=== PATIENT | female | born 1945 | race Caucasian/White ===

== ENCOUNTER → 2016-04-14 | Outpatient (CLI) | payer OTHER ==
[~2016-04-14] MED LIST: ASPCH81X PO; COEN1CAP17 PO; FURO20TA PO; GLUC10007 PO; LACTCAP3 PO; MAGNTAB4 PO; NYST100098 TOP; PHEN1LIQ PO; PRLSR20 PO; SIMV10TA2 PO; SOTA80TA PO
[2016-04-14 15:07] LABS: URINE APPEARANCE CLEAR (CLEAR); URINE BILIRUBIN NEG (NEG); URINE COLOR YELLOW; URINE NITRITE NEG (NEG); URINE SPECIFIC GRAVITY 1.026 (1.000-1.030); UROBILINOGEN NEG (NEG); ZZUR CULT IF INDIC CLEAN CATCH NO
[2016-04-14 15:12] LABS: MANUAL MICROSCOPIC REQUIRED? NO; REVIEW REQ? NO
[2016-04-14 15:15] LABS: BLOOD UREA NITROGEN 21 mg/dl (7-18); BUN/CREATININE RATIO 23.3 (10-20); CALCIUM 8.7 mg/dl (8.5-10.1); CARBON DIOXIDE 24 mmol/L (21-32); CHLORIDE 110 mmol/L (98-107); CREATININE 0.91 mg/dl (0.60-1.20); ESTIMATED AVERAGE GLUCOSE 117 mg/dl; GLUCOSE 82 mg/dl (70-99); HA1C FLAG Normal (Normal); POTASSIUM 4.7 mmol/L (3.5-5.1); SODIUM 143 mmol/L (136-145)
== END | disposition home or self-care (01) ==
LOC: C.LAB1850 13:32
PROVIDERS: ATTEND Nurse Practitioner Family
DX: E11.9 Type 2 diabetes mellitus without complications (principal); R35.0 Frequency of micturition

== ENCOUNTER → 2016-08-15 | Outpatient (CLI) | payer OTHER ==
[~2016-08-15] MED LIST changes: +ASPI-461 PO; +NYST1POW7 TOP; +SLWMEC PO
[2016-08-15 12:26] LABS: BASO % 0.5 %; BASO ABS # 0.03 K/uL (0-0.2); COMPLETE YES; EOS % 4.3 %; HEMATOCRIT 42.8 % (37-47); IG% 0.2 %; LYMPH % 25.2 %; LYMPH ABS # 1.46 K/uL (1.2-3.4); MEAN CELL VOLUME 91.1 fL (80-100); MEAN CORPUSCULAR HEMOGLOBIN 29.8 pg (25-34); MEAN CORPUSCULAR HGB CONC 32.7 g/dl (32-36); MEAN PLATELET VOLUME 8.8 fL (7.4-10.4); MONO % 7.2 %; NEUT % 62.6 %; PLATELET COUNT 268 K/uL (130-400)
[2016-08-15 13:33] LABS: ESTIMATED AVERAGE GLUCOSE 126 mg/dl; HA1C FLAG Normal (Normal)
[2016-08-15 14:04] LABS: RATIO 3.5 mcg/mg (0-30.0)
[2016-08-15 14:09] LABS: ALT/SGPT 15 U/L (12-78); AST/SGOT 12 U/L (15-37); BLOOD UREA NITROGEN 20 mg/dl (7-18); BUN/CREATININE RATIO 20.4 (10-20); CALCIUM 8.9 mg/dl (8.5-10.1); CARBON DIOXIDE 26 mmol/L (21-32); CHLORIDE 110 mmol/L (98-107); CREATININE 0.96 mg/dl (0.60-1.20); GLUCOSE 88 mg/dl (70-99); MAGNESIUM 2.3 mg/dl (1.8-2.4); POTASSIUM 4.5 mmol/L (3.5-5.1); SODIUM 144 mmol/L (136-145)
[2016-08-15 14:14] LABS: ALB/GLOB RATIO 0.9 (0.9-2); ALKALINE PHOSPHATASE 56 U/L (45-117); CHOLESTEROL 152 mg/dl (0-200); CHOLESTEROL/HDL RATIO 2.4; HDL CHOLESTEROL 64 mg/dl; LDL CHOLESTEROL CALCULATED 64 mg/dl; TRIGLYCERIDES 118 mg/dl (0-150); VERY LOW DENSITY LIPOPROT CALC 24 mg/dl
== END | disposition home or self-care (01) ==
LOC: C.LAB1850 11:23
PROVIDERS: ATTEND Nurse Practitioner Family
DX: E11.9 Type 2 diabetes mellitus without complications (principal); I48.91 Unspecified atrial fibrillation; E78.5 Hyperlipidemia, unspecified; K21.9 Gastro-esophageal reflux disease without esophagitis; I89.0 Lymphedema, not elsewhere classified

== ENCOUNTER → 2016-11-28 | Outpatient (CLI) | payer OTHER ==
[~2016-11-28] MED LIST changes: -ASPI-461 PO; -NYST1POW7 TOP; -SLWMEC PO
--- NOTE | 2016-11-29 08:11 | MAMMOGRAPHY REPORT ---
BILATERAL DIGITAL SCREENING MAMMOGRAM WITH CAD: 11/28/2016 CLINICAL HISTORY: Routine screening. Patient has no complaints. TECHNIQUE: Bilateral CC and MLO views were obtained. Current study was also evaluated with a Comput er Aided Detection (CAD) system. COMPARISON: Comparison is made to exams dated: 02/05/2015 mammogram, 12/17/2013 mammogram - [facility], 11/28/2012 mammogram, 03/08/2012 mammogram, 12/01/2011 mammogram, and 10/26/2010 ma mmogram. BREAST COMPOSITION: The tissue of both breasts is almost entirely fatty. FINDINGS: There are stable postsurgical changes in the right breast. A benign oil cyst is seen in t he upper outer quadrant. There are stable punctate calcifications in the far posterior right breast on the MLO view. A stable electronic loop recorder is seen projecting over the medial left breast. N o suspicious mass, architectural distortion or cluster of microcalcifications is identified. IMPRESSION: ACR BI-RADS CATEGORY 2: BENIGN There is no mammographic evidence of malignancy. A 1 year screening mammogram is recommended. The pa tient will receive written notification of the results. Approximately 10% of breast cancers are not detected with mammography. A negative mammographic report should not delay biopsy if a clinically suggestive mass is present. Albertina Wright M.D. ay/:11/28/2016 15:07:41 Striper Spray Gun: Benita RUELASR, M, [facility] letter sent: Normal 1/2 BI-RADS Code: ACR BI-RADS Category 2: Benign
== END | disposition home or self-care (01) ==
LOC: C.MAMM 13:22
PROVIDERS: ATTEND Nurse Practitioner Family
DX: Z12.31 Encounter for screening mammogram for malignant neoplasm of breast (principal)

== ENCOUNTER → 2016-12-26 | Outpatient (CLI) | payer OTHER ==
[~2016-12-26] MED LIST changes: +ASPI-461 PO; +NYST1POW7 TOP; +SLWMEC PO
[2016-12-26 12:52] LABS: ESTIMATED AVERAGE GLUCOSE 117 mg/dl; HA1C FLAG Normal (Normal)
[2016-12-26 12:58] LABS: BLOOD UREA NITROGEN 22 mg/dl (7-18); BUN/CREATININE RATIO 22.3 (10-20); CARBON DIOXIDE 27 mmol/L (21-32); CHLORIDE 108 mmol/L (98-107); CREATININE 0.98 mg/dl (0.60-1.20); GLUCOSE 94 mg/dl (70-99); MAGNESIUM 2.1 mg/dl (1.8-2.4); POTASSIUM 4.2 mmol/L (3.5-5.1); SODIUM 141 mmol/L (136-145)
== END | disposition home or self-care (01) ==
LOC: C.LAB1850 11:30
PROVIDERS: ATTEND Nurse Practitioner Family
DX: E11.9 Type 2 diabetes mellitus without complications (principal); I48.91 Unspecified atrial fibrillation; E78.5 Hyperlipidemia, unspecified; K21.9 Gastro-esophageal reflux disease without esophagitis; I89.0 Lymphedema, not elsewhere classified

== ENCOUNTER → 2017-01-18 | Day surgery (SDC) | payer OTHER ==
[2016-12-26 15:03] VITALS: Ht 152.4 cm; Wt 111.8 kg
[~2017-01-18] VITALS: Ht 152.4 cm; Wt 111.8 kg
[~2017-01-18] MED LIST changes: +500ML BSS 0.3ML EPI 1:1000PF IRRIG ONE; +ACETAMINOPHEN 325 MG TAB PO PRN; +AMVISC PLUS 0.8ML SYRINGE INT OCU ONE; -ASPCH81X PO; +ATROPINE SULFATE 0.1 MG/ML 5ML SYR IV PRN; +BSS FLUSH ONE; +EpHEDrine SULFATE INJ 50 MG/ML AMP IV PRN; +EpINEphrine INJ 1MG/ML AMP 1 MG/ML AMP ONE; +LACTATED RINGER'S 1000ML 500 ML IV SCH; +LIDOCAINE 3.5% OPH GEL PER APPLICATION CHARGE ONE; +LIDOCAINE HCL 1% MPF 2 ML VIAL ONE; -MAGNTAB4 PO; +MIDAZOLAM HCL 1 MG/ML 2ML VIAL ONE; -NYST100098 TOP; +OCUCOAT 1 ML SOLN IO ONE; +POVIDONE-IODINE OP SOLN 30 ML BTL ONE; +PROPARACAINE 0.5% OP SOLN PER DROP CHARGE OPL SCH; +TOBRAMYCIN/DEXAMETHASONE OPH OINT PER APPLN CHARGE ONE
[2017-01-18] MEDS: PHENYLEPHRINE HCL 2.5% OP SOLN PER DROP CHARGE OPL SCH ×2 (08:27→08:32)
[2017-01-18] MEDS: TROPICAMIDE 1% OP SOLN PER DROP CHARGE OPL SCH ×2 (08:28→08:32)
[2017-01-18] MEDS: CYCLOPENTOLATE HCL 1% OP SOLN PER DROP CHARGE OPL SCH ×2 (08:29→08:34)
[2017-01-18] MEDS: KETOROLAC 0.5% OP SOLN PER DROP CHARGE OPL SCH ×2 (08:30→08:35)
[2017-01-18] MEDS: GATIFLOXACIN OP SOLN PER DROP CHARGE OPL SCH ×2 (08:31→08:36)
--- NOTE | 2017-01-18 08:55 | History & Physical Bridge - SC ---
H&P Re-Evaluation Bridge Note: I have examined the patient, reviewed the History & Physical and in the interval since the performance of the History & Physical I have noted the following changes of clinical significance Diagnosis: Left Cataract Procedure: Left Cataract Removal with Lens Implant : No changes noted
--- NOTE | 2017-01-18 09:30 | Discharge Instructions-SurgCtr ---
Discharge Instructions Date of Service Jan 18, 2017. Visit Reason for Visit: Left Cataract Discharge Discharge Diagnosis / Problem: cataract Discharge Goals Goal(s): Improve function Activity Recommendations Activity Limitations: per Instructions/Follow-up section Anesthesia . Post Anesthesia Instructions: If you have had General Anesthesia or IV Sedation: * Do not drive today. * Resume driving when surgeon permits. * Do not make important decisions or sign legal documents today. * Call surgeon for: 1. Temperature elevations greater than 101 degrees F. 2. Uncontrollable pain. 3. Excessive bleeding. 4. Persistent nausea and vomiting. 5. Medication intolerance (nausea, vomiting or rash). * For nausea and vomiting use only clear liquids such as: tea, soda, bouillon until nausea subsides, then gradually increase diet as tolerated. * If you have any concerns or questions, call your surgeon's office. If physician is unavailable and it is an emergency, call 911 or go to the nearest emergency room. . Diet Recommendations Home Diet: resume previous diet Procedures Procedures Performed: Left Cataract Phacoemulsification With Intraocular Lens Implant Pending Studies Studies pending at discharge: no Medical Emergencies . Who to Call and When: Medical Emergencies: If at any time you feel your situation is an emergency, please call 911 immediately. . Non-Emergent Contact Non-Emergency issues call your: Creative Services Designer . . "Provider Documentation" section prepared by Lokesh Ritchie. .
--- NOTE | 2017-01-18 09:31 | [facility] Operative Report ---
Operative Report Date of Service Jan 18, 2017. Operative Report 1. PREOPERATIVE DIAGNOSIS: Cataract of the left eye. 2. POSTOPERATIVE DIAGNOSIS: Same. 3. PROCEDURE: Phacoemulsification with intraocular lens implantation of the left eye. SURGEON: Dr. Lokesh Ritchie. ANESTHESIA: Topical Lidocaine gel, 1% Non- Preserved intracameral Lidocaine, and monitored intravenous sedation. INDICATIONS FOR THE PROCEDURE: The patient is a 71 - year-old female with a history of cataract of the left eye causing significant visual impairment. The details of the proposed procedure were explained to the patient who asked appropriate questions and following discussion of all risks, benefits and alternatives agreed to have the procedure done. 4. OPERATION AND FINDINGS: DESCRIPTION OF PROCEDURE: After informed consent was obtained, the patient was brought to the Operating Room at the [facility]. The patient was placed in a supine position and then the left eye was prepped and draped in the usual sterile fashion for intraocular surgery. A drop of topical Lidocaine gel was placed in the operative eye. A wire lid speculum was then placed in the fornices. A corneal paracentesis was then created temporally. The Non-Preserved Lidocaine was then instilled into the anterior chamber. The anterior chamber was then pressurized with viscoelastic. A 2.0 mm clear corneal incision was then created temporally. A cystotome was inserted into the anterior chamber and used to create a tear in the anterior lens capsule. This capsular tear was then used to create a small flap and the flap was dragged in a counterclockwise direction in order to create a continuous curvilinear capsulorrhexis. Hydrodissection was accomplished with balanced salt solution. Phacoemulsification of the lens nucleus was then performed in a standard [id number]-yibcpxp technique. The phaco time was 39 seconds with an average power of 19 %. The remaining cortical material was removed using irrigation aspiration. The capsular bag was then filled with viscoelastic. A [employer]ch [employer] Lomb MX60 +08.0 diopters lens was then loaded into the injector and injected into the capsular bag. The remaining viscoelastic was removed with the irrigation aspiration handpiece. The wound was hydrated and then checked and found to be watertight. The intraocular pressure was checked and found to be adequate. The wire lid speculum was removed and the patient's face was cleaned and dried. TobraDex ointment was placed in the inferior fornix. The patient was discharged to the Recovery Room having tolerated the procedure well. There were no complications. The patient will be seen tomorrow in the office for follow-up. I attest to the content of the Intraoperative Record and any orders documented therein. Any exceptions are noted below.
--- NOTE | 2017-01-18 09:58 | Anesthesia Progress Nt - [facility] ---
Anesthesia Post Op Note Date & Time Jan 18, 2017 at 09:58 Vital Signs Pain Intensity: 0 Vital Signs Past 12 Hours Date Time Temp Pulse Resp B/P (MAP) Pulse Ox O2 Delivery O2 Flow Rate FiO2 01/18/17 09:35 36.5 56 16 142/73 (96) 99 01/18/17 08:13 36.5 55 18 145/90 (108) 100 Room Air Notes Mental Status: alert / awake / arousable, participated in evaluation Pt Amnestic to Procedure: Yes Nausea / Vomiting: adequately controlled Pain: adequately controlled Airway Patency, RR, SpO2: stable & adequate BP & HR: stable & adequate Hydration State: stable & adequate Anesthetic Complications: no major complications apparent
[2017-01-18 10:01] VITALS: BP 127/55; PULSE 56; TEMP 36.5; O2SAT 100
== END | disposition home or self-care (01) ==
LOC: X.SURG 07:45
PROVIDERS: ATTEND Ophthalmology
DX: E11.36 Type 2 diabetes mellitus with diabetic cataract (principal); I48.91 Unspecified atrial fibrillation; I49.5 Sick sinus syndrome; I47.1 Supraventricular tachycardia; I08.0 Rheumatic disorders of both mitral and aortic valves; E78.5 Hyperlipidemia, unspecified; K21.9 Gastro-esophageal reflux disease without esophagitis; I89.0 Lymphedema, not elsewhere classified; E66.9 Obesity, unspecified; M85.80 Other specified disorders of bone density and structure, unspecified site; Z95.818 Presence of other cardiac implants and grafts; Z79.82 Long term (current) use of aspirin; Z79.899 Other long term (current) drug therapy

== ENCOUNTER → 2017-02-20 | Day surgery (SDC) | payer OTHER ==
[2017-01-31 10:32] VITALS: Ht 152.4 cm; Wt 111.8 kg
[~2017-02-20] VITALS: Ht 152.4 cm; Wt 111.8 kg
[~2017-02-20] MED LIST changes: -PROPARACAINE 0.5% OP SOLN PER DROP CHARGE OPL SCH; +PROPARACAINE 0.5% OP SOLN PER DROP CHARGE OPR SCH
[2017-02-20] MEDS: PHENYLEPHRINE HCL 2.5% OP SOLN PER DROP CHARGE OPR SCH ×2 (07:35→07:40)
[2017-02-20] MEDS: TROPICAMIDE 1% OP SOLN PER DROP CHARGE OPR SCH ×2 (07:36→07:41)
[2017-02-20] MEDS: CYCLOPENTOLATE HCL 1% OP SOLN PER DROP CHARGE OPR SCH ×2 (07:37→07:42)
[2017-02-20] MEDS: KETOROLAC 0.5% OP SOLN PER DROP CHARGE OPR SCH ×2 (07:38→07:43)
[2017-02-20] MEDS: GATIFLOXACIN OP SOLN PER DROP CHARGE OPR SCH ×2 (07:39→07:48)
--- NOTE | 2017-02-20 08:07 | History & Physical Bridge - SC ---
H&P Re-Evaluation Bridge Note: I have examined the patient, reviewed the History & Physical and in the interval since the performance of the History & Physical I have noted the following changes of clinical significance: No changes noted
--- NOTE | 2017-02-20 08:40 | Discharge Instructions-SurgCtr ---
Discharge Instructions Date of Service Feb 20, 2017. Visit Reason for Visit: Cataract Right Eye Discharge Discharge Diagnosis / Problem: cataract Discharge Goals Goal(s): Improve function Activity Recommendations Activity Limitations: per Instructions/Follow-up section Anesthesia . Post Anesthesia Instructions: If you have had General Anesthesia or IV Sedation: * Do not drive today. * Resume driving when surgeon permits. * Do not make important decisions or sign legal documents today. * Call surgeon for: 1. Temperature elevations greater than 101 degrees F. 2. Uncontrollable pain. 3. Excessive bleeding. 4. Persistent nausea and vomiting. 5. Medication intolerance (nausea, vomiting or rash). * For nausea and vomiting use only clear liquids such as: tea, soda, bouillon until nausea subsides, then gradually increase diet as tolerated. * If you have any concerns or questions, call your surgeon's office. If physician is unavailable and it is an emergency, call 911 or go to the nearest emergency room. . Diet Recommendations Home Diet: resume previous diet Procedures Procedures Performed: Right Cataract Phacoemulsification With Intraocular Cain Implant Pending Studies Studies pending at discharge: no Medical Emergencies . Who to Call and When: Medical Emergencies: If at any time you feel your situation is an emergency, please call 911 immediately. . Non-Emergent Contact Non-Emergency issues call your: Building Maintenance Technician . . "Provider Documentation" section prepared by Lokesh Ritchie. .
--- NOTE | 2017-02-20 08:41 | [facility] Operative Report ---
Operative Report Date of Service Feb 20, 2017. Operative Report 1. PREOPERATIVE DIAGNOSIS: Cataract of the right eye. 2. POSTOPERATIVE DIAGNOSIS: Same. 3. PROCEDURE: Phacoemulsification with intraocular lens implantation of the right eye. SURGEON: Dr. Lokesh Ritchie. ANESTHESIA: Topical Lidocaine gel, 1% Non- Preserved intracameral Lidocaine, and monitored intravenous sedation. INDICATIONS FOR THE PROCEDURE: The patient is a 71 - year-old female with a history of cataract of the right eye causing significant visual impairment. The details of the proposed procedure were explained to the patient who asked appropriate questions and following discussion of all risks, benefits and alternatives agreed to have the procedure done. 4. OPERATION AND FINDINGS: DESCRIPTION OF PROCEDURE: After informed consent was obtained, the patient was brought to the Operating Room at the [facility]. The patient was placed in a supine position and then the right eye was prepped and draped in the usual sterile fashion for intraocular surgery. A drop of topical Lidocaine gel was placed in the operative eye. A wire lid speculum was then placed in the fornices. A corneal paracentesis was then created temporally. The Non-Preserved Lidocaine was then instilled into the anterior chamber. The anterior chamber was then pressurized with viscoelastic. A 2.0 mm clear corneal incision was then created temporally. A cystotome was inserted into the anterior chamber and used to create a tear in the anterior lens capsule. This capsular tear was then used to create a small flap and the flap was dragged in a counterclockwise direction in order to create a continuous curvilinear capsulorrhexis. Hydrodissection was accomplished with balanced salt solution. Phacoemulsification of the lens nucleus was then performed in a standard oghpxs-bzw-dioxvxq technique. The phaco time was 34 seconds with an average power of 17 %. The remaining cortical material was removed using irrigation aspiration. The capsular bag was then filled with viscoelastic. A Bausch & Lomb MX60 +10.0 diopters lens was then loaded into the injector and injected into the capsular bag. The remaining viscoelastic was removed with the irrigation aspiration handpiece. The wound was hydrated and then checked and found to be watertight. The intraocular pressure was checked and found to be adequate. The wire lid speculum was removed and the patient's face was cleaned and dried. TobraDex ointment was placed in the inferior fornix. The patient was discharged to the Recovery Room having tolerated the procedure well. There were no complications. The patient will be seen tomorrow in the office for follow-up. I attest to the content of the Intraoperative Record and any orders documented therein. Any exceptions are noted below.
[2017-02-20 08:45] VITALS: TEMP 36.2
--- NOTE | 2017-02-20 08:48 | Anesthesia Progress Nt - [facility] ---
Anesthesia Post Op Note Date & Time Feb 20, 2017 at 08:48 Vital Signs Pain Intensity: 0 Vital Signs Past 12 Hours Date Time Temp Pulse Resp B/P (MAP) Pulse Ox O2 Delivery O2 Flow Rate FiO2 02/20/17 07:24 37.0 62 16 137/71 (93) 97 Room Air Notes Mental Status: alert / awake / arousable, participated in evaluation Pt Amnestic to Procedure: Yes Nausea / Vomiting: adequately controlled Pain: adequately controlled Airway Patency, RR, SpO2: stable & adequate BP & HR: stable & adequate Hydration State: stable & adequate Anesthetic Complications: no major complications apparent
[2017-02-20 09:14] VITALS: BP 143/69; PULSE 55; O2SAT 98
== END | disposition home or self-care (01) ==
LOC: X.SURG 06:56
PROVIDERS: ATTEND Ophthalmology
DX: E11.36 Type 2 diabetes mellitus with diabetic cataract (principal); I48.91 Unspecified atrial fibrillation; E78.5 Hyperlipidemia, unspecified; K21.9 Gastro-esophageal reflux disease without esophagitis; Z79.899 Other long term (current) drug therapy

== ENCOUNTER → 2017-06-28 | Outpatient (CLI) | payer OTHER ==
[~2017-06-28] MED LIST changes: -500ML BSS 0.3ML EPI 1:1000PF IRRIG ONE; -ACETAMINOPHEN 325 MG TAB PO PRN; -AMVISC PLUS 0.8ML SYRINGE INT OCU ONE; -ATROPINE SULFATE 0.1 MG/ML 5ML SYR IV PRN; -BSS FLUSH ONE; -EpHEDrine SULFATE INJ 50 MG/ML AMP IV PRN; -EpINEphrine INJ 1MG/ML AMP 1 MG/ML AMP ONE; -LACTATED RINGER'S 1000ML 500 ML IV SCH; -LIDOCAINE 3.5% OPH GEL PER APPLICATION CHARGE ONE; -LIDOCAINE HCL 1% MPF 2 ML VIAL ONE; -MIDAZOLAM HCL 1 MG/ML 2ML VIAL ONE; -OCUCOAT 1 ML SOLN IO ONE; -POVIDONE-IODINE OP SOLN 30 ML BTL ONE; -PROPARACAINE 0.5% OP SOLN PER DROP CHARGE OPR SCH; -TOBRAMYCIN/DEXAMETHASONE OPH OINT PER APPLN CHARGE ONE
[2017-06-28 13:17] LABS: BASO % 0.6 %; BASO ABS # 0.03 K/uL (0-0.2); EOS % 2.4 %; EOS ABS # 0.13 K/uL (0-0.5); HEMATOCRIT 43.7 % (37-47); HEMOGLOBIN 14.5 g/dL (12.0-16.0); IG# 0.01 K/uL (0.00-0.02); MEAN CELL VOLUME 90.7 fL (80-100); MEAN CORPUSCULAR HEMOGLOBIN 30.1 pg (25-34); MEAN CORPUSCULAR HGB CONC 33.2 g/dl (32-36); MEAN PLATELET VOLUME 8.9 fL (7.4-10.4); MONO % 7.5 %; NEUT % 59.3 %; NEUT ABS # 3.16 K/uL (1.4-6.5); PLATELET COUNT 282 K/uL (130-400); RED CELL DISTRIBUTION WIDTH CV 13.4 % (11.5-14.5); RED CELL DISTRIBUTION WIDTH SD 44.7 fL (36.4-46.3); WHITE BLOOD COUNT 5.33 K/uL (4.8-10.8)
[2017-06-28 13:21] LABS: HEMOGLOBIN A1C 5.8 % (4.5-5.6)
[2017-06-28 13:32] LABS: ALBUMIN 3.1 gm/dl (3.4-5.0); ALT/SGPT 14 U/L (12-78); AST/SGOT 9 U/L (15-37); BLOOD UREA NITROGEN 19 mg/dl (7-18); CALCIUM 8.9 mg/dl (8.5-10.1); CARBON DIOXIDE 25 mmol/L (21-32); CREATININE 1.01 mg/dl (0.60-1.20); GLUCOSE 89 mg/dl (70-99); POTASSIUM 4.2 mmol/L (3.5-5.1); SODIUM 141 mmol/L (136-145)
[2017-06-28 13:36] LABS: ALKALINE PHOSPHATASE 52 U/L (45-117); CHOLESTEROL 142 mg/dl (0-200); LDL CHOLESTEROL CALCULATED 47 mg/dl; TOTAL PROTEIN 6.6 gm/dl (6.4-8.2)
== END | disposition home or self-care (01) ==
LOC: C.LAB1850 11:31
PROVIDERS: ATTEND Neuromusculoskeletal Medicine & OMM
DX: Z00.00 Encounter for general adult medical examination without abnormal findings (principal); E11.9 Type 2 diabetes mellitus without complications; I48.91 Unspecified atrial fibrillation

== ENCOUNTER → 2017-07-30 | Outpatient (CLI) | payer OTHER | END | disposition home or self-care (01) | LOC: C.LABSPEC 12:26 | PROVIDERS: ATTEND Physician Assistant | DX: K62.5 Hemorrhage of anus and rectum (principal) ==

== ENCOUNTER 2023-10-08 20:23 | Inpatient (IN) ==
[2023-10-08 21:36] LABS: Alanine Aminotransferase 6 U/L (7-52); Albumin Globulin Ratio 1.1 (0.9-2); Albumin Level 3.1 gm/dl (3.4-5.0); Alkaline Phosphatase 43 U/L (34-104); Anion Gap 5 (3-11); Aspartate Aminotransferase 12 U/L (13-39); BUN Creatinine Ratio 17.4 (10-20); Bilirubin,Total 0.4 mg/dl (0.2-1.0); Blood Urea Nitrogen 23 mg/dl (6-23); Calcium 9.1 mg/dl (8.6-10.3); Carbon Dioxide 25 mmol/L (21-32); Chloride 107 mmol/L (98-107); Est GFR (African American) 44.7 ml/min; Est GFR (Non-African American) 38.5 ml/min; Globulin 2.9 gm/dl (2.5-4.0); Glucose 120 mg/dl (70-99(Fasting)); Potassium 4.5 mmol/L (3.5-5.1); Sodium 137 mmol/L (136-145)
[2023-10-08 21:50] LABS: Basophils # (auto) 0.03 K/uL (0.00-0.20); Basophils % (auto) 0.6 %; Eosinophils # (auto) 0.17 K/uL (0.00-0.50); Eosinophils % (auto) 3.1 %; Hematocrit (blood only) 40.5 % (37.0-47.0); Hemoglobin 13.2 g/dl (12.0-16.0); Immature Granulocytes # (auto) 0.03 K/uL (0.01-0.20); Immature Granulocytes % (auto) 0.6 %; Lymphocytes # (auto) 1.39 K/uL (1.20-3.40); Lymphocytes % (auto) 25.6 %; Mean Corpuscular Hemoglobin 29.9 pg (25.0-34.0); Mean Corpuscular Hgb Conc 32.6 g/dL (32.0-36.0); Mean Corpuscular Volume 91.6 fL (80.0-100.0); Mean Platelet Volume 8.7 fL (9.4-12.4); Monocytes # (auto) 0.46 K/uL (0.11-0.59); Monocytes % (auto) 8.5 %; Neutrophils # (auto) 3.34 K/uL (1.40-6.50); Neutrophils % (auto) 61.6 %; Platelet Count 269 K/uL (130-400); RDW Coefficient of Variation 15.3 % (11.5-14.5); RDW Standard Deviation 51.6 fL (36.4-46.3); Red Blood Count 4.42 M/uL (4.20-5.40); White Blood Count 5.42 K/ul (4.8-10.8)
[2023-10-08 22:34] LABS: Adenovirus PCR Not Detected (NotDetected); Bordetella parapertussis PCR Not Detected (NotDetected); Bordetella pertussis PCR Not Detected (NotDetected); Chlamydia pneumoniae PCR Not Detected (NotDetected); Coronavirus 229E PCR Not Detected (NotDetected); Coronavirus CoV-2 (COVID19)PCR DETECTED (NotDetected); Coronavirus HKU1 PCR Not Detected (NotDetected); Coronavirus NL63 PCR Not Detected (NotDetected); Coronavirus OC43PCR Not Detected (NotDetected); Human Metapneumovirus PCR Not Detected (NotDetected); Influenza A PCR Not Detected (NotDetected); Influenza B PCR Not Detected (NotDetected); Mycoplasma pneumoniae PCR Not Detected (NotDetected); Parainfluenza Virus 1 PCR Not Detected (NotDetected); Parainfluenza Virus 2 PCR Not Detected (NotDetected); Parainfluenza Virus 3 PCR Not Detected (NotDetected); Parainfluenza Virus 4 PCR Not Detected (NotDetected); Respiratory Syncytial VirusPCR Not Detected (NotDetected); Rhinovirus/Enterovirus PCR Not Detected (NotDetected)
--- NOTE | 2023-10-08 22:55 | Emergency Department Note ---
Impression & Plan COVID-19, Urinary tract infection, Generalized weakness ED Provider Note NAME: EUFEMIA JONES AGE: 77 SEX: F : 1945 ARRIVES VIA: Walk-In INFORMANT: Patient ED PROVIDER(S): Severino Celaya MD CHIEF COMPLAINT: Cough congestion, body aches, generalized weakness PLAN: Disposition: Admit MEDICAL DECISION MAKING: The patient is a pleasant 77-year-old woman with a past medical history of cardiomyopathy, paroxysmal atrial tachycardia, type 2 diabetes, chronic lymphedema, hypertension, hyperlipidemia, gait instability who presents to the emergency department via walk-in accompanied by her son for evaluation of shortness of breath, cough, congestion, generalized weakness and bodyaches over the past week where she was seen by her PCP 5 days ago and started on doxycycline for bronchitis. However she reports no significant improvement this time has become weaker increasingly weak where she feels she is unable to ambulate at home where she lives by herself. She denies any chest pain. She denies nausea, vomiting or diarrhea. The patient describes a prolonged course of respiratory illnesses dating back to April. She describes that she had a negative home COVID-19 test at that time but understands that her doctor suspected she may have had a false negative and suspected this was COVID at that time. She then reports a couple of months later developing cough and congestion and was diagnosed with pneumonia and treated with antibiotics and then had improvement. The patient further adds that she feels her congestion has never completely gone away nor has her fatigue/malaise and this is why she understands that it was suspected that she may have long COVID related to her illness in April. However she acknowledges that she never had a positive COVID-19 test at that time or subsequently. Of note, the patient did arrive to emergency department during time of high volume, acuity and prolonged emergency department waiting times. Critical pathways initiated from triage. On evaluation, patient is fatigued appearing but no distress, afebrile with blood pressure 140s-160s/90s/100s and vital signs otherwise stable. She exhibits chronic lymphedema but has dry mucous membranes. She exhibits generalized weakness without focal deficits. EKG without overt acute ischemia. CXR negative for acute cardiopulmonary process per my personal preliminary review/interpretation. WBC, H/H and platelets within normal limits. Chemistry without metabolic acidosis. Creatinine 1.3 similar to recent values since June of this year. LFTs are unremarkable. Procalcitonin is not elevated. UA suspicious for infection with positive nitrites, leuk esterase and 1+ bacteria. Treatment for UTI was initiated with IV ceftriaxone. Respiratory BioFire did result positive for COVID-19. Given the patient's new respiratory symptoms that started a week ago in the setting of increased weakness from her recent chronic weakness suspect acute COVID-19 infection is likely a component to her presentation today as is her UTI. Given patient reports inability to walk due to her weakness she does agree with plan for admission for further management. Dr. Meza, [facility], to evaluate the patient for admission. Further management per admitting team. Triage Nursing notes reviewed and agree them. Prior/external medical records reviewed Vital Signs: reviewed Differential diagnosis: Reactive airway disease, pneumonia, pneumothorax, COPD, CHF, infections, cardiac ischemia, pulmonary embolism, musculoskeletal, gastrointestinal, as well as other pathologies. ER treatment provided: See below. Diagnostics interpreted by me: ECG: Normal sinus rhythm, 64 bpm, no ectopy, no overt ST elevation or depression, QTc 443, cures 84. Cardiac Monitoring: An order for continuous cardiac monitoring was placed and demonstrated Normal sinus rhythm, 64 bpm, no ectopy. Laboratory studies: See below Imaging studies: CXR negative for acute cardiopulmonary process per my personal preliminary review/interpretation. Consultation(s): Dr. Meza, [facility] [place] hospitalist, to evaluate the patient for admission. HPI: The patient is a pleasant 77-year-old woman with a past medical history of cardiomyopathy, paroxysmal atrial tachycardia, type 2 diabetes, chronic lymphedema, hypertension, hyperlipidemia, gait instability who presents to the emergency department via walk-in accompanied by her son for evaluation of shortness of breath, cough, congestion, generalized weakness and bodyaches over the past week where she was seen by her PCP 5 days ago and started on doxycycline for bronchitis. However she reports no significant improvement this time has become weaker increasingly weak where she feels she is unable to ambulate at home where she lives by herself. She denies any chest pain. She denies nausea, vomiting or diarrhea. The patient describes a prolonged course of respiratory illnesses dating back to April. She describes that she had a negative home COVID-19 test at that time but understands that her doctor suspected she may have had a false negative and suspected this was COVID at that time. She then reports a couple of months later developing cough and congestion and was diagnosed with pneumonia and treated with antibiotics and then had improvement. The patient further adds that she feels her congestion has never completely gone away nor has her fatigue/malaise and this is why she understands that it was suspected that she may have long COVID related to her illness in April. However she acknowledges that she never had a positive COVID-19 test at that time or subsequently. ROS: See above HPI for pertinent positives & negatives. A total of 10 systems reviewed and were otherwise negative. VITALS:See Below PHYSICAL EXAMINATION: GENERAL: Awake, alert, fatigued-appearing, in no distress, BMI 41.6 HENT: Normocephalic, atraumatic. Oropharynx unremarkable. EYES: Normal conjunctiva. Sclera non-icteric. NECK: Supple. No nuchal rigidity. FROM. No JVD. RESPIRATORY: Clear to auscultation. CARDIAC: Regular rate, normal rhythm. Extremities warm and well perfused. Pulses equal. ABDOMEN: Soft, non-distended. No tenderness to palpation. Chronic abdominal wall hernias, soft and nontender. MUSCULOSKELETAL: Chest examination reveals no tenderness. The back is symmetrical on inspection without obvious abnormality. There is no CVA tenderness to palpation. No joint edema. LOWER EXTREMITIES: Calves are equal size bilaterally and non-tender. Chronic bilateral lower extremity lymphedema. No discoloration. NEURO: No focal sensory or motor deficits noted. Generalized weakness. SKIN: No rash or jaundice noted. Severino Celaya MD Past Med/Surg History Problem List (Updated 10/09/23 @ 06:13 by Severino Celaya MD) Generalized weakness (Acute) Urinary tract infection (Acute) COVID-19 (Acute) UTI (urinary tract infection) COVID-19 Dysuria Cardiomyopathy Paroxysmal atrial tachycardia Intermittent palpitations Right knee DJD Urinary incontinence Knee instability Recurrent UTI Urinary tract infection symptoms Vulvar mass Scoliosis of thoracolumbar region due to degenerative disease of spine in adult Hypoalbuminemia Vitamin B12 deficiency Muscle weakness Nondisplaced fracture of fifth right metatarsal bone Right foot pain Urinary frequency Gait instability Dyspnea on exertion Atrial fibrillation (Chronic) Chronic gastroesophageal reflux disease (Chronic) Hyperlipidemia (Chronic) Mitral and aortic valve disease (Chronic) Morbid obesity (Chronic) Osteopenia (Chronic) Status post placement of implantable loop recorder (Chronic) Type 2 diabetes mellitus (Chronic) Lymphedema, not elsewhere classified (Chronic) Medical History Cervical cancer Non-sustained ventricular tachycardia PSVT (paroxysmal supraventricular tachycardia) Sick sinus syndrome History of cervical cancer Diverticulosis Diverticulitis Surgical History History of intestinal surgery H/O bilateral breast reduction surgery History of tonsillectomy and adenoidectomy H/O hemicolectomy Family History Mother Obesity Hypertension Diabetes Goiter Deep vein thrombosis Stroke Diverticulitis Myocardial infarction Sister Diabetes Lung cancer Father Alzheimer disease Diverticulitis Diabetes Parkinson disease Brother Atrial fibrillation Deep vein thrombosis Family/Other Diverticulitis Grandfather (Maternal) Colorectal cancer Grandfather (Paternal) Colorectal cancer Denies family history of Ovarian cancer Prostate cancer Breast cancer Social History Smoking Status: Never smoker Second Hand Exposure: No; Do You Dip or Chew Tobacco: No; Hx Alcohol Use: Yes Alcohol type: wine Alcohol Intake Frequency: 2-4 x/Month Hx Substance Use: No Preferred Language: Barbadian Communication Ability: Effective Visual Impairment: No Limitations Hearing Ability: Use of Hearing Aid Regulatory Affairs Director Required: No Beliefs That Will Affect Care: None marital status: / Current Living Situation: Alone 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 How many Children do You have: 1 Feels Safe at Home: Yes Safety Concerns: Feels Safe At This Time Childhood Exposure to Second-Hand Smoke: Yes Diet: regular caffeine: No during the past year weight has: remained stable Dental Care, Regularly: No Physical Activity Frequency: 3-4 Times per Week Seatbelt Use: always Sunscreen Use: Yes Assistive Devices: Raised Toilet Seat, Scooter/Electric Scooter and Walker Allergies Allergies Allergy/AdvReac Type Severity Reaction Status Date / Time No Known Allergies Allergy Verified 10/08/23 22:37 Home Meds Home Medications Medication Instructions Recorded Confirmed mecobalamin (vitamin B12) 1,000 1,000 mcg PO .[id number] 10/02/23 10/08/23 mcg chewable tablet Previous Rx's Medication Instructions Recorded compr.stocking,knee,long,large #6 ea 11/12/18 safety needles 25 gauge x 1 1/2" #4 ea 02/26/20 (BD Eclipse Luer-Luz) aspirin 81 mg tablet,delayed 81 mg PO DAILY #90 tabs 12/07/21 release coenzyme Q10 100 mg capsule 100 mg PO DAILY #90 caps 12/07/21 magnesium chloride 64 mg 128 mg (2 x 64 mg) PO DAILY #180 12/07/21 (magnesium chloride) tabs tablet,delayed release (Mag 64) psyllium seed (sugar) oral powder 1 tbsp PO DAILY #1,254 grams 12/07/21 (Metamucil (sugar) oral powder) omeprazole 20 mg capsule,delayed 20 mg PO DAILY GERD #90 caps 06/14/23 release simvastatin 10 mg tablet 10 mg PO QPM Hyperlipidemia #90 06/14/23 tabs sotalol 80 mg tablet 40 mg (1/2 x 80 mg) PO BID Atrial 06/14/23 Fibrillation #90 tabs dicyclomine 10 mg capsule 10 mg PO TID PRN abdominal 09/17/23 cramping #90 caps naproxen 500 mg tablet 500 mg PO BID PRN pain #180 tabs 09/17/23 nystatin 100,000 unit/gram topical 1 applic topical TID PRN AFFECTED 09/17/23 powder SKIN #60 grams doxycycline hyclate 100 mg capsule 100 mg PO Q12H #20 caps 10/04/23 Results & Data (ED) Vital Signs Vital Signs - 24 hr 10/08/23 20:27 10/08/23 22:25 10/09/23 00:00 Temperature 36.8 C Temperature Source Oral Pulse Rate 64 Pulse Rate [Finger] 63 71 Respiratory Rate 18 21 21 Respiratory Effort / Characteristics Non-Labored Respiratory Depth Normal Respiratory Pattern Regular Blood Pressure 144/98 H Blood Pressure [Right Arm] 159/99 H 161/111 H Blood Pressure Mean 113 Blood Pressure Mean [Right Arm] 119 127 Pulse Oximetry 92 98 97 Oxygen Delivery Method Room Air Room Air Room Air Sepsis Recent Fever Within 48 Hours No Sepsis New/Unexplained Change in Mental Status N/A Sepsis Action Taken by Nursing No Action Required Laboratory Data Attestation: I reviewed the patient's lab results. 10/08/23 20:40 10/08/23 20:40 Lab Results 10/08/23 10/08/23 10/08/23 Range/Units 20:30 20:40 22:36 WBC 5.42 (4.8-10.8) K/ul RBC 4.42 (4.20-5.40) M/uL Hgb 13.2 (12.0-16.0) g/dl Hct 40.5 (37.0-47.0) % MCV 91.6 (80.0-100.0) fL MCH 29.9 (25.0-34.0) pg MCHC 32.6 (32.0-36.0) g/dL RDW Std Deviation 51.6 H (36.4-46.3) fL RDW Coeff of Gayathri 15.3 H (11.5-14.5) % Plt Count 269 (130-400) K/uL MPV 8.7 L (9.4-12.4) fL Immature Gran % (Auto) 0.6 % Neut % (Auto) 61.6 % Lymph % (Auto) 25.6 % [place] % (Auto) 8.5 % Eos % (Auto) 3.1 % Baso % (Auto) 0.6 % Neut # (Auto) 3.34 (1.40-6.50) K/uL Lymph # (Auto) 1.39 (1.20-3.40) K/uL [place] # (Auto) 0.46 (0.11-0.59) K/uL Eos # (Auto) 0.17 (0.00-0.50) K/uL Baso # (Auto) 0.03 (0.00-0.20) K/uL Immature Gran # (Auto) 0.03 (0.01-0.20) K/uL Sodium 137 (136-145) mmol/L Potassium 4.5 (3.5-5.1) mmol/L Chloride 107 (98-107) mmol/L Carbon Dioxide 25 (21-32) mmol/L Anion Gap 5 (3-11) BUN 23 (6-23) mg/dl Creatinine 1.32 H (0.6-1.2) mg/dl Est Cr Clr Drug Dosing Not Reportable Est GFR ( Amer) 44.7 ml/min Est GFR (Non-Af Amer) 38.5 ml/min BUN/Creatinine Ratio 17.4 (10-20) Glucose 120 H (70-99(Fasting)) mg/dl Calcium 9.1 (8.6-10.3) mg/dl Magnesium 1.8 (1.7-2.4) mg/dl Total Bilirubin 0.4 (0.2-1.0) mg/dl AST 12 L (13-39) U/L ALT 6 L (7-52) U/L Alkaline Phosphatase 43 (34-104) U/L Total Protein 6.0 (6.0-8.3) gm/dl Albumin 3.1 L (3.4-5.0) gm/dl Globulin 2.9 (2.5-4.0) gm/dl Albumin/Globulin Ratio 1.1 (0.9-2) Procalcitonin 0.02 (0-0.5) ng/ml Urine Color Yellow Urine Appearance Cloudy A (Clear) Urine pH 5.5 (4.5-7.5) Ur Specific [place] 1.014 (1.000-1.030) Urine Protein 1+ H (Negative) Urine Glucose (UA) Negative (Negative) Urine Ketones Negative (Negative) Urine Blood 2+ H (Negative) Urine Nitrite Positive A (Negative) Urine Bilirubin Negative (Negative) Urine Urobilinogen Negative (Negative) Ur Leukocyte Esterase 3+ H (Negative) Urine WBC (Auto) >50 H (0-5) /hpf Urine RBC (Auto) >20 H (0-2) /hpf U Hyaline Cast (Auto) 0-2 (0-2) /lpf U Epithel Cells (Auto) 0-2 (0-2) /hpf Urine Bacteria (Auto) 1+ H (None Seen) Adenovirus (PCR) Not Detected (NotDetected) B. pertussis DNA (PCR) Not Detected (NotDetected) B.parapertussis DNA PCR Not Detected (NotDetected) C. pneumoniae DNA (PCR) Not Detected (NotDetected) Coronavirus OC43 (PCR) Not Detected (NotDetected) Coronavirus HKU1 (PCR) Not Detected (NotDetected) Coronavirus 229E (PCR) Not Detected (NotDetected) SARS-CoV-2 (PCR) DETECTED A (NotDetected) Coronavirus NL63 (PCR) Not Detected (NotDetected) Human Metapneumovir PCR Not Detected (NotDetected) Influenza Type A (PCR) Not Detected (NotDetected) Influenza Type B (PCR) Not Detected (NotDetected) M. pneumoniae (PCR) Not Detected (NotDetected) Parainfluenza 1 (PCR) Not Detected (NotDetected) Parainfluenza 2 (PCR) Not Detected (NotDetected) Parainfluenza 3 (PCR) Not Detected (NotDetected) Parainfluenza 4 (PCR) Not Detected (NotDetected) RSV (PCR) Not Detected (NotDetected) Entero/Rhino (PCR) Not Detected (NotDetected) Administered Medications Lactated Ringer's (Lr) 1,000 mls @ 80 mls/hr IV .[id number] DONAVAN Stop: 10/09/23 16:14 Last Admin: 10/09/23 04:25 Dose: 80 mls/hr Documented By: BRIANA Discontinued Medications Ceftriaxone Sodium (Rocephin) 2,000 mg in 50 mls @ 100 mls/hr IV NOW STA Stop: 10/09/23 00:47 Last Infusion: 10/09/23 02:24 Dose: Infused Documented By: Admin: 10/09/23 01:10 Dose: 100 mls/hr Documented By: BRIANA Acetaminophen (Ofirmev) 1,000 mg in 100 mls @ 400 mls/hr IV NOW STA Stop: 10/09/23 00:32 Last Infusion: 10/09/23 01:09 Dose: Infused Documented By: Admin: 10/09/23 00:31 Dose: 400 mls/hr Documented By: BRIANA Sodium Chloride (Nss) 500 mls @ 999 mls/hr IV .Q31M ONE Stop: 10/09/23 00:48 Last Infusion: 10/09/23 01:32 Dose: Infused Documented By: Admin: 10/09/23 00:31 Dose: 999 mls/hr Documented By: BRIANA Ceftriaxone Sodium (Rocephin) 2,000 mg in 50 mls @ 100 mls/hr IV Q24H DONAVAN Stop: 10/14/23 03:44 Last Admin: 10/09/23 04:17 Dose: Not Given Documented By: BRIANA Sotalol HCl (Sotalol Hcl 80 Mg Tab) 40 mg PO NOW ONE Stop: 10/09/23 02:26 Last Admin: 10/09/23 02:59 Dose: 40 mg Documented By: KML Discharge Plan Visit Data Chief Complaint: Flu Like Symptoms Stated Complaint: WEAKNESS, SOB, COUGH, CONGESTION ED Provider: Severino Celaya Discharge Problem: COVID-19, Urinary tract infection, Generalized weakness Discharge Instructions Interventions: ED Discharge Assessment Last Done: 10/09/23 03:46 Discharge Problem: Urinary tract infection Qualifiers: Urinary tract infection type: acute cystitis Hematuria presence: with hematuria Qualified Code(s): N30.01 - Acute cystitis with hematuria
[2023-10-08 23:09] LABS: Appearance Urine Cloudy (Clear); Bacteria Urine Automated 1+ (None Seen); Bilirubin Urine Negative (Negative); Blood Urine 2+ (Negative); Cast Urine Automated 0-2 /lpf (0-2); Color Urine Yellow; Epithelial Cell Urine Auto 0-2 /hpf (0-2); Glucose Urine UA Negative (Negative); Ketones Urine Negative (Negative); Leukocyte Esterase Urine 3+ (Negative); Nitrite Urine Positive (Negative); Protein Urine 1+ (Negative); RBC Urine Automated >20 /hpf (0-2); Specific Gravity Urine 1.014 (1.000-1.030); Urobilinogen Urine Negative (Negative); WBC Urine Automated >50 /hpf (0-5); pH Urine 5.5 (4.5-7.5)
[2023-10-09] MEDS: ACETAMINOPHEN 1,000 MG/100 ML VIAL IV STA (00:31)
[2023-10-09] MEDS: SODIUM CHLORIDE 0.9% 500 ML IV ONE (00:31)
[2023-10-09] MEDS: cefTRIAXone SODIUM 2,000 MG/50 ML BAG IV STA (01:10)
[2023-10-09] MEDS: SOTALOL HCL 80 MG TAB PO ONE (02:59)
[2023-10-09 03:19] LABS: Magnesium 1.8 mg/dl (1.7-2.4)
[2023-10-09] MEDS ORDERED: guaiFENesin/DEXTROM SYRUP 200MG/20MG 10ML UDC PO PRN (03:45)
[2023-10-09] MEDS ORDERED: NYSTATIN POWDER 15GM BTL EXT PRN (03:45)
[2023-10-09] MEDS ORDERED: IPRATROPIUM BROMIDE HFA INHALER INH PRN (03:55)
[2023-10-09] MEDS: cefTRIAXone SODIUM 2,000 MG/50 ML BAG IV SCH ×2 (04:17→20:04)
[2023-10-09] MEDS: LACTATED RINGER'S 1,000 ML IV SCH (04:25)
--- NOTE | 2023-10-09 04:28 | History & Physical Report ---
Date of Service October 09, 2023 Assessment & Plan (1) Dysuria: Plan: 77 F with PMH of valvular cardiomyopathy, atrial fibrillation, HLD, B12 deficiency, GERD, who presented to the ER with generalized weakness + cough + dysuria admitted for management of UTI, COVID-19 URI. Urinary Tract Infection/Dysuria -Afebrile, hemodynamically stable. No signs of sepsis. -1+ proteinuria, 2+ hematuria, 3+ leukocyte esterase, 1+ bacteria, nitrate + on urinalysis. Afebrile, and without leukocytosis. -Likely prerenal 2/2 dehydration, diminished oral intake. No flank, CVA tenderness on exam. Managing as uncomplicated UTI. -S/p IV ceftriaxone 2 g in the ED * Admit to [facility] telemetry * Gentle IVF hydration: LR@80 mL/h x 1 bag * IV ceftriaxone 2 g daily x 5-7 days * Urine culture, sensitivities pending COVID-19 URI -Afebrile. No leukocytosis. -Patient's cough, shortness of breath, generalized myalgia, certainly consistent with URI. However, suspect cough was postviral, as opposed to acute infection. Unclear if this URI is truly COVID-19, or other viral agent, as patient has a previous diagnosis of long COVID-19 since April (dysgeusia, generalized fatigue). Moreover, patient had been clinically improving in the weeks and months leading up to this recent URI episode. -That said, respiratory biofire positive for COVID-19 and otherwise negative. -Will manage as [id number] COVID-19 infection with postviral cough (vs aspiration pneumonitis) * Supportive management: Mucinex DM every 6 hours, ipratropium inhaler as needed for wheeze, SOB * Consider testing for pertussis if cough fails to improve * Soft bite sized diet Valvular Cardiomyopathy/Hyperlipidemia -Chronic history of mitral and aortic valve disease. Managed by [facility] [place] (Kiko Coffey). * Continue home Zocor 10 mg qPM * Continue home aspirin 81 mg daily Atrial fibrillation -Chronic. Also managed by [facility] [place]. * Continue home antiarrhythmic: Sotalol p.o. 40 mg twice daily GERD -Chronic. Managed at home on omeprazole 20 mg daily. * IV pantoprazole 40 mg push daily Vitamin B12 Deficiency * Continue home cyanocobalamin 1000 mcg 3x/week (M/W/F) Prediabetes (?)/Elevated Blood Glucose -Most recent HgbA1c 6.2%. This is also patient's highest ever HgbA1c. Unclear why PCP diagnosed patient with DM2. Per patient, fasting delete blood sugars tend to run in the 90s to 100s. * Pending HgbA1c ordered at admission Code: DNR/DNI Dispo: Med-Surg telemetry FEN/GI: LR @maintenance rate. Heart healthy DVT Prophylaxis: Lovenox 40 mg q24h PT/OT: Yes Consults: Case Management: Yes (2) UTI (urinary tract infection): (3) COVID-19: (4) Atrial fibrillation: (5) Hyperlipidemia: (6) Mitral and aortic valve disease: (7) Lymphedema, not elsewhere classified: (8) Gait instability: (9) Vitamin B12 deficiency: Admission and Anticipated Discharge Date Admission Date: October 09, 2023 History of Present Illness Primary Care Provider: Yong Henriquez III, JIM Tatiana is a 77-year-old woman with a past medical history of paroxysmal atrial fibrillation (rhythm controlled on sotalol), hyperlipidemia, hypertension, GERD, valvular disease, and chronic lymphedema, who presented to the ER for evaluation of shortness of breath, coughing spells, chest congestion, and generalized weakness x 5 days. She presented to her PCP, who started her on doxycycline for bronchitis. However, though she experienced some clinical improvement, she continued to get weaker until she could no longer comfortably ambulate around her home patient lives alone. ROS + increased urinary frequency x 3 days, wheezing. She denies fever, chills, chest pain, nausea, or abdominal pain. In the ED, patient was afebrile, saturating well on room air. Labs were notable for creatinine of 1.32 (around her baseline this year previous baseline 0.8- 1.1), respiratory BioFire that returned positive for COVID-19, and a UA positive for proteinemia (1+), hematuria (2+), bacteriuria (1+), leuk esterase (3+), and nitrates. CXR showed some right-sided lower lobe consolidation (unchanged from last CXR on 10/02/2023), that appears suspicious for aspiration pneumonitis/pneumonia (vs lymphadenopathy) per my read. WBC, procalcitonin are both negative. She received a dose of IV ceftriaxone 2 g, and 1/2 L bolus of NS hospitalist service was then consulted for admission. On admission, she corroborates most of HPI. She adds that she has been slowly recovering from a bout of COVID-19 in April with improvement in exertional fatigue, and slowly regaining the ability to taste foods until she became ill this past week. Otherwise, she has no complaints. Allergies Allergy/AdvReac Type Severity Reaction Status Date / Time No Known Allergies Allergy Verified 10/08/23 22:37 Home Medications Medication Instructions Recorded Confirmed Type compr.stocking,knee,long,large #6 ea 11/12/18 10/09/23 Rx safety needles 25 gauge x 1 1/2" #4 ea 02/26/20 10/09/23 Rx (BD Eclipse Luer-Luz) aspirin 81 mg tablet,delayed 81 mg PO DAILY #90 tabs 12/07/21 10/08/23 Rx release coenzyme Q10 100 mg capsule 100 mg PO DAILY #90 caps 12/07/21 10/08/23 Rx magnesium chloride 64 mg 128 mg (2 x 64 mg) PO DAILY #180 12/07/21 10/08/23 Rx (magnesium chloride) tabs tablet,delayed release (Mag 64) psyllium seed (sugar) oral powder 1 tbsp PO DAILY #1,254 grams 12/07/21 10/08/23 Rx (Metamucil (sugar) oral powder) omeprazole 20 mg capsule,delayed 20 mg PO DAILY GERD #90 caps 06/14/23 10/08/23 Rx release simvastatin 10 mg tablet 10 mg PO QPM Hyperlipidemia #90 06/14/23 10/08/23 Rx tabs sotalol 80 mg tablet 40 mg (1/2 x 80 mg) PO BID Atrial 06/14/23 10/08/23 Rx Fibrillation #90 tabs dicyclomine 10 mg capsule 10 mg PO TID PRN abdominal 09/17/23 10/08/23 Rx cramping #90 caps naproxen 500 mg tablet 500 mg PO BID PRN pain #180 tabs 09/17/23 10/08/23 Rx nystatin 100,000 unit/gram topical 1 applic topical TID PRN AFFECTED 09/17/23 10/08/23 Rx powder SKIN #60 grams mecobalamin (vitamin B12) 1,000 1,000 mcg PO .[id number] 10/02/23 10/08/23 History mcg chewable tablet doxycycline hyclate 100 mg capsule 100 mg PO Q12H #20 caps 10/04/23 10/08/23 Rx Past Med/Surg History Problem List (Updated 10/09/23 @ 18:50 by Maria Song PA-C) Elevated blood sugar level Generalized weakness (Acute) Urinary tract infection (Acute) COVID-19 (Acute) UTI (urinary tract infection) COVID-19 Dysuria Cardiomyopathy Paroxysmal atrial tachycardia Intermittent palpitations Right knee DJD Urinary incontinence Knee instability Recurrent UTI Urinary tract infection symptoms Vulvar mass Scoliosis of thoracolumbar region due to degenerative disease of spine in adult Hypoalbuminemia Vitamin B12 deficiency Muscle weakness Nondisplaced fracture of fifth right metatarsal bone Right foot pain Urinary frequency Gait instability Dyspnea on exertion Atrial fibrillation (Chronic) Chronic gastroesophageal reflux disease (Chronic) Hyperlipidemia (Chronic) Mitral and aortic valve disease (Chronic) Morbid obesity (Chronic) Osteopenia (Chronic) Status post placement of implantable loop recorder (Chronic) Type 2 diabetes mellitus (Chronic) Lymphedema, not elsewhere classified (Chronic) Medical History Cervical cancer Non-sustained ventricular tachycardia PSVT (paroxysmal supraventricular tachycardia) Sick sinus syndrome History of cervical cancer Diverticulosis Diverticulitis Surgical History History of intestinal surgery H/O bilateral breast reduction surgery History of tonsillectomy and adenoidectomy H/O hemicolectomy Family History Mother Obesity Hypertension Diabetes Goiter Deep vein thrombosis Stroke Diverticulitis Myocardial infarction Sister Diabetes Lung cancer Father Alzheimer disease Diverticulitis Diabetes Parkinson disease Brother Atrial fibrillation Deep vein thrombosis Family/Other Diverticulitis Grandfather (Maternal) Colorectal cancer Grandfather (Paternal) Colorectal cancer Denies family history of Ovarian cancer Prostate cancer Breast cancer Social History Smoking Status: Never smoker Second Hand Exposure: No; Do You Dip or Chew Tobacco: No; Hx Alcohol Use: Yes Alcohol type: wine Alcohol Intake Frequency: 2-4 x/Month Hx Substance Use: No Preferred Language: Citizen Of [place] Communication Ability: Effective Visual Impairment: No Limitations Hearing Ability: Use of Hearing Aid Department Mgr Required: No Beliefs That Will Affect Care: None marital status: / Current Living Situation: Alone 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 Normal conjunctiva, anicteric sclera. Oropharynx normal. Respiratory: Normal respiratory effort. Left-sided basilar crackles on inhalation. Diminished breath sounds bibasilarly. Rest of lungs CTA bilaterally. Cardiovascular: RRR without murmurs, gallops, or rubs. Bilateral UE lymphedema. GI: Soft abdomen with normal bowel sounds heard on auscultation. Nontender x4 quadrants. No flank tenderness bilaterally. Neuro: Alert and oriented x3. Results & Data Results & Data Vital Signs (Past 12 Hours) Vital Signs Temp Pulse Pulse Resp BP BP Pulse Ox 10/09/23 03:02 64 10/09/23 03:00 63 20 129/96 98 10/09/23 00:00 71 21 161/111 H 97 10/08/23 22:25 63 21 159/99 H 98 10/08/23 20:27 36.8 C 64 18 144/98 H 92 O2 Del Method 10/09/23 03:02 10/09/23 03:00 Room Air 10/09/23 00:00 Room Air 10/08/23 22:25 Room Air 10/08/23 20:27 Room Air Supervising Physician Co-Signing Physician Notes Attending addendum: I have physically seen this patient, have supervised the medical residents activities, and agree with the H&P unless as otherwise noted. Assessment and Plan: Urinary tract infection- Follow urine culture sensitivity Continue empiric ceftriaxone 2 g IV daily begun in the ED Status post 500 cc normal saline and Tylenol 1 g IV from the ED LR at 80 mL/h x 1 additional liter Acute kidney injury/superimposed on CKD Creatinine 1.32. With base range 1.32-1.54 from 06/13-09/14/2023. Base on 01/11/23 was 1.06 Repeat laboratories after hydration overnight COVID-19 infection- Previously had a cough, with no current symptoms Guaifenesin extended release, milligrams p.o. every 12 hours COVID-19 precautions No other active treatment Atrial fibrillation/cardiomyopathy- Continue sotalol, aspirin Remaining orders and notations as noted Resident Activity Tracking Resident Involvement: Resident Care Provided Care Provided: Adult Hospital Medicine (4) Atrial fibrillation Atrial fibrillation type: paroxysmal Qualified Code(s): I48.0 - Paroxysmal atrial fibrillation (5) Hyperlipidemia Hyperlipidemia type: mixed hyperlipidemia Qualified Code(s): E78.2 - Mixed hyperlipidemia
[2023-10-09] MEDS: guaiFENesin/DEXTROM SYRUP 200MG/20MG 10ML UDC PO SCH (06:26)
--- NOTE | 2023-10-09 06:44 | Electrocardiogram Report ---
Test Reason : Blood Pressure : / mmHG Vent. Rate : 064 BPM Atrial Rate : 064 BPM P-R Int : 170 ms QRS Dur : 084 ms QT Int : 430 ms P-R-T Axes : 076 159 078 degrees QTc Int : 443 ms Normal sinus rhythm Right axis deviation Anterior infarct (cited on or before 30-JUL-2023) Incomplete right bundle branch block Nonspecific T wave abnormality Abnormal ECG When compared with ECG of 30-JUL-2023 12:55, Nonspecific T wave abnormality, improved in Lateral leads QT has shortened Confirmed by Rubin Canchola ([id number]) on 10/09/2023 6:44:24 AM Referred By: REFERRED SELF Confirmed By:Rubin Canchola
[2023-10-09 07:15] LABS: BUN Creatinine Ratio 18.5 (10-20); Calcium 8.2 mg/dl (8.6-10.3); Creatinine Clr Calc Pharmacy 34.2 ml/min; Est GFR (African American) 45.5 ml/min; Est GFR (Non-African American) 39.3 ml/min; Potassium 4.3 mmol/L (3.5-5.1)
--- NOTE | 2023-10-09 07:16 | XRay Report ---
XR chest 1V portable HISTORY: 77 years-old Female covid, cough acute cough COMPARISON: 10/02/2023 TECHNIQUE: AP view of the chest FINDINGS: Cardiac silhouette is enlarged. Pulmonary vascular congestion. Probable trace pleural effusions. Mild left basilar densities. Hiatal hernia. Electronic device projects over the left heart border. Degene rative changes of the shoulders and spine with loose bodies within the right axillary recess. IMPRESSION: 1. Cardiomegaly with pulmonary vascular congestion. 2. Probable trace pleural effusions. 3. Left basilar opacities suggest atelectasis. Pneumonia could appear similarly. 4. Hiatal hernia. ACT 112: Negative or not required by law. The above report was generated using voice recognition software. It may contain grammatical, syntax o r spelling errors. Electronically signed by: Pedro Hayes M.D. 10/09/2023 7:15 AM
[2023-10-09 07:20] LABS: Estimated Average Glucose 120 mg/dl; Hemoglobin A1C 5.8 % (4.5-5.6)
[2023-10-09] MEDS ORDERED: NON-FORMULARY MEDICATION (Coenzyme Q10 100 mg capsule) PO SCH (09:00)
[2023-10-09] MEDS: NAPROXEN 250 MG TAB PO PRN (09:26)
[2023-10-09] MEDS: ASPIRIN 81 MG ECTAB PO SCH (09:26)
[2023-10-09] MEDS: SOTALOL HCL 80 MG TAB PO SCH (09:26)
[2023-10-09] MEDS: MAGNESIUM CHLORIDE W/CALCIUM 64MG DELAYED REL TAB PO SCH (09:26)
[2023-10-09] MEDS: PSYLLIUM or GUAR GUM FIBER 4GM PACKET PO SCH (09:26)
[2023-10-09] MEDS: ENOXAPARIN INJ 40 MG/0.4 ML SYR SQ SCH (09:26)
[2023-10-09] MEDS: PANTOprazole 40 MG in SYRINGE 0 ML IV SCH (14:01)
[2023-10-09 18:47] LABS: Adenovirus F 40/41 PCR Not Detected (NotDetected); Astrovirus PCR Not Detected (NotDetected); Campylobacter PCR Not Detected (NotDetected); Cryptosporidium PCR Not Detected (NotDetected); Cyclospora cayetanensis PCR Not Detected (NotDetected); Entamoeba histolytica PCR Not Detected (NotDetected); Enteroaggregative E.coli(EAEC) Not Detected (NotDetected); Enteropathogenic E.coli (EPEC) Not Detected (NotDetected); Enterotoxigenic E.coli (ETEC) Not Detected (NotDetected); Giardia lamblia PCR Not Detected (NotDetected); Norovirus GI/GII PCR Not Detected (NotDetected); Plesiomonas shigelloides PCR Not Detected (NotDetected); Rotavirus A PCR Not Detected (NotDetected); Salmonella PCR Not Detected (NotDetected); Sapovirus PCR Not Detected (NotDetected); Shiga-like Toxin E.coli (STEC) Not Detected (NotDetected); Shigella/Enteroinvasive E.coli Not Detected (NotDetected); Vibrio cholerae PCR Not Detected (NotDetected); Vibrio species PCR Not Detected (NotDetected); Yersinia enterocolitica PCR Not Detected (NotDetected)
[2023-10-09] MEDS ORDERED: LOPERAMIDE HCL 2 MG CAP PO PRN (19:01)
--- NOTE | 2023-10-09 19:04 | Hospitalist Progress Note ---
Date of Service October 09, 2023 Assessment & Plan (1) Urinary tract infection: Plan: Presented to ER for evaluation of shortness of breath, coughing spells, chest congestion, and generalized weakness x 5 days. - Afebrile, no leukocytosis, hemodynamically stable, no signs of sepsis on admission. - UA appeared infected. Urine culture - pending. - Likely prerenal secondary to dehydration, diminished oral intake. No flank, CVA tenderness on exam. Managing as uncomplicated UTI. - Continue ceftriaxone IV 2 g daily. Patient reported multiple episodes of diarrhea 10/08. - Stool PCR and C. diff negative. - Suspect this is due to antibiotic-associated diarrhea. - Imodium 2 mg PO Q6H PRN for diarrhea. (2) COVID-19: Plan: Patient's cough, shortness of breath, generalized myalgia, certainly consistent with URI. However, suspect cough was postviral, as opposed to acute infection. Unclear if this URI is truly COVID-19, or other viral agent, as patient has a previous diagnosis of long COVID-19 since April (dysgeusia, generalized fatigue). Moreover, patient had been clinically improving in the weeks and months leading up to this recent URI episode. - That said, respiratory biofire positive for COVID-19 and otherwise negative. - Will manage as [id number] COVID-19 infection with postviral cough (vs aspiration pneumonitis) > Continue supportive management: Mucinex DM every 6 hours, ipratropium inhaler as needed for wheeze, SOB - Consider testing for pertussis if cough fails to improve (3) Elevated blood sugar level: Plan: - Most recent HgbA1c prior to admission was 6.2% in June 2023. This is also patient's highest ever HgbA1c. - Unclear why PCP diagnosed patient with DMT2. Per patient, fasting blood sugars tend to run in the 90s to 100s. - HgbA1c 5.8% on 10/09/23. Plan Ordered stool studies Ordered Imodium Chronic stable conditions: Valvular cardiomyopathy: Continue Zocor 10 mg qPM. Continue aspirin 81 mg daily. Atrial fibrillation: Continue Sotalol p.o. 40 mg twice daily. GERD: Continue pantoprazole 40 mg daily. Vitamin B12 deficiency: Continue cyanocobalamin 1000 mcg 3x/week (//). VTE PPx: Lovenox 40 mg every 24 hours CODE STATUS: DNR/DNI Admission and Anticipated Discharge Date Admission Date: October 09, 2023 Subjective Patient seen and evaluated at bedside in the ED. Patient reports that her respiratory symptoms and weakness feel about the same as yesterday, though she notes that her cough is nonproductive. She describes her sputum is clear/yellow. She reports multiple episodes of diarrhea today. Will check stool studies. No additional complaints or concerns at this time. Physical Exam Physical Exam: General: No acute distress, nondiaphoretic, well-developed, well-nourished. Morbid obesity with BMI 41.6. Skin: The skin was without rashes, erythema, or bruising. Severe lymphedema in lower extremities bilaterally. Cardiac: Regular rate and rhythm without murmurs gallops or rubs. Pulm: Diminished breath sounds at bases bilaterally, but otherwise clear to auscultation. No respiratory distress. 93% on room air. Abdominal: Soft, nondistended, nontender. Bowel sounds present. Neuro: A&O x3. No focal neurological deficits. Results & Data Results & Data Vital Signs (Past 12 Hours) Vital Signs Pulse Pulse Resp BP BP Pulse Ox O2 Del Method 10/09/23 17:29 62 18 157/90 H 93 Room Air 10/09/23 13:42 57 L 20 10/09/23 12:31 164/105 H 10/09/23 12:27 95 10/09/23 12:15 98 10/09/23 12:06 96 10/09/23 12:01 172/111 H 10/09/23 12:01 172/111 H 10/09/23 12:01 172/111 H 10/09/23 11:45 96 10/09/23 11:42 97 10/09/23 11:39 97 10/09/23 11:31 140/68 10/09/23 11:31 140/68 10/09/23 11:27 99 10/09/23 11:24 98 10/09/23 11:12 98 10/09/23 11:06 93 10/09/23 10:30 67 22 10/09/23 10:06 58 L 23 10/09/23 10:01 146/112 H 10/09/23 09:54 60 21 10/09/23 09:33 60 22 10/09/23 09:31 135/105 H 10/09/23 09:31 135/105 H 10/09/23 09:31 135/105 H 10/09/23 09:01 155/98 H 10/09/23 09:01 155/98 H 10/09/23 08:31 146/88 H 10/09/23 08:31 146/88 H 10/09/23 08:30 61 15 99 10/09/23 08:21 57 L 16 100 10/09/23 08:12 60 19 10/09/23 08:00 63 15 10/09/23 07:54 63 14 10/09/23 07:45 64 18 10/09/23 07:33 50 L 15 97 10/09/23 07:31 152/90 H 10/09/23 07:31 152/90 H 10/09/23 07:12 60 23 10/09/23 07:11 57 L 10/09/23 07:06 57 L 15 10/09/23 06:54 55 L 17 95 Laboratory Results Reviewed CBC Reviewed CMP Reviewed UA Reviewed urine culture Reviewed respiratory bio fire Reviewed stool studies PG Care Time/CCT Total # of Minutes Spent Total Time Spent with Patient: Total time spent is greater than 50% in coordination of care (as documented) at patient's floor/unit and/or counseling patient: Coding Level of Care Code 69932 SUB INP/OBS CARE 3/50MIN Diagnoses Urinary tract infection N30.01 Hematuria presence: with hematuria Urinary tract infection type: acute cystitis COVID-19 U07.1 Elevated blood sugar level R73.9 (1) Urinary tract infection Hematuria presence: with hematuria Urinary tract infection type: acute cystitis Qualified Code(s): N30.01 - Acute cystitis with hematuria
[2023-10-09] MEDS: SIMVASTATIN 10 MG TAB PO SCH (20:05)
[2023-10-09] MEDS: DICYCLOMINE HCL 10 MG CAP PO PRN (20:49)
--- NOTE | 2023-10-09 23:08 | Billing Data ---
Date of Service October 09, 2023 Coding Level of Care Code 62115 INT INP/OBS CARE
[2023-10-10 07:10] LABS: Hematocrit (blood only) 42.3 % (37.0-47.0); Hemoglobin 13.5 g/dl (12.0-16.0); Mean Corpuscular Hemoglobin 29.9 pg (25.0-34.0); Mean Corpuscular Hgb Conc 31.9 g/dL (32.0-36.0); Mean Corpuscular Volume 93.6 fL (80.0-100.0); Mean Platelet Volume 8.6 fL (9.4-12.4); Platelet Count 220 K/uL (130-400); RDW Coefficient of Variation 15.4 % (11.5-14.5); RDW Standard Deviation 52.6 fL (36.4-46.3); Red Blood Count 4.52 M/uL (4.20-5.40); White Blood Count 5.04 K/ul (4.8-10.8)
--- NOTE | 2023-10-10 08:07 | Hospitalist Progress Note ---
Date of Service October 10, 2023 Assessment & Plan (1) Urinary tract infection: Plan: Presented to ER for evaluation of shortness of breath, coughing spells, chest congestion, and generalized weakness x 5 days. - Afebrile, no leukocytosis, hemodynamically stable, no signs of sepsis on admission. - UA appeared infected. Urine culture - gram negative bacilli. Continue to monitor. - Likely prerenal secondary to dehydration, diminished oral intake. No flank, CVA tenderness on exam. Managing as uncomplicated UTI. - Continue ceftriaxone IV 2 g daily. Patient reported multiple episodes of diarrhea 10/08. 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 - Stool PCR and C. diff negative. - Suspect this is due to antibiotic-associated diarrhea. - Imodium 2 mg PO Q6H PRN for diarrhea. PT/OT evals pending - Patient reports she feels weaker than her baseline. - She does live alone at home. (2) COVID-19: Plan: Patient's cough, shortness of breath, generalized myalgia, certainly consistent with URI. However, suspect cough was postviral, as opposed to acute infection. Unclear if this URI is truly COVID-19, or other viral agent, as patient has a previous diagnosis of long COVID-19 since April (dysgeusia, generalized fatigue). Moreover, patient had been clinically improving in the weeks and months leading up to this recent URI episode. - That said, respiratory biofire positive for COVID-19 and otherwise negative. - Will manage as [id number] COVID-19 infection with postviral cough (vs aspiration pneumonitis) > Continue supportive management: Mucinex DM every 6 hours, ipratropium inhaler as needed for wheeze, SOB > COVID-19 precautions - Consider testing for pertussis if cough fails to improve (3) Elevated blood sugar level: Plan: - Most recent HgbA1c prior to admission was 6.2% in June 2023. This is also patient's highest ever HgbA1c. - Unclear why PCP diagnosed patient with DMT2. Per patient, fasting blood sugars tend to run in the 90s to 100s. - HgbA1c 5.8% on 10/09/23. Plan Chronic stable conditions: Valvular cardiomyopathy: Continue Zocor 10 mg qPM. Continue aspirin 81 mg daily. Atrial fibrillation: Continue Sotalol p.o. 40 mg twice daily. GERD: Continue pantoprazole 40 mg daily. Vitamin B12 deficiency: Continue cyanocobalamin 1000 mcg 3x/week (M/W/). VTE PPx: Lovenox 40 mg every 24 hours CODE STATUS: DNR/DNI Admission and Anticipated Discharge Date Admission Date: October 09, 2023 Subjective Patient seen and evaluated at bedside. She reports that she is feeling better today. She is still having spells of productive cough expelling sputum, but notes this has decreased in frequency. She reports that her bowel movements have slowed down. She notes that she feels weaker than her baseline, and is completely reliant on her rolling walker to ambulate which is different than her normal. She denies any urinary symptoms including dysuria, frequency, urgency. She denies any abdominal pain, shortness of breath, difficulty breathing, or chest pain. No additional complaints or concerns at this time. Physical Exam Physical Exam: General: No acute distress, nondiaphoretic, well-developed, well-nourished. Morbid obesity with BMI 41.6. Skin: The skin was without rashes, erythema, or bruising. Severe lymphedema in upper and lower extremities bilaterally. Cardiac: Regular rate and rhythm without murmurs gallops or rubs. Pulm: Diminished breath sounds at bases bilaterally, but otherwise clear to auscultation. No respiratory distress. 98% on room air. Abdominal: Soft, nondistended, nontender. Bowel sounds present. Neuro: A&O x3. No focal neurological deficits. Results & Data Results & Data Vital Signs (Past 12 Hours) Vital Signs Temp Pulse Pulse Resp BP Pulse Ox O2 Del Method 10/10/23 07:16 63 10/10/23 02:40 36.6 C 73 16 151/72 H 95 Room Air 10/09/23 23:44 61 10/09/23 23:37 36.7 C 76 18 154/81 H 95 Room Air Laboratory Results Reviewed CBC Reviewed BMP Reviewed urine culture PG Care Time/CCT Total # of Minutes Spent Total Time Spent with Patient: Total time spent is greater than 50% in coordination of care (as documented) at patient's floor/unit and/or counseling patient: Coding Level of Care Code 59503 SUB INP/OBS CARE 2/35MIN Diagnoses Urinary tract infection N30.01 Hematuria presence: with hematuria Urinary tract infection type: acute cystitis COVID-19 U07.1 Elevated blood sugar level R73.9 (1) Urinary tract infection Hematuria presence: with hematuria Urinary tract infection type: acute cystitis Qualified Code(s): N30.01 - Acute cystitis with hematuria
[2023-10-10 08:08] LABS: BUN Creatinine Ratio 17.5 (10-20); Calcium 8.3 mg/dl (8.6-10.3); Creatinine Clr Calc Pharmacy 35.2 ml/min; Est GFR (African American) 47.3 ml/min; Est GFR (Non-African American) 40.8 ml/min; Magnesium 1.7 mg/dl (1.7-2.4); Potassium 4.6 mmol/L (3.5-5.1)
[2023-10-10] MEDS: CYANOCOBALAMIN (B-12) 500 MCG TABLET PO SCH (09:41)
[2023-10-10] MEDS ORDERED: Nursing to Pharmacy Communication SCH (10:45)
[2023-10-10] MEDS: PSYLLIUM or GUAR GUM FIBER 4GM PACKET PO SCH (21:06)
[2023-10-10] MEDS: ASPIRIN 81 MG ECTAB PO SCH (21:07)
[2023-10-11 08:35] LABS: Hemoglobin 13.7 g/dl (12.0-16.0); Mean Corpuscular Hemoglobin 30.2 pg (25.0-34.0); Mean Corpuscular Hgb Conc 31.9 g/dL (32.0-36.0); Mean Corpuscular Volume 94.7 fL (80.0-100.0); Mean Platelet Volume 8.6 fL (9.4-12.4); Platelet Count 232 K/uL (130-400); RDW Coefficient of Variation 15.5 % (11.5-14.5); RDW Standard Deviation 53.8 fL (36.4-46.3); Red Blood Count 4.54 M/uL (4.20-5.40); White Blood Count 5.32 K/ul (4.8-10.8)
[2023-10-11 08:45] LABS: BUN Creatinine Ratio 16.7 (10-20); Calcium 8.5 mg/dl (8.6-10.3); Creatinine Clr Calc Pharmacy 35.2 ml/min; Est GFR (African American) 47.3 ml/min; Est GFR (Non-African American) 40.8 ml/min; Potassium 4.1 mmol/L (3.5-5.1)
--- NOTE | 2023-10-11 09:15 | Hospitalist Progress Note ---
Date of Service October 11, 2023 Assessment & Plan (1) Urinary tract infection: Plan: Presented to ER for evaluation of shortness of breath, coughing spells, chest congestion, and generalized weakness x 5 days. - Afebrile, no leukocytosis, hemodynamically stable, no signs of sepsis on admission. - Likely prerenal secondary to dehydration, diminished oral intake. No flank, CVA tenderness on exam. Managing as uncomplicated UTI. - UA appeared infected. Urine culture --> Klebsiella pneumoniae, sensitive to some oral antibiotics. - Switched to Augmentin 500 mg BID, last dose 10/16/23. Patient reported multiple episodes of diarrhea 10/08. 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 - Stool PCR and C. diff negative. - Suspect this is due to antibiotic-associated diarrhea. - Imodium 2 mg PO Q6H PRN for diarrhea. PT/OT evals --> recommend short term rehab. Referrals have been sent via case management. - Patient reports she feels weaker than her baseline. - She does live alone at home. (2) COVID-19: Plan: Patient's cough, shortness of breath, generalized myalgia, certainly consistent with URI. However, suspect cough was postviral, as opposed to acute infection. Unclear if this URI is truly COVID-19, or other viral agent, as patient has a previous diagnosis of long COVID-19 since April (dysgeusia, generalized fatigue). Moreover, patient had been clinically improving in the weeks and months leading up to this recent URI episode. - That said, respiratory biofire positive for COVID-19 and otherwise negative. - Will manage as [id number] COVID-19 infection with postviral cough (vs aspiration pneumonitis) > Continue supportive management: Mucinex DM every 6 hours, ipratropium inhaler as needed for wheeze, SOB > COVID-19 precautions - Consider testing for pertussis if cough fails to improve (3) Elevated blood sugar level: Plan: - Most recent HgbA1c prior to admission was 6.2% in June 2023. This is also patient's highest ever HgbA1c. - Unclear why PCP diagnosed patient with DMT2. Per patient, fasting blood sugars tend to run in the 90s to 100s. - HgbA1c 5.8% on 10/09/23. Plan Discontinued ceftriaxone and started Augmentin Chronic stable conditions: Valvular cardiomyopathy: Continue Zocor 10 mg qPM. Continue aspirin 81 mg daily. Atrial fibrillation: Continue Sotalol p.o. 40 mg twice daily. GERD: Continue pantoprazole 40 mg daily. Vitamin B12 deficiency: Continue cyanocobalamin 1000 mcg 3x/week (/W/). VTE PPx: Lovenox 40 mg every 24 hours CODE STATUS: DNR/DNI Admission and Anticipated Discharge Date Admission Date: October 09, 2023 Subjective Patient seen and evaluated at bedside. She reports that she continues to have productive cough, though this is improving. She still notes generalized weakness. We discussed the results of her urine culture and that she has been switched to an oral antibiotic. We also discussed her going to rehab after this hospitalization; she is agreeable. Referrals have been sent out via case management. Patient denies any shortness of breath, difficulty breathing, chest pain, abdominal pain, nausea, vomiting, diarrhea, or urinary symptoms. No addit ional complaints or concerns at this time. Physical Exam Physical Exam: General: No acute distress, nondiaphoretic, well-developed, well-nourished. Morbid obesity with BMI 41.6. Skin: The skin was without rashes, erythema, or bruising. Severe lymphedema in upper and lower extremities bilaterally. Cardiac: Regular rhythm, bradycardic in the 50s. Without murmurs gallops or rubs. Pulm: Diminished breath sounds at bases bilaterally, but otherwise clear to auscultation. No respiratory distress. 99% on room air. Abdominal: Soft, nondistended, nontender. Bowel sounds present. Neuro: A&O x3. No focal neurological deficits. Results & Data Results & Data Vital Signs (Past 12 Hours) Vital Signs Temp Pulse Pulse Resp BP Pulse Ox O2 Del Method 10/11/23 07:57 36.5 C 56 L 14 132/74 99 Room Air 10/11/23 07:18 58 L 10/11/23 03:05 36.9 C 59 L 16 138/72 97 Room Air 10/11/23 00:15 54 L 10/10/23 23:05 36.5 C 61 18 137/93 97 Room Air Laboratory Results Reviewed CBC Reviewed BMP Reviewed urine culture PG Care Time/CCT Total # of Minutes Spent Total Time Spent with Patient: Total time spent is greater than 50% in coordination of care (as documented) at patient's floor/unit and/or counseling patient: Coding Level of Care Code 69083 SUB INP/OBS CARE MIN Diagnoses Urinary tract infection N30.01 Hematuria presence: with hematuria Urinary tract infection type: acute cystitis COVID-19 U07.1 Elevated blood sugar level R73.9 (1) Urinary tract infection Hematuria presence: with hematuria Urinary tract infection type: acute cystitis Qualified Code(s): N30.01 - Acute cystitis with hematuria
[2023-10-11] MEDS: AMOXICILLIN/CLAVULANATE 500 MG TAB PO SCH (17:19)
[2023-10-12 07:44] LABS: Hematocrit (blood only) 37.9 % (37.0-47.0); Hemoglobin 12.4 g/dl (12.0-16.0); Mean Corpuscular Hemoglobin 30.2 pg (25.0-34.0); Mean Corpuscular Hgb Conc 32.7 g/dL (32.0-36.0); Mean Corpuscular Volume 92.2 fL (80.0-100.0); Mean Platelet Volume 9.1 fL (9.4-12.4); Platelet Count 202 K/uL (130-400); RDW Coefficient of Variation 15.3 % (11.5-14.5); Red Blood Count 4.11 M/uL (4.20-5.40); White Blood Count 3.47 K/ul (4.8-10.8)
[2023-10-12 07:55] LABS: Calcium 8.4 mg/dl (8.6-10.3); Creatinine Clr Calc Pharmacy 30.8 ml/min; Est GFR (African American) 40.2 ml/min; Est GFR (Non-African American) 34.7 ml/min
--- NOTE | 2023-10-12 14:08 | Hospitalist Progress Note ---
Date of Service October 12, 2023 Assessment & Plan (1) Urinary tract infection: Plan: Presented to ER for evaluation of shortness of breath, coughing spells, chest congestion, and generalized weakness x 5 days. - Afebrile, no leukocytosis, hemodynamically stable, no signs of sepsis on admission. - Likely prerenal secondary to dehydration, diminished oral intake. No flank, CVA tenderness on exam. Managing as uncomplicated UTI. - UA appeared infected. Urine culture --> Klebsiella pneumoniae, sensitive to some oral antibiotics. - Switched to Augmentin 500 mg BID, last dose 10/16/23. Patient reported multiple episodes of diarrhea 10/08. 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 - Stool PCR and C. diff negative. - Suspect this is due to antibiotic-associated diarrhea. - Imodium 2 mg PO Q6H PRN for diarrhea. PT/OT evals --> recommend short term rehab. Referrals have been sent via case management. - Patient reports she feels weaker than her baseline. - She does live alone at home. (2) COVID-19: Plan: Patient's cough, shortness of breath, generalized myalgia, certainly consistent with URI. However, suspect cough was postviral, as opposed to acute infection. Unclear if this URI is truly COVID-19, or other viral agent, as patient has a previous diagnosis of long COVID-19 since April (dysgeusia, generalized fatigue). Moreover, patient had been clinically improving in the weeks and months leading up to this recent URI episode. - That said, respiratory biofire positive for COVID-19 and otherwise negative. - Will manage as [id number] COVID-19 infection with postviral cough (vs aspiration pneumonitis) > Continue supportive management: Mucinex DM every 6 hours, ipratropium inhaler as needed for wheeze, SOB > COVID-19 precautions - Consider testing for pertussis if cough fails to improve (3) Elevated blood sugar level: Plan: - Most recent HgbA1c prior to admission was 6.2% in June 2023. This is also patient's highest ever HgbA1c. - Unclear why PCP diagnosed patient with DMT2. Per patient, fasting blood sugars tend to run in the 90s to 100s. - HgbA1c 5.8% on 10/09/23. Plan Continue inpatient hospitalization while rehab referrals are pending. Chronic stable conditions: Valvular cardiomyopathy: Continue Zocor 10 mg qPM. Continue aspirin 81 mg daily. Atrial fibrillation: Continue Sotalol p.o. 40 mg twice daily. GERD: Continue pantoprazole 40 mg daily. Vitamin B12 deficiency: Continue cyanocobalamin 1000 mcg 3x/week (M/W/). VTE PPx: Lovenox 40 mg every 24 hours CODE STATUS: DNR/DNI Admission and Anticipated Discharge Date Admission Date: October 09, 2023 Subjective Patient seen and evaluated at bedside. She reports that she feels slightly better in all aspects. She is still having a productive cough, though this has decreased in frequency and she notes that her expelled sputum is not as thick. She also feels that her generalized weakness is slightly improved. She reports that she has hemorrhoids which intermittently flareup, and she noticed a small amount of bright red blood when going to the bathroom earlier from her hemorrhoid. She attributes this bleeding to being on Lovenox while hospitalized. We are waiting on placement at rehab facility. Patient denies any shortness of breath, difficulty breathing, chest pain, abdominal pain, nausea, vomiting, diarrhea, or urinary symptoms. No additional complaints or concerns at this time. Physical Exam Physical Exam: General: No acute distress, nondiaphoretic, well-developed, well-nourished. Morbid obesity with BMI 41.6. Skin: The skin was without rashes, erythema, or bruising. Severe lymphedema in upper and lower extremities bilaterally. Cardiac: Regular rhythm, bradycardic in the 50s. Without murmurs gallops or rubs. Pulm: Diminished breath sounds at bases bilaterally, but otherwise clear to auscultation. No respiratory distress. 95% on room air. Abdominal: Soft, nondistended, nontender. Bowel sounds present. Neuro: A&O x3. No focal neurological deficits. Results & Data Results & Data Vital Signs (Past 12 Hours) Vital Signs Temp Pulse Pulse Resp BP Pulse Ox O2 Del Method 10/12/23 11:55 36.4 C L 60 16 139/83 95 Room Air 10/12/23 08:00 Room Air 10/12/23 07:00 36.5 C 58 L 16 139/80 97 Room Air 10/12/23 07:00 62 10/12/23 02:32 36.4 C L 54 L 18 136/73 95 Room Air Laboratory Results Reviewed CBC Reviewed BMP PG Care Time/CCT Total # of Minutes Spent Total Time Spent with Patient: Total time spent is greater than 50% in coordination of care (as documented) at patient's floor/unit and/or counseling patient: Coding Level of Care Code 54635 SUB INP/OBS CARE 2/35MIN Diagnoses Urinary tract infection N30.01 Hematuria presence: with hematuria Urinary tract infection type: acute cystitis COVID-19 U07.1 Elevated blood sugar level R73.9 (1) Urinary tract infection Hematuria presence: with hematuria Urinary tract infection type: acute cystitis Qualified Code(s): N30.01 - Acute cystitis with hematuria
[2023-10-13 06:26] LABS: Hematocrit (blood only) 40.2 % (37.0-47.0); Hemoglobin 13.1 g/dl (12.0-16.0); Mean Corpuscular Hemoglobin 30.3 pg (25.0-34.0); Mean Corpuscular Hgb Conc 32.6 g/dL (32.0-36.0); Mean Corpuscular Volume 93.1 fL (80.0-100.0); Mean Platelet Volume 9.1 fL (9.4-12.4); Platelet Count 181 K/uL (130-400); RDW Coefficient of Variation 15.3 % (11.5-14.5); RDW Standard Deviation 52.3 fL (36.4-46.3); Red Blood Count 4.32 M/uL (4.20-5.40); White Blood Count 3.63 K/ul (4.8-10.8)
[2023-10-13 06:48] LABS: BUN Creatinine Ratio 16.3 (10-20); Calcium 8.4 mg/dl (8.6-10.3); Creatinine Clr Calc Pharmacy 31.5 ml/min; Est GFR (African American) 41.3 ml/min; Est GFR (Non-African American) 35.6 ml/min; Potassium 4.2 mmol/L (3.5-5.1)
--- NOTE | 2023-10-13 09:03 | Hospitalist Progress Note ---
Date of Service October 13, 2023 Assessment & Plan (1) Urinary tract infection: Plan: Presented to ER for evaluation of shortness of breath, coughing spells, chest congestion, and generalized weakness x 5 days. - Afebrile, no leukocytosis, hemodynamically stable, no signs of sepsis on admission. - Likely prerenal secondary to dehydration, diminished oral intake. No flank, CVA tenderness on exam. Managing as uncomplicated UTI. - UA appeared infected. Urine culture --> Klebsiella pneumoniae, sensitive to some oral antibiotics. - Switched to Augmentin 500 mg BID, last dose 10/16/23. Patient reported multiple episodes of diarrhea 10/08. 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 - Stool PCR and C. diff negative. - Suspect this is due to antibiotic-associated diarrhea. - Imodium 2 mg PO Q6H PRN for diarrhea. PT/OT evals --> recommend short term rehab. Referrals have been sent via case management. - Patient reports she feels weaker than her baseline. - She does live alone at home. (2) COVID-19: Plan: Patient's cough, shortness of breath, generalized myalgia, certainly consistent with URI. However, suspect cough was postviral, as opposed to acute infection. Unclear if this URI is truly COVID-19, or other viral agent, as patient has a previous diagnosis of long COVID-19 since April (dysgeusia, generalized fatigue). Moreover, patient had been clinically improving in the weeks and months leading up to this recent URI episode. - That said, respiratory biofire positive for COVID-19 and otherwise negative. - Will manage as [id number] COVID-19 infection with postviral cough (vs aspiration pneumonitis) > Continue supportive management: Mucinex DM every 6 hours, ipratropium inhaler as needed for wheeze, SOB > COVID-19 precautions - Consider testing for pertussis if cough fails to improve (3) Elevated blood sugar level: Plan: - Most recent HgbA1c prior to admission was 6.2% in June 2023. This is also patient's highest ever HgbA1c. - Unclear why PCP diagnosed patient with DMT2. Per patient, fasting blood sugars tend to run in the 90s to 100s. - HgbA1c 5.8% on 10/09/23. Plan Continue inpatient hospitalization while rehab referrals are pending. Chronic stable conditions: Valvular cardiomyopathy: Continue Zocor 10 mg qPM. Continue aspirin 81 mg daily. Atrial fibrillation: Continue Sotalol p.o. 40 mg twice daily. GERD: Continue pantoprazole 40 mg daily. Vitamin B12 deficiency: Continue cyanocobalamin 1000 mcg 3x/week (M/W/). VTE PPx: Lovenox 40 mg every 24 hours CODE STATUS: DNR/DNI Admission and Anticipated Discharge Date Admission Date: October 09, 2023 Supervising Physician Co-Signing Physician Notes Attending Attestation - Chart reviewed, care plan d/w PA Maria Song. I agree w/ the king components of her documentation. Patrice Damon MD Subjective Patient seen and evaluated at bedside. She reports that she feels more energetic today, though she notes she is still weaker than her baseline physically. She does note that she is not coughing up as much sputum, and it is more clear than yellow at this time. She denies any shortness of breath, difficulty breathing, chest pain, abdominal pain, nausea, vomiting, diarrhea, urinary symptoms. No additional complaints or concerns at this time. We are w aiting on placement at rehab facility. Physical Exam Physical Exam: General: No acute distress, nondiaphoretic, well-developed, well-nourished. Morbid obesity with BMI 41.6. Skin: The skin was without rashes, erythema, or bruising. Severe lymphedema in upper and lower extremities bilaterally. Cardiac: Regular rhythm, bradycardic in the 50s. Without murmurs gallops or rubs. Pulm: Slightly diminished breath sounds at bases bilaterally, but otherwise clear to auscultation. No respiratory distress. 96% on room air. Abdominal: Soft, nondistended, nontender. Bowel sounds present. Neuro: A&O x3. No focal neurological deficits. Results & Data Results & Data Vital Signs (Past 12 Hours) Vital Signs Temp Pulse Pulse Resp BP Pulse Ox O2 Del Method 10/13/23 08:00 Room Air 10/13/23 07:52 35.9 C L 56 L 18 142/70 H Room Air 10/13/23 06:54 50 L 10/13/23 02:45 36.4 C L 55 L 18 115/77 94 Room Air 10/12/23 22:26 36.5 C 60 18 135/86 95 Room Air 10/12/23 21:56 56 L Laboratory Results Reviewed CBC Reviewed BMP PG Care Time/CCT Total # of Minutes Spent Total Time Spent with Patient: Total time spent is greater than 50% in coordination of care (as documented) at patient's floor/unit and/or counseling patient: Coding Level of Care Code 34467 SUB INP/OBS CARE 2/35MIN Diagnoses Urinary tract infection N30.01 Hematuria presence: with hematuria Urinary tract infection type: acute cystitis COVID-19 U07.1 Elevated blood sugar level R73.9 (1) Urinary tract infection Hematuria presence: with hematuria Urinary tract infection type: acute cystitis Qualified Code(s): N30.01 - Acute cystitis with hematuria
[2023-10-13] MEDS: PANTOprazole 40 MG TAB PO SCH (11:32)
[2023-10-14 07:14] LABS: Hematocrit (blood only) 36.2 % (37.0-47.0); Hemoglobin 11.6 g/dl (12.0-16.0); Mean Corpuscular Hemoglobin 30.1 pg (25.0-34.0); Mean Platelet Volume 9.1 fL (9.4-12.4); Platelet Count 192 K/uL (130-400); RDW Coefficient of Variation 15.3 % (11.5-14.5); RDW Standard Deviation 52.6 fL (36.4-46.3); Red Blood Count 3.85 M/uL (4.20-5.40); White Blood Count 3.61 K/ul (4.8-10.8)
[2023-10-14 07:18] LABS: BUN Creatinine Ratio 18.9 (10-20); Calcium 8.3 mg/dl (8.6-10.3); Creatinine Clr Calc Pharmacy 33.1 ml/min; Est GFR (African American) 44.7 ml/min; Est GFR (Non-African American) 38.5 ml/min; Potassium 4.2 mmol/L (3.5-5.1)
--- NOTE | 2023-10-14 17:06 | Hospitalist Progress Note ---
Date of Service October 14, 2023 Assessment & Plan (1) Urinary tract infection: Plan: Presented to ER for evaluation of shortness of breath, coughing spells, chest congestion, and generalized weakness x 5 days. - Afebrile, no leukocytosis, hemodynamically stable, no signs of sepsis on admission. - Likely prerenal secondary to dehydration, diminished oral intake. No flank, CVA tenderness on exam. Managing as uncomplicated UTI. - UA appeared infected. Urine culture --> Klebsiella pneumoniae, sensitive to some oral antibiotics. - Switched to Augmentin 500 mg BID, last dose 10/16/23. Patient reported multiple episodes of diarrhea 10/08. 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 - Stool PCR and C. diff negative. - Suspect this is due to antibiotic-associated diarrhea. - Imodium 2 mg PO Q6H PRN for diarrhea. PT/OT evals --> recommend short term rehab. Referrals have been sent via case management. - Patient reports she feels weaker than her baseline. - She does live alone at home. (2) COVID-19: Plan: Patient's cough, shortness of breath, generalized myalgia, certainly consistent with URI. However, suspect cough was postviral, as opposed to acute infection. Unclear if this URI is truly COVID-19, or other viral agent, as patient has a previous diagnosis of long COVID-19 since April (dysgeusia, generalized fatigue). Moreover, patient had been clinically improving in the weeks and months leading up to this recent URI episode. - That said, respiratory biofire positive for COVID-19 and otherwise negative. - Will manage as [id number] COVID-19 infection with postviral cough (vs aspiration pneumonitis) > Continue supportive management: Mucinex DM every 6 hours, ipratropium inhaler as needed for wheeze, SOB > COVID-19 precautions - Consider testing for pertussis if cough fails to improve (3) Elevated blood sugar level: Plan: - Most recent HgbA1c prior to admission was 6.2% in June 2023. This is also patient's highest ever HgbA1c. - Unclear why PCP diagnosed patient with DMT2. Per patient, fasting blood sugars tend to run in the 90s to 100s. - HgbA1c 5.8% on 10/09/23. Plan Continue inpatient hospitalization while rehab referrals are pending. Chronic stable conditions: Valvular cardiomyopathy: Continue Zocor 10 mg qPM. Continue aspirin 81 mg daily. Atrial fibrillation: Continue Sotalol p.o. 40 mg twice daily. GERD: Continue pantoprazole 40 mg daily. Vitamin B12 deficiency: Continue cyanocobalamin 1000 mcg 3x/week (M/W/). VTE PPx: Lovenox 40 mg every 24 hours CODE STATUS: DNR/DNI Admission and Anticipated Discharge Date Admission Date: October 09, 2023 Subjective Seen at the bedside. No acute distress. Feels well. Has chronic lymphedema and uses SCDs at home, would like to try SCDs either thigh or leg to see if this would help in addition to her compression stockings. Otherwise feels well with no acute concerns. Is aware rehab is pending. No fever/chills overnight Physical Exam Physical Exam: Lungs clear to auscultation bilaterally, no rales Heart rate bradycardic, regular Bilateral lymphedema. No overlying erythema/warmth/tenderness Results & Data Results & Data Vital Signs (Past 12 Hours) Vital Signs Temp Pulse Pulse Resp BP Pulse Ox O2 Del Method 10/14/23 14:26 53 L 10/14/23 12:22 36.4 C L 56 L 20 121/71 99 Room Air 10/14/23 08:00 Room Air 10/14/23 07:49 64 10/14/23 07:00 36.3 C L 50 L 16 111/67 94 Room Air 10/14/23 07:00 54 L PG Care Time/CCT Total # of Minutes Spent Total Time Spent with Patient: Total time spent is greater than 50% in coordination of care (as documented) at patient's floor/unit and/or counseling patient: Coding Level of Care Code 22100 SUB INP/OBS CARE 2/35MIN Diagnoses Urinary tract infection N30.01 Hematuria presence: with hematuria Urinary tract infection type: acute cystitis COVID-19 U07.1 Elevated blood sugar level R73.9 (1) Urinary tract infection Hematuria presence: with hematuria Urinary tract infection type: acute cystitis Qualified Code(s): N30.01 - Acute cystitis with hematuria
--- NOTE | 2023-10-15 12:38 | Hospitalist Progress Note ---
Date of Service October 15, 2023 Assessment & Plan (1) Urinary tract infection: Plan: Presented to ER for evaluation of shortness of breath, coughing spells, chest congestion, and generalized weakness x 5 days. - Afebrile, no leukocytosis, hemodynamically stable, no signs of sepsis on admission. - Likely prerenal secondary to dehydration, diminished oral intake. No flank, CVA tenderness on exam. Managing as uncomplicated UTI. - UA appeared infected. Urine culture --> Klebsiella pneumoniae, sensitive to some oral antibiotics. - Switched to Augmentin 500 mg BID, last dose 10/16/23. (2) Diarrhea: Plan: None resolved, was probably due to antibiotics C. difficile was negative. (3) COVID-19: Plan: Bio fire was positive for COVID However patient has been saturating well on room air although expresses some generalized weakness. States she has had the symptoms since the last time she had COVID last year. (4) Elevated blood sugar level: Plan: - Most recent HgbA1c prior to admission was 6.2% in June 2023. This is also patient's highest ever HgbA1c. - Unclear why PCP diagnosed patient with DMT2. Per patient, fasting blood sugars tend to run in the 90s to 100s. - HgbA1c 5.8% on 10/09/23. Plan Continue inpatient hospitalization while rehab referrals are pending. Chronic stable conditions: Valvular cardiomyopathy: Continue Zocor 10 mg qPM. Continue aspirin 81 mg daily. Atrial fibrillation: Continue Sotalol p.o. 40 mg twice daily. GERD: Continue pantoprazole 40 mg daily. Vitamin B12 deficiency: Continue cyanocobalamin 1000 mcg 3x/week (//). VTE PPx: Lovenox 40 mg every 24 hours CODE STATUS: DNR/DNI Admission and Anticipated Discharge Date Admission Date: October 09, 2023 Subjective Patient seen and examined, awaiting placement Review of Systems Review of Systems: All systems reviewed are negative, apart from the ones contained in the history. Physical Exam Physical Exam: The patient is awake, alert and oriented 3, well developed and well nourished, normocephalic and atraumatic, lying in bed and in no acute distress. HEENT--PERRL, EOMI, mucous membranes and oropharynx mildly dry Neck--supple. No JVD. No bruits. Thyroid normal, trachea midline, no adenopathy. Heart--normal S1 and S2. No murmurs, rubs or gallops. Lungs--clear bilaterally, no respiratory distress, no accessory muscle use. Abdomen--normal bowel sounds and soft. Extremities--no cyanosis or clubbing. Bilateral lower extremity lymphedema Dermatologic--normal skin turgor, normal color, no abnormal lymph nodes, no rash. Neurologic--cranial nerves II through XII grossly intact. Rheumatologic--normal range of motion. Psychiatric--normal affect. Results & Data Results & Data Vital Signs (Past 12 Hours) Vital Signs Temp Pulse Resp BP BP Pulse Ox O2 Del Method 10/15/23 11:20 97.2 F L 53 L 18 131/77 95 Room Air 10/15/23 09:18 52 L 10/15/23 07:13 97.5 F L 53 L 18 124/67 95 Room Air 10/15/23 04:26 97.3 F L 54 L 20 134/73 92 Room Air PG Care Time/CCT Total # of Minutes Spent Total Time Spent with Patient: Total time spent is greater than 50% in coordination of care (as documented) at patient's floor/unit and/or counseling patient: Coding Level of Care Code 18078 SUB INP/OBS CARE 2/35MIN Diagnoses Urinary tract infection N30.01 Hematuria presence: with hematuria Urinary tract infection type: acute cystitis Diarrhea R19.7 COVID-19 U07.1 Elevated blood sugar level R73.9 Time Spent (min) 35 (1) Urinary tract infection Hematuria presence: with hematuria Urinary tract infection type: acute cystitis Qualified Code(s): N30.01 - Acute cystitis with hematuria
--- NOTE | 2023-10-16 14:55 | Hospitalist Progress Note ---
Date of Service October 16, 2023 Assessment & Plan (1) Urinary tract infection: Plan: Klebsiella isolated. Intermediate resistance to Augmentin. This has been switched to oral Cipro therapy. Stable overall. - Afebrile, no leukocytosis, hemodynamically stable, no signs of sepsis on admission. (2) COVID-19: Plan: Positive by nasal swab. She has upper respiratory symptoms of no clinical consequence. No aggressive treatment indicated at this time. (3) Elevated blood sugar level: Plan: Present on admission. Hemoglobin A1c is acceptable however. No previous diagnosis of type 2 diabetes. (4) Paroxysmal atrial tachycardia: Plan: Currently in normal sinus rhythm. Stable. She is not on systemic anticoagulation. Continue current medical management (5) Hyperlipidemia: Plan: Stable. Continue current medical management Plan Hopeful discharge to [facility] tomorrOctober 16 Admission and Anticipated Discharge Date Admission Date: October 09, 2023 Subjective Alert and oriented. No distress. She has asked that her dietary restrictions be discontinued when she has been done. Klebsiella isolated in the urine is intermediate resistance to Augmentin. She has been switched to oral Cipro therapy. Hopefully she will go to [facility] tomorrOctober 16 Review of Systems 2 Review of Systems: Constitutional-no fever or chills ENT-no blurred vision, no double vision, no epistaxis, no sore throat Respiratory-no cough, no wheezing, no shortness of breath Cardiac-no palpitations, no chest pain, no syncope GI-no nausea, vomiting, diarrhea, melena, hematochezia -no urinary retention, no urinary incontinence, no dysuria, no hematuria Musculoskeletal-no joint pain, no muscle tenderness Skin-no bruising, no rashes, no pruritus Neuro-no isolated weakness, no paresthesia, no weakness Psych-no depression, no anxiety Physical Exam 2 Physical Exam: General-alert and oriented x3, no fever, no chills HEENT-head atraumatic and normocephalic, pupils equal and reactive to light, extraocular muscles intact Neck-no lymphadenopathy or thyromegaly, trachea midline Chest-clear to auscultation. No rales, wheezing or rhonchi Cardiac-regular rate and rhythm, normal S1 and S2 Abdomen-normal bowel sounds, no hepatosplenomegaly Extremities-no cyanosis, clubbing, or edema Neuro-cranial nerves II through XII intact, motor and sensory function within normal limits, strength symmetrical, no focal deficits Psych-normal affect, normal mood Results & Data Results & Data Vital Signs (Past 12 Hours) Vital Signs Temp Pulse Pulse Resp BP Pulse Ox O2 Del Method 10/16/23 11:34 36.6 C 70 18 124/63 95 Room Air 10/16/23 10:33 97 10/16/23 09:00 51 L 10/16/23 08:49 36.6 C 54 L 18 133/85 96 Room Air 10/16/23 02:54 36.7 C 56 L 16 124/75 93 Room Air Laboratory Results 10/14/23 05:44 10/14/23 05:44 PG Care Time/CCT Total # of Minutes Spent Total Time Spent with Patient: Total time spent is greater than 50% in coordination of care (as documented) at patient's floor/unit and/or counseling patient: Coding Level of Care Code 29267 SUB INP/OBS CARE 3/50MIN Diagnoses Urinary tract infection N30.01 Hematuria presence: with hematuria Urinary tract infection type: acute cystitis COVID-19 U07.1 Elevated blood sugar level R73.9 Paroxysmal atrial tachycardia I47.19 Mixed hyperlipidemia E78.2 Hyperlipidemia type: mixed hyperlipidemia (1) Urinary tract infection Hematuria presence: with hematuria Urinary tract infection type: acute cystitis Qualified Code(s): N30.01 - Acute cystitis with hematuria (5) Hyperlipidemia Hyperlipidemia type: mixed hyperlipidemia Qualified Code(s): E78.2 - Mixed hyperlipidemia
[2023-10-16] MEDS: CIPROFLOXACIN 250 MG TAB PO SCH (22:31)
--- NOTE | 2023-10-17 15:57 | Hospitalist Progress Note ---
Date of Service October 17, 2023 Assessment & Plan (1) Urinary tract infection: Plan: Klebsiella isolated. Intermediate resistance to Augmentin. She has been switched to oral Cipro therapy. Stable overall. (2) COVID-19: Plan: Positive by nasal swab. She has upper respiratory symptoms of no clinical consequence. No aggressive treatment indicated at this time. (3) Elevated blood sugar level: Plan: Present on admission. Hemoglobin A1c is acceptable however. No previous diagnosis of type 2 diabetes. (4) Paroxysmal atrial tachycardia: Plan: Currently in normal sinus rhythm. Stable. She is not on systemic anticoagulation. Continue current medical management (5) Hyperlipidemia: Plan: Stable. Continue current medical management Plan Awaiting insurance approval to go to [facility]. Admission and Anticipated Discharge Date Admission Date: October 09, 2023 Subjective Alert and oriented. No new problems. No waiting for insurance authorization for discharge to [facility]. Stable overall. Review of Systems 2 Review of Systems: Constitutional-no fever or chills ENT-no blurred vision, no double vision, no epistaxis, no sore throat Respiratory-no cough, no wheezing, no shortness of breath Cardiac-no palpitations, no chest pain, no syncope GI-no nausea, vomiting, diarrhea, melena, hematochezia -no urinary retention, no urinary incontinence, no dysuria, no hematuria Musculoskeletal-no joint pain, no muscle tenderness Skin-no bruising, no rashes, no pruritus Neuro-no isolated weakness, no paresthesia, no weakness Psych-no depression, no anxiety Physical Exam 2 Physical Exam: General-alert and oriented x3, no fever, no chills HEENT-head atraumatic and normocephalic, pupils equal and reactive to light, extraocular muscles intact Neck-no lymphadenopathy or thyromegaly, trachea midline Chest-clear to auscultation. No rales, wheezing or rhonchi Cardiac-regular rate and rhythm, normal S1 and S2 Abdomen-normal bowel sounds, no hepatosplenomegaly Extremities-no cyanosis, clubbing, or edema Neuro-cranial nerves II through XII intact, motor and sensory function within normal limits, strength symmetrical, no focal deficits Psych-normal affect, normal mood Results & Data Results & Data Vital Signs (Past 12 Hours) Vital Signs Temp Pulse Pulse Resp BP BP Pulse Ox 10/17/23 15:00 56 L 10/17/23 11:17 36.3 C L 50 L 18 135/82 93 10/17/23 07:25 10/17/23 07:19 36.4 C L 56 L 18 125/66 97 10/17/23 07:04 52 L O2 Del Method 10/17/23 15:00 10/17/23 11:17 Room Air 10/17/23 07:25 Room Air 10/17/23 07:19 Room Air 10/17/23 07:04 Laboratory Results 10/14/23 05:44 10/14/23 05:44 PG Care Time/CCT Total # of Minutes Spent Total Time Spent with Patient: Total time spent is greater than 50% in coordination of care (as documented) at patient's floor/unit and/or counseling patient: Coding Level of Care Code 97309 SUB INP/OBS CARE 2/35MIN Diagnoses Urinary tract infection N30.01 Hematuria presence: with hematuria Urinary tract infection type: acute cystitis COVID-19 U07.1 Elevated blood sugar level R73.9 Paroxysmal atrial tachycardia I47.19 Mixed hyperlipidemia E78.2 Hyperlipidemia type: mixed hyperlipidemia (1) Urinary tract infection Hematuria presence: with hematuria Urinary tract infection type: acute cystitis Qualified Code(s): N30.01 - Acute cystitis with hematuria (5) Hyperlipidemia Hyperlipidemia type: mixed hyperlipidemia Qualified Code(s): E78.2 - Mixed hyperlipidemia
[2023-10-17 19:20] VITALS: TEMP 97.5
[2023-10-18] MEDS: guaiFENesin/DEXTROM SYRUP 200MG/20MG 10ML UDC PO PRN (01:13)
[2023-10-18 07:25] VITALS: BP 137/85; PULSE 66; RESP 18; O2SAT 98
--- NOTE | 2023-10-18 10:41 | Discharge Summary ---
Discharge Summary Date of Service October 18, 2023 Principal Dx & Hospital Course #1 = Principal Diagnosis (1) Urinary tract infection: Klebsiella isolated. Intermediate resistance to Augmentin. She has been switched to oral Cipro therapy. She will not need to continue any antibiotic therapy postdischarge. (2) COVID-19: Positive by nasal swab. She has upper respiratory symptoms of no clinical consequence which will eventually resolve. No aggressive treatment indicated at this time. (3) Elevated blood sugar level: Present on admission. Hemoglobin A1c is acceptable however. No previous diagno sis of type 2 diabetes. (4) Paroxysmal atrial tachycardia: Currently in normal sinus rhythm. Stable. She is not on systemic anticoagulation. Continue current medical management (5) Hyperlipidemia: Stable. Continue current medical management Plan Discharge to [facility] today, October 17 Admission HPI Per Admitting Provider Tatiana is a 77-year-old woman with a past medical history of paroxysmal atrial fibrillation (rhythm controlled on sotalol), hyperlipidemia, hypertension, GERD, valvular disease, and chronic lymphedema, who presented to the ER for evaluation of shortness of breath, coughing spells, chest congestion, and generalized weakness x 5 days. She presented to her PCP, who started her on doxycycline for bronchitis. However, though she experienced some clinical improvement, she continued to get weaker until she could no longer comfortably ambulate around her home patient lives alone. ROS + increased urinary frequency x 3 days, wheezing. She denies fever, chills, chest pain, nausea, or abdominal pain. In the ED, patient was afebrile, saturating well on room air. Labs were notable for creatinine of 1.32 (around her baseline this year previous baseline 0.8- 1.1), respiratory BioFire that returned positive for COVID-19, and a UA positive for proteinemia (1+), hematuria (2+), bacteriuria (1+), leuk esterase (3+), and nitrates. CXR showed some right-sided lower lobe consolidation (unchanged from last CXR on 10/02/2023), that appears suspicious for aspiration pneumonitis/pneumonia (vs lymphadenopathy) per my read. WBC, procalcitonin are both negative. She received a dose of IV ceftriaxone 2 g, and 1/2 L bolus of NS hospitalist service was then consulted for admission. On admission, she corroborates most of HPI. She adds that she has been slowly recovering from a bout of COVID-19 in April with improvement in exertional fatigue, and slowly regaining the ability to taste foods until she became ill this past week. Otherwise, she has no complaints. Discharge Exam General-alert and oriented x3, no fever, no chills HEENT-head atraumatic and normocephalic, pupils equal and reactive to light, extraocular muscles intact Neck-no lymphadenopathy or thyromegaly, trachea midline Chest-clear to auscultation. No rales, wheezing or rhonchi Cardiac-regular rate and rhythm, normal S1 and S2 Abdomen-normal bowel sounds, no hepatosplenomegaly Extremities-no cyanosis, clubbing, or edema Neuro-cranial nerves II through XII intact, motor and sensory function within normal limits, strength symmetrical, no focal deficits Psych-normal affect, normal mood Updated Medication List Medication Instructions Recorded Confirmed Type compr.stocking,knee,long,large #6 ea 11/12/18 10/09/23 Rx safety needles 25 gauge x 1 1/2" #4 ea 02/26/20 10/09/23 Rx (BD Eclipse Luer-Luz) aspirin 81 mg tablet,delayed 81 mg PO DAILY #90 tabs 12/07/21 10/08/23 Rx release coenzyme Q10 100 mg capsule 100 mg PO DAILY #90 caps 12/07/21 10/08/23 Rx magnesium chloride 64 mg 128 mg (2 x 64 mg) PO DAILY #180 12/07/21 10/08/23 Rx (magnesium chloride) tabs tablet,delayed release (Mag 64) psyllium seed (sugar) oral powder 1 tbsp PO DAILY #1,254 grams 12/07/21 10/08/23 Rx (Metamucil (sugar) oral powder) omeprazole 20 mg capsule,delayed 20 mg PO DAILY GERD #90 caps 06/14/23 10/08/23 Rx release simvastatin 10 mg tablet 10 mg PO QPM Hyperlipidemia #90 06/14/23 10/08/23 Rx tabs sotalol 80 mg tablet 40 mg (1/2 x 80 mg) PO BID Atrial 06/14/23 10/08/23 Rx Fibrillation #90 tabs dicyclomine 10 mg capsule 10 mg PO TID PRN abdominal 09/17/23 10/08/23 Rx cramping #90 caps naproxen 500 mg tablet 500 mg PO BID PRN pain #180 tabs 09/17/23 10/08/23 Rx nystatin 100,000 unit/gram topical 1 applic topical TID PRN AFFECTED 09/17/23 10/08/23 Rx powder SKIN #60 grams mecobalamin (vitamin B12) 1,000 1,000 mcg PO .[id number] 10/02/23 10/08/23 History mcg chewable tablet doxycycline hyclate 100 mg capsule 100 mg PO Q12H #20 caps 10/04/23 10/08/23 Rx Hospital Stay Data Consultations 10/09/23 01:38 ED Decision to Admit Stat Pending Results Patient Have Any Pending Studies at Discharge: No Discharge Instructions Given to Patient (Per Discharging Provider) No more antibiotic therapy needed for the urinary tract infection. Total Time Total Time Spent Total Time Spent (In Minutes): 45 minutes Coding Level of Care Code 07968 INP/OBS DISCH >30 MIN Diagnoses Urinary tract infection N30.01 Hematuria presence: with hematuria Urinary tract infection type: acute cystitis COVID-19 U07.1 Elevated blood sugar level R73.9 Paroxysmal atrial tachycardia I47.19 Mixed hyperlipidemia E78.2 Hyperlipidemia type: mixed hyperlipidemia
== END 2023-10-18 13:59 | DRG 689 ==
LOC: ED 20:23 → SUATTDRO 10-09 02:50 → EDINP 10-09 02:50 → 2W 10-09 03:46

== ENCOUNTER 2024-02-08 17:26 | Inpatient (IN) ==
[2024-02-08 18:08] LABS: Basophils # (auto) 0.03 K/uL (0.00-0.20); Basophils % (auto) 0.4 %; Eosinophils % (auto) 1.2 %; Hematocrit (blood only) 46.5 % (37.0-47.0); Immature Granulocytes # (auto) 0.02 K/uL (0.01-0.20); Immature Granulocytes % (auto) 0.2 %; Lymphocytes # (auto) 0.66 K/uL (1.20-3.40); Lymphocytes % (auto) 7.8 %; Mean Corpuscular Hemoglobin 30.7 pg (25.0-34.0); Mean Corpuscular Hgb Conc 32.3 g/dL (32.0-36.0); Mean Corpuscular Volume 95.3 fL (80.0-100.0); Mean Platelet Volume 9.4 fL (9.4-12.4); Monocytes # (auto) 0.75 K/uL (0.11-0.59); Monocytes % (auto) 8.9 %; Neutrophils # (auto) 6.89 K/uL (1.40-6.50); Neutrophils % (auto) 81.5 %; Platelet Count 189 K/uL (130-400); RDW Coefficient of Variation 15.8 % (11.5-14.5); RDW Standard Deviation 55.3 fL (36.4-46.3); Red Blood Count 4.88 M/uL (4.20-5.40); White Blood Count 8.45 K/ul (4.8-10.8)
--- NOTE | 2024-02-08 18:18 | CT Scan Report ---
EXAM: CT Abdomen and Pelvis Without Intravenous Contrast INDICATION: Right flank pain. Hematuria. TECHNIQUE: Axial computed tomography images of the abdomen and pelvis without intravenous contrast. Sagittal and coronal reformatted images were created and reviewed. This CT exam was performed using one or more of the following dose reduction techniques: automated exposure control, adjustment of the mA and/or kV according to patient size, and/or use of iterative reconstruction technique. COMPARISON: No relevant prior studies available. FINDINGS: Limitations: None. Lung bases: No abnormality noted. Pleural space: Small layering bilateral pleural effusions present. Heart: Marked cardiomegaly and small pericardial effusion noted. Mediastinum: No abnormality noted. ABDOMEN: Liver: Low attenuation foci in the liver consistent with hepatic cysts. No follow-up is necessary. Gallbladder and bile ducts: No calcified stones or surrounding fluid. Pancreas: No pancreatic mass, calcification, inflammation or ductal dilation noted. Spleen: No significant abnormality noted. Adrenals: No significant abnormality noted. Kidneys and ureters: There is a punctate stone in each kidney. No obstructing stones. There is mild right hydronephrosis and dilatation of the extrarenal pelvis. Ureters are not dilated. No ureteral stones. No urinary gas. Stomach and bowel: There are multiple bowel containing abdominal wall hernia defects. Rectal staple line noted with adjacent clips. Extensive colonic diverticulosis noted. No focal thickening. No obstruction. PELVIS: Appendix: Well seen and appears normal. Bladder: Urinary bladder is collapsed. Inflammation not excluded. Reproductive: Hysterectomy. ABDOMEN and PELVIS: Intraperitoneal space: No free air. No significant fluid collection. Bones/joints: Degenerative changes noted in the scoliotic spine. No acute osseous abnormality noted. Soft tissues: Severe body wall edema noted. There is mild generalized mesenteric edema. Vasculature: Atherosclerotic calcification of the aorta and branches. No aneurysm. Lymph nodes: No pathologically enlarged lymph nodes. IMPRESSION: 1. Mild inflammation of the right renal pelvis which is mildly dilated and there is mild right hydronephrosis. Consider chronic UPJ obstruction. 2. Collapsed urinary bladder likely inflamed. Correlate with urinalysis. 3. Punctate nonobstructing stone in each kidney. 4. Anasarca. ACT 112: Negative or not required by law. Electronically signed by Karoline Thompson 02-08-2024 6:18 PM
--- NOTE | 2024-02-08 18:25 | Emergency Department Note ---
Impression & Plan Acute pyelonephritis, Hematuria, Acute right flank pain, Acute UTI (urinary tract infection) ED Provider Note NAME: EUFEMIA RADFORD AGE: 78 SEX: Female INFORMANT: Patient ED PROVIDER(S): Jorden Rodriguez MD CHIEF COMPLAINT: Flank pain and hematuria PLAN: Disposition: Admitted Outpatient prescription management: none Referral: None MEDICAL DECISION MAKING: Patient presented because of flank pain and hematuria. Workup was initiated. Urinalysis was concerning for infection. Patient had unremarkable CBC and chemistry panel. CT imaging was performed and did show inflammatory change in the urinary tract. Given the flank pain and findings on urinalysis this is concerning for developing pyelonephritis. Patient was given IV Rocephin and Pyridium. Discussed treatment options. Patient does not feel comfortable going home given the fact that she lives alone and her current illness. Patient requesting admission. Consultation was made with Dr. Marilee Sin of the [facility] service. Patient was evaluated in the ER for further management. Care/management discussed with: building and construction manager Level of care consideration(s): After review of the information above and other included data, I feel the patient requires escalation of care to admission Triage Nursing notes: reviewed and agree them. Vital Signs: reviewed and remarkable for hypertension Additional History obtained from: none Chronic Medical/Social Conditions affecting care: Lives alone, frequent UTI, diabetes Prior/ Outside/ External records reviewed: none Differential Diagnosis: Renal colic, UTI, appendicitis, diverticulitis, mesenteric ischemia, aortic pathology, infections, inflammatory bowel disease, PUD, biliary pathology, as well as other pathologies. Diagnostics, independently interpreted by me: ECG: none Cardiac Monitoring: Cardiac monitoring ordered by me: The patient was placed on continuous cardiac monitoring and observed. It revealed a normal sinus rhythm at 63 beats per minute without ectopy or evidence of dysrhythmia. Medical decision rules: none Imaging studies: CT scan of the abdomen pelvis as above. Nephrolithiasis but no ureterolithiasis. Inflammatory change concerning for UTI. I refer you to the EMR for further details. HPI: 78 year old Female arrives for evaluation of right flank pain. This started today and is rated as sharp. The patient also notes the following associated symptoms, dysuria and urinary frequency over the last few days. Patient also notes he is passing blood clots today. Patient went urgent care and was referred to the ER. The patient has found no relieving factors. Current pain is rated as 8/10. Patient does have a history of kidney stone but it is been about 50 years ago. Pt denies LOC, headache, fevers, chills, diaphoresis, visual changes, neck pain, chest pain, breathing difficulties, nausea, vomiting, melena, hematochezia, numbness, weakness, rash, or other complaints.. PAST MEDICAL HISTORY: See Below, kidney stone, cardiomyopathy, pneumonia, lymphedema PAST SURGICAL HISTORY: See Below, SOCIAL HISTORY: See Below, retired HOME MEDICATIONS: See Below ALLERGIES: See Below VITALS: See Below PHYSICAL EXAMINATION: GENERAL: Awake, alert, mildly uncomfortable-appearing, in no distress HENT: Normocephalic, atraumatic. Oropharynx unremarkable. EYES: Normal conjunctiva. Sclera non-icteric. NECK: Inspection normal. Non-tender. Supple. No nuchal rigidity. FROM. No masses. RESPIRATORY: Clear to auscultation. No wheezes. No rales. Normal respiratory effort. CARDIAC: Normal rate. Normal rhythm. No murmurs. No rubs. Extremities warm and well perfused. Pulses equal. No JVD. GI: Soft, non-distended. Right flank tenderness to palpation. No rebound or guarding. No masses. RECTAL: Deferred. MUSCULOSKELETAL: Atraumatic. Chest examination reveals no tenderness. The back is symmetrical on inspection without obvious abnormality. There is right CVA tenderness to palpation. No joint edema. LOWER EXTREMITIES: Calves are equal size bilaterally and non-tender. 3+ edema which the patient states is chronic. No discoloration. NEURO: Normal sensorium. No sensory or motor deficits noted. SKIN: No rash or jaundice noted. PROCEDURES: none CRITICAL CARE: none OBSERVATION NOTE: none Past Med/Surg History Problem List (Updated 02/08/24 @ 20:25 by Jorden Rodriguez MD) Acute pyelonephritis (Acute) Acute UTI (urinary tract infection) (Acute) Acute right flank pain (Acute) Hematuria (Acute) Lymphedema, not elsewhere classified Vitamin B12 deficiency Hyperlipidemia Generalized weakness (Chronic) Urinary tract infection (Acute) Cardiomyopathy Intermittent palpitations Right knee DJD (Chronic) Urinary incontinence Recurrent UTI Vulvar mass Scoliosis of thoracolumbar region due to degenerative disease of spine in adult Hypoalbuminemia Right foot pain Urinary frequency Gait instability (Chronic) Chronic gastroesophageal reflux disease (Chronic) Morbid obesity (Chronic) Osteopenia (Chronic) Type 2 diabetes mellitus (Chronic) Medical History Nondisplaced fracture of fifth right metatarsal bone Status post placement of implantable loop recorder Paroxysmal atrial tachycardia Atrial fibrillation Mitral and aortic valve disease Cervical cancer Non-sustained ventricular tachycardia PSVT (paroxysmal supraventricular tachycardia) Sick sinus syndrome History of cervical cancer Diverticulosis Diverticulitis Surgical History History of intestinal surgery H/O bilateral breast reduction surgery History of tonsillectomy and adenoidectomy H/O hemicolectomy Family History Mother Obesity Hypertension Diabetes Goiter Deep vein thrombosis Stroke Diverticulitis Myocardial infarction Sister Diabetes Lung cancer Father Alzheimer disease Diverticulitis Diabetes Parkinson disease Brother Atrial fibrillation Deep vein thrombosis Family/Other Diverticulitis Grandfather (Maternal) Colorectal cancer Grandfather (Paternal) Colorectal cancer Denies family history of Ovarian cancer Prostate cancer Breast cancer Social History Smoking Status: Never smoker Second Hand Exposure: No; Do You Dip or Chew Tobacco: No; Hx Alcohol Use: Yes Alcohol type: wine Alcohol Intake Frequency: 2-4 x/Month Hx Substance Use: No Preferred Language: Peruvian Communication Ability: Effective Visual Impairment: No Limitations Hearing Ability: Use of Hearing Aid Wire Galvanizer Required: No Beliefs That Will Affect Care: None marital status: / Current Living Situation: Alone current occupational status: retired current occupation: [employer] How many Children do You have: 1 Feels Safe at Home: Yes Childhood Exposure to Second-Hand Smoke: Yes Diet: regular caffeine: No during the past year weight has: remained stable Dental Care, Regularly: No Physical Activity Frequency: 3-4 Times per Week Seatbelt Use: always Sunscreen Use: Yes Assistive Devices: Scooter/Electric Scooter and Walker Allergies Allergies Allergy/AdvReac Type Severity Reaction Status Date / Time No Known Allergies Allergy Verified 02/08/24 16:57 Home Meds Home Medications Medication Instructions Recorded Confirmed mecobalamin (vitamin B12) 1,000 1,000 mcg PO .3XWEEKLY 10/02/23 02/08/24 mcg chewable tablet Previous Rx's Medication Instructions Recorded compr.stocking,knee,long,large #6 ea 11/12/18 safety needles 25 gauge x 1 1/2" #4 ea 02/26/20 (BD Eclipse Luer-Luz) aspirin 81 mg tablet,delayed 81 mg PO DAILY #90 tabs 12/07/21 release coenzyme Q10 100 mg capsule 100 mg PO DAILY #90 caps 12/07/21 magnesium chloride 64 mg 128 mg (2 x 64 mg) PO DAILY #180 12/07/21 (magnesium chloride) tabs tablet,delayed release (Mag 64) psyllium seed (sugar) oral powder 1 tbsp PO DAILY #1,254 grams 12/07/21 (Metamucil (sugar) oral powder) omeprazole 20 mg capsule,delayed 20 mg PO DAILY GERD #90 caps 06/14/23 release simvastatin 10 mg tablet 10 mg PO QPM Hyperlipidemia #90 06/14/23 tabs sotalol 80 mg tablet 40 mg (1/2 x 80 mg) PO BID Atrial 06/14/23 Fibrillation #90 tabs dicyclomine 10 mg capsule 10 mg PO TID PRN abdominal 09/17/23 cramping #90 caps naproxen 500 mg tablet 500 mg PO BID PRN pain #180 tabs 09/17/23 nystatin 100,000 unit/gram topical 1 applic topical TID PRN AFFECTED 09/17/23 powder SKIN #60 grams miscellaneous medical supply 1 ea miscellaneous ONCE PATIENT 01/22/24 NEEDS A HOSPITAL BED THAT LOWERS/RISES #1 ea Results & Data (ED) Vital Signs Vital Signs - 24 hr 02/08/24 17:31 02/08/24 17:44 02/08/24 17:46 Temperature 36.3 C L Temperature Source Temporal Artery Scan Pulse Rate 84 Pulse Rate [Apical] 62 Pulse Rate from SpO2 Sensor Respiratory Rate 19 20 Respiratory Effort / Characteristics Non-Labored Spontaneous Respiratory Depth Normal Respiratory Pattern Regular Blood Pressure 153/81 H 139/97 Blood Pressure [Left Arm] 139/97 Blood Pressure Mean 105 107 Blood Pressure Mean [Left Arm] 111 Pulse Oximetry 97 95 Oxygen Delivery Method Room Air Room Air Sepsis Recent Fever Within 48 Hours No Sepsis New/Unexplained Change in Mental Status N/A Sepsis Action Taken by Nursing No Action Required 02/08/24 17:47 02/08/24 17:48 02/08/24 17:48 Temperature Temperature Source Pulse Rate 62 56 L 62 Pulse Rate [Apical] Pulse Rate from SpO2 Sensor 61 Respiratory Rate 20 21 Respiratory Effort / Characteristics Respiratory Depth Respiratory Pattern Blood Pressure Blood Pressure [Left Arm] Blood Pressure Mean Blood Pressure Mean [Left Arm] Pulse Oximetry 96 98 Oxygen Delivery Method Room Air Sepsis Recent Fever Within 48 Hours Sepsis New/Unexplained Change in Mental Status Sepsis Action Taken by Nursing 02/08/24 17:51 02/08/24 17:54 02/08/24 18:00 Temperature Temperature Source Pulse Rate 58 L 58 L Pulse Rate [Apical] Pulse Rate from SpO2 Sensor 58 L 58 L Respiratory Rate 21 19 Respiratory Effort / Characteristics Respiratory Depth Respiratory Pattern Blood Pressure 159/89 H Blood Pressure [Left Arm] Blood Pressure Mean 112 Blood Pressure Mean [Left Arm] Pulse Oximetry 96 95 Oxygen Delivery Method Sepsis Recent Fever Within 48 Hours Sepsis New/Unexplained Change in Mental Status Sepsis Action Taken by Nursing 02/08/24 18:24 02/08/24 18:48 02/08/24 19:00 Temperature Temperature Source Pulse Rate 61 61 Pulse Rate [Apical] Pulse Rate from SpO2 Sensor 62 61 Respiratory Rate 24 30 H Respiratory Effort / Characteristics Respiratory Depth Respiratory Pattern Blood Pressure 141/109 H Blood Pressure [Left Arm] Blood Pressure Mean 123 Blood Pressure Mean [Left Arm] Pulse Oximetry 95 96 Oxygen Delivery Method Sepsis Recent Fever Within 48 Hours Sepsis New/Unexplained Change in Mental Status Sepsis Action Taken by Nursing 02/08/24 19:00 02/08/24 19:21 02/08/24 19:36 Temperature Temperature Source Pulse Rate 64 64 Pulse Rate [Apical] Pulse Rate from SpO2 Sensor 65 63 Respiratory Rate 19 20 Respiratory Effort / Characteristics Respiratory Depth Respiratory Pattern Blood Pressure 141/109 H Blood Pressure [Left Arm] Blood Pressure Mean 123 Blood Pressure Mean [Left Arm] Pulse Oximetry 98 97 Oxygen Delivery Method Sepsis Recent Fever Within 48 Hours Sepsis New/Unexplained Change in Mental Status Sepsis Action Taken by Nursing 02/08/24 19:57 02/08/24 20:06 Temperature Temperature Source Pulse Rate 69 63 Pulse Rate [Apical] Pulse Rate from SpO2 Sensor 65 63 Respiratory Rate 21 21 Respiratory Effort / Characteristics Respiratory Depth Respiratory Pattern Blood Pressure 157/91 H Blood Pressure [Left Arm] Blood Pressure Mean 113 Blood Pressure Mean [Left Arm] Pulse Oximetry 99 97 Oxygen Delivery Method Sepsis Recent Fever Within 48 Hours Sepsis New/Unexplained Change in Mental Status Sepsis Action Taken by Nursing Laboratory Data 02/08/24 17:50 02/08/24 17:50 Lab Results 02/08/24 02/08/24 Range/Units 16:40 17:50 WBC 8.45 (4.8-10.8) K/ul RBC 4.88 (4.20-5.40) M/uL Hgb 15.0 (12.0-16.0) g/dl Hct 46.5 (37.0-47.0) % MCV 95.3 (80.0-100.0) fL MCH 30.7 (25.0-34.0) pg MCHC 32.3 (32.0-36.0) g/dL RDW Std Deviation 55.3 H (36.4-46.3) fL RDW Coeff of Gayathri 15.8 H (11.5-14.5) % Plt Count 189 (130-400) K/uL MPV 9.4 (9.4-12.4) fL Immature Gran % (Auto) 0.2 % Neut % (Auto) 81.5 % Lymph % (Auto) 7.8 % [place] % (Auto) 8.9 % Eos % (Auto) 1.2 % Baso % (Auto) 0.4 % Neut # (Auto) 6.89 H (1.40-6.50) K/uL Lymph # (Auto) 0.66 L (1.20-3.40) K/uL [place] # (Auto) 0.75 H (0.11-0.59) K/uL Eos # (Auto) 0.10 (0.00-0.50) K/uL Baso # (Auto) 0.03 (0.00-0.20) K/uL Immature Gran # (Auto) 0.02 (0.01-0.20) K/uL Sodium 141 (136-145) mmol/L Potassium 4.6 (3.5-5.1) mmol/L Chloride 109 H (98-107) mmol/L Carbon Dioxide 25 (21-32) mmol/L Anion Gap 7 (3-11) BUN 33 H (6-23) mg/dl Creatinine 1.64 H (0.6-1.2) mg/dl Est Cr Clr Drug Dosing 26.7 ml/min eGFR 31.65 BUN/Creatinine Ratio 20.1 H (10-20) Glucose 126 H (70-99(Fasting)) mg/dl Calcium 9.2 (8.6-10.3) mg/dl Total Bilirubin 0.5 (0.2-1.0) mg/dl AST 13 (13-39) U/L ALT 8 (7-52) U/L Alkaline Phosphatase 60 (34-104) U/L Total Protein 6.6 (6.0-8.3) gm/dl Albumin 3.5 (3.4-5.0) gm/dl Globulin 3.1 (2.5-4.0) gm/dl Albumin/Globulin Ratio 1.1 (0.9-2) Lipase 44 (11-82) U/L Urine Color Red Urine Appearance Cloudy A (Clear) Urine pH 8.5 H (4.5-7.5) Ur Specific [place] 1.020 (1.000-1.030) Urine Protein 3+ H (Negative) Urine Glucose (UA) Negative (Negative) Urine Ketones Negative (Negative) Urine Blood 3+ H (Negative) Urine Nitrite Positive A (Negative) Urine Bilirubin Negative (Negative) Urine Urobilinogen Negative (Negative) Ur Leukocyte Esterase 1+ H (Negative) Urine RBC >20 H (0-2) /hpf Urine WBC 11-20 H (0-5) /hpf Ur Epithelial Cells >20 H (0-2) /hpf Urine Bacteria 2+ H (None Seen) Administered Medications Morphine Sulfate (Morphine Sulfate 2 Mg/Ml Carp) 1 mg IV Q2H PRN PRN Reason: Pain (1,2,3,4,5) & Pre PT Stop: 02/22/24 20:09 Last Admin: 02/08/24 20:15 Dose: 1 mg Documented By: DEANNA Ondansetron HCl (Ondansetron Inj 2 Mg/Ml 2 Ml Vial) 4 mg IV Q6H PRN PRN Reason: Nausea And Vomiting Stop: 03/09/24 20:09 Last Admin: 02/08/24 20:16 Dose: 4 mg Documented By: DEANNA Discontinued Medications Acetaminophen (Acetaminophen 500 Mg Tab) 1,000 mg PO NOW STA Stop: 02/08/24 20:11 Last Admin: 02/08/24 20:15 Dose: 1,000 mg Documented By: DEANNA Ceftriaxone Sodium (Rocephin) 2,000 mg in 50 mls @ 100 mls/hr IV NOW STA Stop: 02/08/24 19:00 Last Infusion: 02/08/24 19:21 Dose: Infused Documented By: Admin: 02/08/24 18:51 Dose: 100 mls/hr Documented By: DEANNA Phenazopyridine HCl (Pyridium 200mg Home Pack) 1 each PO UD ONE Stop: 02/08/24 18:49 Last Admin: 02/08/24 18:53 Dose: 1 each Documented By: DEANNA Phenazopyridine HCl (Phenazopyridine Hcl 200 Mg Tab) 200 mg PO NOW STA Stop: 02/08/24 18:49 Last Admin: 02/08/24 18:53 Dose: 200 mg Documented By: DEANNA Imaging Data Radiologist's Impression: Abdomen/Pelvis CT 02/08/24 17:57 EXAM: CT Abdomen and Pelvis Without Intravenous Contrast INDICATION: Right flank pain. Hematuria. TECHNIQUE: Axial computed tomography images of the abdomen and pelvis without intravenous contrast. Sagittal and coronal reformatted images were created and reviewed. This CT exam was performed using one or more of the following dose reduction techniques: automated exposure control, adjustment of the mA and/or kV according to patient size, and/or use of iterative reconstruction technique. COMPARISON: No relevant prior studies available. FINDINGS: Limitations: None. Lung bases: No abnormality noted. Pleural space: Small layering bilateral pleural effusions present. Heart: Marked cardiomegaly and small pericardial effusion noted. Mediastinum: No abnormality noted. ABDOMEN: Liver: Low attenuation foci in the liver consistent with hepatic cysts. No follow-up is necessary. Gallbladder and bile ducts: No calcified stones or surrounding fluid. Pancreas: No pancreatic mass, calcification, inflammation or ductal dilation noted. Spleen: No significant abnormality noted. Adrenals: No significant abnormality noted. Kidneys and ureters: There is a punctate stone in each kidney. No obstructing stones. There is mild right hydronephrosis and dilatation of the extrarenal pelvis. Ureters are not dilated. No ureteral stones. No urinary gas. Stomach and bowel: There are multiple bowel containing abdominal wall hernia defects. Rectal staple line noted with adjacent clips. Extensive colonic diverticulosis noted. No focal thickening. No obstruction. PELVIS: Appendix: Well seen and appears normal. Bladder: Urinary bladder is collapsed. Inflammation not excluded. Reproductive: Hysterectomy. ABDOMEN and PELVIS: Intraperitoneal space: No free air. No significant fluid collection. Bones/joints: Degenerative changes noted in the scoliotic spine. No acute osseous abnormality noted. Soft tissues: Severe body wall edema noted. There is mild generalized mesenteric edema. Vasculature: Atherosclerotic calcification of the aorta and branches. No aneurysm. Lymph nodes: No pathologically enlarged lymph nodes. IMPRESSION: 1. Mild inflammation of the right renal pelvis which is mildly dilated and there is mild right hydronephrosis. Consider chronic UPJ obstruction. 2. Collapsed urinary bladder likely inflamed. Correlate with urinalysis. 3. Punctate nonobstructing stone in each kidney. 4. Anasarca. ACT 112: Negative or not required by law. Electronically signed by Karoline Thompson 02-08-2024 6:18 PM Discharge Plan Visit Data Chief Complaint: Hematuria Stated Complaint: HEMTURIA ED Provider: Jorden Rodriguez Discharge Problem: Acute pyelonephritis, Hematuria, Acute right flank pain, Acute UTI (urinary tract infection) Forms Stand Alone Forms: [facility] Prescriptions Prescriptions: No Action (DME) compr.stocking,knee,long,large misc See Dose Instructions .ROUTE .MEDSUPPLY Qty: 6 0RF Dose Instruction: As directed Rx Instructions: As directed (DME) BD Eclipse Luer-Luz 25 gauge x 1 1/2" needle See Rx Instructions .ROUTE .MEDSUPPLY Qty: 4 0RF Rx Instructions: As directed dicyclomine 10 mg capsule 10 mg PO TID PRN (Reason: abdominal cramping) Qty: 90 3RF naproxen 500 mg tablet 500 mg PO BID PRN (Reason: pain) Qty: 180 3RF nystatin 100,000 unit/gram powder 1 applic TOP TID PRN (Reason: AFFECTED SKIN) Qty: 60 2RF miscellaneous medical supply Misc 1 ea miscellaneous ONCE MDD P903 Qty: 1 0RF Rx Instructions: Please provide a hospital bed that is capable of rising and lowering for patient coenzyme Q10 100 mg capsule 100 mg PO DAILY Qty: 90 1RF Mag 64 64 mg tablet,delayed release (DR/EC) 128 mg PO DAILY Qty: 180 1RF Metamucil (sugar) Powder 1 tbsp PO DAILY Qty: 1254 1RF aspirin 81 mg tablet,delayed release (DR/EC) 81 mg PO DAILY Qty: 90 1RF mecobalamin (vitamin B12) 1,000 mcg tablet,chewable 1,000 mcg PO .3XWEEKLY Rx Instructions: OTC omeprazole 20 mg capsule,delayed release(DR/EC) 20 mg PO DAILY Qty: 90 3RF simvastatin 10 mg tablet 10 mg PO QPM Qty: 90 3RF sotalol 80 mg tablet 40 mg PO BID Qty: 90 3RF Referrals Referrals: Yong Henriquez III, CRNP [Primary Care Provider] -
[2024-02-08 18:26] LABS: Appearance Urine Cloudy (Clear); Bilirubin Urine Negative (Negative); Blood Urine 3+ (Negative); Color Urine Red; Glucose Urine UA Negative (Negative); Ketones Urine Negative (Negative); Leukocyte Esterase Urine 1+ (Negative); Nitrite Urine Positive (Negative); Protein Urine 3+ (Negative); Urobilinogen Urine Negative (Negative); pH Urine 8.5 (4.5-7.5)
[2024-02-08 18:28] LABS: Epithelial Cell Urine >20 /hpf (0-2); RBC Urine >20 /hpf (0-2)
[2024-02-08 18:29] LABS: Albumin Globulin Ratio 1.1 (0.9-2); Albumin Level 3.5 gm/dl (3.4-5.0); BUN Creatinine Ratio 20.1 (10-20); Bilirubin,Total 0.5 mg/dl (0.2-1.0); Calcium 9.2 mg/dl (8.6-10.3); Creatinine Clr Calc Pharmacy 26.7 ml/min; Globulin 3.1 gm/dl (2.5-4.0); Total Protein 6.6 gm/dl (6.0-8.3)
[2024-02-08 18:29] LABS: Bacteria Urine 2+ (None Seen)
[2024-02-08] MEDS: cefTRIAXone SODIUM 2,000 MG/50 ML BAG IV STA (18:51)
[2024-02-08] MEDS: PHENAZOPYRIDINE HCL 200 MG TAB PO STA (18:53)
[2024-02-08] MEDS: PYRIDIUM 200MG HOME PACK PO ONE (18:53)
--- NOTE | 2024-02-08 19:38 | History & Physical Report ---
Date of Service February 08, 2024 Assessment & Plan (1) Acute pyelonephritis: Plan: Acute pyelonephritis with right sided hydronephrosis and JANETT on CKD. 78yo female presenting with several days of dysuria, suprapubic pain and bladder spasms as well as right flank pain. UA is suggestive of infection. Patient endorses hematuria as well - UA with Blood and RBCs present. CT as above with mild inflammation of the right renal pelvis with mild right hydronephrosis. Possible chronic UPJ obstruction. Punctate stones present - non-obstructive. Patient with frequent UTIs - last cultures with Klebsiella pneumoniae and Citrobacter both sensitive to Ceftriaxone. Patient with worsening renal function - BUN=33 an Cr=1.64, increased from most recent values of 17 and 1.26 on 12/01/23 -Admit to medical -Monitor intake and output -Bladder scan and straight cath as needed -Follow urine cultures sent from ER -Ceftriaxone 2gm IV daily -Pyridium 100mg po TID PRN -Will add Oxybutynin PRN bladder spasms as well -Tylenol as needed -Morphine PRN pain -Zofran PRN nausea -If hematuria persists despite treatment of infection would consider Urology consultation (2) Hematuria: Plan: Likely secondary to infection. Patient is on ASA 81mg po daily but not taking any blood thinners. -Treatment with Ceftriaxone as above -Monitor UOP closely -Consider Urology consultation if hematuria persists or worsens (3) Acute kidney injury superimposed on CKD: Plan: Patient with JANETT on CKD. BUN elevated to 33 and Cr to 1.64 from baseline of appx 1.2. She has had steadily increasing Cr since November. Patient seems to be volume overloaded - CT mentions small layering bilateral pleural effusions as well as small pericardial effusion. Patient endorses worsening of her bilateral LE edema as well, anasarca noted on imaging. -Avoid nephrotoxic agents -Renal dosing where needed (4) Anasarca: Plan: Patient seems to be volume overloaded - CT mentions small layering bilateral pleural effusions as well as small pericardial effusion. Patient endorses worsening of her bilateral LE edema as well, anasarca noted on imaging. - Patient with 3+ Proteinuria in setting of UTI - should be reassessed after treatment of infection with a Protein:Creatinine. Possibly contributing to her anasaraca and should be followed by Nephrology. -Should have repeat UA with quantification of urine protein after treatment of UTI -Likely will need Nephrology followup -Will order 2D echo and TSH for continued workup of anasarca. -Patient has an outpatient echo ordered for 02/20/24 which can be cancelled as we are performing the study inpatient Plan Atrial Fibrillation- rate controlled, not on anticoagulation -Continue Sotalol F/E/N- Saline lock for now, will hold additional IVF. Electrolyte WNL. Carb consistent diet Ppx - SCDs Code - DNR/DNI per discussion with patient Dispo -Admit to medical History of Present Illness Chief Complaint: hematuria Primary Care Provider: Yong Henriquez, III, JIM Tatiana Romero is a 78yo female with history of DM, HTN and AF presenting with several days of dysuria. Patient lives alone. She reports having several days of diarrhea last week which has since resolved. Over the last several days she has been having dysuria as well as suprapubic pain/bladder spasms and some right sided flank pain. She has had several episodes of gross hematuria as well with passage of clots. Endorses nausea and poor appetite. Sh e denies fever, chills, chest pain. Chronic SOB which is being worked up outpatient - scheduled to have an echocardiogram on 02/20/24. In the ER patient is afebrile, HD stable. Complaining of ongoing suprapubic pain ER Course: Ceftriaxone 2gm Phenazopyridine 200mg Morphine 1mg Tylenol 1gm Zofran 4mg IV Allergies Allergy/AdvReac Type Severity Reaction Status Date / Time No Known Allergies Allergy Verified 02/08/24 16:57 Home Medications Medication Instructions Recorded Confirmed Type compr.stocking,knee,long,large #6 ea 11/12/18 11/07/23 Rx safety needles 25 gauge x 1 1/2" #4 ea 02/26/20 11/07/23 Rx (BD Eclipse Luer-Luz) aspirin 81 mg tablet,delayed 81 mg PO DAILY #90 tabs 12/07/21 02/08/24 Rx release coenzyme Q10 100 mg capsule 100 mg PO DAILY #90 caps 12/07/21 02/08/24 Rx magnesium chloride 64 mg 128 mg (2 x 64 mg) PO DAILY #180 12/07/21 02/08/24 Rx (magnesium chloride) tabs tablet,delayed release (Mag 64) psyllium seed (sugar) oral powder 1 tbsp PO DAILY #1,254 grams 12/07/21 02/08/24 Rx (Metamucil (sugar) oral powder) omeprazole 20 mg capsule,delayed 20 mg PO DAILY GERD #90 caps 06/14/23 02/08/24 Rx release simvastatin 10 mg tablet 10 mg PO QPM Hyperlipidemia #90 06/14/23 02/08/24 Rx tabs sotalol 80 mg tablet 40 mg (1/2 x 80 mg) PO BID Atrial 06/14/23 02/08/24 Rx Fibrillation #90 tabs dicyclomine 10 mg capsule 10 mg PO TID PRN abdominal 09/17/23 02/08/24 Rx cramping #90 caps naproxen 500 mg tablet 500 mg PO BID PRN pain #180 tabs 09/17/23 02/08/24 Rx nystatin 100,000 unit/gram topical 1 applic topical TID PRN AFFECTED 09/17/23 02/08/24 Rx powder SKIN #60 grams mecobalamin (vitamin B12) 1,000 1,000 mcg PO .3XWEEKLY 10/02/23 02/08/24 History mcg chewable tablet miscellaneous medical supply 1 ea miscellaneous ONCE PATIENT 01/22/24 Rx NEEDS A HOSPITAL BED THAT LOWERS/RISES #1 ea Past Med/Surg History Problem List (Updated 02/08/24 @ 22:28 by Marilee Sin DO) Anasarca Acute kidney injury superimposed on CKD Acute pyelonephritis (Acute) Acute UTI (urinary tract infection) (Acute) Acute right flank pain (Acute) Hematuria (Acute) Lymphedema, not elsewhere classified Vitamin B12 deficiency Hyperlipidemia Generalized weakness (Chronic) Urinary tract infection (Acute) Cardiomyopathy Intermittent palpitations Right knee DJD (Chronic) Urinary incontinence Recurrent UTI Vulvar mass Scoliosis of thoracolumbar region due to degenerative disease of spine in adult Hypoalbuminemia Right foot pain Urinary frequency Gait instability (Chronic) Chronic gastroesophageal reflux disease (Chronic) Morbid obesity (Chronic) Osteopenia (Chronic) Type 2 diabetes mellitus (Chronic) Medical History Nondisplaced fracture of fifth right metatarsal bone Status post placement of implantable loop recorder Paroxysmal atrial tachycardia Atrial fibrillation Mitral and aortic valve disease Cervical cancer Non-sustained ventricular tachycardia PSVT (paroxysmal supraventricular tachycardia) Sick sinus syndrome History of cervical cancer Diverticulosis Diverticulitis Surgical History History of intestinal surgery H/O bilateral breast reduction surgery History of tonsillectomy and adenoidectomy H/O hemicolectomy Family History Mother Obesity Hypertension Diabetes Goiter Deep vein thrombosis Stroke Diverticulitis Myocardial infarction Sister Diabetes Lung cancer Father Alzheimer disease Diverticulitis Diabetes Parkinson disease Brother Atrial fibrillation Deep vein thrombosis Family/Other Diverticulitis Grandfather (Maternal) Colorectal cancer Grandfather (Paternal) Colorectal cancer Denies family history of Ovarian cancer Prostate cancer Breast cancer Social History Smoking Status: Never smoker Second Hand Exposure: No; Do You Dip or Chew Tobacco: No; Hx Alcohol Use: Yes Alcohol type: wine Alcohol Intake Frequency: 2-4 x/Month Hx Substance Use: No Preferred Language: Welsh Communication Ability: Effective Visual Impairment: No Limitations Hearing Ability: Use of Hearing Aid [place] Floors Installer Required: No Beliefs That Will Affect Care: None marital status: / Current Living Situation: Alone 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 How many Children do You have: 1 Feels Safe at Home: Yes Childhood Exposure to Second-Hand Smoke: Yes Diet: regular caffeine: No during the past year weight has: remained stable Dental Care, Regularly: No Physical Activity Frequency: 3-4 Times per Week Seatbelt Use: always Sunscreen Use: Yes Assistive Devices: Scooter/Electric Scooter and Walker Review of Systems Review of Systems: All systems reviewed & are unremarkable except as noted in HPI & below Physical Exam Physical Exam: General: patient resting comfortably, NAD, non-toxic in appearance, AA&O x 4 Skin: warm, dry, intact, no rashes or lesions HEENT: NC/AT, PERRL, EOMI, anicteric sclera, conjunctiva without injection, external ear normal to inspection and nontender, nares patent, moist mucus membranes, dentition intact, no oropharyngeal lesions, neck supple, trachea midline, no LAD, no thyromegaly, no JVD Heart: +S1/S2, regular, no m/r/g Lungs: equal air entry bilaterally, no rales/rhonchi/wheezes Abd: +BS, soft, NT/ND, no masses/organomegaly/ascites, +Suprapubic tenderness, + Right flank pain Ext: warm, 2+ pulses in UE/LE bilaterally, no clubbing/cyanosis, chronic lymphedema of bilateral LE Neuro: nonfocal, patient AA&O x 4, speech intact, no facial droop, moving all extremities on command with equal strength 5/5 Results & Data Results & Data Vital Signs (Past 12 Hours) Vital Signs Temp Pulse Pulse Resp BP BP Pulse Ox 02/08/24 19:00 141/109 H 02/08/24 19:00 141/109 H 02/08/24 18:48 61 30 H 96 02/08/24 18:24 61 24 95 02/08/24 18:00 159/89 H 02/08/24 17:54 58 L 19 95 02/08/24 17:51 58 L 21 96 02/08/24 17:48 62 21 98 02/08/24 17:48 56 L 20 96 02/08/24 17:47 62 02/08/24 17:46 62 20 139/97 95 02/08/24 17:44 139/97 02/08/24 17:31 36.3 C L 84 19 153/81 H 97 O2 Del Method 02/08/24 19:00 02/08/24 19:00 02/08/24 18:48 02/08/24 18:24 02/08/24 18:00 02/08/24 17:54 02/08/24 17:51 02/08/24 17:48 02/08/24 17:48 Room Air 02/08/24 17:47 02/08/24 17:46 Room Air 02/08/24 17:44 02/08/24 17:31 Room Air Laboratory Results Laboratory Results WBC 8.45 K/ul (4.8-10.8) 02/08/24 17:50 RBC 4.88 M/uL (4.20-5.40) 02/08/24 17:50 Hgb 15.0 g/dl (12.0-16.0) 02/08/24 17:50 Hct 46.5 % (37.0-47.0) 02/08/24 17:50 MCV 95.3 fL (80.0-100.0) 02/08/24 17:50 MCH 30.7 pg (25.0-34.0) 02/08/24 17:50 MCHC 32.3 g/dL (32.0-36.0) 02/08/24 17:50 RDW Std Deviation 55.3 fL (36.4-46.3) H 02/08/24 17:50 RDW Coeff of Gayathri 15.8 % (11.5-14.5) H 02/08/24 17:50 Plt Count 189 K/uL (130-400) 02/08/24 17:50 MPV 9.4 fL (9.4-12.4) 02/08/24 17:50 Immature Gran % (Auto) 0.2 % 02/08/24 17:50 Neut % (Auto) 81.5 % 02/08/24 17:50 Lymph % (Auto) 7.8 % 02/08/24 17:50 Sanders % (Auto) 8.9 % 02/08/24 17:50 Eos % (Auto) 1.2 % 02/08/24 17:50 Baso % (Auto) 0.4 % 02/08/24 17:50 Neut # (Auto) 6.89 K/uL (1.40-6.50) H 02/08/24 17:50 Lymph # (Auto) 0.66 K/uL (1.20-3.40) L 02/08/24 17:50 Sanders # (Auto) 0.75 K/uL (0.11-0.59) H 02/08/24 17:50 Eos # (Auto) 0.10 K/uL (0.00-0.50) 02/08/24 17:50 Baso # (Auto) 0.03 K/uL (0.00-0.20) 02/08/24 17:50 Immature Gran # (Auto) 0.02 K/uL (0.01-0.20) 02/08/24 17:50 Sodium 141 mmol/L (136-145) 02/08/24 17:50 Potassium 4.6 mmol/L (3.5-5.1) 02/08/24 17:50 Chloride 109 mmol/L (98-107) H 02/08/24 17:50 Carbon Dioxide 25 mmol/L (21-32) 02/08/24 17:50 Anion Gap 7 (3-11) 02/08/24 17:50 BUN 33 mg/dl (6-23) H 02/08/24 17:50 Creatinine 1.64 mg/dl (0.6-1.2) H 02/08/24 17:50 Est Cr Clr Drug Dosing 26.7 ml/min 02/08/24 17:50 eGFR 31.65 02/08/24 17:50 BUN/Creatinine Ratio 20.1 (10-20) H 02/08/24 17:50 Glucose 126 mg/dl (70-99(Fasting)) H 02/08/24 17:50 Calcium 9.2 mg/dl (8.6-10.3) 02/08/24 17:50 Total Bilirubin 0.5 mg/dl (0.2-1.0) 02/08/24 17:50 AST 13 U/L (13-39) 02/08/24 17:50 ALT 8 U/L (7-52) 02/08/24 17:50 Alkaline Phosphatase 60 U/L (34-104) 02/08/24 17:50 Total Protein 6.6 gm/dl (6.0-8.3) 02/08/24 17:50 Albumin 3.5 gm/dl (3.4-5.0) 02/08/24 17:50 Globulin 3.1 gm/dl (2.5-4.0) 02/08/24 17:50 Albumin/Globulin Ratio 1.1 (0.9-2) 02/08/24 17:50 Lipase 44 U/L (11-82) 02/08/24 17:50 Urine Color Red 02/08/24 16:40 Urine Appearance Cloudy (Clear) A 02/08/24 16:40 Urine pH 8.5 (4.5-7.5) H 02/08/24 16:40 Ur Specific [place] 1.020 (1.000-1.030) 02/08/24 16:40 Urine Protein 3+ (Negative) H 02/08/24 16:40 Urine Glucose (UA) Negative (Negative) 02/08/24 16:40 Urine Ketones Negative (Negative) 02/08/24 16:40 Urine Blood 3+ (Negative) H 02/08/24 16:40 Urine Nitrite Positive (Negative) A 02/08/24 16:40 Urine Bilirubin Negative (Negative) 02/08/24 16:40 Urine Urobilinogen Negative (Negative) 02/08/24 16:40 Ur Leukocyte Esterase 1+ (Negative) H 02/08/24 16:40 Urine RBC >20 /hpf (0-2) H 02/08/24 16:40 Urine WBC 11-20 /hpf (0-5) H 02/08/24 16:40 Ur Epithelial Cells >20 /hpf (0-2) H 02/08/24 16:40 Urine Bacteria 2+ (None Seen) H 02/08/24 16:40 Impressions Abdomen/Pelvis CT 02/08/24 17:57 EXAM: CT Abdomen and Pelvis Without Intravenous Contrast INDICATION: Right flank pain. Hematuria. TECHNIQUE: Axial computed tomography images of the abdomen and pelvis without intravenous contrast. Sagittal and coronal reformatted images were created and reviewed. This CT exam was performed using one or more of the following dose reduction techniques: automated exposure control, adjustment of the mA and/or kV according to patient size, and/or use of iterative reconstruction technique. COMPARISON: No relevant prior studies available. FINDINGS: Limitations: None. Lung bases: No abnormality noted. Pleural space: Small layering bilateral pleural effusions present. Heart: Marked cardiomegaly and small pericardial effusion noted. Mediastinum: No abnormality noted. ABDOMEN: Liver: Low attenuation foci in the liver consistent with hepatic cysts. No follow-up is necessary. Gallbladder and bile ducts: No calcified stones or surrounding fluid. Pancreas: No pancreatic mass, calcification, inflammation or ductal dilation noted. Spleen: No significant abnormality noted. Adrenals: No significant abnormality noted. Kidneys and ureters: There is a punctate stone in each kidney. No obstructing stones. There is mild right hydronephrosis and dilatation of the extrarenal pelvis. Ureters are not dilated. No ureteral stones. No urinary gas. Stomach and bowel: There are multiple bowel containing abdominal wall hernia defects. Rectal staple line noted with adjacent clips. Extensive colonic diverticulosis noted. No focal thickening. No obstruction. PELVIS: Appendix: Well seen and appears normal. Bladder: Urinary bladder is collapsed. Inflammation not excluded. Reproductive: Hysterectomy. ABDOMEN and PELVIS: Intraperitoneal space: No free air. No significant fluid collection. Bones/joints: Degenerative changes noted in the scoliotic spine. No acute osseous abnormality noted. Soft tissues: Severe body wall edema noted. There is mild generalized mesenteric edema. Vasculature: Atherosclerotic calcification of the aorta and branches. No aneurysm. Lymph nodes: No pathologically enlarged lymph nodes. IMPRESSION: 1. Mild inflammation of the right renal pelvis which is mildly dilated and there is mild right hydronephrosis. Consider chronic UPJ obstruction. 2. Collapsed urinary bladder likely inflamed. Correlate with urinalysis. 3. Punctate nonobstructing stone in each kidney. 4. Anasarca. ACT 112: Negative or not required by law. Electronically signed by Karoline Thompson 02-08-2024 6:18 PM PG Care Time/CCT Total # of Minutes Spent Total Time Spent with Patient: Total time spent is greater than 50% in coordination of care (as documented) at patient's floor/unit and/or counseling patient: Coding Level of Care Code 51260 INT INP/OBS CARE 3/75MIN Diagnoses Acute pyelonephritis N10 Hematuria R31.9 Acute kidney injury superimposed on CKD N17.9; N18.9 Anasarca R60.1
[2024-02-08 19:52] LABS: Potassium 4.6 mmol/L (3.5-5.1)
[2024-02-08] MEDS: MoRPHine SULFATE 2 MG/ML CARP IV PRN (20:15)
[2024-02-08] MEDS: ACETAMINOPHEN 500 MG TAB PO STA (20:15)
[2024-02-08] MEDS: ONDANSETRON INJ 2 MG/ML 2 ML VIAL IV PRN (20:16)
[2024-02-08] MEDS ORDERED: ONDANSETRON INJ 2 MG/ML 2 ML VIAL IV PRN (21:51)
[2024-02-08] MEDS: SOTALOL HCL 80 MG TAB PO SCH (22:20)
[2024-02-08] MEDS: oxyBUTYnin chloride 5 MG TAB PO SCH (22:21)
[2024-02-09 06:30] LABS: BUN Creatinine Ratio 20.6 (10-20); Calcium 8.5 mg/dl (8.6-10.3); Creatinine Clr Calc Pharmacy 26.9 ml/min; Potassium 4.9 mmol/L (3.5-5.1)
[2024-02-09 06:45] LABS: Thyroid Stimulating Hormone 2.191 uIu/ml (0.300-4.500)
[2024-02-09] MEDS: LACTATED RINGER'S 1,000 ML IV SCH (07:02)
[2024-02-09] MEDS: PHENAZOPYRIDINE HCL 100 MG TAB PO PRN (08:25)
[2024-02-09] MEDS: PANTOprazole 40 MG TAB PO SCH (08:26)
--- NOTE | 2024-02-09 12:37 | XCELERA ---
[id number] \\[email or web address]_[email or web address]\[id number]}___[id number]
--- NOTE | 2024-02-09 16:05 | Hospitalist Progress Note ---
Date of Service February 09, 2024 Assessment & Plan (1) Acute pyelonephritis: Plan: Acute pyelonephritis with right sided hydronephrosis and JANETT on CKD3. 78yo female presenting with several days of dysuria, suprapubic pain and bladder spasms as well as right flank pain. UA is suggestive of infection. Patient endorses hematuria as well - UA with Blood and RBCs present. CT as above with mild inflammation of the right renal pelvis with mild right hydronephrosis. Possible chronic UPJ obstruction. Punctate stones present - non-obstructive. Hx frequent UTIs - last cultures with Klebsiella pneumoniae and Citrobacter both sensitive to Ceftriaxone. -Follow urine cultures sent from ER -Ceftriaxone 2gm IV daily - 10 days course ABX for pyelonephritis -Pyridium 100mg po TID PRN -Oxybutynin PRN bladder spasms -Tylenol as needed -Morphine PRN pain -has been mildly hypotensive, reduce sotalol, PRN IVF boluses, avoiding for now since asymptomatic and has total body volume overload with anasarca, pleural effusions (2) Hematuria: Plan: Likely secondary to infection. Patient is on ASA 81mg po daily but not taking any blood thinners. -Treatment with Ceftriaxone as above -Monitor UOP closely, check PVR as needed, CBI if clots obstructing bladder -urology consultation if hematuria persists or worsens (3) Acute kidney injury superimposed on CKD: Plan: Patient with JANETT on CKD stage 3. BUN elevated to 33 and Cr to 1.64 from baseline of appx 1.2. She has had steadily increasing Cr since November. Potassium 4.9 -not obstructed by abdominal CT. Hx nephrolithiasis, bilateral punctate renal stones. Mild R hydro and dilated extrarenal pelvis. no recent abdominal imaging to assess whether acute or chronic -Cr unchanged overnight still 1.65 -Avoid nephrotoxic agents -Renal dosing where needed -nephrology referral appropriate -monitor Cr and K - AM BMP (4) Anasarca: Plan: Patient seems to be volume overloaded - CT mentions small layering bilateral pleural effusions as well as small pericardial effusion. Patient endorses worsening of her bilateral LE edema as well TTE 02/08 reviewednormal LV systolic function EF 55-60% no RWMA's, mild concentric LVH, mild AR, mild MR no change since 08/16 echo. No comment re: diastolic function check BNP Serum albumin 3.5 but has 3+ proteinuria on UA. Check spot protein:Cr once pyelo improved No evidence of cirrhosis based on labs, imaging Plan Atrial Fibrillation- rate controlled, not on anticoagulation Cardiomyopathy Long standing palpitations, persistent CABELLO for months. Seen by Dr. Zhu -Drew summer 2023 with 2 episodes NSVT, atrial tachycardia - brief episodes, no afib -Continue Sotalol but reduce dose 50% to 20 bid with hold parameters because of hypotension -continue aspirin, chronically not on anticoagulation -refused SGLT2 due to potential side effects, not on IVETH/ARB/SNRI or spironolactone because of borderline blood pressure History of DM2, A1c 5.8 this summer, resolved with weight loss Morbid obesity BMI 42.9 B12 deficiency on oral replacement, Hx diverticulitis s/p rectosigmoid resection Ppx - SCDs, SQ heparin once hematuria cleared Code - DNR/DNI per discussion with patient PT and OT, lives alone Admission and Anticipated Discharge Date Admission Date: February 08, 2024 Subjective still with hematuria passing clots R flank pain resolved however and feels better has had increased shortness of breath and edema recently BP low this AM was lightheaded for a short time, resolved Physical Exam 2 Physical Exam: PHYSICAL EXAMINATION Last 24h vital signs reviewed, see documentation in flowsheet General: comfortable appearing, no distress HEENT: Normocephalic, atraumatic, pupils round and equal, sclerae anicteric, no conjunctival injection, moist mucus membranes Lungs: Normal respiratory effort. Clear to auscultation bilaterally. No RRW Heart: Regular rate and rhythm, no murmurs. No JVD Abdomen: Soft, nontender, nondistended. Bowel sounds present. Extremities: Warm, dry, well-perfused. severe bilateral lower extremity lymphedema, nonpitting Neuro: Alert and oriented x 4, face symmetric, moves 4 extremities well Psych: Normal affect and behavior Results & Data Results & Data Vital Signs (Past 12 Hours) Vital Signs Temp Pulse Resp BP BP Pulse Ox O2 Del Method 02/09/24 15:10 98.2 F 54 L 18 97/56 L 91 Room Air 02/09/24 12:18 52 L 17 106/57 L 93 Room Air 02/09/24 11:14 47 L 18 95/61 L 91 Room Air 02/09/24 10:30 49 L 18 96/62 L 94 Room Air 02/09/24 10:23 51 L 91/60 L 93 Room Air 02/09/24 10:20 49 L 17 95/60 L 02/09/24 08:30 Room Air 02/09/24 07:45 98.6 F 54 L 18 96/60 L 92 Room Air Laboratory Results 02/08/24 17:50 02/09/24 05:43 PG Care Time/CCT Total # of Minutes Spent Total Time Spent with Patient: Total time spent is greater than 50% in coordination of care (as documented) at patient's floor/unit and/or counseling patient: Coding Level of Care Code 73254 SUB INP/OBS CARE 3/50MIN Diagnoses Acute pyelonephritis N10 Hematuria R31.9 Acute kidney injury superimposed on CKD N17.9; N18.9 Anasarca R60.1
[2024-02-09] MEDS: cefTRIAXone SODIUM 2,000 MG/50 ML BAG IV SCH (17:27)
[2024-02-09] MEDS: SOTALOL HCL 80 MG TAB PO SCH (21:24)
[2024-02-09] MEDS: SIMVASTATIN 10 MG TAB PO SCH (21:25)
[2024-02-10 06:35] LABS: Anion Gap 4 (3-11); BUN Creatinine Ratio 21.1 (10-20); Blood Urea Nitrogen 40 mg/dl (6-23); Calcium 8.6 mg/dl (8.6-10.3); Carbon Dioxide 25 mmol/L (21-32); Chloride 112 mmol/L (98-107); Creatinine Clr Calc Pharmacy 23.4 ml/min; Glucose 94 mg/dl (70-99(Fasting)); Sodium 141 mmol/L (136-145)
[2024-02-10 08:03] LABS: Hematocrit (blood only) 40.2 % (37.0-47.0); Hemoglobin 12.9 g/dl (12.0-16.0); Mean Corpuscular Hemoglobin 31.2 pg (25.0-34.0); Mean Corpuscular Hgb Conc 32.1 g/dL (32.0-36.0); Mean Corpuscular Volume 97.1 fL (80.0-100.0); Mean Platelet Volume 9.9 fL (9.4-12.4); Platelet Count 162 K/uL (130-400); RDW Coefficient of Variation 15.9 % (11.5-14.5); Red Blood Count 4.14 M/uL (4.20-5.40); White Blood Count 6.05 K/ul (4.8-10.8)
[2024-02-10] MEDS: SODIUM CHLORIDE 0.9% 250 ML IV ONE (10:33)
--- NOTE | 2024-02-10 12:14 | Electrocardiogram Report ---
Test Reason : Blood Pressure : */* mmHG Vent. Rate : 58 BPM Atrial Rate : 58 BPM P-R Int : 198 ms QRS Dur : 88 ms QT Int : 484 ms P-R-T Axes : 55 157 215 degrees QTcB Int : 475 ms Sinus bradycardia with Premature atrial complexes Right axis deviation Nonspecific ST and T wave abnormality Abnormal ECG When compared with ECG of 08-Oct-2023 20:36, Premature atrial complexes are now Present Nonspecific T wave abnormality, worse in Lateral leads Confirmed by Lloyd Ayala ([id number]) on 02/10/2024 12:14:24 PM Referred By: REFERRED SELF Confirmed By: Lloyd Ayala
--- NOTE | 2024-02-10 15:59 | Hospitalist Progress Note ---
Date of Service February 10, 2024 Assessment & Plan (1) Acute pyelonephritis: Plan: Acute pyelonephritis with right sided hydronephrosis and JANETT on CKD3. 78yo female presenting with several days of dysuria, suprapubic pain and bladder spasms as well as right flank pain. UA is suggestive of infection. Patient endorses hematuria as well - UA with Blood and RBCs present. CT as above with mild inflammation of the right renal pelvis with mild right hydronephrosis. Possible chronic UPJ obstruction. Punctate stones present - non-obstructive. Hx frequent UTIs - last cultures with Klebsiella pneumoniae and Citrobacter both sensitive to Ceftriaxone. -Urine culture with proteus mirabilis and klebsiella variicola - both sensitive to cefazolin -change ceftriaxone to cefazolin - 10 days course ABX for pyelonephritis -Pyridium 100mg po TID PRN -Oxybutynin PRN bladder spasms -Tylenol as needed -Morphine PRN pain -was mildly hypotensive 02/08, reduced sotalol. Gave 250 mg NS bolus today for JANETT on CKD 3-4. AM BMP (2) Hematuria: Plan: Likely secondary to infection. Patient is on ASA 81mg po daily but not taking any blood thinners. -Treatment with antibiotics -anticipate will resolve (3) Acute kidney injury superimposed on CKD: Plan: Patient with JANETT on CKD stage 3-4. BUN elevated to 33 and Cr to 1.64 from baseline of appx 1.2. She has had steadily increasing Cr since November. -not obstructed by abdominal CT. Hx nephrolithiasis, bilateral punctate renal stones. Mild R hydro and dilated extrarenal pelvis. no recent abdominal imaging to assess whether acute or chronic -Cr increased from 1.6-->1.9, gave 250 mL NS bolus, potassium 5.1 -Avoid nephrotoxic agents -Renal dosing where needed -nephrology referral appropriate for CKD - discussed with her -AM BMP (4) Anasarca: Plan: Patient seems to be volume overloaded - CT mentions small layering bilateral pleural effusions as well as small pericardial effusion. Patient endorses worsening of her bilateral LE edema as well TTE 02/08 reviewednormal LV systolic function EF 55-60% no RWMA's, mild concentric LVH, mild AR, mild MR no change since 08/16 echo. No comment re: diastolic function check BNP = 931, may have chronic diastolic heart failure and also affected by renal dysfunction Serum albumin 3.5 but has 3+ proteinuria on UA. Check spot protein:Cr once pyelo improved No evidence of cirrhosis based on labs, imaging Plan Atrial Fibrillation- rate controlled Cardiomyopathy Long standing palpitations, persistent CABELLO for months. Seen by Dr. Zhu -Holter summer 2023 with 2 episodes NSVT, atrial tachycardia - brief episodes, no afib -Continue Sotalol but reduce dose 50% to 20 bid with hold parameters because of hypotension -continue aspirin, chronically not on anticoagulation -refused SGLT2 due to potential side effects, not on IVETH/ARB/SNRI or spironolactone because of borderline blood pressure History of DM2, A1c 5.8 this summer, resolved with weight loss Morbid obesity BMI 42.9 B12 deficiency on oral replacement, Hx diverticulitis s/p rectosigmoid resection Ppx - SCDs, SQ heparin once hematuria cleared Code - DNR/DNI per discussion with patient PT and OT, lives alone in accessible apartment with Admission and Anticipated Discharge Date Admission Date: February 08, 2024 Subjective still feeling very weak but no back/flank pain Physical Exam 2 Physical Exam: PHYSICAL EXAMINATION Last 24h vital signs reviewed, see documentation in flowsheet General: comfortable appearing, no distress, lying in bed about to do PT exam unchanged 02/09 HEENT: Normocephalic, atraumatic, pupils round and equal, sclerae anicteric, no conjunctival injection, moist mucus membranes Lungs: Normal respiratory effort. Clear to auscultation bilaterally. No RRW Heart: Regular rate and rhythm, no murmurs. No JVD Abdomen: Soft, nontender, nondistended. Bowel sounds present. Extremities: Warm, dry, well-perfused. severe bilateral lower extremity lymphedema, nonpitting Neuro: Alert and oriented x 4, face symmetric, moves 4 extremities well Psych: Normal affect and behavior Results & Data Results & Data Vital Signs (Past 12 Hours) Vital Signs Temp Pulse Pulse Pulse Resp BP Pulse Ox 02/10/24 13:40 97.9 F 56 L 16 129/81 93 02/10/24 08:20 02/10/24 07:10 97.5 F L 50 L 16 104/71 93 02/10/24 04:42 58 L 95/59 L O2 Del Method 02/10/24 13:40 Room Air 02/10/24 08:20 Room Air 02/10/24 07:10 Room Air 02/10/24 04:42 Laboratory Results 02/10/24 06:06 02/10/24 07:19 Cr 1.6-->1.9 [id number] PG Care Time/CCT Total # of Minutes Spent Total Time Spent with Patient: Total time spent is greater than 50% in coordination of care (as documented) at patient's floor/unit and/or counseling patient: Coding Level of Care Code 15021 SUB INP/OBS CARE 2/35MIN Diagnoses Acute pyelonephritis N10 Hematuria R31.9 Acute kidney injury superimposed on CKD N17.9; N18.9 Anasarca R60.1
[2024-02-10] MEDS ORDERED: ceFAZolin 2000MG 2,000 MG/15 ML SYR IV SCH (16:00)
[2024-02-10] MEDS: ceFAZolin 1000MG 1,000 MG/7.5 ML SYR IV SCH (17:29)
[2024-02-10] MEDS: NYSTATIN SUSP 500,000 U/5 ML UDC PO SCH (20:16)
[2024-02-11 07:48] LABS: BUN Creatinine Ratio 20.1 (10-20); Calcium 8.8 mg/dl (8.6-10.3); Creatinine Clr Calc Pharmacy 22.3 ml/min
[2024-02-11] MEDS ORDERED: ALBUTEROL HFA 8 GM INHALER INH PRN (08:37)
[2024-02-11 08:43] LABS: Appearance Urine Cloudy (Clear); Bacteria Urine Automated None Seen (None Seen); Bilirubin Urine Negative (Negative); Blood Urine 3+ (Negative); Cast Urine Automated 0-2 /lpf (0-2); Color Urine Dark Yellow; Epithelial Cell Urine Auto 0-2 /hpf (0-2); Glucose Urine UA Negative (Negative); Ketones Urine Negative (Negative); Leukocyte Esterase Urine 2+ (Negative); Nitrite Urine Positive (Negative); Protein Urine 1+ (Negative); RBC Urine Automated >20 /hpf (0-2); Specific Gravity Urine 1.014 (1.000-1.030); Urobilinogen Urine Negative (Negative); WBC Urine Automated >50 /hpf (0-5); pH Urine 5.5 (4.5-7.5)
[2024-02-11 08:49] LABS: Creatinine Urine Random 56.6 mg/dl; Protein Creatinine Ratio Urine 0.9 (0-0.2); Total Protein Urine Random 48.4 mg/dl (0-11.9)
--- NOTE | 2024-02-11 08:59 | XRay Report ---
XR chest 1V portable HISTORY: 78 years-old Female cough, fluid overload COMPARISON: 10/09/2023 TECHNIQUE: AP view of the chest FINDINGS: The cardiac silhouette is enlarged. Pulmonary vascular congestion. Probable pulmonary total hypertens ion. Small pleural effusions. Mild left basilar densities. Hiatal hernia. Electronic device projects over the left heart border. Degenerative changes of the shoulders and spine with loose bodies within the right axillary recess. IMPRESSION: 1. Cardiomegaly with pulmonary vascular congestion. 2. Small pleural effusions with mild left basilar opacities, similar to prior favoring atelectasis. ACT 112: Negative or not required by law. The above report was generated using voice recognition software. It may contain grammatical, syntax o r spelling errors. Electronically signed by: Pedro Hayes M.D. 02/11/2024 8:57 AM
[2024-02-11 09:11] LABS: Albumin Level 2.8 gm/dl (3.4-5.0)
[2024-02-11 10:42] LABS: Adenovirus PCR Not Detected (NotDetected); Bordetella parapertussis PCR Not Detected (NotDetected); Bordetella pertussis PCR Not Detected (NotDetected); Chlamydia pneumoniae PCR Not Detected (NotDetected); Coronavirus 229E PCR Not Detected (NotDetected); Coronavirus CoV-2 (COVID19)PCR Not Detected (NotDetected); Coronavirus HKU1 PCR Not Detected (NotDetected); Coronavirus NL63 PCR Not Detected (NotDetected); Coronavirus OC43PCR Not Detected (NotDetected); Human Metapneumovirus PCR Not Detected (NotDetected); Influenza A PCR Not Detected (NotDetected); Influenza B PCR Not Detected (NotDetected); Mycoplasma pneumoniae PCR Not Detected (NotDetected); Parainfluenza Virus 1 PCR Not Detected (NotDetected); Parainfluenza Virus 2 PCR Not Detected (NotDetected); Parainfluenza Virus 3 PCR Not Detected (NotDetected); Parainfluenza Virus 4 PCR Not Detected (NotDetected); Respiratory Syncytial VirusPCR Not Detected (NotDetected); Rhinovirus/Enterovirus PCR Not Detected (NotDetected)
--- NOTE | 2024-02-11 10:54 | Hospitalist Progress Note ---
Date of Service February 11, 2024 Assessment & Plan (1) Acute pyelonephritis: Plan: Acute pyelonephritis with right sided hydronephrosis and JANETT on CKD3. 78yo female presenting with several days of dysuria, suprapubic pain and bladder spasms as well as right flank pain. UA is suggestive of infection. Patient endorses hematuria as well - UA with Blood and RBCs present. CT as above with mild inflammation of the right renal pelvis with mild right hydronephrosis. Possible chronic UPJ obstruction. Punctate stones present - non-obstructive. Hx frequent UTIs -Urine culture with proteus mirabilis and klebsiella variicola - both sensitive to cefazolin -changed ceftriaxone to cefazolin - 10 days course ABX for pyelonephritis -Pyridium 100mg po TID PRN -Oxybutynin PRN bladder spasms -Tylenol as needed -gross hematuria resolved -was mildly hypotensive 02/08, reduced sotalol. Gave 250 mg NS bolus 02/09, however Cr worse and fluid overloaded see below (2) Acute kidney injury superimposed on CKD: Plan: Patient with JANETT on CKD stage 3-4. She has had steadily increasing Cr since November. prior to that her creatinine was around 1.2 she does not follow with a counterintelligence agent -not obstructed by abdominal CT. Hx nephrolithiasis, bilateral punctate renal stones. Mild R hydro and dilated extrarenal pelvis. no recent abdominal imaging to assess whether acute or chronic -Cr increased from 1.6-->2 -may be related to hypotension (which has improved), Cr worsened rather than improved after small IVF challenge 02/09 and became more volume overloaded -proteinuria on admitting UA (though in setting of UTI), hypoalbuminemia, anasarca -check UA, spot urine prot:cr, urine electrolytes for FeNa - unfortunately I think Lasix was given prior to the urine NA being checked which is elevated, spot protein creatinine ratio suggests 0.9 g per 24 hours proteinuria -check PVR for retention, consider [place] -lasix and albumin for acute pulmonary edema today -consult counterintelligence agent - discussed with Dr. Glass he will be able to see late today or tomorrow -AM BMP (3) Anasarca: Plan: Patient seems to be volume overloaded - CT mentions small layering bilateral pleural effusions as well as small pericardial effusion. Patient endorses worsening of her bilateral LE edema as well TTE 02/08 reviewednormal LV systolic function EF 55-60% no RWMA's, mild concentric LVH, mild AR, mild MR no change since 08/16 echo. No comment re: diastolic function check BNP = 931, may have chronic diastolic heart failure and also affected by renal dysfunction Serum albumin now 2.8 had 3+ proteinuria on UA, improved to 1+ on 02/10. No evidence of cirrhosis based on labs, imaging Nutrition consult See above Plan Atrial Fibrillation- rate controlled Cardiomyopathy EF 55 to 60% Long standing palpitations, persistent CABELLO for months. Seen by Dr. Zhu -Holter summer 2023 with 2 episodes NSVT, atrial tachycardia - brief episodes, no afib -Continue Sotalol but reduced dose 50% to 20 bid with hold parameters because of hypotension -continue aspirin, chronically not on anticoagulation -refused SGLT2 due to potential side effects, not on IVETH/ARB/SNRI or spironolactone because of borderline blood pressure History of DM2, A1c 5.8 this summer, resolved with weight loss Morbid obesity BMI 42.9 B12 deficiency on oral replacement, Hx diverticulitis s/p rectosigmoid resection Ppx - SCDs, SQ heparin order Code - DNR/DNI per discussion with patient PT and OT, lives alone in accessible apartment with Admission and Anticipated Discharge Date Admission Date: February 08, 2024 Subjective cough worse and wheezing/ short of breath. bilateral arm edema worsening hematuria has resolved Physical Exam 2 Physical Exam: PHYSICAL EXAMINATION Last 24h vital signs reviewed, see documentation in flowsheet General: sitting up in the chair, I saw her get up with RN and walk to the bathroom with walker HEENT: Normocephalic, atraumatic, pupils round and equal, sclerae anicteric, no conjunctival injection, moist mucus membranes Lungs: Normal respiratory effort. posterior crackles one third of the way up no wheezing currently clear anteriorly Heart: Regular rate and rhythm, no murmurs. Abdomen: Soft, nontender, nondistended. Bowel sounds present. Extremities: Warm, dry, well-perfused. anasarca x 4 extremities, upper extremity edema has definitely increased since admission. Severe bilateral lower extremity lymphedema at baseline Neuro: Alert and oriented x 4, face symmetric, moves 4 extremities well Psych: Normal affect and behavior Results & Data Results & Data Vital Signs (Past 12 Hours) Vital Signs Temp Pulse Resp BP Pulse Ox O2 Del Method 02/11/24 07:45 98.4 F 57 L 16 122/71 92 Room Air 02/11/24 07:30 Room Air Laboratory Results 02/10/24 06:06 02/11/24 07:08 alb 2.8 resp biofire neg CXR - pulmonary vascular congestion bilateral pleural effusions PG Care Time/CCT Total # of Minutes Spent Total Time Spent with Patient: Total time spent is greater than 50% in coordination of care (as documented) at patient's floor/unit and/or counseling patient: Coding Level of Care Code 74689 SUB INP/OBS CARE 3/50MIN Diagnoses Acute pyelonephritis N10 Acute kidney injury superimposed on CKD N17.9; N18.9 Anasarca R60.1
[2024-02-11] MEDS: FUROSEMIDE 40 MG/4 ML VIAL IV ONE (11:08)
[2024-02-11] MEDS: ALBUMIN 25% 25 GM/100 ML VIAL IV SCH (11:16)
[2024-02-11] MEDS ORDERED: LEVALBUTEROL TARTRATE 15 GM HFA.AER.AD INH PRN ×2 (12:43→23:26)
--- NOTE | 2024-02-11 18:58 | Nephrology Consultation ---
Date of Consultation February 11, 2024 Assessment & Plan (1) JANETT (acute kidney injury): Non-oliguric. Electrolytes normal. Volume status acceptable. No emergent indication for SHOWROOM CONSULTANT at this time. JANETT attributed to UTI and hemodynamic changes from intravascular volume depletion/diuretics. Cannot exclude AIN or GN but presentation is atypical. Non glomerular hematuria with gross blood and clots noted on admission in setting of UTI. Suggest follow up renal US for hydronephrosis. Thankfully systemic signs of infection are clearing. Document strict I/Os. Repeat metabolic profile tomorrow AM. (2) CKD (chronic kidney disease): Baseline creatinine ~1.25 mg/dL. CKD attributed to DKD + hypertension. Multiple episodes of UTI. Medications are appropriate for kidney function. Outpatient nephrology follow up will be arranged at discharge. (3) Proteinuria: Not nephrotic. Outpatient follow up encouraged to better assess once UTI has been adequately treated. (4) Hypoalbuminemia: Not nephrotic. (5) Anasarca: Receiving treatment with IV albumin and furosemide. Low sodium diet. Document strict I/O's. Encourage lymphedema treatments and effleurage. (6) Acute pyelonephritis: Culture + klebsiella and proteus. Outpatient urology follow up encouraged regarding gross hematuria and multiple episodes of UTI. History of Present Illness Reason for Consultation: janett on ckd, proteinuria, hypoalbuminemia, vol Requesting Physician: Maria Sapp MD Attending Physician: Maria Sapp MD History of Present Illness Tatiana is a 78 year-old female with DM, HTN, NSVT, atrial tachycardia, history of atrial fibrillation rhythm controlled with sotalol, history of partial colectomy for perforated diverticulum, lymphedema, and recurrent UTI. Tatiana presented to [facility] on February 07 with pyleonephritis. Urine culture growing klebsiella and Proteus. She remains on antibiotic therapy with cefazolin. Symptoms improved. Notable gross hematuria and right flank pain reported on admission. ROS notable for several days of diarrhea prior to admission. Tatiana has struggle with chronic diarrhea since undergoing partial colectomy in the past. She also endorses decreased appetite and progressive weight loss. Symptoms on admission notable for suprapubic pain, bladder spasms, and right sided flank pain. Gross hematuria and passage of clots with 24 hours of admission. Tatiana reported nausea and decreased appetite which has been more chronic. Serum creatinine on presentation was slightly elevated at 1.65 mg/dL. Creatnine has trended upward to 1.99 mg/dL. She remains non-oliguric. Imaging notable for layering BL pleural effusions and anasarca. Fluid retention had notably been present for many months per Tatiana. TTE demonstrated normal LV size and no WMA. LVEF 55-60%. Mild concentric LVH reported. There was no significant valvular heart disease. Urine is dark and cloudy. UA notable for +1 protein, +3 blood, + nitrites. Urine microscopy with >50 WBC and >[address] demonstrating inflammation of the right renal pelvis with mild right hydronephrosis and evidence of chronic UPJ obstruction. Non-obstructive punctate stones appreciated. Tatiana was mildly hypotensive on presentation and persistently bradycardic. Sotalol dose has been reduced. Anasarca has been attributed to hypoalbuminemia, serum albumin 2.8. Blood glucose has been controlled with diet and weight loss. Tatiana no longer requires medications for control. She no longer requires any prescription antihypertensives. Management since admission has included IV albumin and diuretics. I/Os not documented. She describes a history of chronic lymphedema of the upper and lower extremities. She has received lymphedema PT intermittently for several years and is scheduled to resume lymphedema treatments in the near future as an outpatient. Allergies Allergy/AdvReac Type Severity Reaction Status Date / Time No Known Allergies Allergy Verified 02/08/24 16:57 Home Medications Medication Instructions Recorded Confirmed Type compr.stocking,knee,long,large #6 ea 11/12/18 11/07/23 Rx safety needles 25 gauge x 1 1/2" #4 ea 02/26/20 11/07/23 Rx (BD Eclipse Luer-Luz) aspirin 81 mg tablet,delayed 81 mg PO DAILY #90 tabs 12/07/21 02/08/24 Rx release coenzyme Q10 100 mg capsule 100 mg PO DAILY #90 caps 12/07/21 02/08/24 Rx magnesium chloride 64 mg 128 mg (2 x 64 mg) PO DAILY #180 12/07/21 02/08/24 Rx (magnesium chloride) tabs tablet,delayed release (Mag 64) psyllium seed (sugar) oral powder 1 tbsp PO DAILY #1,254 grams 12/07/21 02/08/24 Rx (Metamucil (sugar) oral powder) omeprazole 20 mg capsule,delayed 20 mg PO DAILY GERD #90 caps 06/14/23 02/08/24 Rx release simvastatin 10 mg tablet 10 mg PO QPM Hyperlipidemia #90 06/14/23 02/08/24 Rx tabs sotalol 80 mg tablet 40 mg (1/2 x 80 mg) PO BID Atrial 06/14/23 02/08/24 Rx Fibrillation #90 tabs dicyclomine 10 mg capsule 10 mg PO TID PRN abdominal 09/17/23 02/08/24 Rx cramping #90 caps naproxen 500 mg tablet 500 mg PO BID PRN pain #180 tabs 09/17/23 02/08/24 Rx nystatin 100,000 unit/gram topical 1 applic topical TID PRN AFFECTED 09/17/23 02/08/24 Rx powder SKIN #60 grams mecobalamin (vitamin B12) 1,000 1,000 mcg PO .[id number] 10/02/23 02/08/24 History mcg chewable tablet miscellaneous medical supply 1 ea miscellaneous ONCE PATIENT 01/22/24 Rx NEEDS A HOSPITAL BED THAT LOWERS/RISES #1 ea Patient History Medical History Nondisplaced fracture of fifth right metatarsal bone Status post placement of implantable loop recorder Paroxysmal atrial tachycardia Atrial fibrillation Mitral and aortic valve disease Cervical cancer Non-sustained ventricular tachycardia PSVT (paroxysmal supraventricular tachycardia) Sick sinus syndrome History of cervical cancer Diverticulosis Diverticulitis Surgical History History of intestinal surgery H/O bilateral breast reduction surgery History of tonsillectomy and adenoidectomy H/O hemicolectomy Family History Mother Obesity Hypertension Diabetes Goiter Deep vein thrombosis Stroke Diverticulitis Myocardial infarction Sister Diabetes Lung cancer Father Alzheimer disease Diverticulitis Diabetes Parkinson disease Brother Atrial fibrillation Deep vein thrombosis Family/Other Diverticulitis Grandfather (Maternal) Colorectal cancer Grandfather (Paternal) Colorectal cancer Denies family history of Ovarian cancer Prostate cancer Breast cancer Social History Smoking Status: Never smoker Second Hand Exposure: No; Do You Dip or Chew Tobacco: No; Hx Alcohol Use: No Hx Substance Use: No Preferred Language: Icelandic Communication Ability: Effective Visual Impairment: No Limitations Hearing Ability: Use of Hearing Aid Commercial Real Estate Associate Required: No Beliefs That Will Affect Care: Hoahaoism Hoahaoism Beliefs: Buddhist marital status: / Current Living Situation: Alone current occupational status: 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 How many Children do You have: 1 Other Information That Helps Us Care for You: No Feels Safe at Home: Yes Safety Concerns: Feels Safe At This Time Childhood Exposure to Second-Hand Smoke: Yes Diet: regular caffeine: No during the past year weight has: remained stable Dental Care, Regularly: No Physical Activity Frequency: 3-4 Times per Week Seatbelt Use: always Sunscreen Use: Yes Assistive Devices: Hospital Bed, Scooter/Electric Scooter and Walker Review of Systems Review of Systems: All systems reviewed & are unremarkable except as noted in HPI & below Physical Exam Constitutional: well developed; no acute distress Eyes: no scleral abnormality and no corneal abnormality ENMT: Mouth: no oral mucosal abnormality and oral mucous membranes not dry Neck: normal visual inspection and trachea midline Respiratory: normal respiratory effort Auscultation: lungs clear to auscultation bilaterally, + diminished lung sounds and + rales Cardiovascular: Rate/Rhythm: + bradycardic Heart Sounds: normal S1 and normal S2; no murmur Extremities: + edema Musculoskeletal: Extremities: no cyanosis and no clubbing Skin: normal turgor; no jaundice Neurologic: Motor/Sensory: no tremor and no asterixis Psychiatric: Orientation: alert and oriented x 3 Genitourinary: no CVA tenderness Results & Data Vital Signs (Past 12 Hours) Vital Signs Temp Pulse Pulse Resp BP BP Pulse Ox 02/11/24 14:49 36.5 C 54 L 18 129/71 95 02/11/24 12:02 130/75 02/11/24 07:45 36.9 C 57 L 16 122/71 92 02/11/24 07:30 O2 Del Method 02/11/24 14:49 Room Air 02/11/24 12:02 02/11/24 07:45 Room Air 02/11/24 07:30 Room Air Laboratory Results Laboratory Results - last 24 hr 02/11/24 02/11/24 07:08 Unknown Sodium 141 Potassium 5.0 Chloride 110 H Carbon Dioxide 26 Anion Gap 5 BUN 40 H Creatinine 1.99 H Est Cr Clr Drug Dosing 22.3 eGFR 25.10 BUN/Creatinine Ratio 20.1 H Glucose 90 Calcium 8.8 Albumin 2.8 L Urine Color Dark Yellow Urine Appearance Cloudy A Urine pH 5.5 Ur Specific Brielle 1.014 Urine Protein 1+ H Urine Glucose (UA) Negative Urine Ketones Negative Urine Blood 3+ H Urine Nitrite Positive A Urine Bilirubin Negative Urine Urobilinogen Negative Ur Leukocyte Esterase 2+ H Urine WBC (Auto) >50 H Urine RBC (Auto) >20 H U Hyaline Cast (Auto) 0-2 U Epithel Cells (Auto) 0-2 Urine Bacteria (Auto) None Seen Ur Random Creatinine 56.6 U Random Total Protein 48.4 H Ur Random Sodium 90 Protein/Creatinin Ratio 0.9 H Adenovirus (PCR) Not Detected B. pertussis DNA (PCR) Not Detected B.parapertussis DNA PCR Not Detected C. pneumoniae DNA (PCR) Not Detected Coronavirus OC43 (PCR) Not Detected Coronavirus HKU1 (PCR) Not Detected Coronavirus 229E (PCR) Not Detected SARS-CoV-2 (PCR) Not Detected Coronavirus NL63 (PCR) Not Detected Human Metapneumovir PCR Not Detected Influenza Type A (PCR) Not Detected Influenza Type B (PCR) Not Detected M. pneumoniae (PCR) Not Detected Parainfluenza 1 (PCR) Not Detected Parainfluenza 2 (PCR) Not Detected Parainfluenza 3 (PCR) Not Detected Parainfluenza 4 (PCR) Not Detected RSV (PCR) Not Detected Entero/Rhino (PCR) Not Detected Diagnostic Findings CT Abdomen and Pelvis Without Intravenous Contrast FINDINGS: Lung bases: No abnormality noted. Pleural space: Small layering bilateral pleural effusions present. Heart: Marked cardiomegaly and small pericardial effusion noted. Mediastinum: No abnormality noted. ABDOMEN: Liver: Low attenuation foci in the liver consistent with hepatic cysts. No follow-up is necessary. Gallbladder and bile ducts: No calcified stones or surrounding fluid. Pancreas: No pancreatic mass, calcification, inflammation or ductal dilation noted. Spleen: No significant abnormality noted. Adrenals: No significant abnormality noted. Kidneys and ureters: There is a punctate stone in each kidney. No obstructing stones. There is mild right hydronephrosis and dilatation of the extrarenal pelvis. Ureters are not dilated. No ureteral stones. No urinary gas. Stomach and bowel: There are multiple bowel containing abdominal wall hernia defects. Rectal staple line noted with adjacent clips. Extensive colonic diverticulosis noted. No focal thickening. No obstruction. PELVIS: Appendix: Well seen and appears normal. Bladder: Urinary bladder is collapsed. Inflammation not excluded. Reproductive: Hysterectomy. ABDOMEN and PELVIS: Intraperitoneal space: No free air. No significant fluid collection. Bones/joints: Degenerative changes noted in the scoliotic spine. No acute osseous abnormality noted. Soft tissues: Severe body wall edema noted. There is mild generalized mesenteric edema. Vasculature: Atherosclerotic calcification of the aorta and branches. No aneurysm. Lymph nodes: No pathologically enlarged lymph nodes. IMPRESSION: 1. Mild inflammation of the right renal pelvis which is mildly dilated and there is mild right hydronephrosis. Consider chronic UPJ obstruction. 2. Collapsed urinary bladder likely inflamed. Correlate with urinalysis. 3. Punctate nonobstructing stone in each kidney. 4. Anasarca. XR chest 1V portable COMPARISON: 10/09/2023 TECHNIQUE: AP view of the chest FINDINGS: The cardiac silhouette is enlarged. Pulmonary vascular congestion. Probable pulmonary total hypertension. Small pleural effusions. Mild left basilar densities. Hiatal hernia. Electronic device projects over the left heart border. Degenerative changes of the shoulders and spine with loose bodies within the right axillary recess. IMPRESSION: 1. Cardiomegaly with pulmonary vascular congestion. 2. Small pleural effusions with mild left basilar opacities, similar to prior favoring atelectasis. PG Care Time/CCT Total # of Minutes Spent Total Time Spent with Patient: Total time spent is greater than 50% in coordination of care (as documented) at patient's floor/unit and/or counseling patient: Coding Level of Care Code 98273 IN/OBS CONSULT LVL 4,60M Diagnoses JANETT (acute kidney injury) N17.9 CKD (chronic kidney disease) N18.9 Proteinuria R80.9 Hypoalbuminemia E88.09 Anasarca R60.1 Acute pyelonephritis N10
[2024-02-11] MEDS: HEPARIN SOD 5,000 UNIT/0.5 ML VIAL SQ SCH (21:04)
[2024-02-12 09:40] LABS: BUN Creatinine Ratio 20.9 (10-20); Calcium 9.5 mg/dl (8.6-10.3); Creatinine Clr Calc Pharmacy 23.8 ml/min; Potassium 4.5 mmol/L (3.5-5.1)
--- NOTE | 2024-02-12 11:15 | Hospitalist Progress Note ---
Date of Service February 12, 2024 Assessment & Plan (1) Acute pyelonephritis: (2) Acute kidney injury superimposed on CKD: (3) Lymphedema, not elsewhere classified: (4) Cardiomyopathy: (5) Atrial fibrillation: (6) Morbid obesity: Plan: 78-year-old female with past medical history of CKD stage III, paroxysmal atrial fibrillation not on anticoagulation, cardiomyopathy, morbid obesity, chronic lymphedema who presents to the ED with suprapubic pain, bladder spasms, right- sided flank pain and hematuria with clots and was found to have pyelonephritis #Acute pyelonephritis with right-sided hydronephrosis #JANETT superimposed on CKD stage III #Anasarca with chronic lymphedema CT with mild inflammation of the right renal pelvis with mild right hydronephrosis. Possible chronic UPJ obstruction. Punctate stones present - non-obstructive. Hx frequent UTIs -Urine culture with proteus mirabilis and klebsiella variicola - both sensitive to cefazolin -Patient initially treated with IV ceftriaxone which has been switched to IV cefazolin to finish a 10-day course of antibiotics for pyelonephritis -Pyridium 100mg po TID PRN -Oxybutynin PRN bladder spasms -Tylenol as needed -gross hematuria resolved Nephrology is following the patient No emergent indication for DEPUTY OF COUNTER INTELLIGENCE at this point Nephrology gave her IV Lasix 40 mg with improvement in creatinine Nephrology has recommended nonemergent follow-up renal ultrasound for hydronephrosis I/O monitoring Daily weights Awaiting nephrology follow-up Nephrology has recommended urology follow-up as outpatient for gross hematuria and multiple episodes of UTI #Atrial fibrillation #Cardiomyopathy with EF of 55 to 60%/acute on chronic diastolic CHF with preserved ejection fraction Outpatient fiber optic technician is Kiko Coffey PA-C/Dr. Samy Zhu with [facility] cardiology Echo from 02/09/2024 shows normal LV systolic function, EF of 55 to 60%, mild concentric LVH, mild MR, mild AR, no change since prior echo. Patient's respiratory symptoms have improved with IV Lasix Sotalol dose has been cut to avoid hypotension and for bradycardia Resume aspirin 81 mg p.o. daily per home dose Continue sotalol 20 mg p.o. twice daily: Dose cut down to avoid hypotension and bradycardia I/O monitoring Daily weights #Type 2 diabetes mellitus Check A1c A1c from October 09, 2023 is 5.8 Diet control CODE STATUS: DNR/DNI DVT prophylaxis: Heparin subcutaneous Discharge planning to short-term rehab based on PT recommendations when medically stable Care plan discussed with patient, nursing staff Admission and Anticipated Discharge Date Admission Date: February 08, 2024 Subjective Patient seen and examined Labs reviewed Patient reports feeling much better today She reports improvement in her cough and respiratory symptoms She denies any chest pain or shortness of breath Patient tells me she has chronic lymphedema She denies any nausea, vomiting, diarrhea, abdominal pain Physical Exam Physical Exam: General: No acute distress Psych: Awake and alert HEENT: Anicteric sclera, moist oral mucosa CVS: Regular rate and rhythm Lungs: Bilateral air entry, no wheezing noted Abdomen: Soft, nontender, no rebound, no guarding Ext: No lower extremity edema, no calf tenderness Neuro: No focal motor deficits noted Results & Data Results & Data Vital Signs (Past 12 Hours) Vital Signs Temp Pulse Resp BP Pulse Ox O2 Del Method 02/12/24 08:26 Room Air 02/12/24 07:22 36.6 C 56 L 18 146/73 H 93 Room Air Laboratory Results Laboratory Results - last 24 hr 02/12/24 08:18 Sodium 141 Potassium 4.5 Chloride 107 Carbon Dioxide 29 Anion Gap 5 BUN 39 H Creatinine 1.87 H Est Cr Clr Drug Dosing 23.8 eGFR 27.04 BUN/Creatinine Ratio 20.9 H Glucose 90 Calcium 9.5 PG Care Time/CCT Total # of Minutes Spent Total Time Spent with Patient: Total time spent is greater than 50% in coordination of care (as documented) at patient's floor/unit and/or counseling patient: Coding Level of Care Code 37351 SUB INP/OBS CARE 3/50MIN Diagnoses Acute pyelonephritis N10 Acute kidney injury superimposed on CKD N17.9; N18.9 Lymphedema, not elsewhere classified I89.0 Cardiomyopathy, unspecified type I42.9 Cardiomyopathy type: unspecified Paroxysmal atrial fibrillation I48.0 Atrial fibrillation type: paroxysmal Morbid obesity E66.01 (4) Cardiomyopathy Cardiomyopathy type: unspecified Qualified Code(s): I42.9 - Cardiomyopathy, unspecified (5) Atrial fibrillation Atrial fibrillation type: paroxysmal Qualified Code(s): I48.0 - Paroxysmal atrial fibrillation
[2024-02-12] MEDS: POLYETHYLENE (MIRALAX) 17 GM PACK PO PRN (12:24)
[2024-02-12] MEDS: SENNA 8.6 MG TAB PO STA (12:25)
--- NOTE | 2024-02-12 12:34 | Nephrology Progress Note ---
Date of Service February 12, 2024 Assessment & Plan (1) JANETT (acute kidney injury): Plan: Non-oliguric. Creatinine stable. Electrolytes normal. Volume status reasonable - chronic edema from lymphedema and pleural effusions. No emergent indication for COMPUTER LAB AIDE at this time. Additional 40 mg of furosemide provided today to encourage urine output. JANETT attributed to UTI and hemodynamic changes from intravascular volume depletion/diuretics. Creatinine stable. Cannot exclude AIN or GN but presentation is very atypical. Non glomerular hematuria with gross blood and clots noted on admission in setting of UTI. Suggest non-emergent follow up renal US for hydronephrosis. Thankfully systemic signs of infection are clearing. Document strict I/Os. Repeat metabolic profile tomorrow AM. (2) CKD (chronic kidney disease): Plan: Baseline creatinine ~1.25 mg/dL. CKD attributed to DKD + hypertension. Multiple episodes of JANETT and UTI. Medications are appropriate for kidney function. Outpatient nephrology follow up will be arranged at discharge. (3) Proteinuria: Plan: Not nephrotic. Outpatient follow up encouraged to better assess once UTI has been adequately treated. (4) Hypoalbuminemia: Plan: Not nephrotic. IV replacement provided yesterday. (5) Anasarca: Plan: Will continue diuretics today as tolerated. Low sodium diet. Document strict I/O's. Encourage lymphedema treatments and effleurage. (6) Acute pyelonephritis: Plan: Culture + klebsiella and proteus. Outpatient urology follow up encouraged regarding gross hematuria and multiple episodes of UTI. Admission and Anticipated Discharge Date Admission Date: February 08, 2024 Elaine Simpson was out of bed walking with assistance this AM. She remains dyspneic with exertion. She reports increased cough. She remains orthopneic. Edema stable. She feels that rehab will be required for weakness. She also notes that lymphedema does increase when she doesn't keep up with lymphedema treatments. No fevers or chills. She states that her cough is productive of bright yellow sputum. Review of Systems Review of Systems: All systems reviewed & are unremarkable except as noted in HPI & below Physical Exam Constitutional: well developed; no acute distress Eyes: no scleral abnormality and no corneal abnormality ENMT: Mouth: no oral mucosal abnormality and oral mucous membranes not dry Neck: normal visual inspection and trachea midline Respiratory: normal respiratory effort Auscultation: lungs clear to auscultation bilaterally, + diminished lung sounds and + rales Cardiovascular: Rate/Rhythm: + bradycardic Heart Sounds: normal S1 and normal S2; no murmur Extremities: + edema Musculoskeletal: Extremities: no cyanosis and no clubbing Skin: normal turgor; no jaundice Neurologic: Motor/Sensory: no tremor and no asterixis Psychiatric: Orientation: alert and oriented x 3 Genitourinary: no CVA tenderness Results & Data Vital Signs (Past 12 Hours) Vital Signs Temp Pulse Resp BP Pulse Ox O2 Del Method 02/12/24 08:26 Room Air 02/12/24 07:22 36.6 C 56 L 18 146/73 H 93 Room Air Laboratory Results Laboratory Results - last 24 hr 02/12/24 08:18 Sodium 141 Potassium 4.5 Chloride 107 Carbon Dioxide 29 Anion Gap 5 BUN 39 H Creatinine 1.87 H Est Cr Clr Drug Dosing 23.8 eGFR 27.04 BUN/Creatinine Ratio 20.9 H Glucose 90 Calcium 9.5 PG Care Time/CCT Total # of Minutes Spent Total Time Spent with Patient: Total time spent is greater than 50% in coordination of care (as documented) at patient's floor/unit and/or counseling patient: Coding Level of Care Code 92803 SUB INP/OBS CARE 3/50MIN Diagnoses JANETT (acute kidney injury) N17.9 CKD (chronic kidney disease) N18.9 Proteinuria R80.9 Hypoalbuminemia E88.09 Anasarca R60.1 Acute pyelonephritis N10
[2024-02-12] MEDS: FUROSEMIDE 40 MG/4 ML VIAL IV ONE (13:25)
[2024-02-12] MEDS: SENNA 8.6 MG TAB PO SCH (20:34)
[2024-02-12] MEDS: SOTALOL HCL 80 MG TAB PO SCH (20:34)
[2024-02-12] MEDS ORDERED: SOTALOL HCL 80 MG TAB PO SCH (21:00)
[2024-02-13] MEDS: ASPIRIN 81 MG ECTAB PO SCH (07:30)
[2024-02-13 09:16] LABS: Hematocrit (blood only) 39.4 % (37.0-47.0); Mean Corpuscular Hemoglobin 31.3 pg (25.0-34.0); Mean Corpuscular Volume 94.9 fL (80.0-100.0); Mean Platelet Volume 9.3 fL (9.4-12.4); Platelet Count 190 K/uL (130-400); RDW Coefficient of Variation 15.2 % (11.5-14.5); Red Blood Count 4.15 M/uL (4.20-5.40)
[2024-02-13 09:43] LABS: BUN Creatinine Ratio 23.5 (10-20); Calcium 9.5 mg/dl (8.6-10.3); Creatinine Clr Calc Pharmacy 25.5 ml/min; Magnesium 1.8 mg/dl (1.7-2.4); Potassium 4.3 mmol/L (3.5-5.1)
[2024-02-13 09:50] LABS: Estimated Average Glucose 120 mg/dl; Hemoglobin A1C 5.8 % (4.5-5.6)
--- NOTE | 2024-02-13 10:45 | Nephrology Progress Note ---
Date of Service February 13, 2024 Assessment & Plan (1) JANETT (acute kidney injury): Plan: Non-oliguric. Creatinine slightly improved. Electrolytes normal. Volume status improving. No indication for WEB APPLICATIONS DEVELOPER. Continue diuretic to encourage slightly negative fluid balance. Furosemide 20 mg daily started today. JANETT attributed to UTI and hemodynamic changes from intravascular volume depletion/diuretics. Non glomerular hematuria with gross blood and clots noted on admission in setting of UTI. Suggest non-emergent follow up renal US for hydronephrosis. Thankfully systemic signs of infection are clearing. Document I/Os. (2) CKD (chronic kidney disease): Plan: Baseline creatinine ~1.25 mg/dL. CKD attributed to DKD + hypertension. Multiple episodes of JANETT and UTI. Medications are appropriate for kidney function. Outpatient nephrology follow up will be arranged at discharge. (3) Proteinuria: Plan: Not nephrotic. Outpatient follow up encouraged to better assess once UTI has been adequately treated. (4) Anasarca: Plan: Will continue diuretics today as tolerated. Low sodium diet. Document strict I/O's. Encourage lymphedema treatments and effleurage. (5) Acute pyelonephritis: Plan: Culture + klebsiella and proteus. Outpatient urology follow up encouraged regarding gross hematuria and multiple episodes of UTI. Admission and Anticipated Discharge Date Admission Date: February 08, 2024 Subjective No acute events overnight. Tatiana feels well this AM. She is out of bed. She is breathing comfortably. Some improvement in edema noted. Excellent UOP. Review of Systems Review of Systems: All systems reviewed & are unremarkable except as noted in HPI & below Physical Exam Constitutional: well developed; no acute distress Eyes: no scleral abnormality and no corneal abnormality ENMT: Mouth: oral mucous membranes not dry Respiratory: normal respiratory effort Cardiovascular: Rate/Rhythm: regular rate and regular rhythm Extremities: + edema Musculoskeletal: Extremities: no cyanosis and no clubbing Skin: normal turgor; no jaundice Neurologic: Motor/Sensory: no tremor and no asterixis Psychiatric: Orientation: alert and oriented x 3 Results & Data Vital Signs (Past 12 Hours) Vital Signs Temp Pulse Resp BP Pulse Ox O2 Del Method 02/13/24 07:31 36.4 C L 70 14 130/69 97 Room Air 02/13/24 07:30 Room Air Laboratory Results Laboratory Results - last 24 hr 02/13/24 02/13/24 08:19 08:52 WBC 4.70 L RBC 4.15 L Hgb 13.0 Hct 39.4 MCV 94.9 MCH 31.3 MCHC 33.0 RDW Std Deviation 53.0 H RDW Coeff of Gayathri 15.2 H Plt Count 190 MPV 9.3 L Sodium 143 Potassium 4.3 Chloride 106 Carbon Dioxide 31 Anion Gap 6 BUN 39 H Creatinine 1.66 H Est Cr Clr Drug Dosing 25.5 eGFR 31.19 BUN/Creatinine Ratio 23.5 H Glucose 96 Estimat Average Glucose 120 Hemoglobin A1c 5.8 H Calcium 9.5 Magnesium 1.8 PG Care Time/CCT Total # of Minutes Spent Total Time Spent with Patient: Total time spent is greater than 50% in coordination of care (as documented) at patient's floor/unit and/or counseling patient: Coding Level of Care Code 95124 SUB INP/OBS CARE 3/50MIN Diagnoses JANETT (acute kidney injury) N17.9 CKD (chronic kidney disease) N18.9 Proteinuria R80.9 Anasarca R60.1 Acute pyelonephritis N10
--- NOTE | 2024-02-13 11:37 | Hospitalist Progress Note ---
Date of Service February 13, 2024 Assessment & Plan (1) Acute pyelonephritis: (2) Acute kidney injury superimposed on CKD: (3) Lymphedema, not elsewhere classified: (4) Cardiomyopathy: (5) Atrial fibrillation: (6) Morbid obesity: Plan: 78-year-old female with past medical history of CKD stage III, paroxysmal atrial fibrillation not on anticoagulation, cardiomyopathy, morbid obesity, chronic lymphedema who presents to the ED with suprapubic pain, bladder spasms, right- sided flank pain and hematuria with clots and was found to have pyelonephritis #Acute pyelonephritis with right-sided hydronephrosis #JANETT superimposed on CKD stage III #Anasarca with chronic lymphedema CT with mild inflammation of the right renal pelvis with mild right hydronephrosis. Possible chronic UPJ obstruction. Punctate stones present - non-obstructive. Hx frequent UTIs -Urine culture with proteus mirabilis and klebsiella variicola - both sensitive to cefazolin -Patient initially treated with IV ceftriaxone which has been switched to IV cefazolin to finish a 10-day course of antibiotics for pyelonephritis (day 08/19) -Pyridium 100mg po TID PRN -Oxybutynin PRN bladder spasms -Tylenol as needed -gross hematuria resolved Nephrology is following the patient No emergent indication for EXPANSION JOINT BUILDER at this point Nephrology gave her IV Lasix 40 mg with improvement in creatinine Nephrology switched her to Lasix 20 mg p.o. daily Nephrology has recommended nonemergent follow-up renal ultrasound for hydronephrosis: Ordered I/O monitoring Daily weights Awaiting nephrology follow-up Nephrology has recommended urology follow-up as outpatient for gross hematuria and multiple episodes of UTI #Atrial fibrillation #Cardiomyopathy with EF of 55 to 60%/acute on chronic diastolic CHF with preserved ejection fraction Outpatient policy officer is Kiko Coffey PA-C/Dr. Samy Zhu with [facility] cardiology Echo from 02/09/2024 shows normal LV systolic function, EF of 55 to 60%, mild concentric LVH, mild MR, mild AR, no change since prior echo. Patient's respiratory symptoms have improved with IV Lasix and nephrology associated Lasix 20 mg p.o. daily Sotalol dose has been cut to avoid hypotension and for bradycardia Continue aspirin 81 mg p.o. daily per home dose Continue sotalol 20 mg p.o. twice daily: Dose cut down to avoid hypotension and bradycardia I/O monitoring Daily weights # Prediabetes A1c is 5.8 A1c from October 09, 2023 is 5.8 Diet control CODE STATUS: DNR/DNI DVT prophylaxis: Heparin subcutaneous Discharge planning to short-term rehab based on PT recommendations likely in the next 24 to 48 hours Care plan discussed with patient, nursing staff (7) Prediabetes: Admission and Anticipated Discharge Date Admission Date: February 08, 2024 Subjective Patient seen and examined Labs reviewed Reports improvement in her shortness of breath She had a bowel movement today Requesting Metamucil which she uses daily at home Denies any chest pain or shortness of breath Denies nausea vomiting or abdominal pain Physical Exam Physical Exam: General: No acute distress Psych: Awake and alert HEENT: Anicteric sclera, moist oral mucosa CVS: Regular rate and rhythm Lungs: Bilateral air entry, no wheezing noted Abdomen: Soft, nontender, no rebound, no guarding Ext: No lower extremity edema, no calf tenderness Results & Data Results & Data Vital Signs (Past 12 Hours) Vital Signs Temp Pulse Resp BP Pulse Ox O2 Del Method 02/13/24 07:31 36.4 C L 70 14 130/69 97 Room Air 02/13/24 07:30 Room Air Laboratory Results Laboratory Results - last 24 hr 02/13/24 02/13/24 08:19 08:52 WBC 4.70 L RBC 4.15 L Hgb 13.0 Hct 39.4 MCV 94.9 MCH 31.3 MCHC 33.0 RDW Std Deviation 53.0 H RDW Coeff of Gayathri 15.2 H Plt Count 190 MPV 9.3 L Sodium 143 Potassium 4.3 Chloride 106 Carbon Dioxide 31 Anion Gap 6 BUN 39 H Creatinine 1.66 H Est Cr Clr Drug Dosing 25.5 eGFR 31.19 BUN/Creatinine Ratio 23.5 H Glucose 96 Estimat Average Glucose 120 Hemoglobin A1c 5.8 H Calcium 9.5 Magnesium 1.8 PG Care Time/CCT Total # of Minutes Spent Total Time Spent with Patient: Total time spent is greater than 50% in coordination of care (as documented) at patient's floor/unit and/or counseling patient: Coding Level of Care Code 83918 SUB INP/OBS CARE 2/35MIN Diagnoses Acute pyelonephritis N10 Acute kidney injury superimposed on CKD N17.9; N18.9 Lymphedema, not elsewhere classified I89.0 Cardiomyopathy, unspecified type I42.9 Cardiomyopathy type: unspecified Paroxysmal atrial fibrillation I48.0 Atrial fibrillation type: paroxysmal Morbid obesity E66.01 Prediabetes R73.03 (4) Cardiomyopathy Cardiomyopathy type: unspecified Qualified Code(s): I42.9 - Cardiomyopathy, unspecified (5) Atrial fibrillation Atrial fibrillation type: paroxysmal Qualified Code(s): I48.0 - Paroxysmal atrial fibrillation
[2024-02-13] MEDS: FUROSEMIDE 20 MG TAB PO SCH (13:33)
--- NOTE | 2024-02-13 16:03 | Ultrasound Report ---
RENAL ULTRASOUND CLINICAL HISTORY: Hydronephrosis. COMPARISON STUDY: CT of the abdomen and pelvis February 08, 2024 TECHNIQUE: Sonography of the kidneys and the urinary bladder was performed. FINDINGS: The right kidney measures 9.5 x 2.9 x 3.9 cm and the left kidney measures 10.2 x 4.7 x 4.9 cm. Right hydronephrosis on CT of February 08, 2024 has resolved. There is trace right perinephric fl uid. Both ureteral jets were identified. No renal calculi or masses were identified. IMPRESSION: Unremarkable sonographic appearance of the kidneys. Resolution of right hydronephrosis sh own on CT of February 08, 2024. ACT 112: Negative or not required by law. Electronically signed by: Delmar Conklin M.D. 02/13/2024 4:02 PM
[2024-02-13] MEDS: MAGNESIUM OXIDE 400 MG TAB PO SCH (20:11)
[2024-02-13] MEDS: PSYLLIUM or GUAR GUM FIBER 4GM PACKET PO SCH (20:13)
[2024-02-13] MEDS ORDERED: Nursing to Pharmacy Communication SCH (22:00)
[2024-02-13] MEDS: ACETAMINOPHEN 500 MG TAB PO PRN (22:06)
[2024-02-14 09:35] LABS: BUN Creatinine Ratio 25.3 (10-20); Calcium 9.4 mg/dl (8.6-10.3); Creatinine Clr Calc Pharmacy 29.1 ml/min; Magnesium 1.8 mg/dl (1.7-2.4); Potassium 4.2 mmol/L (3.5-5.1)
--- NOTE | 2024-02-14 10:11 | Hospitalist Progress Note ---
Date of Service February 14, 2024 Assessment & Plan (1) Acute pyelonephritis: (2) Acute kidney injury superimposed on CKD: (3) Lymphedema, not elsewhere classified: (4) Cardiomyopathy: (5) Atrial fibrillation: (6) Morbid obesity: Plan: 78-year-old female with past medical history of CKD stage III, paroxysmal atrial fibrillation not on anticoagulation, cardiomyopathy, morbid obesity, chronic lymphedema who presents to the ED with suprapubic pain, bladder spasms, right- sided flank pain and hematuria with clots and was found to have pyelonephritis #Acute pyelonephritis with right-sided hydronephrosis #JANETT superimposed on CKD stage III #Anasarca with chronic lymphedema CT with mild inflammation of the right renal pelvis with mild right hydronephrosis. Possible chronic UPJ obstruction. Punctate stones present - non-obstructive. Hx frequent UTIs -Urine culture with proteus mirabilis and klebsiella variicola - both sensitive to cefazolin -Patient initially treated with IV ceftriaxone which has been switched to IV cefazolin to finish a 10-day course of antibiotics for pyelonephritis (day 7) -Pyridium 100mg po TID PRN -Oxybutynin PRN bladder spasms -Tylenol as needed -gross hematuria resolved Nephrology is following the patient No emergent indication for LAND DEPARTMENT HEAD at this point Nephrology gave her IV Lasix 40 mg with improvement in creatinine Nephrology switched her to Lasix 20 mg p.o. daily Nephrology has recommended nonemergent follow-up renal ultrasound for hydronephrosis which showed resolution of right-sided hydronephrosis I/O monitoring Daily weights Awaiting nephrology follow-up Nephrology has recommended urology follow-up as outpatient for gross hematuria and multiple episodes of UTI #Atrial fibrillation #Cardiomyopathy with EF of 55 to 60%/acute on chronic diastolic CHF with preserved ejection fraction Outpatient material clerk is Kiko Coffey PA-C/Dr. Samy Zhu with [facility] cardiology Echo from 02/09/2024 shows normal LV systolic function, EF of 55 to 60%, mild concentric LVH, mild MR, mild AR, no change since prior echo. Patient's respiratory symptoms have improved with IV Lasix and nephrology associated Lasix 20 mg p.o. daily Sotalol dose has been cut to avoid hypotension and for bradycardia Continue aspirin 81 mg p.o. daily per home dose Continue sotalol 20 mg p.o. twice daily: Dose cut down to avoid hypotension and bradycardia Continue Lasix 20 mg p.o. daily I/O monitoring Daily weights # Prediabetes A1c is 5.8 A1c from October 09, 2023 is 5.8 Diet control CODE STATUS: DNR/DNI DVT prophylaxis: Heparin subcutaneous Discharge planning to short-term rehab: Patient awaiting insurance authorization Care plan discussed with patient, nursing staff (7) Prediabetes: Admission and Anticipated Discharge Date Admission Date: February 08, 2024 Subjective Patient seen and examined Labs reviewed Radiology reviewed Patient is complaining of the quality of meat in the hospital Otherwise no new complaints Overall feels much better Physical Exam Physical Exam: General: No acute distress Psych: Awake and alert HEENT: Anicteric sclera, moist oral mucosa CVS: Regular rate and rhythm Lungs: Bilateral air entry, no wheezing noted Abdomen: Soft, nontender, no rebound, no guarding Ext: Chronic lymphedema noted Results & Data Results & Data Vital Signs (Past 12 Hours) Vital Signs Temp Pulse Resp BP Pulse Ox O2 Del Method 02/14/24 08:01 36.4 C L 56 L 16 138/84 95 Room Air Laboratory Results Laboratory Results - last 24 hr 02/14/24 08:47 Sodium 142 Potassium 4.2 Chloride 105 Carbon Dioxide 30 Anion Gap 7 BUN 37 H Creatinine 1.46 H Est Cr Clr Drug Dosing 29.1 eGFR 36.39 BUN/Creatinine Ratio 25.3 H Glucose 95 Calcium 9.4 Magnesium 1.8 Diagnostic Findings Renal Ultrasound 02/13/24 11:25 RENAL ULTRASOUND CLINICAL HISTORY: Hydronephrosis. COMPARISON STUDY: CT of the abdomen and pelvis February 08, 2024 TECHNIQUE: Sonography of the kidneys and the urinary bladder was performed. FINDINGS: The right kidney measures 9.5 x 2.9 x 3.9 cm and the left kidney measures 10.2 x 4.7 x 4.9 cm. Right hydronephrosis on CT of February 08, 2024 has resolved. There is trace right perinephric fluid. Both ureteral jets were identified. No renal calculi or masses were identified. IMPRESSION: Unremarkable sonographic appearance of the kidneys. Resolution of right hydronephrosis shown on CT of February 08, 2024. ACT 112: Negative or not required by law. Electronically signed by: Delmar Conklin M.D. 02/13/2024 4:02 PM PG Care Time/CCT Total # of Minutes Spent Total Time Spent with Patient: Total time spent is greater than 50% in coordination of care (as documented) at patient's floor/unit and/or counseling patient: Coding Level of Care Code 03718 SUB INP/OBS CARE 2/35MIN Diagnoses Acute pyelonephritis N10 Acute kidney injury superimposed on CKD N17.9; N18.9 Lymphedema, not elsewhere classified I89.0 Cardiomyopathy, unspecified type I42.9 Cardiomyopathy type: unspecified Paroxysmal atrial fibrillation I48.0 Atrial fibrillation type: paroxysmal Morbid obesity E66.01 Prediabetes R73.03 (4) Cardiomyopathy Cardiomyopathy type: unspecified Qualified Code(s): I42.9 - Cardiomyopathy, unspecified (5) Atrial fibrillation Atrial fibrillation type: paroxysmal Qualified Code(s): I48.0 - Paroxysmal atrial fibrillation
--- NOTE | 2024-02-14 10:36 | Nephrology Progress Note ---
Date of Service February 14, 2024 Assessment & Plan (1) JNAETT (acute kidney injury): Plan: Non-oliguric. Creatinine slightly improved. Electrolytes normal. Volume status improving. Continue diuretic to encourage slightly negative fluid balance. Furosemide 20 mg daily.. Suggest non-emergent follow up renal US for hydronephrosis. Thankfully systemic signs of infection are clearing. (2) CKD (chronic kidney disease): Plan: Baseline creatinine ~1.25 mg/dL. CKD attributed to DKD + hypertension. Multiple episodes of JANETT and UTI. Medications are appropriate for kidney function. Outpatient nephrology follow up will be arranged at discharge. (3) Proteinuria: Plan: Not nephrotic. Outpatient follow up encouraged to better assess once UTI has been adequately treated. (4) Anasarca: Plan: Will continue diuretics today as tolerated. Low sodium diet. Document strict I/O's. Encourage lymphedema treatments and effleurage. (5) Acute pyelonephritis: Plan: Culture + klebsiella and proteus. Outpatient urology follow up encouraged regarding gross hematuria and multiple episodes of UTI. Admission and Anticipated Discharge Date Admission Date: February 08, 2024 Subjective No acute events overnight. No complaints this AM. Edema improving. Review of Systems Review of Systems: All systems reviewed & are unremarkable except as noted in HPI & below Physical Exam Constitutional: well developed; no acute distress Eyes: no scleral abnormality and no corneal abnormality ENMT: Mouth: no oral mucosal abnormality and oral mucous membranes not dry Neck: normal visual inspection and trachea midline Respiratory: normal respiratory effort Auscultation: lungs clear to auscultation bilaterally and + diminished lung sounds Cardiovascular: Rate/Rhythm: regular rhythm and + bradycardic Heart Sounds: normal S1 and normal S2; no murmur Extremities: + edema Musculoskeletal: Extremities: no cyanosis and no clubbing Skin: normal turgor; no jaundice Neurologic: Motor/Sensory: no tremor and no asterixis Psychiatric: Orientation: alert and oriented x 3 Genitourinary: no CVA tenderness Results & Data Vital Signs (Past 12 Hours) Vital Signs Temp Pulse Resp BP Pulse Ox O2 Del Method 02/14/24 08:01 36.4 C L 56 L 16 138/84 95 Room Air 02/14/24 08:00 Room Air Laboratory Results Laboratory Results - last 24 hr 02/14/24 08:47 Sodium 142 Potassium 4.2 Chloride 105 Carbon Dioxide 30 Anion Gap 7 BUN 37 H Creatinine 1.46 H Est Cr Clr Drug Dosing 29.1 eGFR 36.39 BUN/Creatinine Ratio 25.3 H Glucose 95 Calcium 9.4 Magnesium 1.8 PG Care Time/CCT Total # of Minutes Spent Total Time Spent with Patient: Total time spent is greater than 50% in coordination of care (as documented) at patient's floor/unit and/or counseling patient: Coding Level of Care Code 48138 SUB INP/OBS CARE 3/50MIN Diagnoses JANETT (acute kidney injury) N17.9 CKD (chronic kidney disease) N18.9 Proteinuria R80.9 Anasarca R60.1 Acute pyelonephritis N10
[2024-02-15 08:41] LABS: BUN Creatinine Ratio 25.6 (10-20); Calcium 8.9 mg/dl (8.6-10.3); Creatinine Clr Calc Pharmacy 32.5 ml/min; Magnesium 1.8 mg/dl (1.7-2.4)
[2024-02-15 08:59] LABS: Potassium 4.1 mmol/L (3.5-5.1)
--- NOTE | 2024-02-15 09:41 | Hospitalist Progress Note ---
Date of Service February 15, 2024 Assessment & Plan (1) Acute pyelonephritis: (2) Acute kidney injury superimposed on CKD: (3) Lymphedema, not elsewhere classified: (4) Cardiomyopathy: (5) Atrial fibrillation: (6) Morbid obesity: (7) Prediabetes: Plan 78-year-old female with past medical history of CKD stage III, paroxysmal atrial fibrillation not on anticoagulation, cardiomyopathy, morbid obesity, chronic lymphedema who presents to the ED with suprapubic pain, bladder spasms, right- sided flank pain and hematuria with clots and was found to have pyelonephritis #Acute pyelonephritis with right-sided hydronephrosis #JANETT superimposed on CKD stage III #Anasarca with chronic lymphedema CT with mild inflammation of the right renal pelvis with mild right hydronephrosis. Possible chronic UPJ obstruction. Punctate stones present - non-obstructive. 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 Samy Zhu with [facility] cardiology Echo from 02/09/2024 shows normal LV systolic function, EF of 55 to 60%, mild concentric LVH, mild MR, mild AR, no change since prior echo. Patient's respiratory symptoms have improved with IV Lasix and nephrology ass ociated Lasix 20 mg p.o. daily Sotalol dose has been cut to avoid hypotension and for bradycardia Continue aspirin 81 mg p.o. daily per home dose Continue sotalol 20 mg p.o. twice daily: Dose cut down to avoid hypotension and bradycardia Continue Lasix 20 mg p.o. daily I/O monitoring Daily weights # Prediabetes A1c is 5.8 A1c from October 09, 2023 is 5.8 Diet control CODE STATUS: DNR/DNI DVT prophylaxis: Heparin subcutaneous Discharge planning to short-term rehab: Patient awaiting insurance authorization Care plan discussed with patient, nursing staff Admission and Anticipated Discharge Date Admission Date: February 08, 2024 Subjective Patient seen and examined Labs reviewed Sitting comfortably in a chair, ambulated with a walker, denies any chest pain or shortness of breath No new complaints Physical Exam Physical Exam: General: No acute distress Psych: Awake and alert HEENT: Anicteric sclera, moist oral mucosa CVS: Regular rate and rhythm Lungs: Bilateral air entry, no wheezing noted Abdomen: Soft, nontender, no rebound, no guarding Ext: Chronic lymphedema noted Results & Data Results & Data Vital Signs (Past 12 Hours) Vital Signs Temp Pulse Resp BP Pulse Ox O2 Del Method 02/15/24 07:48 36.5 C 52 L 16 135/83 93 Room Air Laboratory Results Laboratory Results - last 24 hr 02/15/24 06:36 Sodium 142 Potassium 4.1 Chloride 106 Carbon Dioxide 30 Anion Gap 6 BUN 33 H Creatinine 1.29 H Est Cr Clr Drug Dosing 32.5 eGFR 42.22 BUN/Creatinine Ratio 25.6 H Glucose 91 Calcium 8.9 Magnesium 1.8 PG Care Time/CCT Total # of Minutes Spent Total Time Spent with Patient: Total time spent is greater than 50% in coordination of care (as documented) at patient's floor/unit and/or counseling patient: Coding Level of Care Code 70300 SUB INP/OBS CARE 2/35MIN Diagnoses Acute pyelonephritis N10 Acute kidney injury superimposed on CKD N17.9; N18.9 Lymphedema, not elsewhere classified I89.0 Cardiomyopathy, unspecified type I42.9 Cardiomyopathy type: unspecified Paroxysmal atrial fibrillation I48.0 Atrial fibrillation type: paroxysmal Morbid obesity E66.01 Prediabetes R73.03 (4) Cardiomyopathy Cardiomyopathy type: unspecified Qualified Code(s): I42.9 - Cardiomyopathy, unspecified (5) Atrial fibrillation Atrial fibrillation type: paroxysmal Qualified Code(s): I48.0 - Paroxysmal atrial fibrillation
--- NOTE | 2024-02-15 10:33 | Nephrology Progress Note ---
Date of Service February 15, 2024 Assessment & Plan (1) JANETT (acute kidney injury): Plan: Creatinine continues to improve. Electrolytes normal. Volume status improving. Continue diuretic to encourage slightly negative fluid balance. Furosemide 20 mg daily.. Follow up US demonstrating resolution of hydro. No additional recommendations a this time. Nephrology will sign-off. Please call with questions or concerns. (2) CKD (chronic kidney disease): Plan: Baseline creatinine ~1.25 mg/dL. CKD attributed to DKD + hypertension. Multiple episodes of JANETT and UTI. Medications are appropriate for kidney function. Please arrange outpatient nephrology follow up at discharge. (3) Proteinuria: Plan: Not nephrotic. Outpatient follow up encouraged to better assess once UTI has been adequately treated. (4) Anasarca: Plan: Will continue diuretics today as tolerated. Low sodium diet. Document strict I/O's. Encourage lymphedema treatments and effleurage. (5) Acute pyelonephritis: Plan: Culture + klebsiella and proteus. Outpatient urology follow up encouraged. Admission and Anticipated Discharge Date Admission Date: February 08, 2024 Subjective No acute events overnight. Tatiana feels well. Edema continues to improve. Expressed some frustration with urinary urgency associated with diuretic. Review of Systems Review of Systems: All systems reviewed & are unremarkable except as noted in HPI & below Physical Exam Constitutional: well developed; no acute distress Eyes: no scleral abnormality and no corneal abnormality ENMT: Mouth: no oral mucosal abnormality and oral mucous membranes not dry Neck: normal visual inspection and trachea midline Respiratory: normal respiratory effort Auscultation: lungs clear to auscultation bilaterally and + diminished lung sounds Cardiovascular: Rate/Rhythm: regular rate, regular rhythm and + bradycardic Heart Sounds: normal S1 and normal S2; no murmur Extremities: + edema Musculoskeletal: Extremities: no cyanosis and no clubbing Skin: no jaundice Neurologic: Motor/Sensory: no tremor and no asterixis Psychiatric: Orientation: alert and oriented x 3 Genitourinary: no CVA tenderness Results & Data Vital Signs (Past 12 Hours) Vital Signs Temp Pulse Resp BP Pulse Ox O2 Del Method 02/15/24 07:48 36.5 C 52 L 16 135/83 93 Room Air Laboratory Results Laboratory Results - last 24 hr 02/15/24 06:36 Sodium 142 Potassium 4.1 Chloride 106 Carbon Dioxide 30 Anion Gap 6 BUN 33 H Creatinine 1.29 H Est Cr Clr Drug Dosing 32.5 eGFR 42.22 BUN/Creatinine Ratio 25.6 H Glucose 91 Calcium 8.9 Magnesium 1.8 PG Care Time/CCT Total # of Minutes Spent Total Time Spent with Patient: Total time spent is greater than 50% in coordination of care (as documented) at patient's floor/unit and/or counseling patient: Coding Level of Care Code 49045 SUB INP/OBS CARE 3/50MIN Diagnoses JANETT (acute kidney injury) N17.9 CKD (chronic kidney disease) N18.9 Proteinuria R80.9 Anasarca R60.1 Acute pyelonephritis N10
[2024-02-15] MEDS: ceFAZolin 2000MG 2,000 MG/15 ML SYR IV SCH (17:36)
[2024-02-16] MEDS: DICYCLOMINE HCL 10 MG CAP PO PRN (08:09)
--- NOTE | 2024-02-16 10:39 | Hospitalist Progress Note ---
Date of Service February 16, 2024 Assessment & Plan (1) Acute pyelonephritis: (2) Acute kidney injury superimposed on CKD: (3) Lymphedema, not elsewhere classified: (4) Cardiomyopathy: (5) Atrial fibrillation: (6) Morbid obesity: (7) Prediabetes: Plan 78-year-old female with past medical history of CKD stage III, paroxysmal atrial fibrillation not on anticoagulation, cardiomyopathy, morbid obesity, chronic lymphedema who presents to the ED with suprapubic pain, bladder spasms, right- sided flank pain and hematuria with clots and was found to have pyelonephritis #Acute pyelonephritis with right-sided hydronephrosis #JANETT superimposed on CKD stage III #Anasarca with chronic lymphedema CT with mild inflammation of the right renal pelvis with mild right hydronephrosis. Possible chronic UPJ obstruction. Punctate stones present - non-obstructive. 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 daily Nephrology has recommended nonemergent follow-up renal ultrasound for hydronephrosis which showed resolution of right-sided hydronephrosis I/O monitoring Daily weights Patient will need outpatient follow-up with nephrology on discharge Nephrology has recommended urology follow-up as outpatient for gross hematuria and multiple episodes of UTI #Atrial fibrillation #Cardiomyopathy with EF of 55 to 60%/acute on chronic diastolic CHF with preserved ejection fraction Outpatient tare weigher is Kiko Coffey PA-C/Dr. Samy Zhu with [facility] cardiology Echo from 02/09/2024 shows normal LV systolic function, EF of 55 to 60%, mild concentric LVH, mild MR, mild AR, no change since prior echo. Patient's respiratory symptoms have improved with IV Lasix and nephrology ass ociated Lasix 20 mg p.o. daily Sotalol dose has been cut to avoid hypotension and for bradycardia Continue aspirin 81 mg p.o. daily per home dose Continue sotalol 20 mg p.o. twice daily: Dose cut down to avoid hypotension and bradycardia Continue Lasix 20 mg p.o. daily I/O monitoring Daily weights # Prediabetes A1c is 5.8 A1c from October 09, 2023 is 5.8 Diet control CODE STATUS: DNR/DNI DVT prophylaxis: Heparin subcutaneous Discharge planning Home with home health tomorrow after finishing 10 days of IV antibiotics Care plan discussed with patient, nursing staff Admission and Anticipated Discharge Date Admission Date: February 08, 2024 Subjective Patient seen and examined Sitting comfortably in chair She is reluctant to go home today as she is concerned about her sister being able to pick her up and having access to her home. She is going to coordinate with her sister to go home tomorrow and she also wishes to finish her last day of antibiotic therapy intravenously here in the hospital does not wish to be switched to oral antibiotics She is agreeable to going home tomorrow she can coordinate with her sister about going home She denies any new complaints Physical Exam Physical Exam: General: No acute distress Psych: Awake and alert HEENT: Anicteric sclera, moist oral mucosa CVS: Regular rate and rhythm Lungs: Bilateral air entry, no wheezing noted Abdomen: Soft, nontender, no rebound, no guarding Ext: Chronic lymphedema noted Results & Data Results & Data Vital Signs (Past 12 Hours) Vital Signs Temp Pulse Resp BP Pulse Ox O2 Del Method 02/16/24 07:51 36.3 C L 51 L 18 127/81 97 Room Air PG Care Time/CCT Total # of Minutes Spent Total Time Spent with Patient: Total time spent is greater than 50% in coordination of care (as documented) at patient's floor/unit and/or counseling patient: Coding Level of Care Code 63744 SUB INP/OBS CARE 04/05MIN Diagnoses Acute pyelonephritis N10 Acute kidney injury superimposed on CKD N17.9; N18.9 Lymphedema, not elsewhere classified I89.0 Cardiomyopathy, unspecified type I42.9 Cardiomyopathy type: unspecified Paroxysmal atrial fibrillation I48.0 Atrial fibrillation type: paroxysmal Morbid obesity E66.01 Prediabetes R73.03 (4) Cardiomyopathy Cardiomyopathy type: unspecified Qualified Code(s): I42.9 - Cardiomyopathy, unspecified (5) Atrial fibrillation Atrial fibrillation type: paroxysmal Qualified Code(s): I48.0 - Paroxysmal atrial fibrillation
[2024-02-16 23:36] VITALS: RESP 18
[2024-02-17 07:31] VITALS: BP 123/66; PULSE 63; TEMP 97.5; O2SAT 95
--- NOTE | 2024-02-17 12:19 | Discharge Summary ---
Discharge Summary Date of Service February 17, 2024 Principal Dx & Hospital Course #1 = Principal Diagnosis (1) Acute pyelonephritis: (2) Acute kidney injury superimposed on CKD: (3) Lymphedema, not elsewhere classified: (4) Cardiomyopathy: (5) Atrial fibrillation: (6) Morbid obesity: (7) Prediabetes: Plan 78-year-old female with past medical history of CKD stage III, paroxysmal atrial fibrillation not on anticoagulation, cardiomyopathy, morbid obesity, chronic lymphedema who presents to the ED with suprapubic pain, bladder spasms, right- sided flank pain and hematuria with clots and was found to have pyelonephritis #Acute pyelonephritis with right-sided hydronephrosis #JANETT superimposed on CKD stage III #Anasarca with chronic lymphedema CT with mild inflammation of the right renal pelvis with mild right hydronephrosis. Possible chronic UPJ obstruction. Punctate stones present - non-obstructive. Hx frequent UTIs -Urine culture with proteus mirabilis and klebsiella variicola - both sensitive to cefazolin -Patient initially treated with IV ceftriaxone which has been switched to IV cefazolin to finish a 10-day course of antibiotics for pyelonephritis (day 9) Nephrology saw the patient during hospital stay No emergent indication for [employer] at this point Nephrology gave her IV Lasix 40 mg with improvement in creatinine Nephrology switched her to Lasix 20 mg p.o. daily Nephrology has recommended nonemergent follow-up renal ultrasound for hydronephrosis which showed resolution of right-sided hydronephrosis Patient to follow-up with nephrology as outpatient on discharge Nephrology has recommended urology follow-up as outpatient for gross hematuria and multiple episodes of UTI: Patient advised to call urologist office to make appointment #Atrial fibrillation #Cardiomyopathy with EF of 55 to 60%/acute on chronic diastolic CHF with preserved ejection fraction Outpatient dredge captain is Kiko Coffey PA-C/Dr. Samy Zhu with [facility] cardiology Echo from 02/09/2024 shows normal LV systolic function, EF of 55 to 60%, mild concentric LVH, mild MR, mild AR, no change since prior echo. Patient's respiratory symptoms have improved with IV Lasix and nephrology associated Lasix 20 mg p.o. daily Sotalol dose has been cut to avoid hypotension and for bradycardia Continue aspirin 81 mg p.o. daily per home dose Continue sotalol 20 mg p.o. twice daily: Dose cut down to avoid hypotension and bradycardia Continue Lasix 20 mg p.o. daily Outpatient follow-up with cardiology # Prediabetes A1c is 5.8 A1c from October 09, 2023 is 5.8 Diet control Outpatient follow-up with PCP Patient seen and examined today. She is stable for discharge home with home health services. I have gone over the discharge care plan, medications and follow-up with the patient in great detail and answered all her questions. This discharge to greater than 30 minutes to coordinate Admission HPI Per Admitting Provider Tatiana Romero is a 78yo female with history of DM, HTN and AF presenting with several days of dysuria. Patient lives alone. She reports having several days of diarrhea last week which has since resolved. Over the last several days she has been having dysuria as well as suprapubic pain/bladder spasms and some right sided flank pain. She has had several episodes of gross hematuria as well with passage of clots. Endorses nausea and poor appetite. She denies fever, chills, chest pain. Chronic SOB which is being worked up outpatient - scheduled to have an echocardiogram on 02/20/24. In the ER patient is afebrile, HD stable. Complaining of ongoing suprapubic pain ER Course: Ceftriaxone 2gm Phenazopyridine 200mg Morphine 1mg Tylenol 1gm Zofran 4mg IV Discharge Exam General: No acute distress Psych: Awake and alert HEENT: Anicteric sclera, moist oral mucosa CVS: Regular rate and rhythm Lungs: Bilateral air entry, no wheezing noted Abdomen: Soft, nontender, no rebound, no guarding Ext: Chronic lymphedema noted Discharge Plan Discharge Items Patient Disposition: Home - Home Health Services Reason For Visit: UTI, JANETT Discharge Diagnosis: #Acute pyelonephritis #JANETT superimposed on CKD stage III #Anasarca with chronic lymphedema #Atrial fibrillation #Cardiomyopathy with EF of 55 to 60%/acute on chronic diastolic CHF with preserved ejection fraction # Prediabetes Activity: As commented below Activity Comment: As tolerated with assistance Non-emergency contact: Primary Care Provider Call non-emergency contact if: you have any medication questions, your symptoms worsen and you have a fever Follow-up/Referrals: Yong Henriquez III, CRNP [Primary Care Provider] - John Wright MD [Physician] - Dann Glass DO [Physician] - Diet: Carb Consistent or DM2 and Low Sodium (2gm) Addtl Attending Provider Instructions: DISCHARGE INSTRUCTION TO PATIENT/FAMILY/SNF: Follow-up with your primary care provider within 1 week regarding: Posthospital discharge, medication review, medication refills and follow-up on all your medical problems Please take all your discharge medications, discharge information and discharge instructions to all your doctors appointments. Avoid all NSAIDs including ibuprofen, Motrin, Advil, Aleve, naproxen, meloxicam, Toradol, diclofenac You have recurrent kidney infections: Please follow-up with the urologist (Dr. Wright) as outpatient in 1 to 2 weeks Sotalol dose has been changed from 40 mg twice daily to 20 mg twice daily: Please follow-up with your outpatient dredge captain in 1 to 2 weeks time Follow-up with beekeeper Dr. Dann Glass as outpatient in 1 to 2 weeks Labs thru PCP in 1 week: CBC, CMP, MG Pending Studies at Discharge: No Stand-Alone Forms: [employer], Smoking Cessation Medications and DC Order Prescriptions: New furosemide 20 mg Tablet 20 mg PO QAM Qty: 30 0RF Continued (DME) compr.stocking,knee,long,large misc See Dose Instructions .ROUTE .MEDSUPPLY Qty: 6 0RF Dose Instruction: As directed Rx Instructions: As directed (DME) BD Eclipse Luer-Luz 25 gauge x 1 1/2" needle See Rx Instructions .ROUTE .MEDSUPPLY Qty: 4 0RF Rx Instructions: As directed dicyclomine 10 mg capsule 10 mg PO TID PRN (Reason: abdominal cramping) Qty: 90 3RF nystatin 100,000 unit/gram powder 1 applic TOP TID PRN (Reason: AFFECTED SKIN) Qty: 60 2RF miscellaneous medical supply Misc 1 ea miscellaneous ONCE MDD P903 Qty: 1 0RF Rx Instructions: Please provide a hospital bed that is capable of rising and lowering for patient coenzyme Q10 100 mg capsule 100 mg PO DAILY Qty: 90 1RF Mag 64 64 mg tablet,delayed release (DR/EC) 128 mg PO DAILY Qty: 180 1RF Metamucil (sugar) Powder 1 tbsp PO DAILY Qty: 1254 1RF aspirin 81 mg tablet,delayed release (DR/EC) 81 mg PO DAILY Qty: 90 1RF mecobalamin (vitamin B12) 1,000 mcg tablet,chewable 1,000 mcg PO .[id number] Rx Instructions: OTC omeprazole 20 mg capsule,delayed release(DR/EC) 20 mg PO DAILY Qty: 90 3RF simvastatin 10 mg tablet 10 mg PO QPM Qty: 90 3RF Changed sotalol 80 mg tablet 20 mg PO BID Qty: 90 3RF Discharge Orders: Discharge Order- CHF (Routine); Ordered 02/17/24 Ordered By: Peña Fritz/Other Patient Handouts: Urinary Tract Infections in Women Admission Data Admit Date/Time: 02/08/24 19:38 Attending Provider: Peña Herrera Admit Provider: Marilee Sin Primary Care Provider: Yong Henriquez III Other Providers: Marilee Sin; Dann Glass; Stanley Teixeira at [facility] Other Interventions: Discharge Summary Assessment (RN) Last Done: 02/17/24 13:21 Hospital Stay Data Consultations 02/08/24 19:16 ED Decision to Admit Stat 02/11/24 10:45 Consult Nephrology Routine Diagnostic Imagining Performed 02/08/24 17:57 CT Abd and Pelvis [CT abd pelvis wo con] Stat 02/13/24 11:25 US Renal Bladder [US renal/blad retro comp] Urgent Abdomen/Pelvis CT 02/08/24 17:57 EXAM: CT Abdomen and Pelvis Without Intravenous Contrast INDICATION: Right flank pain. Hematuria. TECHNIQUE: Axial computed tomography images of the abdomen and pelvis without intravenous contrast. Sagittal and coronal reformatted images were created and reviewed. This CT exam was performed using one or more of the following dose reduction techniques: automated exposure control, adjustment of the mA and/or kV according to patient size, and/or use of iterative reconstruction technique. COMPARISON: No relevant prior studies available. FINDINGS: Limitations: None. Lung bases: No abnormality noted. Pleural space: Small layering bilateral pleural effusions present. Heart: Marked cardiomegaly and small pericardial effusion noted. Mediastinum: No abnormality noted. ABDOMEN: Liver: Low attenuation foci in the liver consistent with hepatic cysts. No follow-up is necessary. Gallbladder and bile ducts: No calcified stones or surrounding fluid. Pancreas: No pancreatic mass, calcification, inflammation or ductal dilation noted. Spleen: No significant abnormality noted. Adrenals: No significant abnormality noted. Kidneys and ureters: There is a punctate stone in each kidney. No obstructing stones. There is mild right hydronephrosis and dilatation of the extrarenal pelvis. Ureters are not dilated. No ureteral stones. No urinary gas. Stomach and bowel: There are multiple bowel containing abdominal wall hernia defects. Rectal staple line noted with adjacent clips. Extensive colonic diverticulosis noted. No focal thickening. No obstruction. PELVIS: Appendix: Well seen and appears normal. Bladder: Urinary bladder is collapsed. Inflammation not excluded. Reproductive: Hysterectomy. ABDOMEN and PELVIS: Intraperitoneal space: No free air. No significant fluid collection. Bones/joints: Degenerative changes noted in the scoliotic spine. No acute osseous abnormality noted. Soft tissues: Severe body wall edema noted. There is mild generalized mesenteric edema. Vasculature: Atherosclerotic calcification of the aorta and branches. No aneurysm. Lymph nodes: No pathologically enlarged lymph nodes. IMPRESSION: 1. Mild inflammation of the right renal pelvis which is mildly dilated and there is mild right hydronephrosis. Consider chronic UPJ obstruction. 2. Collapsed urinary bladder likely inflamed. Correlate with urinalysis. 3. Punctate nonobstructing stone in each kidney. 4. Anasarca. ACT 112: Negative or not required by law. Electronically signed by Karoline Thompson 02-08-2024 6:18 PM Chest X-Ray 02/11/24 07:57 XR chest 1V portable HISTORY: 78 years-old Female cough, fluid overload COMPARISON: 10/09/2023 TECHNIQUE: AP view of the chest FINDINGS: The cardiac silhouette is enlarged. Pulmonary vascular congestion. Probable pulmonary total hypertension. Small pleural effusions. Mild left basilar densities. Hiatal hernia. Electronic device projects over the left heart border. Degenerative changes of the shoulders and spine with loose bodies within the right axillary recess. IMPRESSION: 1. Cardiomegaly with pulmonary vascular congestion. 2. Small pleural effusions with mild left basilar opacities, similar to prior favoring atelectasis. ACT 112: Negative or not required by law. The above report was generated using voice recognition software. It may contain grammatical, syntax or spelling errors. Electronically signed by: Pedro Hayes M.D. 02/11/2024 8:57 AM Renal Ultrasound 02/13/24 11:25 RENAL ULTRASOUND CLINICAL HISTORY: Hydronephrosis. COMPARISON STUDY: CT of the abdomen and pelvis February 08, 2024 TECHNIQUE: Sonography of the kidneys and the urinary bladder was performed. FINDINGS: The right kidney measures 9.5 x 2.9 x 3.9 cm and the left kidney measures 10.2 x 4.7 x 4.9 cm. Right hydronephrosis on CT of February 08, 2024 has resolved. There is trace right perinephric fluid. Both ureteral jets were identified. No renal calculi or masses were identified. IMPRESSION: Unremarkable sonographic appearance of the kidneys. Resolution of right hydronephrosis shown on CT of February 08, 2024. ACT 112: Negative or not required by law. Electronically signed by: Delmar Conklin M.D. 02/13/2024 4:02 PM Laboratory Results - last 72 hr 02/15/24 06:36 Sodium 142 Potassium 4.1 Chloride 106 Carbon Dioxide 30 Anion Gap 6 BUN 33 H Creatinine 1.29 H Est Cr Clr Drug Dosing 32.5 eGFR 42.22 BUN/Creatinine Ratio 25.6 H Glucose 91 Calcium 8.9 Magnesium 1.8 Pending Results Patient Have Any Pending Studies at Discharge: No Discharge Instructions Given to Patient (Per Discharging Provider) DISCHARGE INSTRUCTION TO PATIENT/FAMILY/SNF: Follow-up with your primary care provider within 1 week regarding: Posthospital discharge, medication review, medication refills and follow-up on all your medical problems Please take all your discharge medications, discharge information and discharge instructions to all your doctors appointments. Avoid all NSAIDs including ibuprofen, Motrin, Advil, Aleve, naproxen, meloxicam, Toradol, diclofenac You have recurrent kidney infections: Please follow-up with the urologist (Dr. Wright) as outpatient in 1 to 2 weeks Sotalol dose has been changed from 40 mg twice daily to 20 mg twice daily: Please follow-up with your outpatient dredge captain in 1 to 2 weeks time Follow-up with beekeeper Dr. Dann Glass as outpatient in 1 to 2 weeks Labs thru PCP in 1 week: CBC, CMP, MG Total Time Total Time Spent Total Time Spent (In Minutes): 35 minutes Coding Level of Care Code 52911 INP/OBS DISCH >30 MIN Diagnoses Acute pyelonephritis N10 Acute kidney injury superimposed on CKD N17.9; N18.9 Lymphedema, not elsewhere classified I89.0 Cardiomyopathy, unspecified type I42.9 Cardiomyopathy type: unspecified Paroxysmal atrial fibrillation I48.0 Atrial fibrillation type: paroxysmal Morbid obesity E66.01 Prediabetes R73.03
== END 2024-02-17 13:42 | disposition home health service (06) | DRG 689 ==
LOC: ED 17:26 → 3N 19:38 → SUATTDRO 19:38 → 3N 21:18

== ENCOUNTER 2024-06-24 19:55 | Inpatient (IN) ==
[2024-06-24 21:03] LABS: Hematocrit (blood only) 42.6 % (37.0-47.0); Hemoglobin 13.9 g/dl (12.0-16.0); Mean Corpuscular Hemoglobin 31.4 pg (25.0-34.0); Mean Corpuscular Hgb Conc 32.6 g/dL (32.0-36.0); Mean Corpuscular Volume 96.2 fL (80.0-100.0); Mean Platelet Volume 9.9 fL (9.4-12.4); Platelet Count 157 K/uL (130-400); RDW Coefficient of Variation 14.5 % (11.5-14.5); RDW Standard Deviation 50.7 fL (36.4-46.3); Red Blood Count 4.43 M/uL (4.20-5.40)
[2024-06-24 21:07] LABS: INR 0.9 (0.9-1.1); Partial Thromboplastin Time 28 Seconds (21-31); Prothrombin Time 10.3 Seconds (9.0-12.0)
[2024-06-24 21:11] LABS: Appearance Urine Clear (Clear); Bilirubin Urine Negative (Negative); Blood Urine Negative (Negative); Color Urine Yellow; Glucose Urine UA Negative (Negative); Ketones Urine Negative (Negative); Leukocyte Esterase Urine Negative (Negative); Nitrite Urine Negative (Negative); Protein Urine Negative (Negative); Specific Gravity Urine 1.019 (1.000-1.030); Urobilinogen Urine Negative (Negative); pH Urine 5.5 (4.5-7.5)
[2024-06-24 21:37] LABS: Albumin Level 3.8 gm/dl (3.4-5.0); Anion Gap 4 (3-11); Bilirubin,Total 0.4 mg/dl (0.2-1.0); Calcium 9.3 mg/dl (8.6-10.3); Carbon Dioxide 30 mmol/L (21-32); Chloride 107 mmol/L (98-107); Sodium 141 mmol/L (136-145)
[2024-06-24 21:42] LABS: Troponin I High Sensitivity 7.3 pg/ml (0-14)
[2024-06-24 21:43] LABS: Alanine Aminotransferase 25 U/L (7-52); Albumin Globulin Ratio 1.4 (0.9-2); Alkaline Phosphatase 76 U/L (34-104); Aspartate Aminotransferase 34 U/L (13-39); BUN Creatinine Ratio 24.1 (10-20); Blood Urea Nitrogen 35 mg/dl (6-23); Globulin 2.7 gm/dl (2.5-4.0); Glucose 108 mg/dl (70-99(Fasting)); Total Protein 6.5 gm/dl (6.0-8.3)
[2024-06-24] MEDS: OPTIRAY 320 100ml IV ONE (23:29)
--- NOTE | 2024-06-24 23:30 | Emergency Department Note ---
Impression & Plan Acute GI bleeding ED Provider Note ED Provider Note NAME: EUFEMIA RADFORD AGE:78 SEX: Female : 1945 ARRIVES VIA: Private vehicle INFORMANT: Patient ED PROVIDER(s): Liya Flores DO CHIEF COMPLAINT: GI bleed HPI: This is a 78-year-old female who presents emergency room due to concern for GI bleed. Patient states she noticed a little bit of bright red blood with her bowel movement yesterday, however today she stated she was "gushing blood". She states she had multiple episodes and the blood was all bright red. She states no recent change in her stools. She admits to intermittent straining with passage of stools however none more recently. She denies any history of hemorrhoids or anal fissures. Patient has had prior partial colectomy due to severe diverticular disease approximately 20 years ago. She denies any recent pain at the rectum, abdominal pain, nausea or vomiting, fevers or chills. No recent change in urine or urinary habits. Patient does take low-dose aspirin daily, no other anticoagulation. No recent fevers, chills, or URI symptoms. PAST MEDICAL HISTORY:See Below PAST SURGICAL HISTORY:See Below FAMILY HISTORY:See Below SOCIAL HISTORY:See Below HOME MEDICATIONS:See Below ALLERGIES:See Below VITALS:See Below PHYSICAL EXAMINATION: GENERAL: alert, well appearing, well nourished, no distress, non-toxic EYE EXAM: normal conjunctiva, PERRL and EOM's grossly intact OROPHARYNX: no exudate, no erythema, lips, buccal mucosa, and tongue normal and mucous membranes are moist NECK: supple, no nuchal rigidity, no adenopathy, non-tender LUNGS: Clear to auscultation. Normal chest wall mechanics, no w/r/r HEART: no murmurs, S1 normal and S2 normal ABDOMEN: abdomen soft, non-tender, normo-active bowel sounds, no masses, no rebound or guarding. BACK: Back is symmetrical on inspection and there is no deformity, no midline tenderness, no CVA tenderness. SKIN: no rashes, petechiae, orbruising UPPER EXTREMITIES: upper extremities are grossly normal. FROM, nml pulses b/l. LOWER EXTREMITIES: Severe chronic appearing bilateral edema. FROM, nml pulses b/l. NEURO EXAM: Normal sensorium, cranial nerves II-XII grossly intact, normal speech, no facial droop,nogross weakness of arms, no gross weakness of legs. Gross sensation intact. No ataxia. Vital Signs: reviewed and remarkable Differential Diagnosis: diverticulosis, AVM, coagulopathy, colitis, inflammatory bowel disease, malignancy, Adelita-Thomas tear, esophagitis, peptic ulcer disease, variceal bleed, gastritis, epistaxis, fissure, hemorrhoids, as well as others were entertained. MEDICAL DECISION MAKING: This is a 78 yo female who presents with concern for acute GI bleed. Patient was afebrile and VS stable. Labs drawn and sent, IV established, EKG performed and interpreted at bedside, and patient placed on telemetry. Patient started on IVF and sent for CT a/p. CT eventually read and reassuring. Incidental note of a pericardia effusion. I performed a bedside echo and noted trace pericardial effusion and an enlarged heart. This was discussed with production assembly operator cardiology for f/u. Rectal exam performed at bedside. Patient had not had further bleeding since one episode upon arrival. Vs stable, H/H stable. Given advanced age and use of ASA we discussed options for disposition, patient uncomfortable going home given amount of bleeding earlier today and living alone. I feel it is reasonable to discuss further observation as an inpatient. Case discussed with the hospitalist team for further evaluation. Consultation(s): 0404: Discussed with Dr. Pleitez, cardiology, via [place] text. Agrees with outpatient follow-up in the office. 0520: Discussed with Dr. Sin, [place] hospitalist team, for additional evaluation and mgmt. ER Treatment Provided: See below 0350: Rectal exam performed at bedside with ESMER Gordillo, nurse investor relations analyst and assisting. Small anal fissure noted at the 4 o'clock position, no obvious external hemorrhoids. No obvious blood noted at the anus. No stool in the rectal vault however mucus did have blood and was heme positive on bedside testing. Diagnostics Interpreted By Me: -ECG: Sinus bradycardia 59, rightward axis, normal intervals, nonspecific ST/T wave changes -Cardiac Monitoring: An order was placed for continuous cardiac monitoring. The monitor shows a rate of 54 with sinus bradycardia rhythm. -Laboratory studies: As stated above and show below. -Imaging studies: ct a/p - no sbo, no perf, no active bleeding Triage Nursing Note Reviewed Prior/Outside Records Reviewed Past Med/Surg History Problem List (Updated 06/25/24 @ 16:26 by Willy Gutierrez DO) Bradycardia Rectal bleeding CKD stage 3b, GFR 30-44 ml/min Pericardial effusion Acute GI bleeding (Acute) Incontinence (Chronic) Diastolic CHF Atrial fibrillation Anasarca Lymphedema, not elsewhere classified Vitamin B12 deficiency Hyperlipidemia Generalized weakness (Chronic) Right knee DJD (Chronic) Vulvar mass Scoliosis of thoracolumbar region due to degenerative disease of spine in adult Hypoalbuminemia Gait instability (Chronic) Chronic gastroesophageal reflux disease (Chronic) Morbid obesity (Chronic) Osteopenia (Chronic) Type 2 diabetes mellitus (Chronic) Medical History Nephrolithiasis Recurrent UTI Acute kidney injury superimposed on CKD JANETT (acute kidney injury) Nondisplaced fracture of fifth right metatarsal bone Status post placement of implantable loop recorder Paroxysmal atrial tachycardia Mitral and aortic valve disease Cervical cancer Non-sustained ventricular tachycardia PSVT (paroxysmal supraventricular tachycardia) Sick sinus syndrome History of cervical cancer Diverticulosis Diverticulitis Surgical History History of intestinal surgery H/O bilateral breast reduction surgery History of tonsillectomy and adenoidectomy H/O hemicolectomy Family History Mother Obesity Hypertension Diabetes Goiter Deep vein thrombosis Stroke Diverticulitis Myocardial infarction Sister Diabetes Lung cancer Father Alzheimer disease Diverticulitis Diabetes Parkinson disease Brother Atrial fibrillation Deep vein thrombosis Colorectal cancer Prostate cancer Family/Other Diverticulitis Grandfather (Maternal) Colorectal cancer Grandfather (Paternal) Colorectal cancer Denies family history of Ovarian cancer Breast cancer Social History Smoking Status: Never smoker Second Hand Exposure: No; Do You Dip or Chew Tobacco: No; Hx Alcohol Use: No Hx Substance Use: No Preferred Language: Fijian Communication Ability: Effective Visual Impairment: No Limitations Hearing Ability: Use of Hearing Aid Integrated Pest Management Technician Required: No Beliefs That Will Affect Care: None marital status: / Current Living Situation: Alone 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 How many Children do You have: 1 Feels Safe at Home: Yes Childhood Exposure to Second-Hand Smoke: Yes Diet: low salt caffeine: No during the past year weight has: remained stable Dental Care, Regularly: No Physical Activity Frequency: 1-2 Times per Week Seatbelt Use: always Sunscreen Use: Yes Assistive Devices: Hospital Bed, Raised Toilet Seat, Scooter/Electric Scooter, Walker and Other (shower chair ) Allergies Allergies Allergy/AdvReac Type Severity Reaction Status Date / Time No Known Allergies Allergy Verified 06/24/24 23:25 Home Meds Home Medications Medication Instructions Recorded Confirmed mecobalamin (vitamin B12) 1,000 1,000 mcg PO 3XWK 10/02/23 06/24/24 mcg chewable tablet furosemide 20 mg tablet 10 - 20 mg PO QAM 06/24/24 06/24/24 omeprazole 20 mg capsule,delayed 40 mg PO DAILY 06/24/24 06/24/24 release simvastatin 10 mg tablet 10 mg PO QPM 06/24/24 06/24/24 sotalol 80 mg tablet 20 mg PO BID 06/24/24 06/24/24 Previous Rx's Medication Instructions Recorded compr.stocking,knee,long,large #6 ea 11/12/18 safety needles 25 gauge x 1 1/2" #4 ea 02/26/20 (BD Eclipse Luer-Luz) aspirin 81 mg tablet,delayed 81 mg PO DAILY #90 tabs 12/07/21 release coenzyme Q10 100 mg capsule 100 mg PO DAILY #90 caps 12/07/21 magnesium chloride 64 mg 128 mg (2 x 64 mg) PO DAILY #180 12/07/21 (magnesium chloride) tabs tablet,delayed release (Mag 64) psyllium seed (sugar) oral powder 1 tbsp PO DAILY #1,254 grams 12/07/21 (Metamucil (sugar) oral powder) dicyclomine 10 mg capsule 10 mg PO TID PRN abdominal 09/17/23 cramping #90 caps nystatin 100,000 unit/gram topical 1 applic topical TID PRN AFFECTED 09/17/23 powder SKIN #60 grams Results & Data (ED) Vital Signs Vital Signs - 24 hr 06/25/24 04:00 06/25/24 05:00 Pulse Rate [Right Finger] 52 L 55 L Respiratory Rate 17 20 Respiratory Effort / Characteristics Non-Labored Spontaneous Non-Labored Spontaneous Respiratory Depth Normal Normal Respiratory Pattern Regular Regular Blood Pressure [Right Arm] 140/89 138/84 Blood Pressure Mean [Right Arm] 106 102 Blood Pressure Position [Right Arm] Lying Lying Pulse Oximetry 96 96 Oxygen Delivery Method Room Air Room Air Laboratory Data 06/25/24 07:53 06/25/24 07:53 Lab Results 06/24/24 06/24/24 06/25/24 Range/Units 20:42 20:59 03:56 WBC 4.90 (4.8-10.8) K/ul RBC 4.43 (4.20-5.40) M/uL Hgb 13.9 (12.0-16.0) g/dl Hct 42.6 (37.0-47.0) % MCV 96.2 (80.0-100.0) fL MCH 31.4 (25.0-34.0) pg MCHC 32.6 (32.0-36.0) g/dL RDW Std Deviation 50.7 H (36.4-46.3) fL RDW Coeff of Gayathri 14.5 (11.5-14.5) % Plt Count 157 (130-400) K/uL MPV 9.9 (9.4-12.4) fL PT 10.3 (9.0-12.0) Seconds INR 0.9 (0.9-1.1) APTT 28 (21-31) Seconds PTT Ratio 1.0 Sodium 141 (136-145) mmol/L Potassium 5.0 (3.5-5.1) mmol/L Chloride 107 (98-107) mmol/L Carbon Dioxide 30 (21-32) mmol/L Anion Gap 4 (3-11) BUN 35 H (6-23) mg/dl Creatinine 1.45 H (0.6-1.2) mg/dl Est Cr Clr Drug Dosing Not Reportable eGFR 36.69 BUN/Creatinine Ratio 24.1 H (10-20) Glucose 108 H (70-99(Fasting)) mg/dl Calcium 9.3 (8.6-10.3) mg/dl Total Bilirubin 0.4 (0.2-1.0) mg/dl AST 34 (13-39) U/L ALT 25 (7-52) U/L Alkaline Phosphatase 76 (34-104) U/L Troponin I High Sens 7.3 (0-14) pg/ml Total Protein 6.5 (6.0-8.3) gm/dl Albumin 3.8 (3.4-5.0) gm/dl Globulin 2.7 (2.5-4.0) gm/dl Albumin/Globulin Ratio 1.4 (0.9-2) Urine Color Yellow Urine Appearance Clear (Clear) Urine pH 5.5 (4.5-7.5) Ur Specific Mobile 1.019 (1.000-1.030) Urine Protein Negative (Negative) Urine Glucose (UA) Negative (Negative) Urine Ketones Negative (Negative) Urine Blood Negative (Negative) Urine Nitrite Negative (Negative) Urine Bilirubin Negative (Negative) Urine Urobilinogen Negative (Negative) Ur Leukocyte Esterase Negative (Negative) POC Stool Occult Blood Positive A (Negative) Blood Type A Negative Antibody Screen NEGATIVE Administered Medications Acetaminophen (Acetaminophen 325 Mg Tab) 650 mg PO Q4H PRN PRN Reason: pain/fever Stop: 07/25/24 06:24 Last Admin: 06/25/24 22:21 Dose: 650 mg Documented By: [id number] Admin: 06/25/24 10:38 Dose: 650 mg Documented By: GABRIELLE Insulin Aspart (Insulin Aspart Per Unit Charge) 0 units SC ACHS [facility] Stop: 07/25/24 16:29 Last Admin: 06/25/24 22:34 Dose: Not Given Documented By: [id number] Admin: 06/25/24 18:00 Dose: Not Given Documented By: QUYEN Pantoprazole Sodium (Pantoprazole 40 Mg Tab) 40 mg PO DAILY DONAVAN Stop: 07/25/24 08:59 Last Admin: 06/25/24 08:39 Dose: 40 mg Documented By: JORGE Simvastatin (Simvastatin 10 Mg Tab) 10 mg PO QPM DONAVAN Stop: 07/25/24 20:59 Last Admin: 06/25/24 22:07 Dose: 10 mg Documented By: [id number] Sotalol HCl (Sotalol Hcl 80 Mg Tab) 20 mg PO BID DONAVAN Stop: 07/25/24 08:59 Last Admin: 06/25/24 22:15 Dose: Not Given Documented By: [id number] Admin: 06/25/24 08:39 Dose: 20 mg Documented By: JORGE Discontinued Medications Ioversol (Optiray 320 100ml) 93 ml IV ONCE ONE Stop: 06/24/24 23:30 Last Admin: 06/24/24 23:29 Dose: 93 ml Documented By: Off & Away Imaging Data Radiologist's Impression: Abdomen/Pelvis CT 06/24/24 23:13 Exam(s): CT ABDOMEN + PELVIS With Contrast IV Amt: 93 cc opti 320 EXAM: CT Abdomen and Pelvis With Intravenous Contrast CLINICAL HISTORY: Lower GI bleed. TECHNIQUE: Axial computed tomography images of the abdomen and pelvis with intravenous contrast. CTDI is 28.14 mGy and DLP is 1345.04 mGy-cm. Automated exposure control was utilized for the study. A dose lowering technique was utilized adhering to the principles of ALARA. CONTRAST: Patient received 93 cc opti 320 of IV contrast COMPARISON: CT abdomen and pelvis 02/08/2024 FINDINGS: Lung bases: Unremarkable. No mass. No consolidation. Heart: Cardiomegaly. A pericardial effusion measures up to 1.6 cm. ABDOMEN: Liver: Low attenuation foci in the liver consistent with hepatic cysts. No follow-up is necessary. No suspicious hepatic mass. Gallbladder and bile ducts: Unremarkable. No calcified stones. No ductal dilation. Pancreas: Unremarkable. No mass. No ductal dilation. Spleen: Unremarkable. No splenomegaly. Adrenals: Unremarkable. No mass. Kidneys and ureters: Unremarkable. No solid mass. No hydronephrosis. Stomach and bowel: A large anterior abdominal wall hernia contains several loops of small bowel and a portion of the transverse colon. No obstruction. There is nonspecific thickening of the wall the proximal duodenum. Diverticulosis. There is surgical changes of the rectum. Fecalization of the small bowel. PELVIS: Appendix: No findings to suggest acute appendicitis. Bladder: Unremarkable. No mass. Reproductive: Hysterectomy. ABDOMEN and PELVIS: Intraperitoneal space: Unremarkable. No free air. No significant fluid collection. Bones/joints: There are degenerative changes of the spine. No acute fracture. No dislocation. Soft tissues: Marked body wall edema. Vasculature: Mild atherosclerosis. No abdominal aortic aneurysm. Lymph nodes: Unremarkable. No enlarged lymph nodes. IMPRESSION: 1. There is nonspecific thickening of the wall the proximal duodenum. This could be infectious, inflammatory or neoplastic. 2. A large anterior abdominal wall hernia contains several loops of small bowel and a portion of the transverse colon. No obstruction. 3. Fecalization of the small bowel likely relate to slow transit or bacterial overgrowth. 4. Marked body wall edema. 5. Diverticulosis. 6. Cardiomegaly. A pericardial effusion measures up to 1.6 cm. Electronically signed by: Agnes Wade MD 06/25/24 03:16 AM Discharge Plan Visit Data Chief Complaint: Rectal Bleed Stated Complaint: RECTAL BLEEDING ED Provider: Liya Flores Discharge Problem: Acute GI bleeding Patient Disposition: Admitted As Inpatient Discharge Instructions Interventions: ED Discharge Assessment Last Done: 06/25/24 06:25
--- NOTE | 2024-06-25 03:17 | CT Scan Report ---
Exam(s): CT ABDOMEN + PELVIS With Contrast IV Amt: 93 cc opti 320 EXAM: CT Abdomen and Pelvis With Intravenous Contrast CLINICAL HISTORY: Lower GI bleed. TECHNIQUE: Axial computed tomography images of the abdomen and pelvis with intravenous contrast. CTDI is 28.14 mGy and DLP is 1345.04 mGy-cm. Automated exposure control was utilized for the study. A dose lowering technique was utilized adhering to the principles of ALARA. CONTRAST: Patient received 93 cc opti 320 of IV contrast COMPARISON: CT abdomen and pelvis 02/08/2024 FINDINGS: Lung bases: Unremarkable. No mass. No consolidation. Heart: Cardiomegaly. A pericardial effusion measures up to 1.6 cm. ABDOMEN: Liver: Low attenuation foci in the liver consistent with hepatic cysts. No follow-up is necessary. No suspicious hepatic mass. Gallbladder and bile ducts: Unremarkable. No calcified stones. No ductal dilation. Pancreas: Unremarkable. No mass. No ductal dilation. Spleen: Unremarkable. No splenomegaly. Adrenals: Unremarkable. No mass. Kidneys and ureters: Unremarkable. No solid mass. No hydronephrosis. Stomach and bowel: A large anterior abdominal wall hernia contains several loops of small bowel and a portion of the transverse colon. No obstruction. There is nonspecific thickening of the wall the proximal duodenum. Diverticulosis. There is surgical changes of the rectum. Fecalization of the small bowel. PELVIS: Appendix: No findings to suggest acute appendicitis. Bladder: Unremarkable. No mass. Reproductive: Hysterectomy. ABDOMEN and PELVIS: Intraperitoneal space: Unremarkable. No free air. No significant fluid collection. Bones/joints: There are degenerative changes of the spine. No acute fracture. No dislocation. Soft tissues: Marked body wall edema. Vasculature: Mild atherosclerosis. No abdominal aortic aneurysm. Lymph nodes: Unremarkable. No enlarged lymph nodes. IMPRESSION: 1. There is nonspecific thickening of the wall the proximal duodenum. This could be infectious, inflammatory or neoplastic. 2. A large anterior abdominal wall hernia contains several loops of small bowel and a portion of the transverse colon. No obstruction. 3. Fecalization of the small bowel likely relate to slow transit or bacterial overgrowth. 4. Marked body wall edema. 5. Diverticulosis. 6. Cardiomegaly. A pericardial effusion measures up to 1.6 cm. Electronically signed by: Agnes Wade MD 06/25/24 03:16 AM
--- NOTE | 2024-06-25 05:55 | History & Physical Report ---
Date of Service June 25, 2024 Assessment & Plan (1) Acute GI bleeding: (2) Hyperlipidemia: (3) Pericardial effusion: (4) Chronic gastroesophageal reflux disease: Plan 78-year-old female with history of diabetes, hyperlipidemia, GERD, prior diverticular abscess status post hemicolectomy presenting with several days of rectal bleeding, painless with associated dizziness developed today. #Acute GI bleedpatient hemodynamically stable. Hgb = 13.9. Coagulation studies are within normal limits. Patient also on aspirin 81 mg p.o. daily otherwise no blood thinners. She does have history of diverticulosis with a complicated diverticular abscess resulting in hemicolectomy. No prior GI bleeding. Admit to medical telemetry Check orthostatic vital signs Hold aspirin Repeat CBC now Continue to monitor for ongoing bleeding GI consultation appreciated #hyperlipidemia Continue simvastatin 10 mg p.o. daily #Pericardial effusionnoted on CT. Patient can have outpatient echo #GERD Protonix 40 mg p.o. daily #CKDcreatinine = 1.45 Near baseline Continue to monitor History of Present Illness Chief Complaint: rectal bleed Primary Care Provider: Yong Henriquez III, JIM Tatiana BryanBandar is a pleasant 78yo female with history of diabetes, GERD, hyperlipidemia, CKD, hiatal hernia, prior diverticular abscess status post hemicolectomy presenting with bright red blood per rectum. Patient reports she has had progressive weakness ongoing for the last 2 weeks. She has been receiving home PT and has been having more difficulty participating in her therapies. She had bleeding that started on June 23 with at least 2-3 bloody bowel movements. She reports bright red blood with some stool mixed in. Bleeding has continued over the last 2 days. She has been experiencing some dizziness and lightheadedness as well which prompted her to come to the ER. Patient denies abdominal pain, cramping or bloating. She denies nausea, vomiting, hematemesis or coffee-ground emesis. No chest pain, shortness of breath. No additional complaints at this time In the ER she is afebrile, hemodynamically stable. Bloody bowel movement witnessed in the ER x 1 Allergies Allergy/AdvReac Type Severity Reaction Status Date / Time No Known Allergies Allergy Verified 06/24/24 23:25 Home Medications Medication Instructions Recorded Confirmed Type compr.stocking,knee,long,large #6 ea 11/12/18 04/30/24 Rx safety needles 25 gauge x 1 1/2" #4 ea 02/26/20 04/30/24 Rx (BD Eclipse Luer-Luz) aspirin 81 mg tablet,delayed 81 mg PO DAILY #90 tabs 12/07/21 06/24/24 Rx release coenzyme Q10 100 mg capsule 100 mg PO DAILY #90 caps 12/07/21 06/24/24 Rx magnesium chloride 64 mg 128 mg (2 x 64 mg) PO DAILY #180 12/07/21 06/24/24 Rx (magnesium chloride) tabs tablet,delayed release (Mag 64) psyllium seed (sugar) oral powder 1 tbsp PO DAILY #1,254 grams 12/07/21 06/24/24 Rx (Metamucil (sugar) oral powder) dicyclomine 10 mg capsule 10 mg PO TID PRN abdominal 09/17/23 06/24/24 Rx cramping #90 caps nystatin 100,000 unit/gram topical 1 applic topical TID PRN AFFECTED 09/17/23 06/24/24 Rx powder SKIN #60 grams mecobalamin (vitamin B12) 1,000 1,000 mcg PO 3XWK 10/02/23 06/24/24 History mcg chewable tablet furosemide 20 mg tablet 10 - 20 mg PO QAM 06/24/24 06/24/24 History omeprazole 20 mg capsule,delayed 40 mg PO DAILY 06/24/24 06/24/24 History release simvastatin 10 mg tablet 10 mg PO QPM 06/24/24 06/24/24 History sotalol 80 mg tablet 20 mg PO BID 06/24/24 06/24/24 History Past Med/Surg History Problem List (Updated 06/25/24 @ 06:12 by Marilee Sin DO) Pericardial effusion Acute GI bleeding (Acute) Incontinence (Chronic) Nephrolithiasis (Acute) Diastolic CHF Atrial fibrillation CKD (chronic kidney disease) Anasarca Lymphedema, not elsewhere classified Vitamin B12 deficiency Hyperlipidemia Generalized weakness (Chronic) Intermittent palpitations Right knee DJD (Chronic) Recurrent UTI (Chronic) Vulvar mass Scoliosis of thoracolumbar region due to degenerative disease of spine in adult Hypoalbuminemia Right foot pain Gait instability (Chronic) Chronic gastroesophageal reflux disease (Chronic) Morbid obesity (Chronic) Osteopenia (Chronic) Type 2 diabetes mellitus (Chronic) Medical History Acute kidney injury superimposed on CKD JANETT (acute kidney injury) Nondisplaced fracture of fifth right metatarsal bone Status post placement of implantable loop recorder Paroxysmal atrial tachycardia Mitral and aortic valve disease Cervical cancer Non-sustained ventricular tachycardia PSVT (paroxysmal supraventricular tachycardia) Sick sinus syndrome History of cervical cancer Diverticulosis Diverticulitis Surgical History History of intestinal surgery H/O bilateral breast reduction surgery History of tonsillectomy and adenoidectomy H/O hemicolectomy Family History Mother Obesity Hypertension Diabetes Goiter Deep vein thrombosis Stroke Diverticulitis Myocardial infarction Sister Diabetes Lung cancer Father Alzheimer disease Diverticulitis Diabetes Parkinson disease Brother Atrial fibrillation Deep vein thrombosis Colorectal cancer Prostate cancer Family/Other Diverticulitis Grandfather (Maternal) Colorectal cancer Grandfather (Paternal) Colorectal cancer Denies family history of Ovarian cancer Breast cancer Social History Smoking Status: Never smoker Second Hand Exposure: No; Do You Dip or Chew Tobacco: No; Hx Alcohol Use: No Hx Substance Use: No Preferred Language: Thai Communication Ability: Effective Visual Impairment: No Limitations Hearing Ability: Use of Hearing Aid Nuclear Power[employer] Supervisor Required: No Beliefs That Will Affect Care: Muslim Muslim Beliefs: Presybeterian marital status: / Current Living Situation: Alone current occupational status: retired 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 How many Children do You have: 1 Feels Safe at Home: Yes Childhood Exposure to Second-Hand Smoke: Yes Diet: low salt caffeine: No during the past year weight has: remained stable Dental Care, Regularly: No Physical Activity Frequency: 1-2 Times per Week Seatbelt Use: always Sunscreen Use: Yes Assistive Devices: Denture - Upper, Denture - Lower, Glasses, Hearing Aid - Bilateral, Hospital Bed, Scooter/Electric Scooter and Walker Review of Systems Review of Systems: All systems reviewed & are unremarkable except as noted in HPI & below Physical Exam Physical Exam: General: patient resting comfortably, NAD, non-toxic in appearance, AA&O x 4 Skin: warm, dry, intact, no rashes or lesions HEENT: NC/AT, PERRL, EOMI, anicteric sclera, conjunctiva without injection, external ear normal to inspection and nontender, nares patent, moist mucus membranes, dentition intact, no oropharyngeal lesions, neck supple, trachea midline, no LAD, no thyromegaly, no JVD Heart: +S1/S2, regular, no m/r/g Lungs: equal air entry bilaterally, no rales/rhonchi/wheezes Abd: +BS, soft, NT/ND, large abdominal wall hernia with no tenderness to palpation. Soft. Ext: warm, 4+ lymphedema Neuro: nonfocal, patient AA&O x 4, speech intact, no facial droop, moving all extremities on command with equal strength 5/5 Results & Data Results & Data Vital Signs (Past 12 Hours) Vital Signs Temp Pulse Pulse Resp BP BP Pulse Ox 06/25/24 05:00 55 L 20 138/84 96 06/25/24 04:00 52 L 17 140/89 96 06/25/24 02:45 54 L 06/25/24 02:00 54 L 14 143/96 H 97 06/25/24 00:00 61 19 157/97 H 97 06/24/24 22:53 57 L 06/24/24 22:46 59 L 18 151/97 H 95 06/24/24 20:19 36.4 C L 102 H 18 159/93 H 99 O2 Del Method 06/25/24 05:00 Room Air 06/25/24 04:00 Room Air 06/25/24 02:45 06/25/24 02:00 Room Air 06/25/24 00:00 Room Air 06/24/24 22:53 06/24/24 22:46 Room Air 06/24/24 20:19 Room Air Laboratory Results Laboratory Results WBC 4.90 K/ul (4.8-10.8) 06/24/24 20:42 RBC 4.43 M/uL (4.20-5.40) 06/24/24 20:42 Hgb 13.9 g/dl (12.0-16.0) 06/24/24 20:42 Hct 42.6 % (37.0-47.0) 06/24/24 20:42 MCV 96.2 fL (80.0-100.0) 06/24/24 20: MCH 31.4 pg (25.0-34.0) 06/24/24 20: MCHC 32.6 g/dL (32.0-36.0) 06/24/24 20: RDW Std Deviation 50.7 fL (36.4-46.3) H 06/24/24 20: RDW Coeff of Gayathri 14.5 % (11.5-14.5) 06/24/24 20: Plt Count 157 K/uL (130-400) 06/24/24 20: MPV 9.9 fL (9.4-12.4) 06/24/24 20: PT 10.3 Seconds (9.0-12.0) 06/24/24 20: INR 0.9 (0.9-1.1) 06/24/24 20: APTT 28 Seconds (21-31) 06/24/24 20: PTT Ratio 1.0 06/24/24 20: Sodium 141 mmol/L (136-145) 06/24/24 20: Potassium 5.0 mmol/L (3.5-5.1) 06/24/24 20: Chloride 107 mmol/L (98-107) 06/24/24 20: Carbon Dioxide 30 mmol/L (21-32) 06/24/24 20: Anion Gap 4 (3-11) 06/24/24 20: BUN 35 mg/dl (6-23) H 06/24/24 20: Creatinine 1.45 mg/dl (0.6-1.2) H 06/24/24 20: Est Cr Clr Drug Dosing Not Reportable 06/24/24 20: eGFR 36.69 06/24/24 20: BUN/Creatinine Ratio 24.1 (10-20) H 06/24/24 20: Glucose 108 mg/dl (70-99(Fasting)) H 06/24/24 20: Calcium 9.3 mg/dl (8.6-10.3) 06/24/24 20: Total Bilirubin 0.4 mg/dl (0.2-1.0) 06/24/24 20: AST 34 U/L (13-39) 06/24/24 20:42 ALT 25 U/L (7-52) 06/24/24 20:42 Alkaline Phosphatase 76 U/L (34-104) 06/24/24 20: Troponin I High Sens 7.3 pg/ml (0-14) 06/24/24 20: Total Protein 6.5 gm/dl (6.0-8.3) 06/24/24 20: Albumin 3.8 gm/dl (3.4-5.0) 06/24/24 20: Globulin 2.7 gm/dl (2.5-4.0) 06/24/24 20: Albumin/Globulin Ratio 1.4 (0.9-2) 06/24/24 20:42 Urine Color Yellow 06/24/24 20:59 Urine Appearance Clear (Clear) 06/24/24 20:59 Urine pH 5.5 (4.5-7.5) 06/24/24 20:59 Ur Specific [place] 1.019 (1.000-1.030) 06/24/24 20:59 Urine Protein Negative (Negative) 06/24/24 20:59 Urine Glucose (UA) Negative (Negative) 06/24/24 20:59 Urine Ketones Negative (Negative) 06/24/24 20:59 Urine Blood Negative (Negative) 06/24/24 20:59 Urine Nitrite Negative (Negative) 06/24/24 20:59 Urine Bilirubin Negative (Negative) 06/24/24 20:59 Urine Urobilinogen Negative (Negative) 06/24/24 20:59 Ur Leukocyte Esterase Negative (Negative) 06/24/24 20:59 POC Stool Occult Blood Positive (Negative) A 06/25/24 03:56 Blood Type A Negative 06/24/24 20:42 Antibody Screen NEGATIVE 06/24/24 20:42 Impressions Abdomen/Pelvis CT 06/24/24 23:13 Exam(s): CT ABDOMEN + PELVIS With Contrast IV Amt: 93 cc opti 320 EXAM: CT Abdomen and Pelvis With Intravenous Contrast CLINICAL HISTORY: Lower GI bleed. TECHNIQUE: Axial computed tomography images of the abdomen and pelvis with intravenous contrast. CTDI is 28.14 mGy and DLP is 1345.04 mGy-cm. Automated exposure control was utilized for the study. A dose lowering technique was utilized adhering to the principles of ALARA. CONTRAST: Patient received 93 cc opti 320 of IV contrast COMPARISON: CT abdomen and pelvis 02/08/2024 FINDINGS: Lung bases: Unremarkable. No mass. No consolidation. Heart: Cardiomegaly. A pericardial effusion measures up to 1.6 cm. ABDOMEN: Liver: Low attenuation foci in the liver consistent with hepatic cysts. No follow-up is necessary. No suspicious hepatic mass. Gallbladder and bile ducts: Unremarkable. No calcified stones. No ductal dilation. Pancreas: Unremarkable. No mass. No ductal dilation. Spleen: Unremarkable. No splenomegaly. Adrenals: Unremarkable. No mass. Kidneys and ureters: Unremarkable. No solid mass. No hydronephrosis. Stomach and bowel: A large anterior abdominal wall hernia contains several loops of small bowel and a portion of the transverse colon. No obstruction. There is nonspecific thickening of the wall the proximal duodenum. Diverticulosis. There is surgical changes of the rectum. Fecalization of the small bowel. PELVIS: Appendix: No findings to suggest acute appendicitis. Bladder: Unremarkable. No mass. Reproductive: Hysterectomy. ABDOMEN and PELVIS: Intraperitoneal space: Unremarkable. No free air. No significant fluid collection. Bones/joints: There are degenerative changes of the spine. No acute fracture. No dislocation. Soft tissues: Marked body wall edema. Vasculature: Mild atherosclerosis. No abdominal aortic aneurysm. Lymph nodes: Unremarkable. No enlarged lymph nodes. IMPRESSION: 1. There is nonspecific thickening of the wall the proximal duodenum. This could be infectious, inflammatory or neoplastic. 2. A large anterior abdominal wall hernia contains several loops of small bowel and a portion of the transverse colon. No obstruction. 3. Fecalization of the small bowel likely relate to slow transit or bacterial overgrowth. 4. Marked body wall edema. 5. Diverticulosis. 6. Cardiomegaly. A pericardial effusion measures up to 1.6 cm. Electronically signed by: Agnes Wade MD 06/25/24 03:16 AM PG Care Time/CCT Total # of Minutes Spent Total Time Spent with Patient: Total time spent is greater than 50% in coordination of care (as documented) at patient's floor/unit and/or counseling patient: Coding Level of Care Code 56169 INT INP/OBS CARE 3/75MIN Diagnoses Acute GI bleeding K92.2 Mixed hyperlipidemia E78.2 Hyperlipidemia type: mixed hyperlipidemia Pericardial effusion I31.39 Chronic gastroesophageal reflux disease K21.9 (2) Hyperlipidemia Hyperlipidemia type: mixed hyperlipidemia Qualified Code(s): E78.2 - Mixed hyperlipidemia
[2024-06-25] MEDS ORDERED: DICYCLOMINE HCL 10 MG CAP PO PRN (06:25)
[2024-06-25] MEDS ORDERED: MELATONIN 3 MG TAB PO PRN (06:25)
[2024-06-25] MEDS ORDERED: ONDANSETRON INJ 2 MG/ML 2 ML VIAL IV PRN (06:25)
[2024-06-25 08:14] LABS: Hematocrit (blood only) 42.3 % (37.0-47.0); Hemoglobin 13.9 g/dl (12.0-16.0); Mean Corpuscular Hemoglobin 31.4 pg (25.0-34.0); Mean Corpuscular Hgb Conc 32.9 g/dL (32.0-36.0); Mean Corpuscular Volume 95.5 fL (80.0-100.0); Platelet Count 145 K/uL (130-400); RDW Coefficient of Variation 14.5 % (11.5-14.5); RDW Standard Deviation 50.7 fL (36.4-46.3); Red Blood Count 4.43 M/uL (4.20-5.40); White Blood Count 4.24 K/ul (4.8-10.8)
--- NOTE | 2024-06-25 08:15 | Hospitalist Progress Note ---
Date of Service June 25, 2024 Assessment & Plan (1) Acute GI bleeding: (2) Hyperlipidemia: (3) Pericardial effusion: (4) Chronic gastroesophageal reflux disease: (5) Bradycardia: Plan 78-year-old female with history of diabetes, hyperlipidemia, GERD, prior diverticular abscess status post hemicolectomy presenting with several days of rectal bleeding, painless with associated dizziness developed today. #Acute GI bleed // Bradycardia // Weakness,Fatigue: - Hgb stable at 13.9, patient does not appear to have active bleeding - suspect rectal bleeding most likely hemorrhoidal - S/S possibly interconnected - suspect mild blood loss coupled with bradycardic spells (HR 30s-40s) are contributing to weakness and fatigue - Orthostatic vitals unremarkable - GI consultation appreciated: No intervention needed at present as bleeding seems to have stopped, though patient reportedly refusing colonoscopy even if she re-bleeds - Monitor overnight - if weakness/fatigue persist despite resolution of bleeding/stable H&H, consider cardiology consult for eval of ?tachybrady syndrome - PT/OT eval and treat #hyperlipidemia Continue simvastatin 10 mg p.o. daily #Pericardial effusionnoted on CT. Patient can have outpatient echo #GERD Protonix 40 mg p.o. daily #CKD Near baseline Continue to monitor VTE ppx: held in the setting of recent GI bleed Admission and Anticipated Discharge Date Admission Date: June 25, 2024 Supervising Physician Co-Signing Physician Notes Attending attestation Pt seen and examined in concert with Dr. Gutierrez. In agreement with the documented findings as noted in the resident documentation with any exceptions or additions as noted here. Resting comfortably in bed with ongoing weakness which has been chronic for her. No further BRBPR reported. On examination, S1/S2 nl RRR no MCG. CTAB. Abd NT/ND BS+ve BRBPR without severe anemia - trend HGB in AM, monitor for further bleeding sx. GI consultation appreciated re: course of w/u and setting. Diffuse weakness, chronic - PT/OT consultation pending Else see resident documentation as noted. Subjective Pt seen at bedside, notes no further bloody stools since arrival. BRBPR started 2 days ago, 2-3 times per day. Thinks she has hemorrhoids but has never had more than a drop of blood on the toilet paper. Denies recent change in bowel habits, no med changes. No recent illness. Denies fevers, chills. Reports chronic weakness that was improving with home PT until about 2 weeks ago. Denies overt dizziness or postural lightheadedness. Notified by nursing on several occasions that HR was dipping into the 30s and 40s, most often when sleeping. BP remained stable, asymptomatic. Reports previous loop recorder placement that stopped working after 3 years. Previously had episodes of tachycardia but since starting the Sotalol, more often runs nora. Review of Systems Review of Systems: as per HPI Physical Exam Physical Exam: Constitutional: no acute distress HEENT: NCAT, no conjunctival injection CV: extremities well-perfused, no LE edema Resp: no increased work of breathing GI: nondistended MSK: no gross deformities Skin: warm, dry, no rash appreciated Neuro: alert, oriented, no focal neurologic deficit appreciated Results & Data Results & Data Vital Signs (Past 12 Hours) Vital Signs Temp Pulse Pulse Resp BP BP Pulse Ox 06/25/24 06:50 53 L 06/25/24 06:25 36.6 C 53 L 19 140/85 97 06/25/24 06:02 36.8 C 53 L 17 140/85 96 06/25/24 05:00 55 L 20 138/84 96 06/25/24 04:00 52 L 17 140/89 96 06/25/24 02:45 54 L 06/25/24 02:00 54 L 14 143/96 H 97 06/25/24 00:00 61 19 157/97 H 97 06/24/24 22:53 57 L 06/24/24 22:46 59 L 18 151/97 H 95 06/24/24 20:19 36.4 C L 102 H 18 159/93 H 99 O2 Del Method 06/25/24 06:50 06/25/24 06:25 Room Air 06/25/24 06:02 Room Air 06/25/24 05:00 Room Air 06/25/24 04:00 Room Air 06/25/24 02:45 06/25/24 02:00 Room Air 06/25/24 00:00 Room Air 06/24/24 22:53 06/24/24 22:46 Room Air 06/24/24 20:19 Room Air Resident Activity Tracking Resident Involvement: Resident Care Provided Care Provided: Adult Hospital Medicine (2) Hyperlipidemia Hyperlipidemia type: mixed hyperlipidemia Qualified Code(s): E78.2 - Mixed hyperlipidemia
--- NOTE | 2024-06-25 08:16 | Electrocardiogram Report ---
Test Reason : Blood Pressure : */* mmHG Vent. Rate : 54 BPM Atrial Rate : 54 BPM P-R Int : 196 ms QRS Dur : 96 ms QT Int : 466 ms P-R-T Axes : 37 216 22 degrees QTcB Int : 441 ms Sinus bradycardia Incomplete right bundle branch block Possible Right ventricular hypertrophy Abnormal ECG When compared with ECG of 09-Feb-2024 23:13, Premature atrial complexes are no longer Present Incomplete right bundle branch block is now Present Confirmed by John Menon ([id number]) on 06/25/2024 8:16:31 AM Referred By: REFERRED SELF Confirmed By: John Menon
[2024-06-25] MEDS: SOTALOL HCL 80 MG TAB PO SCH (08:39)
[2024-06-25] MEDS: PANTOprazole 40 MG TAB PO SCH (08:39)
[2024-06-25 09:09] LABS: Calcium 9.3 mg/dl (8.6-10.3); Potassium 4.7 mmol/L (3.5-5.1)
[2024-06-25 09:15] LABS: BUN Creatinine Ratio 25.8 (10-20); Creatinine Clr Calc Pharmacy 35.2 ml/min
[2024-06-25] MEDS: ACETAMINOPHEN 325 MG TAB PO PRN (10:38)
[2024-06-25] MEDS ORDERED: HYDROCORTISONE ACETATE 25 MG SUPP PR PRN (12:57)
[2024-06-25] MEDS ORDERED: DEXTROSE 50% 50 ML SYRINGE IV PRN (13:05)
[2024-06-25] MEDS ORDERED: GLUCOSE 10 TAB/TUBE PO PRN (13:05)
[2024-06-25] MEDS ORDERED: GLUCAGON FOR INJ 1 MG VIAL SQ PRN (13:05)
[2024-06-25] MEDS ORDERED: GLUCOSE 40% GEL 15 GM TUBE PO PRN (13:05)
[2024-06-25] MEDS ORDERED: CARBOHYDRATES FOR HYPOGLYCEMIA PO PRN (13:05)
--- NOTE | 2024-06-25 13:07 | Gastrointestinal Consultation ---
Date of Consultation June 25, 2024 Assessment & Plan (1) Rectal bleeding: Normal H/H. She is not having ongoing bleeding today. Patient refuses colonoscopy. She notes she has previously maintained this stance as well and will not be changing her mind. She is agreeable to Hydrocortisone suppositories as these improved her internal hemorrhoids previously. If she re-bleeds, could consider CTA, however she emphasizes that despite rectal bleeding, she would not ever agree to a colonoscopy again. Discussed consideration of EGD given chronic GERD and CT findings of the duodenum. She declines noting that she does not feel like this is an issue at the present time. Continue to monitor H/H. She can follow-up with her primary GI team at [facility] upon discharge if she wishes to pursue further evaluation. Supervising Physician Co-Signing Physician Notes I examined the patient and reviewed patient's chart , laboratory data and imaging studies. I agree with with assessment and plan of care as suggested by advanced practice provider History of Present Illness Reason for Consultation: "GIB" Attending Physician: John Ware MD History of Present Illness Patient is a 78 yo female who presented to the ED after experiencing over 1 day of BRBPR. She notes that this began when she was moving her bowels and continued. She felt the amount was significant and presented to the ED where her H/H has remained unremarkable. H/H currently 13.9/42.3. BUN 33. Cr 1.28. Patient denies abdominal pain or rectal pain. She notes some constipation intermittently. She has a history of a bowel resection due to diverticulitis with abscess years ago. She notes she has taken Metamucil since that to help bind up her stool. She has been seen by her primary GI group--[facility] as recent as winter 2023 and a colonoscopy was offered for intermittent rectal bleeding. She declined. She again reports today that she will not ever consider another colonoscopy in the future. She has a history of GERD and treats with OTC PPI at home. She does not wish to pursue EGD at this time. She does reflect on having bleeding internal hemorrhoids in the past and requiring prescription suppositories for them. CT abd/pelvis in the ED shows the following: IMPRESSION: 1. There is nonspecific thickening of the wall the proximal duodenum. This could be infectious, inflammatory or neoplastic. 2. A large anterior abdominal wall hernia contains several loops of small bowel and a portion of the transverse colon. No obstruction. 3. Fecalization of the small bowel likely relate to slow transit or bacterial overgrowth. 4. Marked body wall edema. 5. Diverticulosis. 6. Cardiomegaly. A pericardial effusion measures up to 1.6 cm. Allergies Allergy/AdvReac Type Severity Reaction Status Date / Time No Known Allergies Allergy Verified 06/24/24 23:25 Home Medications Medication Instructions Recorded Confirmed Type compr.stocking,knee,long,large #6 ea 11/12/18 04/30/24 Rx safety needles 25 gauge x 1 1/2" #4 ea 02/26/20 04/30/24 Rx (BD Eclipse Luer-Luz) aspirin 81 mg tablet,delayed 81 mg PO DAILY #90 tabs 12/07/21 06/24/24 Rx release coenzyme Q10 100 mg capsule 100 mg PO DAILY #90 caps 12/07/21 06/24/24 Rx magnesium chloride 64 mg 128 mg (2 x 64 mg) PO DAILY #180 12/07/21 06/24/24 Rx (magnesium chloride) tabs tablet,delayed release (Mag 64) psyllium seed (sugar) oral powder 1 tbsp PO DAILY #1,254 grams 12/07/21 06/24/24 Rx (Metamucil (sugar) oral powder) dicyclomine 10 mg capsule 10 mg PO TID PRN abdominal 09/17/23 06/24/24 Rx cramping #90 caps nystatin 100,000 unit/gram topical 1 applic topical TID PRN AFFECTED 09/17/23 06/24/24 Rx powder SKIN #60 grams mecobalamin (vitamin B12) 1,000 1,000 mcg PO 3XWK 10/02/23 06/24/24 History mcg chewable tablet furosemide 20 mg tablet 10 - 20 mg PO QAM 06/24/24 06/24/24 History omeprazole 20 mg capsule,delayed 40 mg PO DAILY 06/24/24 06/24/24 History release simvastatin 10 mg tablet 10 mg PO QPM 06/24/24 06/24/24 History sotalol 80 mg tablet 20 mg PO BID 06/24/24 06/24/24 History Patient History Medical History Nephrolithiasis Recurrent UTI Acute kidney injury superimposed on CKD JANETT (acute kidney injury) Nondisplaced fracture of fifth right metatarsal bone Status post placement of implantable loop recorder Paroxysmal atrial tachycardia Mitral and aortic valve disease Cervical cancer Non-sustained ventricular tachycardia PSVT (paroxysmal supraventricular tachycardia) Sick sinus syndrome History of cervical cancer Diverticulosis Diverticulitis Surgical History History of intestinal surgery H/O bilateral breast reduction surgery History of tonsillectomy and adenoidectomy H/O hemicolectomy Family History Mother Obesity Hypertension Diabetes Goiter Deep vein thrombosis Stroke Diverticulitis Myocardial infarction Sister Diabetes Lung cancer Father Alzheimer disease Diverticulitis Diabetes Parkinson disease Brother Atrial fibrillation Deep vein thrombosis Colorectal cancer Prostate cancer Family/Other Diverticulitis Grandfather (Maternal) Colorectal cancer Grandfather (Paternal) Colorectal cancer Denies family history of Ovarian cancer Breast cancer Social History Smoking Status: Never smoker Second Hand Exposure: No; Do You Dip or Chew Tobacco: No; Hx Alcohol Use: No Hx Substance Use: No Preferred Language: Congolese Communication Ability: Effective Visual Impairment: No Limitations Hearing Ability: Use of Hearing Aid 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 Operator Required: No Beliefs That Will Affect Care: None marital status: / Current Living Situation: Alone current occupational status: 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 How many Children do You have: 1 Feels Safe at Home: Yes Safety Concerns: Feels Safe At This Time Childhood Exposure to Second-Hand Smoke: Yes Diet: low salt caffeine: No during the past year weight has: remained stable Dental Care, Regularly: No Physical Activity Frequency: 1-2 Times per Week Seatbelt Use: always Sunscreen Use: Yes Assistive Devices: Hospital Bed, Raised Toilet Seat, Scooter/Electric Scooter, Walker and Other (shower chair ) Review of Systems Constitutional: no fever and no chills Respiratory: no cough and no dyspnea Gastrointestinal: + blood in stools; no abdominal pain, no heartburn, no nausea, no vomiting, no coffee ground emesis, no dysphagia and no melena Psychiatric: no problem reported Physical Exam Constitutional: WD/WN, vitals as above Respiratory: normal respiratory effort Cardiovascular: Rate/Rhythm: regular rate Gastrointestinal (Abdomen): normal bowel sounds, soft, nontender, no hepatosplenomegaly Psychiatric: Orientation: alert and oriented x 3 Results & Data Vital Signs (Past 12 Hours) Vital Signs Temp Pulse Pulse Resp BP Pulse Ox O2 Del Method 06/25/24 08:38 53 L 18 128/81 98 Room Air 06/25/24 06:50 53 L 06/25/24 06:25 36.6 C 53 L 19 140/85 97 Room Air 06/25/24 06:02 36.8 C 53 L 17 140/85 96 Room Air 06/25/24 05:00 55 L 20 138/84 96 Room Air 06/25/24 04:00 52 L 17 140/89 96 Room Air 06/25/24 02:45 54 L 06/25/24 02:00 54 L 14 143/96 H 97 Room Air PG Care Time/CCT Total # of Minutes Spent Total Time Spent with Patient: Total time spent is greater than 50% in coordination of care (as documented) at patient's floor/unit and/or counseling patient: Coding Level of Care Code 19550 INT INP/OBS CARE 3/75MIN Diagnoses Rectal bleeding K62.5
[2024-06-25] MEDS: INSULIN ASPART PER UNIT CHARGE SC SCH (18:00)
[2024-06-25] MEDS: SIMVASTATIN 10 MG TAB PO SCH (22:07)
--- NOTE | 2024-06-26 06:55 | Hospitalist Progress Note ---
Date of Service June 26, 2024 Assessment & Plan (1) Acute GI bleeding: (2) Hyperlipidemia: (3) Pericardial effusion: (4) Chronic gastroesophageal reflux disease: (5) Bradycardia: Plan 78-year-old female with history of diabetes, hyperlipidemia, GERD, prior diverticular abscess status post hemicolectomy presenting with several days of rectal bleeding, painless with associated dizziness developed today. #Rectal Bleed // Bradycardia // Weakness,Fatigue: - Hgb stable, patient does not appear to have active bleeding - suspect rectal bleeding most likely hemorrhoidal - S/S possibly interconnected - suspect mild blood loss coupled with bradycardic spells (HR 30s-40s) are contributing to weakness and fatigue - Orthostatic vitals unremarkable - GI consultation appreciated: No intervention needed at present as bleeding seems to have stopped, though patient reportedly refusing colonoscopy even if she re-bleeds - Consider outpatient cardiology follow up to r/o tachybrady syndrome - PT/OT eval and treat - recommend inpatient rehab, placement pending #hyperlipidemia Continue simvastatin 10 mg p.o. daily #Pericardial effusion noted on CT, follow up TTE pending. #GERD Protonix 40 mg p.o. daily #CKD Near baseline Continue to monitor VTE ppx: held in the setting of rectal bleeding Admission and Anticipated Discharge Date Admission Date: June 25, 2024 Supervising Physician Co-Signing Physician Notes Attending attestation Pt seen and examined in concert with Dr. Gutierrez. In agreement with the documented findings as noted in the resident documentation with any exceptions or additions as noted here. Resting comfortably in bed. Reports improved weakness and easy fatigability without BRBPR reported. On examination, S1/S2 nl RRR no MCG. CTAB. Abd NT/ND BS+ve BRBPR without severe anemia - continue daily hgb trend for stability and monitor for sx. Daily PPO PI. Pericardial effusion - noted incidentally on imaging without apparent connection w/ sx. Consider inpatient vs. outpatient echocardiogram for further evaluation. Diffuse weakness, chronic - PT/OT consultation recommending rehab services, case management aware and working. Else see resident documentation as noted. Subjective Pt seen at bedside, notes no further bloody stools since arrival. States that, when nursing examined her, they noted what appeared to be an external hemorrhoid. Still feeling somewhat weak, attributes this at least in part to LE lymphedema that makes legs heavy and difficult to move. Amenable to inpatient rehab, as recommended by PT/OT. Review of Systems Review of Systems: as per HPI Physical Exam Physical Exam: Constitutional: no acute distress HEENT: NCAT, no conjunctival injection CV: extremities well-perfused, no LE edema Resp: no increased work of breathing GI: nondistended MSK: no gross deformities Skin: warm, dry, no rash appreciated Neuro: alert, oriented, no focal neurologic deficit appreciated Results & Data Results & Data Vital Signs (Past 12 Hours) Vital Signs Temp Pulse Pulse Resp BP Pulse Ox O2 Del Method 06/26/24 02:59 36.4 C L 54 L 17 123/73 97 Room Air 06/25/24 23:40 51 L 17 127/83 94 Room Air 06/25/24 20:56 36.6 C 53 L 18 135/88 97 Room Air 06/25/24 20:47 49 L 06/25/24 20:00 51 L 16 142/89 H 96 Room Air Resident Activity Tracking Resident Involvement: Resident Care Provided Care Provided: Adult Hospital Medicine (2) Hyperlipidemia Hyperlipidemia type: mixed hyperlipidemia Qualified Code(s): E78.2 - Mixed hyperlipidemia
[2024-06-26 08:45] LABS: Hematocrit (blood only) 38.1 % (37.0-47.0); Hemoglobin 12.3 g/dl (12.0-16.0); Mean Corpuscular Hemoglobin 30.8 pg (25.0-34.0); Mean Corpuscular Hgb Conc 32.3 g/dL (32.0-36.0); Mean Corpuscular Volume 95.3 fL (80.0-100.0); Mean Platelet Volume 9.9 fL (9.4-12.4); Platelet Count 132 K/uL (130-400); RDW Coefficient of Variation 14.6 % (11.5-14.5); RDW Standard Deviation 50.4 fL (36.4-46.3); White Blood Count 3.08 K/ul (4.8-10.8)
[2024-06-26 09:11] LABS: Calcium 8.7 mg/dl (8.6-10.3); Potassium 4.5 mmol/L (3.5-5.1)
[2024-06-26 09:17] LABS: BUN Creatinine Ratio 23.6 (10-20); Creatinine Clr Calc Pharmacy 36.7 ml/min
--- NOTE | 2024-06-26 09:54 | Gastroenterology Progress Note ---
Date of Service June 26, 2024 Assessment & Plan (1) Rectal bleeding: Plan: Resolved. Patient refuses colonoscopy. Continue Anucort BID x 10 days. Continue Metamucil as previously taking at home. Patient interested in outpatient colorectal surgery evaluation for her hemorrhoids. We will help arrange this. (2) Abnormal CT scan, small bowel: Plan: -Question about duodenal abnormality on CT; patient declines EGD. Would continue PPI. Can follow-up with her outpatient GI at [facility] to determine if she would like to move forward in the future. Admission and Anticipated Discharge Date Admission Date: June 25, 2024 Supervising Physician Co-Signing Physician Notes I reviewed patient's chart , laboratory data and imaging studies. I agree with with assessment and plan of care as suggested by advanced practice provider Subjective Patient is 78 yo female who presented to the ED with rectal bleeding. Since admission, her rectal bleeding has stopped. She is on Anucort. She does not want to have a colonoscopy. She is interested in colorectal surgery referral. Review of Systems Gastrointestinal: no abdominal pain, no nausea, no vomiting, no diarrhea/loose stools and no blood in stools Physical Exam Constitutional: well developed Respiratory: normal respiratory effort Psychiatric: Orientation: alert and oriented x 3 Results & Data Results & Data Vital Signs (Past 12 Hours) Vital Signs Temp Pulse Pulse Resp BP Pulse Ox O2 Del Method 06/26/24 08:01 49 L 06/26/24 07:45 36.3 C L 86 18 111/73 95 Room Air 06/26/24 02:59 36.4 C L 54 L 17 123/73 97 Room Air 06/25/24 23:40 51 L 17 127/83 94 Room Air PG Care Time/CCT Total # of Minutes Spent Total Time Spent with Patient: Total time spent is greater than 50% in coordination of care (as documented) at patient's floor/unit and/or counseling patient: Coding Level of Care Code 90442 SUB INP/OBS CARE 3/50MIN Diagnoses Rectal bleeding K62.[address] scan, small bowel R93.3
--- NOTE | 2024-06-27 07:19 | Hospitalist Progress Note ---
Date of Service June 27, 2024 Assessment & Plan (1) Acute GI bleeding: (2) Hyperlipidemia: (3) Pericardial effusion: (4) Chronic gastroesophageal reflux disease: (5) Bradycardia: Plan 78-year-old female with history of diabetes, hyperlipidemia, GERD, prior diverticular abscess status post hemicolectomy presenting with several days of rectal bleeding, painless with associated dizziness developed today. #Rectal Bleed // Bradycardia // Weakness,Fatigue: - Hgb stable, patient does not appear to have active bleeding - suspect rectal bleeding most likely hemorrhoidal - S/S possibly interconnected - suspect mild blood loss coupled with bradycardic spells (HR 30s-40s) are contributing to weakness and fatigue - Orthostatic vitals unremarkable - GI consultation appreciated: No intervention needed at present as bleeding seems to have stopped, though patient reportedly refusing colonoscopy even if she re-bleeds - Consider outpatient cardiology follow up to r/o tachybrady syndrome - PT/OT eval and treat - recommend inpatient rehab, placement pending #hyperlipidemia Continue simvastatin 10 mg p.o. daily #Pericardial effusion noted on CT, follow up TTE pending. #GERD Protonix 40 mg p.o. daily #CKD Near baseline Continue to monitor VTE ppx: held in the setting of rectal bleeding Admission and Anticipated Discharge Date Admission Date: June 25, 2024 Results & Data Results & Data Vital Signs (Past 12 Hours) Vital Signs Temp Pulse Pulse Resp BP Pulse Ox O2 Del Method 06/27/24 02:39 51 L 17 109/59 L 95 Room Air 06/26/24 23:47 36.3 C L 53 L 17 103/66 98 Room Air 06/26/24 21:51 56 L 06/26/24 19:52 59 L 17 144/90 H 95 Room Air 06/26/24 19:22 Room Air (2) Hyperlipidemia Hyperlipidemia type: mixed hyperlipidemia Qualified Code(s): E78.2 - Mixed hy perlipidemia
[2024-06-27 07:56] LABS: Hematocrit (blood only) 38.3 % (37.0-47.0); Hemoglobin 12.5 g/dl (12.0-16.0); Mean Corpuscular Hemoglobin 31.2 pg (25.0-34.0); Mean Corpuscular Hgb Conc 32.6 g/dL (32.0-36.0); Mean Corpuscular Volume 95.5 fL (80.0-100.0); Platelet Count 132 K/uL (130-400); RDW Coefficient of Variation 14.5 % (11.5-14.5); RDW Standard Deviation 50.3 fL (36.4-46.3); Red Blood Count 4.01 M/uL (4.20-5.40); White Blood Count 2.65 K/ul (4.8-10.8)
[2024-06-27 08:04] LABS: BUN Creatinine Ratio 20.9 (10-20); Calcium 8.6 mg/dl (8.6-10.3); Creatinine Clr Calc Pharmacy 32.4 ml/min; Potassium 4.5 mmol/L (3.5-5.1)
--- NOTE | 2024-06-27 11:04 | Discharge Summary ---
Date of Service June 27, 2024 Admission HPI Per Admitting Provider Tatiana Romero is a pleasant 78yo female with history of diabetes, GERD, hyperlipidemia, CKD, hiatal hernia, prior diverticular abscess status post hemicolectomy presenting with bright red blood per rectum. Patient reports she has had progressive weakness ongoing for the last 2 weeks. She has been receiving home PT and has been having more difficulty participating in her therapies. She had bleeding that started on June 23 with at least 2-3 bloody bowel movements. She reports bright red blood with some stool mixed in. Bleeding has continued over the last 2 days. She has been experiencing some dizziness and lightheadedness as well which prompted her to come to the ER. Patient denies abdominal pain, cramping or bloating. She denies nausea, vomiting, hematemesis or coffee-ground emesis. No chest pain, shortness of breath. No additional complaints at this time In the ER she is afebrile, hemodynamically stable. Bloody bowel movement witnessed in the ER x 1 Admission Exam Per Admitting Provider General: patient resting comfortably, NAD, non-toxic in appearance, AA&O x 4 Skin: warm, dry, intact, no rashes or lesions HEENT: NC/AT, PERRL, EOMI, anicteric sclera, conjunctiva without injection, external ear normal to inspection and nontender, nares patent, moist mucus membranes, dentition intact, no oropharyngeal lesions, neck supple, trachea midline, no LAD, no thyromegaly, no JVD Heart: +S1/S2, regular, no m/r/g Lungs: equal air entry bilaterally, no rales/rhonchi/wheezes Abd: +BS, soft, NT/ND, large abdominal wall hernia with no tenderness to palpation. Soft. Ext: warm, 4+ lymphedema Neuro: nonfocal, patient AA&O x 4, speech intact, no facial droop, moving all extremities on command with equal strength 5/5 Principal Diagnosis GIB Discharge Exam Constitutional: no acute distress HEENT: NCAT, no conjunctival injection CV: extremities well-perfused, no LE edema Resp: no increased work of breathing GI: nondistended MSK: no gross deformities Skin: warm, dry, no rash appreciated Neuro: alert, oriented, no focal neurologic deficit appreciated Discharge Data Allergies Allergy/AdvReac Type Severity Reaction Status Date / Time No Known Allergies Allergy Verified 06/24/24 23:25 Consultations 06/25/24 05:24 ED Decision to Admit Stat 06/25/24 06:25 Consult Gastroenterology Routine Ordered Studies 06/24/24 23:13 CT abd pelvis IV con only Stat Hospital Course (1) Acute GI bleeding: (2) Hyperlipidemia: (3) Pericardial effusion: (4) Chronic gastroesophageal reflux disease: (5) Bradycardia: Plan 78-year-old female with history of diabetes, hyperlipidemia, GERD, prior diverticular abscess status post hemicolectomy presenting with several days of rectal bleeding, painless with associated dizziness developed. #Rectal Bleed // Bradycardia // Weakness,Fatigue: - Hgb stable, patient does not appear to have active bleeding - suspect rectal bleeding most likely hemorrhoidal - S/S possibly interconnected - suspect mild blood loss coupled with bradycardic spells (HR 30s-40s) are contributing to weakness and fatigue - Orthostatic vitals unremarkable - GI consultation appreciated: No intervention needed at present as bleeding seems to have stopped, though patient reportedly refusing colonoscopy even if she re-bleeds - Will need outpatient colorectal surgery evaluation for her hemorrhoids. Continue on Anucort twice daily for 10 days. - Consider outpatient cardiology follow up to r/o tachybrady syndrome - aspirin held, will continue to hold until PCP appointment. - PT/OT eval and treat - recommend inpatient rehab, [facility] on 06/27 for rehab - CBC in 3 days. #hyperlipidemia Continue simvastatin 10 mg p.o. daily #Pericardial effusion noted on CT, follow up TTE pending. #GERD Protonix 40 mg p.o. daily #CKD Near baseline BMP at PCP f/u Total Time Total Time Spent Total Time Spent (In Minutes): 30 Discharge Plan Discharge Items Patient Disposition: Transfer Custodial Fac Reason For Visit: GIB Discharge Diagnosis: GIB Activity: Resume your previous activity Non-emergency contact: Primary Care Provider Call non-emergency contact if: you have any medication questions, your rectal temperature is above 100.4 and your wound pain has increased Follow-up/Referrals: Yong Henriquez III, CRNP [Primary Care Provider] - Diet: Carb Consistent or DM2, Heart Healthy and Low Sodium (2gm) Ambulatory Orders: Complete Blood Count no Diff (Routine) Timeframe: 3 Days Location: Determined by Patient Ordered By: Ruben Barraza Attending Provider Instructions: 78-year-old female with history of diabetes, hyperlipidemia, GERD, prior diverticular abscess status post hemicolectomy presenting with several days of rectal bleeding, painless with associated dizziness developed. #Rectal Bleed // Bradycardia // Weakness,Fatigue: - Hgb stable, patient does not appear to have active bleeding - suspect rectal bleeding most likely hemorrhoidal - S/S possibly interconnected - suspect mild blood loss coupled with bradycardic spells (HR 30s-40s) are contributing to weakness and fatigue - Orthostatic vitals unremarkable - GI consultation appreciated: No intervention needed at present as bleeding seems to have stopped, though patient reportedly refusing colonoscopy even if she re-bleeds - Will need outpatient colorectal surgery evaluation for her hemorrhoids. Continue on Anucort twice daily for 10 days. - Consider outpatient cardiology follow up to r/o tachybrady syndrome - aspirin held, will continue to hold until PCP appointment. - PT/OT eval and treat - recommend inpatient rehab, [facility] on 06/27 for rehab - CBC in 3 days. #hyperlipidemia Continue simvastatin 10 mg p.o. daily #Pericardial effusion noted on CT, follow up TTE pending. #GERD Protonix 40 mg p.o. daily #CKD Near baseline BMP at PCP f/u Pending Studies at Discharge: No Stand-Alone Forms: My [facility] Skilled Items Patient informed of condition?: Yes DNR: Yes Discharge Level of Care: Acute rehab Communicable Disease: No Discharge Prognosis: Stable Lines: None Urinary Catheter: No Medications and DC Order Prescriptions: New hydrocortisone acetate [Anucort-HC] 25 mg Suppository 25 mg DC BID 10 Days Qty: 24 0RF pantoprazole 40 mg Tablet,Delayed Release (Dr/Ec) 40 mg PO DAILY 30 Days Qty: 30 0RF Continued dicyclomine 10 mg capsule 10 mg PO TID PRN (Reason: abdominal cramping) Qty: 90 3RF nystatin 100,000 unit/gram powder 1 applic TOP TID PRN (Reason: AFFECTED SKIN) Qty: 60 2RF coenzyme Q10 100 mg capsule 100 mg PO DAILY Qty: 90 1RF Mag 64 64 mg tablet,delayed release (DR/EC) 128 mg PO DAILY Qty: 180 1RF Metamucil (sugar) Powder 1 tbsp PO DAILY Qty: 1254 1RF mecobalamin (vitamin B12) 1,000 mcg tablet,chewable 1,000 mcg PO 3XWK Rx Instructions: MON, WED, & FRI. sotalol 80 mg tablet 20 mg PO BID Rx Instructions: TAKES 1/4 OF TAB BID simvastatin 10 mg tablet 10 mg PO QPM furosemide 20 mg tablet 10 - 20 mg PO QAM Held aspirin 81 mg tablet,delayed release (DR/EC) 81 mg PO DAILY Qty: 90 1RF Hold Instructions: Resume on 07/04/24. f/u with PCP Discontinued omeprazole 20 mg capsule,delayed release(DR/EC) 40 mg PO DAILY No Action (DME) compr.stocking,knee,long,large misc See Dose Instructions .ROUTE .MEDSUPPLY Qty: 6 0RF Dose Instruction: As directed Rx Instructions: As directed (DME) BD Eclipse Luer-Luz 25 gauge x 1 1/2" needle See Rx Instructions .ROUTE .MEDSUPPLY Qty: 4 0RF Rx Instructions: As directed Discharge Orders: Discharge Order (Routine); Ordered 06/27/24 Ordered By: Ruben Frizt/Other Patient Handouts: GI Bleeding Causes and Tests, Rectal Bleeding Tx Admission Data Admit Date/Time: 06/25/24 05:54 Attending Provider: John Ware Admit Provider: Marilee Sin Primary Care Provider: Yong Henriquez III Other Providers: Marilee Sin; Dallin Lopez; Stanley Teixeira [facility] Other Interventions: Discharge Summary Assessment (RN) Last Done: 06/27/24 12:27 Supervising Physician Co-Signing Physician Notes Attending attestation Pt seen and examined in concert with Dr. Jerome. In agreement with the documented findings as noted in the resident documentation with any exceptions or additions as noted here. Resting in chair at bedside with resolution of presenting complaint, though still feels overall off balance and endorses working with PT. On examination, S1/S2 nl RRR no MCG. CTAB. Abd NT/ND BS+ve BRBPR without severe anemia - hgb stable at 12.5. Would continue PPI on discharge and agree w/ follow up for evaluation for underlying hemorrhoids w/ colorectal surgery. Vehemently declined endoscopy. Pericardial effusion - noted incidentally on imaging without apparent connection w/ sx. Would recommend outpatient echocardiogram for further evaluation, asymptomatic at present Else see resident documentation as noted. Total attending physician time spent with this patient's care on the day of discharge: 35 minutes.
[2024-06-27 12:08] VITALS: BP 127/75; PULSE 58; RESP 18; TEMP 97.5; O2SAT 95
== END 2024-06-27 13:43 | DRG 394 ==
LOC: ED 19:55 → SUATTDRO 06-25 05:54 → EDINP 06-25 05:54 → 2N 06-25 06:25

== ENCOUNTER 2024-07-03 09:57 | Inpatient (IN) ==
--- NOTE | 2024-07-03 10:14 | Emergency Department Note ---
Impression & Plan TIA (transient ischemic attack), Leukopenia, Expressive aphasia ED Provider Note NAME: EUFEMIA RADFORD AGE: 78 SEX: F : 1945 ARRIVES VIA: Ambulance INFORMANT: Patient ED PROVIDER(S): Aguilar Busch DO CHIEF COMPLAINT: Expressive aphasia HPI: Patient is a 78-year-old female from [facility] with a past medical history of GI bleed, diabetes, lymphedema, A-fib who presents to the ER for trouble getting her words out which occurred around 909 this morning. She notes she is feeling better. She feels a little woozy in her head. Denies any change or loss of vision. No chest pain or shortness of breath. No nausea, vomiting, or diarrhea. No dysuria, urgency, or frequency. No other exacerbating or remitting factors. ADDITIONAL HISTORY OBTAINED: Per HPI Chronic Medical/Social Conditions Affecting Care: Per HPI PAST MEDICAL HISTORY:See Below PAST SURGICAL HISTORY:See Below FAMILY HISTORY:See Below SOCIAL HISTORY:See Below HOME MEDICATIONS:See Below ALLERGIES:See Below VITALS:See Below PHYSICAL EXAMINATION: GENERAL: Sitting up in bed, alert, well appearing, well nourished, no distress, non-toxic EYE EXAM: normal conjunctiva. PERRL and EOM's grossly intact. OROPHARYNX: no exudate, no erythema, lips, buccal mucosa, and tongue normal and mucous membranes are moist NECK: supple, no nuchal rigidity, no adenopathy, non-tender LUNGS: Clear to auscultation. Normal chest wall mechanics HEART: no murmurs, S1 normal and S2 normal ABDOMEN: abdomen soft, non-tender, normo-active bowel sounds, no masses, no rebound or guarding. UPPER EXTREMITIES: upper extremities are grossly normal. LOWER EXTREMITIES: No pitting edema. NEURO EXAM: Normal sensorium, cranial nerves II-XII intact, normal speech, no weakness of arms, no weakness of legs. No drift. Finger to nose intact. Gross sensation intact. MEDICAL DECISION MAKING: Patient is a 78-year-old female who presents ER for the above-stated complaint. IV was established and blood work was obtained. Labs show leukopenia at 3.1 thousand. No significant anemia. INR unremarkable. BMP with creatinine 1.3. LFTs and bilirubin were unremarkable. UA was clean. Influenza RSV and COVID were negative. Expressive aphasia had resolved. CT angios of the head and neck were negative. Discussed case with Dr. Chastity Power telestroke. She recommended admission MRIs and complete workup. Patient and family were updated bedside. Discussed with the hospitalist for further evaluation management treatment. Please see neurology consult for further details. Consults/Care Managements Discussions: Per [facility] Triage Nursing notes reviewed. Limited review of prior medical records performed Vital Signs: reviewed and remarkable for no significant abnormalities Differential diagnosis: Differential Diagnosis includes but is not limited to ischemic Stroke, hemorrhagic stroke, bells palsy, mass, neoplasm, migraine headache, seizure, subarachnoid hemorrhage, TIA, and transient global amnesia. ER treatment provided: See below Diagnostics interpreted by me include EKG and cardiac monitoring as listed below: -Cardiac Monitoring: An order was placed for continuous cardiac monitoring. The monitor shows a rate of 60 with sinus rhythm. -ECG: Sinus bradycardia rate of 58 First-degree AV block No PVCs QTc 463 -Laboratory studies:Interpreted by me as stated above in MDM and shown below. Imaging studies: Xrays: As interpreted by me: None CTs show: CT of the head per my preliminary interpreted and showed no obvious large bleed CT angio of the head neck was negative per radiology Procedures:none Critical Care: None Past Med/Surg History Problem List (Updated 07/03/24 @ 16:50 by Aguilar Busch DO) Expressive aphasia (Acute) Leukopenia (Acute) TIA (transient ischemic attack) (Acute) TIA (transient ischemic attack) Abnormal CT scan, small bowel Bradycardia Rectal bleeding CKD stage 3b, GFR 30-44 ml/min Pericardial effusion Acute GI bleeding (Acute) Incontinence (Chronic) Diastolic CHF Atrial fibrillation Anasarca Lymphedema, not elsewhere classified Vitamin B12 deficiency Hyperlipidemia Generalized weakness (Chronic) Right knee DJD (Chronic) Vulvar mass Scoliosis of thoracolumbar region due to degenerative disease of spine in adult Hypoalbuminemia Gait instability (Chronic) Chronic gastroesophageal reflux disease (Chronic) Morbid obesity (Chronic) Osteopenia (Chronic) Type 2 diabetes mellitus (Chronic) Medical History Nephrolithiasis Recurrent UTI Acute kidney injury superimposed on CKD JANETT (acute kidney injury) Nondisplaced fracture of fifth right metatarsal bone Status post placement of implantable loop recorder Paroxysmal atrial tachycardia Mitral and aortic valve disease Cervical cancer Non-sustained ventricular tachycardia PSVT (paroxysmal supraventricular tachycardia) Sick sinus syndrome History of cervical cancer Diverticulosis Diverticulitis Surgical History History of intestinal surgery H/O bilateral breast reduction surgery History of tonsillectomy and adenoidectomy H/O hemicolectomy Family History Mother Obesity Hypertension Diabetes Goiter Deep vein thrombosis Stroke Diverticulitis Myocardial infarction Sister Diabetes Lung cancer Father Alzheimer disease Diverticulitis Diabetes Parkinson disease Brother Atrial fibrillation Deep vein thrombosis Colorectal cancer Prostate cancer Family/Other Diverticulitis Grandfather (Maternal) Colorectal cancer Grandfather (Paternal) Colorectal cancer Denies family history of Ovarian cancer Breast cancer Social History Smoking Status: Never smoker Second Hand Exposure: No; Do You Dip or Chew Tobacco: No; Hx Alcohol Use: No Hx Substance Use: No Preferred Language: Micronesian Communication Ability: Effective Visual Impairment: No Limitations Hearing Ability: Use of Hearing Aid General Engineering Teacher Required: No Beliefs That Will Affect Care: None marital status: / Current Living Situation: Alone current occupational status: retired 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 How many Children do You have: 1 Feels Safe at Home: Yes Childhood Exposure to Second-Hand Smoke: Yes Diet: low salt caffeine: No during the past year weight has: remained stable Dental Care, Regularly: No Physical Activity Frequency: 1-2 Times per Week Seatbelt Use: always Sunscreen Use: Yes Assistive Devices: Hospital Bed, Raised Toilet Seat, Scooter/Electric Scooter, Walker and Other (shower chair ) Allergies Allergies Allergy/AdvReac Type Severity Reaction Status Date / Time No Known Allergies Allergy Verified 06/24/24 23:25 Home Meds Home Medications Medication Instructions Recorded Confirmed mecobalamin (vitamin B12) 1,000 1,000 mcg PO 3XWK 10/02/23 07/03/24 mcg chewable tablet furosemide 20 mg tablet 10 - 20 mg PO QAM 06/24/24 07/03/24 simvastatin 10 mg tablet 10 mg PO QPM 06/24/24 07/03/24 sotalol 80 mg tablet 20 mg PO BID 06/24/24 07/03/24 acetaminophen 325 mg tablet 650 mg PO Q4H PRN Pain/fever 07/03/24 07/03/24 bisacodyl 10 mg rectal suppository 10 mg MT DAILY PRN Constipation 07/03/24 07/03/24 docusate sodium 100 mg capsule 100 mg PO DAILY PRN Constipation 07/03/24 07/03/24 magnesium chloride 64 mg 64 mg PO BID 07/03/24 07/03/24 (magnesium chloride) tablet,delayed release (Mag 64) polyethylene glycol 3350 17 17 g PO DAILY PRN Constipation 07/03/24 07/03/24 gram/dose oral powder (Miralax) psyllium seed (sugar) oral powder 1 tbsp PO HS 07/03/24 07/03/24 (Metamucil (sugar) oral powder) tuberculin PPD 5 tub. unit/0.1 mL 0.1 ml intradermal DIRECTED 07/03/24 07/03/24 intradermal injection solution (Tubersol) Previous Rx's Medication Instructions Recorded compr.stocking,knee,long,large #6 ea 11/12/18 safety needles 25 gauge x 1 1/2" #4 ea 02/26/20 (BD Eclipse Luer-Luz) aspirin 81 mg tablet,delayed 81 mg PO DAILY #90 tabs 12/07/21 release coenzyme Q10 100 mg capsule 100 mg PO DAILY #90 caps 12/07/21 dicyclomine 10 mg capsule 10 mg PO TID PRN abdominal 09/17/23 cramping #90 caps nystatin 100,000 unit/gram topical 1 applic topical TID PRN AFFECTED 09/17/23 powder SKIN #60 grams hydrocortisone acetate 25 mg 25 mg MT BID 10 days #24 ea 06/27/24 rectal suppository (Anucort-HC) pantoprazole 40 mg tablet,delayed 40 mg PO DAILY 30 days #30 tabs 06/27/24 release Results & Data (ED) Vital Signs Vital Signs - 24 hr 07/03/24 10:17 07/03/24 10:21 07/03/24 10:23 Temperature 36.8 C Temperature Source Oral Pulse Rate 57 L 59 L 57 L Pulse Rate [Apical] Pulse Rate from SpO2 Sensor 59 L Respiratory Rate 20 19 Respiratory Effort / Characteristics Non-Labored Spontaneous Respiratory Depth Normal Blood Pressure 142/93 H Blood Pressure [Right Arm] Blood Pressure Mean 109 Blood Pressure Mean [Right Arm] Pulse Oximetry 96 96 Oxygen Delivery Method Room Air Sepsis Recent Fever Within 48 Hours No Sepsis New/Unexplained Change in Mental Status No Sepsis Action Taken by Nursing No Action Required 07/03/24 10:24 07/03/24 10:30 07/03/24 10:30 Temperature Temperature Source Pulse Rate 61 Pulse Rate [Apical] Pulse Rate from SpO2 Sensor Respiratory Rate 16 Respiratory Effort / Characteristics Respiratory Depth Blood Pressure 154/103 H 154/103 H Blood Pressure [Right Arm] Blood Pressure Mean 111 111 Blood Pressure Mean [Right Arm] Pulse Oximetry Oxygen Delivery Method Sepsis Recent Fever Within 48 Hours Sepsis New/Unexplained Change in Mental Status Sepsis Action Taken by Nursing 07/03/24 10:37 07/03/24 10:51 07/03/24 11:00 Temperature Temperature Source Pulse Rate 57 L Pulse Rate [Apical] 53 L Pulse Rate from SpO2 Sensor Respiratory Rate 18 16 Respiratory Effort / Characteristics Respiratory Depth Blood Pressure 157/99 H Blood Pressure [Right Arm] 154/103 H Blood Pressure Mean 116 Blood Pressure Mean [Right Arm] 120 Pulse Oximetry 98 Oxygen Delivery Method Room Air Sepsis Recent Fever Within 48 Hours Sepsis New/Unexplained Change in Mental Status Sepsis Action Taken by Nursing 07/03/24 11:06 07/03/24 11:09 07/03/24 11:30 Temperature Temperature Source Pulse Rate 67 61 Pulse Rate [Apical] Pulse Rate from SpO2 Sensor Respiratory Rate 20 20 Respiratory Effort / Characteristics Respiratory Depth Blood Pressure 146/95 H Blood Pressure [Right Arm] Blood Pressure Mean 99 Blood Pressure Mean [Right Arm] Pulse Oximetry Oxygen Delivery Method Sepsis Recent Fever Within 48 Hours Sepsis New/Unexplained Change in Mental Status Sepsis Action Taken by Nursing 07/03/24 11:30 07/03/24 11:33 Temperature Temperature Source Pulse Rate 60 Pulse Rate [Apical] Pulse Rate from SpO2 Sensor Respiratory Rate 20 Respiratory Effort / Characteristics Respiratory Depth Blood Pressure 146/95 H Blood Pressure [Right Arm] Blood Pressure Mean 99 Blood Pressure Mean [Right Arm] Pulse Oximetry Oxygen Delivery Method Sepsis Recent Fever Within 48 Hours Sepsis New/Unexplained Change in Mental Status Sepsis Action Taken by Nursing Laboratory Data 07/03/24 10:19 07/03/24 10:19 Lab Results 07/03/24 07/03/24 07/03/24 Range/Units 10:19 10:22 10:32 WBC 3.15 L (4.8-10.8) K/ul RBC 4.13 L (4.20-5.40) M/uL Hgb 12.9 (12.0-16.0) g/dl POC Hgb 13.3 (12.0-16.0) g/dl Hct 39.3 (37.0-47.0) % POC Hct 39 (37-47) % MCV 95.2 (80.0-100.0) fL MCH 31.2 (25.0-34.0) pg MCHC 32.8 (32.0-36.0) g/dL RDW Std Deviation 49.1 H (36.4-46.3) fL RDW Coeff of Gayathri 14.2 (11.5-14.5) % Plt Count 144 (130-400) K/uL MPV 9.6 (9.4-12.4) fL Immature Gran % (Auto) 0.0 % Neut % (Auto) 52.4 % Lymph % (Auto) 27.0 % Stephens % (Auto) 14.9 % Eos % (Auto) 5.1 % Baso % (Auto) 0.6 % Neut # (Auto) 1.65 (1.40-6.50) K/uL Lymph # (Auto) 0.85 L (1.20-3.40) K/uL Stephens # (Auto) 0.47 (0.11-0.59) K/uL Eos # (Auto) 0.16 (0.00-0.50) K/uL Baso # (Auto) 0.02 (0.00-0.20) K/uL Immature Gran # (Auto) 0.00 L (0.01-0.20) K/uL PT 10.9 (9.0-12.0) Seconds INR 1.0 (0.9-1.1) APTT 30 (21-31) Seconds PTT Ratio 1.1 POC Sodium 138 (135-144) mmol/L Sodium 137 (136-145) mmol/L POC Potassium 4.6 (3.3-5.0) mmol/L Potassium 4.8 (3.5-5.1) mmol/L POC Chloride 98 L (101-112) mmol/L Chloride 102 (98-107) mmol/L Carbon Dioxide 33 H (21-32) mmol/L POC Total CO2 27 (24-31) mmol/L Anion Gap 2 L (3-11) POC Anion Gap 19.0 (16-25) mmol/L POC BUN 33 H (7-18) mg/dl BUN 34 H (6-23) mg/dl Creatinine 1.32 H (0.6-1.2) mg/dl POC Creatinine 1.6 H (0.6-1.3) mg/dl Est Cr Clr Drug Dosing 34.1 ml/min eGFR 41.07 BUN/Creatinine Ratio 25.8 H (10-20) Glucose 88 (70-99(Fasting)) mg/dl POC Glucose 82 (70-99) mg/dl POC Glucose (other) 84 (70-99) mg/dl Calcium 8.7 (8.6-10.3) mg/dl POC Ioniz Calcium Rasta 1.18 (1.12-1.32) mmol/l Magnesium 1.7 (1.7-2.4) mg/dl Total Bilirubin 0.4 (0.2-1.0) mg/dl AST 16 (13-39) U/L ALT 11 (7-52) U/L Alkaline Phosphatase 58 (34-104) U/L Troponin I High Sens 7.7 (0-14) pg/ml Total Protein 5.3 L (6.0-8.3) gm/dl Albumin 3.0 L (3.4-5.0) gm/dl Globulin 2.3 L (2.5-4.0) gm/dl Albumin/Globulin Ratio 1.3 (0.9-2) Administered Medications Discontinued Medications Gadobutrol (Gadobutrol 65ml Vial) 9 ml IV ONCE ONE Stop: 07/03/24 15:19 Last Admin: 07/03/24 15:18 Dose: 9 ml Documented By: JAYRO Ioversol (Optiray 320 125ml) 120 ml IV ONCE ONE Stop: 07/03/24 10:18 Last Admin: 07/03/24 10:17 Dose: 120 ml Documented By: Imaging Data Radiologist's Impression: Head CT 07/03/24 09:59 CT head/brain wo con CLINICAL HISTORY: neuro deficit, acute stroke suspected. TECHNIQUE: Multiple axial CT images of the head were obtained without contrast. A dose lowering technique was utilized adhering to the principles of ALARA. COMPARISON: MRI of 10/30/2019 FINDINGS: Stable mild prominence of the CSF space posterior cranial fossa at the midline, small arachnoid cyst versus mild mak cisterna magna. No intracranial hemorrhage seen. No mass effect, midline shift, or hydrocephalus. There is moderate scattered patchy periventricular hypodensity which is nonspecific, but usually represents chronic small vessel ischemic change. No skull fracture seen. Visualized paranasal sinuses and mastoid air cells are clear. IMPRESSION: No acute findings. ACT 112: Negative or not required by law. The above report was generated using voice recognition software. It may contain grammatical, syntax or spelling errors. Electronically signed by: Gary Burch M.D. 07/03/2024 10:26 AM Head CTA 07/03/24 09:59 CTA ANGIOGRAPHY OF THE HEAD CLINICAL HISTORY: neuro deficit, acute stroke suspected COMPARISON STUDY: MRI brain October 30, 2019. TECHNIQUE: Helical axial images of the head were obtained following uneventful intravenous administration of 120 cc of Optiray. Sagittal and coronal reconstructions were viewed as well as maximal intensity projections on an independent 3-D workstation. Automated exposure control was utilized for the study. A dose lowering technique was utilized adhering to the principles of ALARA. FINDINGS: Please note that the head CT will be reported separately. No acute intracranial hemorrhage, midline shift or mass effect is present. Vascular calcification is somewhat suboptimal. However, the bilateral M1, M2, A1 and A2 segments are patent. Both anterior cerebral arteries arise from the right internal carotid artery. This represents an anatomic variant. The posterior circulation is intact. There is persistence of the right posterior cerebral artery. No intracranial aneurysm or dissection. There is mild atherosclerotic plaque within the cavernous carotids. IMPRESSION: No large vessel occlusion. No intracranial aneurysm. ACT 112: Negative or not required by law. Electronically signed by: Delmar Conklin M.D. 07/03/2024 10:36 AM Neck CTA 07/03/24 09:59 CT angio neck with con CLINICAL HISTORY: 78 years-old Female with neuro deficit, acute stroke suspected. Acute stroke like symptoms COMPARISON STUDY: Head CT and CTA head of same day TECHNIQUE: Following the IV administration of 120 of Optiray, CT angiogram of the neck was performed from the aortic arch to the skull base. Images are reviewed in the axial, sagittal, and coronal planes. 3-D MIPS images are created and assessed. IV contrast was administered without complication. All measurements were calculated based on NASCET criteria. A dose lowering technique was utilized adhering to the principles of ALARA. CT DOSE: 949.65 mGy.cm FINDINGS: Three-vessel morphology of the thoracic aortic arch. Patency of the innominate and imaged subclavian arteries. The common and internal carotid arteries also appear patent. There is no significant atherosclerosis. The vertebral arteries are codominant and patent. Visualized vertebral artery is also patent. There is no aneurysm, dissection, high-grade stenosis or arterial occlusion identified. Cardiomegaly. Partially imaged left upper lobe opacity may represent some scarring. Intralobular septal thickening suggestive of pulmonary edema. Right glenohumeral joint effusion contains intra-articular loose bodies, likely secondary to osteoarthritis. Degenerative changes of the spine. IMPRESSION: 1. Unremarkable CTA of the neck. 2. Cardiomegaly with interstitial pulmonary edema. ACT 112: Negative or not required by law. The above report was generated using voice recognition software. It may contain grammatical, syntax or spelling errors. Electronically signed by: Pedro Hayes M.D. 07/03/2024 10:55 AM Brain MRI 07/03/24 11:29 MR brain wo/w con HISTORY: 78 years-old Female ? CVA acute stroke like symptoms COMPARISON: Head CT of same day, brain MRI 10/30/2019 TECHNIQUE: Multiplanar multisequence MRI of the brain was obtained with and without IV contrast FINDINGS: There is no restricted diffusion to suggest acute or subacute infarct. Mak cisterna magna. Midline structures appear unremarkable. Degenerative changes of the cervical spine with minimal central canal stenosis at C3-C4. There is no acute intracranial hemorrhage, midline shift, abnormal extra-axial collection, hydrocephalus or intra-axial mass. Involutional changes. Progressive worsening of the now moderate T2/FLAIR hyperintense foci throughout the white matter. 9 mm extra-axial structure adjacent to the superior left frontal lobe on image 17 series 7 demonstrates avid enhancement, not clearly seen on the prior exam. There is no pathologic blooming artifact on the T2*series. Cerebral venous sinuses and major arterial flow voids appear patent. Skull, orbits and soft tissues are unremarkable. There is prior bilateral lens repair. The mastoid air cells and paranasal sinuses appear clear. IMPRESSION: 1. No acute intracranial abnormality, specifically there is no acute or subacute infarct. 2. 9 mm probable meningioma adjacent to the superior left frontal lobe is new from the 2020 comparison. 3. Involutional changes with progressive now moderate moderate T2/FLAIR hyperintense foci throughout the white matter. Findings may represent chronic microvascular ischemic disease and/or a demyelinating process as described on the prior exam. ACT 112: Negative or not required by law. The above report was generated using voice recognition software. It may contain grammatical, syntax or spelling errors. Electronically signed by: Pedro Hayes M.D. 07/03/2024 3:41 PM Discharge Plan Visit Data Chief Complaint: Stroke Alert Stated Complaint: STROKE ALERT ED Provider: Aguilar Busch Discharge Problem: TIA (transient ischemic attack), Leukopenia, Expressive aphasia Patient Disposition: Admitted As Inpatient Discharge Instructions Interventions: ED Discharge Assessment Last Done: 07/03/24 15:36 Discharge Problem: Leukopenia Qualifiers: Neutropenia type: unspecified
[2024-07-03] MEDS: OPTIRAY 320 125ml IV ONE (10:17)
--- NOTE | 2024-07-03 10:29 | CT Scan Report ---
CT head/brain wo con CLINICAL HISTORY: neuro deficit, acute stroke suspected. TECHNIQUE: Multiple axial CT images of the head were obtained without contrast. A dose lowering tech nique was utilized adhering to the principles of ALARA. COMPARISON: MRI of 10/30/2019 FINDINGS: Stable mild prominence of the CSF space posterior cranial fossa at the midline, small arach noid cyst versus mild mak cisterna magna. No intracranial hemorrhage seen. No mass effect, midline s hift, or hydrocephalus. There is moderate scattered patchy periventricular hypodensity which is nonsp ecific, but usually represents chronic small vessel ischemic change. No skull fracture seen. Visualiz ed paranasal sinuses and mastoid air cells are clear. IMPRESSION: No acute findings. ACT 112: Negative or not required by law. The above report was generated using voice recognition software. It may contain grammatical, syntax o r spelling errors. Electronically signed by: Gary Burch M.D. 07/03/2024 10:26 AM
--- NOTE | 2024-07-03 10:37 | CT Scan Report ---
CTA ANGIOGRAPHY OF THE HEAD CLINICAL HISTORY: neuro deficit, acute stroke suspected COMPARISON STUDY: MRI brain October 30, 2019. TECHNIQUE: Helical axial images of the head were obtained following uneventful intravenous administr ation of 120 cc of Optiray. Sagittal and coronal reconstructions were viewed as well as maximal inten sity projections on an independent 3-D workstation. Automated exposure control was utilized for the study. A dose lowering technique was utilized adhering to the principles of ALARA. FINDINGS: Please note that the head CT will be reported separately. No acute intracranial hemorrhage, midline shift or mass effect is present. Vascular calcification is somewhat suboptimal. However, the bilateral M1, M2, A1 and A2 segments are patent. Both anterior cerebral arteries arise from the rig t internal carotid artery. This represents an anatomic variant. The posterior circulation is intact. There is persistence of the right posterior cerebral artery. No intracranial aneurysm or dissec tion. There is mild atherosclerotic plaque within the cavernous carotids. IMPRESSION: No large vessel occlusion. No intracranial aneurysm. ACT 112: Negative or not required by law. Electronically signed by: Delmar Conklin M.D. 07/03/2024 10:36 AM
[2024-07-03 10:42] LABS: Basophils # (auto) 0.02 K/uL (0.00-0.20); Basophils % (auto) 0.6 %; Eosinophils # (auto) 0.16 K/uL (0.00-0.50); Eosinophils % (auto) 5.1 %; Hematocrit (blood only) 39.3 % (37.0-47.0); Hemoglobin 12.9 g/dl (12.0-16.0); Lymphocytes # (auto) 0.85 K/uL (1.20-3.40); Mean Corpuscular Hemoglobin 31.2 pg (25.0-34.0); Mean Corpuscular Hgb Conc 32.8 g/dL (32.0-36.0); Mean Corpuscular Volume 95.2 fL (80.0-100.0); Mean Platelet Volume 9.6 fL (9.4-12.4); Monocytes # (auto) 0.47 K/uL (0.11-0.59); Monocytes % (auto) 14.9 %; Neutrophils # (auto) 1.65 K/uL (1.40-6.50); Neutrophils % (auto) 52.4 %; Platelet Count 144 K/uL (130-400); RDW Coefficient of Variation 14.2 % (11.5-14.5); RDW Standard Deviation 49.1 fL (36.4-46.3); Red Blood Count 4.13 M/uL (4.20-5.40); White Blood Count 3.15 K/ul (4.8-10.8)
[2024-07-03 10:49] LABS: Partial Thromboplastin Ratio 1.1; Partial Thromboplastin Time 30 Seconds (21-31); Prothrombin Time 10.9 Seconds (9.0-12.0)
--- NOTE | 2024-07-03 10:57 | CT Scan Report ---
CT angio neck with con CLINICAL HISTORY: 78 years-old Female with neuro deficit, acute stroke suspected. Acute stroke lik e symptoms COMPARISON STUDY: Head CT and CTA head of same day TECHNIQUE: Following the IV administration of 120 of Optiray, CT angiogram of the neck was performed from the aortic arch to the skull base. Images are reviewed in the axial, sagittal, and coronal plane s. 3-D MIPS images are created and assessed. IV contrast was administered without complication. All m easurements were calculated based on NASCET criteria. A dose lowering technique was utilized adherin g to the principles of ALARA. CT DOSE: 949.65 mGy.cm FINDINGS: Three-vessel morphology of the thoracic aortic arch. Patency of the innominate and imaged subclavian arteries. The common and internal carotid arteries also appear patent. There is no significant athero sclerosis. The vertebral arteries are codominant and patent. Visualized vertebral artery is also henry nt. There is no aneurysm, dissection, high-grade stenosis or arterial occlusion identified. Cardiomegaly. Partially imaged left upper lobe opacity may represent some scarring. Intralobular sept al thickening suggestive of pulmonary edema. Right glenohumeral joint effusion contains intra-articul ar loose bodies, likely secondary to osteoarthritis. Degenerative changes of the spine. IMPRESSION: 1. Unremarkable CTA of the neck. 2. Cardiomegaly with interstitial pulmonary edema. ACT 112: Negative or not required by law. The above report was generated using voice recognition software. It may contain grammatical, syntax o r spelling errors. Electronically signed by: Pedro Hayes M.D. 07/03/2024 10:55 AM
[2024-07-03 11:00] LABS: Albumin Globulin Ratio 1.3 (0.9-2); BUN Creatinine Ratio 25.8 (10-20); Bilirubin,Total 0.4 mg/dl (0.2-1.0); Calcium 8.7 mg/dl (8.6-10.3); Creatinine Clr Calc Pharmacy 34.1 ml/min; Globulin 2.3 gm/dl (2.5-4.0); Magnesium 1.7 mg/dl (1.7-2.4); Potassium 4.8 mmol/L (3.5-5.1); Total Protein 5.3 gm/dl (6.0-8.3)
[2024-07-03 11:05] LABS: Troponin I High Sensitivity 7.7 pg/ml (0-14)
[2024-07-03] MEDS ORDERED: PHARMACIST DISCHARGE MED REC CONSULT PRN (11:29)
--- NOTE | 2024-07-03 12:03 | History & Physical Report ---
Date of Service July 03, 2024 Assessment & Plan (1) TIA (transient ischemic attack): Plan: Assessment: 1. TIA versus CVA versus other etiology causing transient mild dysarthria and aphasia. The symptoms have resolved. The patient still has a low-grade headache. Patient came into the ER as a stroke alert. CT of the head was negative. CTAs of the head and neck were negative for acute/critical findings. Telestroke saw the patient. Recommending aspirin only at this time given the patient recent history of rectal bleeding. MRI. Echocardiogram. Serial troponins. Fall precautions. PT and OT consultations. Permissive hypertension but will continue sotalol given her history of supraventricular tachycardia. Statin therapy. Aspirin therapy. Only abnormality on neurologic exam is global weakness due to debility as well as mild decrease in sensation of the left lower extremity compared to the contralateral limb 2. Mild headache. Will monitor. As needed Tylenol. MRI of the brain pending. 3. Rule out UTI. Urinalysis was ordered at time of this dictation and pending. 4. History of paroxysmal supraventricular tachycardia. She also has a documented history of atrial fibrillation. She is not chronically anticoagulated. She is on sotalol twice daily. Will continue this given her history of SVT despite stroke protocol monitor blood pressure cautiously. 5. Recent rectal bleeding was hospitalized was discharged approximately week ag o her hemoglobins been stable. The patient and the patient's son endorses this is resolved she has had no further recurrences as an outpatient of rectal bleeding. During the last hospitalization the patient declined colonoscopy. 6. Mild leukopenia. Appears chronic. Should follow-up as an outpatient. 7. CKD stage IIIb. Stable. Creatinine 1.32. 8. Chronic debility. Typically ambulates with a walker. 9. Chronic bilateral lower extremity lymphedema. 10. Morbid obesity. 11. Question of diabetes mellitus in her history. I see no treatment for this. We have ordered Accu-Cheks to be called less than 80 or greater than 180. 12. Dyslipidemia. Continue and titrate statin therapy to 40 mg of simvastatin daily. 13. Degenerative joint disease by history. 14. Documented history of CHF details not otherwise known question diastolic. Echocardiogram due for stroke protocol. 14. Documented bradycardia during last week's hospitalization. Will monitor the patient on telemetry. Currently her heart rate was 58 bpm on EKG. Plan: As described above. Please refer to orders for further planning. History of Present Illness Chief Complaint: Word finding difficulty, mild headache Primary Care Provider: Yong Henriquez, III, JIM Is a 78-year-old female who was just here last week with what appeared to be a low-grade lower GI bleed. Her hemoglobin was stable. She was discharged back to the custodial last week. On evaluation today at the custodial she was having word finding difficulty and some dysarthria. This was accompanied by low-grade headache. She presented to the ER as a stroke alert. In the ER she had a CT of the brain which was negative for acute findings. She had a CTA of the head and a CTA of the neck all of which were negative for large vessel occlusive disease. Telestroke consultation was obtained by the ER provider. Recommend admitting the patient under the stroke protocol for MRI, neurological consultation, echocardiogram. Per the ER physician aspirin therapy only recommended due to the recent GI bleed. We are also ordering a COVID test per protocol as the patient from a custodial per utilizations request in addition we are ordering a UA. Most of the patient's symptomatology has resolved she only complains of a mild low-grade headache. However, the word finding difficulty and dysarthria have completely resolved. Laboratory studies were unremarkable. Allergies Allergy/AdvReac Type Severity Reaction Status Date / Time No Known Allergies Allergy Verified 06/24/24 23:25 Home Medications Medication Instructions Recorded Confirmed Type compr.stocking,knee,long,large #6 ea 11/12/18 04/30/24 Rx safety needles 25 gauge x 1 1/2" #4 ea 02/26/20 04/30/24 Rx (BD Eclipse Luer-Luz) aspirin 81 mg tablet,delayed 81 mg PO DAILY #90 tabs 12/07/21 07/03/24 Rx release coenzyme Q10 100 mg capsule 100 mg PO DAILY #90 caps 12/07/21 07/03/24 Rx dicyclomine 10 mg capsule 10 mg PO TID PRN abdominal 09/17/23 07/03/24 Rx cramping #90 caps nystatin 100,000 unit/gram topical 1 applic topical TID PRN AFFECTED 09/17/23 07/03/24 Rx powder SKIN #60 grams mecobalamin (vitamin B12) 1,000 1,000 mcg PO 3XWK 10/02/23 07/03/24 History mcg chewable tablet furosemide 20 mg tablet 10 - 20 mg PO QAM 06/24/24 07/03/24 History simvastatin 10 mg tablet 10 mg PO QPM 06/24/24 07/03/24 History sotalol 80 mg tablet 20 mg PO BID 06/24/24 07/03/24 History hydrocortisone acetate 25 mg 25 mg NM BID 10 days #24 ea 06/27/24 07/03/24 Rx rectal suppository (Anucort-HC) pantoprazole 40 mg tablet,delayed 40 mg PO DAILY 30 days #30 tabs 06/27/24 07/03/24 Rx release acetaminophen 325 mg tablet 650 mg PO Q4H PRN Pain/fever 07/03/24 07/03/24 History bisacodyl 10 mg rectal suppository 10 mg NM DAILY PRN Constipation 07/03/24 07/03/24 History docusate sodium 100 mg capsule 100 mg PO DAILY PRN Constipation 07/03/24 07/03/24 History magnesium chloride 64 mg 64 mg PO BID 07/03/24 07/03/24 History (magnesium chloride) tablet,delayed release (Mag 64) polyethylene glycol 3350 17 17 g PO DAILY PRN Constipation 07/03/24 07/03/24 History gram/dose oral powder (Miralax) psyllium seed (sugar) oral powder 1 tbsp PO HS 07/03/24 07/03/24 History (Metamucil (sugar) oral powder) tuberculin PPD 5 tub. unit/0.1 mL 0.1 ml intradermal DIRECTED 07/03/24 07/03/24 History intradermal injection solution (Tubersol) Past Med/Surg History Problem List (Updated 07/03/24 @ 12:08 by Aiden Truong, PhD, DO) TIA (transient ischemic attack) Abnormal CT scan, small bowel Bradycardia Rectal bleeding CKD stage 3b, GFR 30-44 ml/min Pericardial effusion Acute GI bleeding (Acute) Incontinence (Chronic) Diastolic CHF Atrial fibrillation Anasarca Lymphedema, not elsewhere classified Vitamin B12 deficiency Hyperlipidemia Generalized weakness (Chronic) Right knee DJD (Chronic) Vulvar mass Scoliosis of thoracolumbar region due to degenerative disease of spine in adult Hypoalbuminemia Gait instability (Chronic) Chronic gastroesophageal reflux disease (Chronic) Morbid obesity (Chronic) Osteopenia (Chronic) Type 2 diabetes mellitus (Chronic) Medical History Nephrolithiasis Recurrent UTI Acute kidney injury superimposed on CKD JANETT (acute kidney injury) Nondisplaced fracture of fifth right metatarsal bone Status post placement of implantable loop recorder Paroxysmal atrial tachycardia Mitral and aortic valve disease Cervical cancer Non-sustained ventricular tachycardia PSVT (paroxysmal supraventricular tachycardia) Sick sinus syndrome History of cervical cancer Diverticulosis Diverticulitis Surgical History History of intestinal surgery H/O bilateral breast reduction surgery History of tonsillectomy and adenoidectomy H/O hemicolectomy Family History Mother Obesity Hypertension Diabetes Goiter Deep vein thrombosis Stroke Diverticulitis Myocardial infarction Sister Diabetes Lung cancer Father Alzheimer disease Diverticulitis Diabetes Parkinson disease Brother Atrial fibrillation Deep vein thrombosis Colorectal cancer Prostate cancer Family/Other Diverticulitis Grandfather (Maternal) Colorectal cancer Grandfather (Paternal) Colorectal cancer Denies family history of Ovarian cancer Breast cancer Social History Smoking Status: Never smoker Second Hand Exposure: No; Do You Dip or Chew Tobacco: No; Hx Alcohol Use: No Hx Substance Use: No Preferred Language: Romanian Communication Ability: Effective Visual Impairment: No Limitations Hearing Ability: Use of Hearing Aid Crushing Foreman Required: No Beliefs That Will Affect Care: None marital status: / Current Living Situation: Alone current occupational status: retired current occupation: [employer] How many Children do You have: 1 Feels Safe at Home: Yes Childhood Exposure to Second-Hand Smoke: Yes Diet: low salt caffeine: No during the past year weight has: remained stable Dental Care, Regularly: No Physical Activity Frequency: 1-2 Times per Week Seatbelt Use: always Sunscreen Use: Yes Assistive Devices: Hospital Bed, Raised Toilet Seat, Scooter/Electric Scooter, Walker and Other (shower chair ) Review of Systems Review of Systems: A 10 point review of system was obtained and unless otherwise stated here or in history of present illness are negative and noncontributory to chief complaint. Physical Exam Physical Exam: In General: In general very pleasant 78-year-old female she is alert and oriented x 3. She is companied by her son Amado who is her power of consumer attorney. HEENT: Normocephalic atraumatic pupils are equal round and reactive to light bilaterally. No scleral icterus no conjunctival injection external auditory canals are patent septum is in the midline nose is without discharge oral mucosa is pink and dry without lesion. NECK: Supple no rigidity no lymphadenopathy no thyromegaly no carotid bruits no JVD no masses. HEART: Regular rate and rhythm I do not appreciate any ectopy or rub. No monty murmur. PACs appreciated on monitor. EKG is a sinus bradycardia rated about 60 bpm with PACs. No acute ST-T abnormalities. Apparently during last admission she had some documented bradycardia in the 40s. She is on sotalol chronically for paroxysmal supraventricular tachycardia. LUNGS: Clear to auscultation bilaterally and anteriorly with no evidence of adventitious sounds/wheezes rales or rhonchi. ABDOMEN: Soft nontender, no rebound, no peritoneal signs, positive bowel sounds, no appreciable organomegaly. EXTREMITIES: Intact, no peripheral cyanosis, clubbing or edema. Strength is 4+ out of 5 in extremities x4, no pathological reflexes. Very significant bilateral lower extremity lymphedema is noted. This is chronic for the patient and son with no acute changes. No weeping. No wounds. Typically ambulates with a walker. She has chronic debility. NEUROLOGICAL: Cranial nerves II through XII are grossly intact with no focal deficit elicited upon examination. No tremor no cerebellar sign. No loss in sensation of fine pinprick. However in the lower extremities she states that she has minimally decreased sensation in the left lower extremity compared to the right. Results & Data Results & Data Vital Signs (Past 12 Hours) Vital Signs Temp Pulse Pulse Resp BP BP Pulse Ox 07/03/24 11:30 146/95 H 07/03/24 11:09 61 20 07/03/24 11:06 67 20 07/03/24 11:00 157/99 H 07/03/24 10:51 57 L 16 07/03/24 10:37 53 L 18 154/103 H 98 07/03/24 10:30 154/103 H 07/03/24 10:30 154/103 H 07/03/24 10:24 61 16 07/03/24 10:23 57 L 07/03/24 10:21 59 L 19 96 07/03/24 10:17 36.8 C 57 L 20 142/93 H 96 O2 Del Method 07/03/24 11:30 07/03/24 11:09 07/03/24 11:06 07/03/24 11:00 07/03/24 10:51 07/03/24 10:37 Room Air 07/03/24 10:30 07/03/24 10:30 07/03/24 10:24 07/03/24 10:23 07/03/24 10:21 07/03/24 10:17 Room Air Code Status & VTE Plan Code Status DNR/DNI. Personally discussed with the patient's son Amado who is the power of consumer attorney. And advanced directives accompanied patient from the nursing facility . VTE Prophylaxis Plan VTE Prophylaxis will be ordered: Yes PG Care Time/CCT Total # of Minutes Spent Total Time Spent with Patient: Total time spent is greater than 50% in coordination of care (as documented) at patient's floor/unit and/or counseling patient: Coding Level of Care Code 90360 INT INP/OBS CARE 3/75MIN Diagnoses TIA (transient ischemic attack) G45.9
[2024-07-03 12:14] LABS: iSTAT Creatinine 1.6 mg/dl (0.6-1.3); iSTAT Hemoglobin 13.3 g/dl (12.0-16.0); iSTAT Ionized Calcium 1.18 mmol/l (1.12-1.32); iSTAT Potassium 4.6 mmol/L (3.3-5.0)
[2024-07-03 12:19] LABS: Appearance Urine Clear (Clear); Bilirubin Urine Negative (Negative); Blood Urine Negative (Negative); Color Urine Yellow; Glucose Urine UA Negative (Negative); Ketones Urine Negative (Negative); Leukocyte Esterase Urine Negative (Negative); Nitrite Urine Negative (Negative); Protein Urine Negative (Negative); Specific Gravity Urine 1.038 (1.000-1.030); Urobilinogen Urine Negative (Negative); pH Urine 7.5 (4.5-7.5)
[2024-07-03 12:52] LABS: Influenza A virus by PCR Negative (Neg); Influenza B virus by PCR Negative (Neg); RSV by PCR Negative (Neg); SARS CoV2 RNA(COVID-19) Ceph NEGATIVE (Negative)
--- NOTE | 2024-07-03 13:12 | Electrocardiogram Report ---
Test Reason : Blood Pressure : */* mmHG Vent. Rate : 58 BPM Atrial Rate : 58 BPM P-R Int : 202 ms QRS Dur : 100 ms QT Int : 472 ms P-R-T Axes : 36 250 75 degrees QTcB Int : 463 ms Sinus bradycardia with Premature atrial complexes Low voltage QRS Incomplete right bundle branch block Poor R wave progression, consider anterior [place] vs. lead placement vs. LVH Abnormal ECG When compared with ECG of 24-Jun-2024 20:46, Premature atrial complexes are now Present Nonspecific T wave abnormality, improved in Inferior leads Nonspecific T wave abnormality, improved in Lateral leads Confirmed by Lloyd Ayala ([id number]) on 07/03/2024 1:12:19 PM Referred By: Confirmed By: Lloyd Ayala
--- NOTE | 2024-07-03 13:22 | XCELERA ---
[id number] \\[email or web address]\[id number].pdf
[2024-07-03] MEDS: GADOBUTROL 65ML VIAL IV ONE (15:18)
[2024-07-03] MEDS ORDERED: NYSTATIN POWDER 15GM BTL EXT PRN (15:35)
--- NOTE | 2024-07-03 15:43 | Magnetic Resonance Report ---
MR brain wo/w con HISTORY: 78 years-old Female ? CVA acute stroke like symptoms COMPARISON: Head CT of same day, brain MRI 10/30/2019 TECHNIQUE: Multiplanar multisequence MRI of the brain was obtained with and without IV contrast FINDINGS: There is no restricted diffusion to suggest acute or subacute infarct. Huy cisterna magna. Midline s tructures appear unremarkable. Degenerative changes of the cervical spine with minimal central canal stenosis at C3-C4. There is no acute intracranial hemorrhage, midline shift, abnormal extra-axial col lection, hydrocephalus or intra-axial mass. Involutional changes. Progressive worsening of the now mo derate T2/FLAIR hyperintense foci throughout the white matter. 9 mm extra-axial structure adjacent to the superior left frontal lobe on image 17 series 7 demonstrates avid enhancement, not clearly seen on the prior exam. There is no pathologic blooming artifact on the T2*series. Cerebral venous sinuses and major arterial flow voids appear patent. Skull, orbits and soft tissues are unremarkable. There is prior bilateral lens repair. The mastoid air cells and paranasal sinuses appear clear. IMPRESSION: 1. No acute intracranial abnormality, specifically there is no acute or subacute infarct. 2. 9 mm probable meningioma adjacent to the superior left frontal lobe is new from the 2020 compariso n. 3. Involutional changes with progressive now moderate moderate T2/FLAIR hyperintense foci throughout the white matter. Findings may represent chronic microvascular ischemic disease and/or a demyelinatin g process as described on the prior exam. ACT 112: Negative or not required by law. The above report was generated using voice recognition software. It may contain grammatical, syntax o r spelling errors. Electronically signed by: Pedro Hayes M.D. 07/03/2024 3:41 PM
[2024-07-03] MEDS: ASPIRIN 81 MG ECTAB PO SCH (17:14)
--- NOTE | 2024-07-03 17:47 | Neurology Consultation ---
Date of Consultation July 03, 2024 Assessment & Plan (1) TIA (transient ischemic attack): (2) Meningioma: Plan 78-year-old female presenting with an episode of expressive aphasia, no associated hemiparesis or other neurologic deficits, symptoms resolved by the time she was evaluated in the emergency department. History of possible atrial fibrillation, has an implanted loop recorder, battery , have been taking aspirin 81 mg/day, although on hold in the context of a recent hospitalization for GI bleed. No evidence of acute stroke on patient's brain MRI. However, the study does reveal a 9 mm meningioma overlying the left frontal lobe, new compared with a previous MRI done in 2019. Although the meningioma is likely an incidental finding, could consider a focal seizure with speech arrest as an alternative explanation to her presentation. However, she has not had similar symptoms previously and has not had any history of other signs or symptoms that would strongly suggest recurrent seizures. No abnormalities identified on CT angiography of the head and neck. No obvious cardioembolic source on echocardiogram, no PFO, the left atrium is moderately dilated. Patient should resume aspirin 81 mg/day. Continue with Zocor as ordered. Would avoid dual antiplatelet therapy given her recent hospitalization for GI bleed. Given that she has a history of atrial fibrillation, and now presents with a likely TIA, would consider an anticoagulant such as Eliquis. However, given her recent hospitalization for GI bleeding, would need a full gastroenterology evaluation before proceeding with this potential treatment option. It looks like she refused colonoscopy during her recent admission. Given the possibility of focal seizure with speech arrest in the context of the left frontal meningioma, which appears new, compared with 2020, would recommend an EEG. Would not start an antiseizure medication at this time, however. History of Present Illness Reason for Consultation: stroke like episode Requesting Physician: Alexi Attending Physician: Aiden Truong, PhD, DO History of Present Illness The patient is a 78-year-old female with a chief complaint of sudden onset word finding difficulty that occurred while speaking with her physician at [facility] earlier this morning. She was recently discharged from the [facility], on June 27 for treatment of a GI bleed. Past medical history is notable for diabetes mellitus, lymphedema, and suspected atrial fibrillation, has a loop recorder, battery . The aphasia resolved by the time she was evaluated in the emergency department. She does complain of a tight feeling, like a, across her head. She does not report experiencing any associated weakness of the limbs, vision disturbance, or difficulty swallowing. She does relay a history of migraine with aura, infrequent, only a few times per year. She has never had an episode of aphasia or sudden onset word finding difficulty previously. No history of collapse, loss of consciousness, or seizure. A CT of the head was negative for hemorrhage or acute process. CTA of the head and neck were unremarkable. Brain MRI reveals a 9 mm meningioma superior to the left frontal lobe which was not seen on a previous MRI done in 2019. No evidence of stroke or other acute process. I did independently review these images and was able to appreciate these findings. An electrocardiogram reveals sinus nora cardia with PACs. An echocardiogram revealed normal left ventricular systolic function, no wall motion abnormalities, mild concentric LVH, EF 50 to 55%, no interatrial shunt with injection of contrast, left atrium moderately dilated. Allergies Allergy/AdvReac Type Severity Reaction Status Date / Time No Known Allergies Allergy Verified 06/24/24 23:25 Home Medications Medication Instructions Recorded Confirmed Type compr.stocking,knee,long,large #6 ea 11/12/18 04/30/24 Rx safety needles 25 gauge x 1 1/2" #4 ea 02/26/20 04/30/24 Rx (BD Eclipse Luer-Luz) aspirin 81 mg tablet,delayed 81 mg PO DAILY #90 tabs 12/07/21 07/03/24 Rx release coenzyme Q10 100 mg capsule 100 mg PO DAILY #90 caps 12/07/21 07/03/24 Rx dicyclomine 10 mg capsule 10 mg PO TID PRN abdominal 09/17/23 07/03/24 Rx cramping #90 caps nystatin 100,000 unit/gram topical 1 applic topical TID PRN AFFECTED 09/17/23 07/03/24 Rx powder SKIN #60 grams mecobalamin (vitamin B12) 1,000 1,000 mcg PO 3XWK 10/02/23 07/03/24 History mcg chewable tablet furosemide 20 mg tablet 10 - 20 mg PO QAM 06/24/24 07/03/24 History simvastatin 10 mg tablet 10 mg PO QPM 06/24/24 07/03/24 History sotalol 80 mg tablet 20 mg PO BID 06/24/24 07/03/24 History hydrocortisone acetate 25 mg 25 mg [place] BID 10 days #24 ea 06/27/24 07/03/24 Rx rectal suppository (Anucort-HC) pantoprazole 40 mg tablet,delayed 40 mg PO DAILY 30 days #30 tabs 06/27/24 07/03/24 Rx release acetaminophen 325 mg tablet 650 mg PO Q4H PRN Pain/fever 07/03/24 07/03/24 History bisacodyl 10 mg rectal suppository 10 mg [place] DAILY PRN Constipation 07/03/24 07/03/24 History docusate sodium 100 mg capsule 100 mg PO DAILY PRN Constipation 07/03/24 07/03/24 History magnesium chloride 64 mg 64 mg PO BID 07/03/24 07/03/24 History (magnesium chloride) tablet,delayed release (Mag 64) polyethylene glycol 3350 17 17 g PO DAILY PRN Constipation 07/03/24 07/03/24 History gram/dose oral powder (Miralax) psyllium seed (sugar) oral powder 1 tbsp PO HS 07/03/24 07/03/24 History (Metamucil (sugar) oral powder) tuberculin PPD 5 tub. unit/0.1 mL 0.1 ml intradermal DIRECTED 07/03/24 07/03/24 History intradermal injection solution (Tubersol) Patient History Medical History Nephrolithiasis Recurrent UTI Acute kidney injury superimposed on CKD JANETT (acute kidney injury) Nondisplaced fracture of fifth right metatarsal bone Status post placement of implantable loop recorder Paroxysmal atrial tachycardia Mitral and aortic valve disease Cervical cancer Non-sustained ventricular tachycardia PSVT (paroxysmal supraventricular tachycardia) Sick sinus syndrome History of cervical cancer Diverticulosis Diverticulitis Surgical History History of intestinal surgery H/O bilateral breast reduction surgery History of tonsillectomy and adenoidectomy H/O hemicolectomy Family History Mother Obesity Hypertension Diabetes Goiter Deep vein thrombosis Stroke Diverticulitis Myocardial infarction Sister Diabetes Lung cancer Father Alzheimer disease Diverticulitis Diabetes Parkinson disease Brother Atrial fibrillation Deep vein thrombosis Colorectal cancer Prostate cancer Family/Other Diverticulitis Grandfather (Maternal) Colorectal cancer Grandfather (Paternal) Colorectal cancer Denies family history of Ovarian cancer Breast cancer Social History Smoking Status: Never smoker Second Hand Exposure: No; Do You Dip or Chew Tobacco: No; Hx Alcohol Use: Yes Alcohol type: wine Alcohol Intake Frequency: 2-4 x/Month Hx Substance Use: No Preferred Language: Turkish Communication Ability: Effective Communication Ability Comment: Hearing aids Visual Impairment: No Limitations Hearing Ability: Use of Hearing Aid Trick Rodeo Rider Required: No Beliefs That Will Affect Care: None marital status: / Current Living Situation: Alone Current Living Situation Comment: Independent living 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 occupational status: 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 How many Children do You have: 1 Feels Safe at Home: Yes Childhood Exposure to Second-Hand Smoke: Yes Diet: low salt caffeine: No during the past year weight has: remained stable Dental Care, Regularly: No Physical Activity Frequency: 1-2 Times per Week Seatbelt Use: always Sunscreen Use: Yes Assistive Devices: Walker and Wheelchair Review of Systems Constitutional: no fever and no chills Eyes: no blind spots and no diplopia Ear, Nose, Mouth, Throat: + hearing loss Respiratory: no cough and no dyspnea Cardiovascular: + palpitations Gastrointestinal: no nausea and no vomiting Genitourinary: no dysuria Musculoskeletal: no myalgia Integumentary: + erythema and + problem reported (Bilat eral lower extremity lymphedema) Neurologic: as per Subjective / HPI, + headache(s) and + abnormal speech; no localized weakness and no loss of sensation Psychiatric: no depression and no anxiety Hematologic / Lymphatic: no easy bleeding and no easy bruising Exam (Neuro) Constitutional: well developed and well nourished; no acute distress Eyes: normal visual solitario by confrontation, PERRL and EOM intact bilaterally; no nystagmus Neurologic: Oriented to:: Person, Place and Time Memory: Short Term Intact and Remote Intact Attention: Span Intact and Concentration Intact Speech Fluency: negative Dysarthria or Dysfluency Speech Aphasia: negative Aphasia Fund of Knowledge: Current Events, Past History and Vocabulary Cranial Nerves: Normal II, III, IV, , V, VII, VIII, IX, X, XI and XII Motor Strength: Normal Lower Extremities and Normal Upper Extremities Motor Tone: Normal Lower Extremities and Normal Upper Extremities Muscle Bulk/Involuntary Movements: No Involuntary Movements; negative Muscle Atrophy Sensation: Light Touch Intact and Proprioception Intact; negative Pain/Temperature Intact or Vibration Intact Coordination: negative Dysdiadochokinesia, Finger-Nose Abnormal or Heel-Juarez Abnormal Deep Tendon Reflexes: Rt Triceps: 2+, Lt Triceps: 2+, Rt Biceps: 2+, Lt Biceps: 2+, Rt Brachioradialis: 2+, Lt Brachioradialis: 2+, Rt Patellar: 2+, Lt Patellar: 2+, Rt Ankle: 1+ and Lt Ankle: 1+ Special Tests: negative Babinski Present Results & Data Vital Signs (Past 12 Hours) Vital Signs Temp Pulse Pulse Resp BP BP Pulse Ox 07/03/24 15:46 60 22 131/83 100 07/03/24 14:22 51 L 07/03/24 14:00 15 07/03/24 13:12 58 L 17 07/03/24 13:06 58 L 17 07/03/24 13:00 132/83 07/03/24 12:57 56 L 15 07/03/24 12:51 55 L 13 07/03/24 12:48 55 L 15 07/03/24 12:30 61 19 07/03/24 12:30 150/88 H 07/03/24 12:30 150/88 H 07/03/24 12:21 58 L 19 07/03/24 12:12 15 07/03/24 12:12 07/03/24 12:06 60 22 07/03/24 12:01 127/109 H 07/03/24 12:01 127/109 H 07/03/24 12:00 61 18 07/03/24 11:48 57 L 07/03/24 11:33 60 20 07/03/24 11:30 146/95 H 07/03/24 11:30 146/95 H 07/03/24 11:09 61 20 07/03/24 11:06 67 20 07/03/24 11:00 157/99 H 07/03/24 10:51 57 L 16 07/03/24 10:37 53 L 18 154/103 H 98 07/03/24 10:30 154/103 H 07/03/24 10:30 154/103 H 07/03/24 10:24 61 16 07/03/24 10:23 57 L 07/03/24 10:21 59 L 19 96 07/03/24 10:17 36.8 C 57 L 20 142/93 H 96 O2 Del Method 07/03/24 15:46 Room Air 07/03/24 14:22 07/03/24 14:00 07/03/24 13:12 07/03/24 13:06 07/03/24 13:00 07/03/24 12:57 07/03/24 12:51 07/03/24 12:48 07/03/24 12:30 07/03/24 12:30 07/03/24 12:30 07/03/24 12:21 07/03/24 12:12 07/03/24 12:12 Room Air 07/03/24 12:06 07/03/24 12:01 07/03/24 12:01 07/03/24 12:00 07/03/24 11:48 07/03/24 11:33 07/03/24 11:30 07/03/24 11:30 07/03/24 11:09 07/03/24 11:06 07/03/24 11:00 07/03/24 10:51 07/03/24 10:37 Room Air 07/03/24 10:30 07/03/24 10:30 07/03/24 10:24 07/03/24 10:23 07/03/24 10:21 07/03/24 10:17 Room Air Laboratory Results WBC 3.15, hemoglobin 12.9, hematocrit 39.3, platelet count 144, sodium 137, potassium 4.8, BUN 34, creatinine 1.32, glucose 88, calcium 8.7, magnesium 1.7, AST 16, ALT 11 Coding Level of Care Code 83737 INT INP/OBS CARE 3/75MIN Diagnoses TIA (transient ischemic attack) G45.9 Meningioma D32.9 Time Spent (min) 80 Comment Total time includes patient contact, chart review, counseling, note preparation
[2024-07-03] MEDS ORDERED: ARTIFICIAL TEARS OPB PRN (18:49)
[2024-07-03] MEDS: HYDROCORTISONE ACETATE 25 MG SUPP PR SCH (20:40)
[2024-07-03] MEDS: SIMVASTATIN 40 MG TAB PO SCH (20:40)
[2024-07-03] MEDS: SOTALOL HCL 80 MG TAB PO SCH (20:41)
[2024-07-03] MEDS: ACETAMINOPHEN 325 MG TAB PO PRN (23:46)
[2024-07-04 06:40] LABS: Basophils # (auto) 0.03 K/uL (0.00-0.20); Basophils % (auto) 1.2 %; Eosinophils # (auto) 0.08 K/uL (0.00-0.50); Eosinophils % (auto) 3.1 %; Hematocrit (blood only) 37.1 % (37.0-47.0); Hemoglobin 12.3 g/dl (12.0-16.0); Immature Granulocytes # (auto) 0.01 K/uL (0.01-0.20); Immature Granulocytes % (auto) 0.4 %; Lymphocytes # (auto) 0.84 K/uL (1.20-3.40); Lymphocytes % (auto) 32.4 %; Mean Corpuscular Hemoglobin 31.1 pg (25.0-34.0); Mean Corpuscular Hgb Conc 33.2 g/dL (32.0-36.0); Mean Corpuscular Volume 93.7 fL (80.0-100.0); Mean Platelet Volume 9.8 fL (9.4-12.4); Monocytes # (auto) 0.32 K/uL (0.11-0.59); Monocytes % (auto) 12.4 %; Neutrophils # (auto) 1.31 K/uL (1.40-6.50); Neutrophils % (auto) 50.5 %; Platelet Count 148 K/uL (130-400); RDW Coefficient of Variation 14.3 % (11.5-14.5); RDW Standard Deviation 48.8 fL (36.4-46.3); Red Blood Count 3.96 M/uL (4.20-5.40); White Blood Count 2.59 K/ul (4.8-10.8)
[2024-07-04 06:57] LABS: Albumin Globulin Ratio 1.2 (0.9-2); Albumin Level 2.8 gm/dl (3.4-5.0); BUN Creatinine Ratio 24.8 (10-20); Bilirubin,Total 0.5 mg/dl (0.2-1.0); Calcium 8.7 mg/dl (8.6-10.3); Chol HDL Ratio 1.9 (0-5); Globulin 2.4 gm/dl (2.5-4.0); Potassium 4.7 mmol/L (3.5-5.1); Total Protein 5.2 gm/dl (6.0-8.3)
[2024-07-04 07:12] LABS: Thyroid Stimulating Hormone 10.203 uIu/ml (0.300-4.500)
[2024-07-04 07:48] LABS: T4 Free Thyroxine 0.93 ng/dl (0.61-1.60)
[2024-07-04 08:27] LABS: Estimated Average Glucose 114 mg/dl; Hemoglobin A1C 5.6 % (4.5-5.6)
[2024-07-04] MEDS: FUROSEMIDE 20 MG TAB PO SCH (09:29)
[2024-07-04] MEDS: MAGNESIUM CHLORIDE W/CALCIUM 64MG DELAYED REL TAB PO SCH (09:30)
[2024-07-04] MEDS: PANTOprazole 40 MG TAB PO SCH (09:31)
--- NOTE | 2024-07-04 09:56 | Pharmacy Report ---
- Date of Service July 04, 2024 - Pharmacy CVA/TIA Medication Review Medications to Prevent Stroke handout has been added to the patients discharge packet. Antiplatelet(s) * aspirin 81mg daily--avoid dual antiplatelet due to recent GI bleed Cholesterol * Moderate intensity statin: simvastatin 40mg po daily (LDL and cholesterol already well below goal range) DVT Prophylaxis * SCD knee Therapeutic Anticoagulation * Hx Afib/Aflutter noted, but anticoagulation is being deferred due to recent hospitalization for GI bleed. Consider starting Eliquis once cleared by GI. Type 2 Diabetes * Patient does not have T2DM -HbA1c: 5.6% and no hyperglycemic medications outpatient
--- NOTE | 2024-07-04 15:45 | Electroencephalogram ---
EEG Procedure Note Date of Service July 04, 2024 Start / End Times Start Time: 9:54 AM End Time: 10:14 AM Referring Physician Pete Car MD History Left frontal meningioma, aphasia, evaluate for possible seizures Home Medication List Medication Instructions Recorded Confirmed Type compr.stocking,knee,long,large #6 ea 11/12/18 04/30/24 Rx safety needles 25 gauge x 1 1/2" #4 ea 02/26/20 04/30/24 Rx (BD Eclipse Luer-Luz) aspirin 81 mg tablet,delayed 81 mg PO DAILY #90 tabs 12/07/21 07/03/24 Rx release coenzyme Q10 100 mg capsule 100 mg PO DAILY #90 caps 12/07/21 07/03/24 Rx dicyclomine 10 mg capsule 10 mg PO TID PRN abdominal 09/17/23 07/03/24 Rx cramping #90 caps nystatin 100,000 unit/gram topical 1 applic topical TID PRN AFFECTED 09/17/23 07/03/24 Rx powder SKIN #60 grams mecobalamin (vitamin B12) 1,000 1,000 mcg PO 3XWK 10/02/23 07/03/24 History mcg chewable tablet furosemide 20 mg tablet 10 - 20 mg PO QAM 06/24/24 07/03/24 History simvastatin 10 mg tablet 10 mg PO QPM 06/24/24 07/03/24 History sotalol 80 mg tablet 20 mg PO BID 06/24/24 07/03/24 History hydrocortisone acetate 25 mg 25 mg [place] BID 10 days #24 ea 06/27/24 07/03/24 Rx rectal suppository (Anucort-HC) pantoprazole 40 mg tablet,delayed 40 mg PO DAILY 30 days #30 tabs 06/27/24 07/03/24 Rx release acetaminophen 325 mg tablet 650 mg PO Q4H PRN Pain/fever 07/03/24 07/03/24 History bisacodyl 10 mg rectal suppository 10 mg [place] DAILY PRN Constipation 07/03/24 07/03/24 History docusate sodium 100 mg capsule 100 mg PO DAILY PRN Constipation 07/03/24 07/03/24 History magnesium chloride 64 mg 64 mg PO BID 07/03/24 07/03/24 History (magnesium chloride) tablet,delayed release (Mag 64) polyethylene glycol 3350 17 17 g PO DAILY PRN Constipation 07/03/24 07/03/24 History gram/dose oral powder (Miralax) psyllium seed (sugar) oral powder 1 tbsp PO HS 07/03/24 07/03/24 History (Metamucil (sugar) oral powder) tuberculin PPD 5 tub. unit/0.1 mL 0.1 ml intradermal DIRECTED 07/03/24 07/03/24 History intradermal injection solution (Tubersol) Inpatient Medication List Acetaminophen (Acetaminophen 325 Mg Tab) 650 mg PO Q4H PRN PRN Reason: Pain or Fever Stop: 08/02/24 11:36 Last Admin: 07/03/24 23:46 Dose: 650 mg Documented By: OK Aspirin (Aspirin 81 Mg Ectab) 81 mg PO DAILY [facility] Stop: 08/02/24 15:34 Last Admin: 07/04/24 09:28 Dose: 81 mg Documented By: Admin: 07/03/24 17:14 Dose: 81 mg Documented By: WESLEY Furosemide (Furosemide 20 Mg Tab) 20 mg PO QAM DONAVAN Stop: 08/03/24 08:59 Last Admin: 07/04/24 09:29 Dose: 20 mg Documented By: DELMY Hydrocortisone (Hydrocortisone Acetate 25 Mg Supp) 25 mg [place] BID DONAVAN Stop: 08/02/24 20:59 Last Admin: 07/04/24 09:30 Dose: Not Given Documented By: Admin: 07/03/24 20:40 Dose: Not Given Documented By: OK Magnesium Chloride (Magnesium Chloride W/Calcium 64mg Delayed Rel Tab) 128 mg PO DAILY DONAVAN Stop: 08/03/24 08:59 Last Admin: 07/04/24 09:30 Dose: 128 mg Documented By: DELMY Pantoprazole Sodium (Pantoprazole 40 Mg Tab) 40 mg PO DAILY DONAVAN Stop: 08/03/24 08:59 Last Admin: 07/04/24 09:31 Dose: 40 mg Documented By: DELMY Simvastatin (Simvastatin 40 Mg Tab) 40 mg PO HS DONAVAN Stop: 08/02/24 20:59 Last Admin: 07/03/24 20:40 Dose: 40 mg Documented By: OK Sotalol HCl (Sotalol Hcl 80 Mg Tab) 20 mg PO BID DONAVAN Stop: 08/02/24 20:59 Last Admin: 04/25/25 09:29 Dose: Not Given Documented By: GDIsamar Admin: 07/03/24 20:41 Dose: Not Given Documented By: NAB Discontinued Medications Gadobutrol (Gadobutrol 65ml Vial) 9 ml IV ONCE ONE Stop: 07/03/24 15:19 Last Admin: 07/03/24 15:18 Dose: 9 ml Documented By: SEE Ioversol (Optiray 320 125ml) 120 ml IV ONCE ONE Stop: 07/03/24 10:18 Last Admin: 07/03/24 10:17 Dose: 120 ml Documented By: SH Description This is a 21 electrode EEG with a single channel dedicated to limited EKG. The electrodes were placed in accordance with the International 10-20 system. There is a posterior dominant rhythm of 8 to 9 Hz which is symmetrically distributed and attenuates with eye opening. There is a normal anterior to posterior organization. Photic stimulation is unremarkable. Hyperventilation was not performed. There is a symmetric frontal beta rhythm. There is a moderate Reyvow mixed theta activity. There is no focal slowing. There are no epileptiform abnormalities. Interpretation Normal-appearing awake/drowsy EEG. [facility] EEG Procedure Codes Indication for Procedure (1) Meningioma: (2) Expressive aphasia: (3) Seizure-like activity: Neurology Neurology: [id number] EEG include record awake & drowsy
--- NOTE | 2024-07-04 16:19 | Hospitalist Progress Note ---
Date of Service July 04, 2024 Assessment & Plan (1) TIA (transient ischemic attack): (2) Meningioma: (3) Atrial fibrillation: (4) CKD stage 3b, GFR 30-44 ml/min: Plan This patient is a 78-year-old female with a history of paroxysmal SVT, paroxysmal atrial fibrillation not on AC, CKD stage III, chronic bilateral LE lymphedema, morbid obesity, prediabetes, HLD, HFpEF, rectal bleeding, GERD, who presents to the ER with transient dysarthria and mild headache. She was admitted for stroke workup. #TIA/meningioma/mild headache-presented with transient mild dysarthria and aphasia along with mild headache-the symptoms have resolved and she was not a TNKase candidate as symptoms were resolving upon arrival. She was taken off her baby aspirin daily for rectal bleeding on a recent admission in the last [address] of the head was negative, CTAs of the head and neck were negative for acute/critical findings. Telestroke saw the patient. Recommending aspirin only at this time given the patient recent history of rectal bleeding. MRI of the brain showed no acute stroke but showed a 9 mm left frontal meningioma and moderate small vessel ischemic disease. Echo with preserved EF, negative bubble study, no thrombus. Telemetry with normal sinus rhythm but does have a history of paroxysmal atrial fibrillation. She has declined anticoagulation in the past. Her HgbA1c is in her normal range and lipid panel acceptable Appreciate neurology consultation-check EEG in case meningioma causing seizures- this is negative - Restarted aspirin 81 mg daily and will continue simvastatin at moderate intensity 40 mg dose as recommended by neurology - Would only consider starting anticoagulation with Eliquis if patient willing to undergo full GI evaluation with EGD and colonoscopy as recommended by GI last admission-she declines this - Recommend 30-day event monitor and if atrial fibrillation found again, would strongly encourage patient to start Eliquis at that time if no further GI bleeding - Continue telemetry monitoring while hospitalized -Monitor meningioma as an outpatient - Follow-up with neurology as an outpatient in 2 to 3 weeks - PT/OT recommend rehab placement #Paroxysmal supraventricular tachycardia and PAF -in sinus rhythm here. Follows with cardiology as an outpatient previously had a loop recorder which is now nonfunctioning. She is not chronically anticoagulated due to patient choice. -Continue sotalol - Continue to monitor on telemetry and recommend 30-day event monitor after discharge #Recent rectal bleeding- was hospitalized was discharged approximately week ago. She was also found to have an abnormality in the duodenum on CT scan. She declined EGD and colonoscopy during that admission. Her hemoglobin has been stable and she has had no further recurrences as an outpatient of rectal bleeding - Restarted aspirin-monitor CBC and look for bleeding #Mild leukopenia- Appears chronic. Should follow-up as an outpatient. #CKD stage IIIb.-Stable. Creatinine around baseline at 1.4 - Follow BMP - Avoid nephrotoxins and renally dose medications as needed #Chronic bilateral lower extremity lymphedema/chronic HFpEF-with chronic lymphedema and lipedema. Worsening recently and with development of venous stasis dermatitis. She reports she used to have lymphedema therapy but has not had it in quite some time - Continue Lasix 20 mg daily - Follow-up for lymphedema therapy as an outpatient #Morbid obesity/prediabetes-HgbA1c here in normal range of 5.6%, BMI elevated 40.9 - Recommend weight loss #Dyslipidemia- Continue and titrate statin therapy to 40 mg of simvastatin daily for TIA DVT prophylaxis-SCDs Disposition-continued stay on PCU for telemetry monitoring in the setting of TIA and to watch for bleeding after resuming aspirin. Needs placement back at [facility] but needs to reapply for insurance authorization on Sunday Admission and Anticipated Discharge Date Admission Date: July 03, 2024 Subjective Patient reports feeling much better than yesterday. No further difficulty with her speech, no headache. Does feel a little bit just "off." No blood in her stool. Telemetry with normal sinus rhythm and sinus bradycardia with rates in the 50s to 60s Results & Data Results & Data Vital Signs (Past 12 Hours) Vital Signs Temp Pulse Pulse Resp BP Pulse Ox O2 Del Method 07/04/24 14:42 50 L 07/04/24 12:24 36.4 C L 60 18 100/65 96 Room Air 07/04/24 08:07 36.3 C L 58 L 17 118/73 97 Room Air 07/04/24 08:00 52 L Laboratory Results CBC, BMP, HgbA1c, LFTs, troponin, TSH, free T4 reviewed Diagnostic Findings EEG, Brain MRI, brain MRI reviewed PG Care Time/CCT Total # of Minutes Spent Total Time Spent with Patient: Total time spent is greater than 50% in coordination of care (as documented) at patient's floor/unit and/or counseling patient: Coding Level of Care Code 79292 SUB INP/OBS CARE 350MIN Diagnoses TIA (transient ischemic attack) G45.9 Meningioma D32.9 Paroxysmal atrial fibrillation I48.0 Atrial fibrillation type: paroxysmal CKD stage 3b, GFR 30-44 ml/min N18.32 (3) Atrial fibrillation Atrial fibrillation type: paroxysmal Qualified Code(s): I48.0 - Paroxysmal atrial fibrillation
[2024-07-04] MEDS: POLYETHYLENE (MIRALAX) 17 GM PACK PO SCH (17:07)
[2024-07-05 08:07] LABS: Basophils # (auto) 0.03 K/uL (0.00-0.20); Eosinophils # (auto) 0.08 K/uL (0.00-0.50); Eosinophils % (auto) 2.8 %; Hemoglobin 12.7 g/dl (12.0-16.0); Immature Granulocytes # (auto) 0.01 K/uL (0.01-0.20); Immature Granulocytes % (auto) 0.3 %; Lymphocytes # (auto) 0.84 K/uL (1.20-3.40); Lymphocytes % (auto) 29.2 %; Mean Corpuscular Hemoglobin 31.1 pg (25.0-34.0); Mean Corpuscular Hgb Conc 33.4 g/dL (32.0-36.0); Mean Corpuscular Volume 93.1 fL (80.0-100.0); Mean Platelet Volume 9.6 fL (9.4-12.4); Monocytes # (auto) 0.42 K/uL (0.11-0.59); Monocytes % (auto) 14.6 %; Neutrophils % (auto) 52.1 %; Platelet Count 147 K/uL (130-400); RDW Coefficient of Variation 14.2 % (11.5-14.5); RDW Standard Deviation 48.9 fL (36.4-46.3); Red Blood Count 4.08 M/uL (4.20-5.40); White Blood Count 2.88 K/ul (4.8-10.8)
[2024-07-05 08:32] LABS: BUN Creatinine Ratio 26.4 (10-20); Calcium 8.8 mg/dl (8.6-10.3); Creatinine Clr Calc Pharmacy 32.2 ml/min; Potassium 4.4 mmol/L (3.5-5.1)
--- NOTE | 2024-07-05 10:31 | Hospitalist Progress Note ---
Date of Service July 05, 2024 Assessment & Plan (1) TIA (transient ischemic attack): (2) Meningioma: (3) Atrial fibrillation: (4) CKD stage 3b, GFR 30-44 ml/min: Plan This patient is a 78-year-old female with a history of paroxysmal SVT, paroxysmal atrial fibrillation not on AC, CKD stage III, chronic bilateral LE lymphedema, morbid obesity, prediabetes, HLD, HFpEF, rectal bleeding, GERD, who presents to the ER with transient dysarthria and mild headache. She was admitted for stroke workup. #TIA/meningioma/mild headache-presented with transient mild dysarthria and aphasia along with mild headache-the symptoms have resolved and she was not a TNKase candidate as symptoms were resolving upon arrival. She was taken off her baby aspirin daily for rectal bleeding on a recent admission in the last [address] of the head was negative, CTAs of the head and neck were negative for acute/critical findings. Telestroke saw the patient. Recommending aspirin only at this time given the patient recent history of rectal bleeding. MRI of the brain showed no acute stroke but showed a 9 mm left frontal meningioma and moderate small vessel ischemic disease. Echo with preserved EF, negative bubble study, no thrombus. Telemetry remain in's with normal sinus rhythm but does have a history of paroxysmal atrial fibrillation. She has declined anticoagulation in the past. Her HgbA1c is in her normal range and lipid panel acceptable. Symptoms remain completely resolved Appreciate neurology consultation-checked EEG in case meningioma causing seizures-this is negative - Restarted aspirin 81 mg daily and will continue simvastatin at moderate intensity 40 mg dose as recommended by neurology - Would only consider starting anticoagulation with Eliquis if patient willing to undergo full GI evaluation with EGD and colonoscopy as recommended by GI last admission-she declined endoscopic evaluation - Recommend 30-day event monitor and if atrial fibrillation found again, would strongly encourage patient to start Eliquis at that time if no further GI bleeding - Continue telemetry monitoring while hospitalized -Monitor meningioma as an outpatient - Follow-up with neurology as an outpatient in 2 to 3 weeks - PT/OT recommend rehab placement #Paroxysmal supraventricular tachycardia and PAF -remains in sinus rhythm here. Follows with cardiology as an outpatient previously had a loop recorder which is now nonfunctioning. She is not chronically anticoagulated due to patient choice. -Continue sotalol -Continue to monitor on telemetry and recommend 30-day event monitor after discharge #Recent rectal bleeding- was hospitalized was discharged approximately week ago. She was also found to have an abnormality in the duodenum on CT scan. She declined EGD and colonoscopy during that admission. Her hemoglobin has been stable and she has had no further recurrences as an outpatient of rectal bleeding-she is moving her bowels regularly in the hospital without bleeding - Restarted aspirin-monitor CBC and continue to monitor for bleeding #Mild leukopenia-she typically runs on the lower end of normal around 4-5 K but here has been at 2.5-2.8 for her WBC count. She is borderline neutropenic with an ANC 1500 and is lymphopenic with an ALC of 840. She does not have any evidence of viral infection or anaplasmosis clinically. Her Hgb and platelets are normal - Check peripheral smear - Follow CBC #CKD stage IIIb.-Stable. Creatinine remains around baseline at 1.4 - Follow BMP - Avoid nephrotoxins and renally dose medications as needed #Chronic bilateral lower extremity lymphedema/chronic HFpEF-with chronic lymphedema and lipedema. Worsening recently and with development of venous stasis dermatitis. She reports she used to have lymphedema therapy but has not had it in quite some time - Continue Lasix 20 mg daily - Follow-up for lymphedema therapy as an outpatient #Morbid obesity/prediabetes-HgbA1c here in normal range of 5.6%, BMI elevated 40.9 - Recommend weight loss #Dyslipidemia- Continue and titrate statin therapy to 40 mg of simvastatin daily for TIA DVT prophylaxis-SCDs Disposition-continued stay on PCU for telemetry monitoring in the setting of TIA and to watch for bleeding after resuming aspirin. Needs placement back at [facility] but needs to reapply for insurance authorization on Sunday Admission and Anticipated Discharge Date Admission Date: July 04, 2024 Subjective Patient reports she had itching on her ankle overnight, moving bowels without any bleeding. She does feel heart palpitations at times but telemetry only with sinus bradycardia normal sinus rhythm with rates in the 50s to 60s, no ectopy or arrhythmias. No other acute concerns. Physical Exam Constitutional: WD/WN, vitals as above Respiratory: normal respiratory effort, lungs clear to auscultation Cardiovascular: Rate/Rhythm: regular rate and regular rhythm Extremities: + edema (3+ lymphedema bilateral lower extremities) Skin: + lesion (Scabbed over venous ulcer righ t lateral distal leg) Psychiatric: A+Ox3, euthymic affect Results & Data Results & Data Vital Signs (Past 12 Hours) Vital Signs Temp Pulse Pulse Resp BP Pulse Ox O2 Del Method 07/05/24 07:51 36.4 C L 58 L 18 124/74 95 Room Air 07/05/24 07:24 59 L 07/05/24 03:31 36.4 C L 60 19 112/77 95 Room Air 07/04/24 23:26 36.6 C 60 17 127/81 95 Room Air Laboratory Results CBC, BMP reviewed PG Care Time/CCT Total # of Minutes Spent Total Time Spent with Patient: Total time spent is greater than 50% in coordination of care (as documented) at patient's floor/unit and/or counseling patient: Coding Level of Care Code 67049 SUB INP/OBS CARE 2/35MIN Diagnoses TIA (transient ischemic attack) G45.9 Meningioma D32.9 Paroxysmal atrial fibrillation I48.0 Atrial fibrillation type: paroxysmal CKD stage 3b, GFR 30-44 ml/min N18.32 (3) Atrial fibrillation Atrial fibrillation type: paroxysmal Qualified Code(s): I48.0 - Paroxysmal atrial fibrillation
[2024-07-06 06:24] LABS: Basophils # (auto) 0.01 K/uL (0.00-0.20); Basophils % (auto) 0.3 %; Eosinophils # (auto) 0.06 K/uL (0.00-0.50); Eosinophils % (auto) 2.1 %; Hematocrit (blood only) 36.7 % (37.0-47.0); Hemoglobin 12.2 g/dl (12.0-16.0); Immature Granulocytes # (auto) 0.01 K/uL (0.01-0.20); Immature Granulocytes % (auto) 0.3 %; Lymphocytes % (auto) 30.9 %; Mean Corpuscular Hemoglobin 31.5 pg (25.0-34.0); Mean Corpuscular Hgb Conc 33.2 g/dL (32.0-36.0); Mean Corpuscular Volume 94.8 fL (80.0-100.0); Mean Platelet Volume 9.5 fL (9.4-12.4); Monocytes # (auto) 0.45 K/uL (0.11-0.59); Monocytes % (auto) 15.5 %; Neutrophils # (auto) 1.48 K/uL (1.40-6.50); Neutrophils % (auto) 50.9 %; Platelet Count 145 K/uL (130-400); RDW Coefficient of Variation 14.2 % (11.5-14.5); RDW Standard Deviation 49.3 fL (36.4-46.3); Red Blood Count 3.87 M/uL (4.20-5.40); White Blood Count 2.91 K/ul (4.8-10.8)
[2024-07-06 06:40] LABS: BUN Creatinine Ratio 27.1 (10-20); Calcium 8.7 mg/dl (8.6-10.3); Creatinine Clr Calc Pharmacy 32.2 ml/min; Potassium 4.4 mmol/L (3.5-5.1)
--- NOTE | 2024-07-06 09:34 | Hospitalist Progress Note ---
Date of Service July 06, 2024 Assessment & Plan (1) TIA (transient ischemic attack): (2) Meningioma: (3) Atrial fibrillation: (4) CKD stage 3b, GFR 30-44 ml/min: Plan This patient is a 78-year-old female with a history of paroxysmal SVT, paroxysmal atrial fibrillation not on AC, CKD stage III, chronic bilateral LE lymphedema, morbid obesity, prediabetes, HLD, HFpEF, rectal bleeding, GERD, who presents to the ER with transient dysarthria and mild headache. She was admitted for stroke workup. #TIA/meningioma/mild headache-presented with transient mild dysarthria and aphasia along with mild headache-the symptoms have resolved and she was not a TNKase candidate as symptoms were resolving upon arrival. She was taken off her baby aspirin daily for rectal bleeding on a recent admission in the last [address] of the head was negative, CTAs of the head and neck were negative for acute/critical findings. Telestroke saw the patient. Recommending aspirin only at this time given the patient recent history of rectal bleeding. MRI of the brain showed no acute stroke but showed a 9 mm left frontal meningioma and moderate small vessel ischemic disease. Echo with preserved EF, negative bubble study, no thrombus. Telemetry remain in's with normal sinus rhythm but does have a history of paroxysmal atrial fibrillation. She has declined anticoagulation in the past. Her HgbA1c is in her normal range and lipid panel acceptable. Symptoms remain completely resolved Appreciate neurology consultation-checked EEG in case meningioma causing seizures-this is negative - Restarted aspirin 81 mg daily and will continue simvastatin at moderate intensity 40 mg dose as recommended by neurology - Would only consider starting anticoagulation with Eliquis if patient willing to undergo full GI evaluation with EGD and colonoscopy as recommended by GI last admission-she declined endoscopic evaluation - Recommend 30-day event monitor and if atrial fibrillation found again, would strongly encourage patient to start Eliquis at that time if no further GI bl eeding - Continue telemetry monitoring while hospitalized -Monitor meningioma as an outpatient - Follow-up with neurology as an outpatient in 2 to 3 weeks - PT/OT recommend rehab placement #Paroxysmal supraventricular tachycardia and PAF -remains in sinus rhythm here. Follows with cardiology as an outpatient previously had a loop recorder which is now nonfunctioning. She is not chronically anticoagulated due to patient choice. -Continue sotalol -Continue to monitor on telemetry and recommend 30-day event monitor after discharge #Recent rectal bleeding- was hospitalized was discharged approximately week ago. She was also found to have an abnormality in the duodenum on CT scan. She declined EGD and colonoscopy during that admission. Her hemoglobin has been stable and she has had no further recurrences as an outpatient of rectal bleeding-she is moving her bowels regularly in the hospital without bleeding - Restarted aspirin-monitor CBC and continue to monitor for bleeding #Mild leukopenia-she typically runs on the lower end of normal around 4-5 K but here has been at 2.5-2.8 for her WBC count. She is borderline neutropenic with an ANC 1500 and is lymphopenic with an ALC of 840. She does not have any evidence of viral infection or anaplasmosis clinically. Her Hgb and platelets are normal - Peripheral smear pending - Follow CBC #CKD stage IIIb.- Stable. Creatinine remains around baseline at 1.4 - Avoid nephrotoxins and renally dose medications as needed #Chronic bilateral lower extremity lymphedema/chronic HFpEF - with chronic lymphedema and lipedema. Worsening recently and with development of venous stasis dermatitis. She reports she used to have lymphedema therapy but has not had it in quite some time - Continue Lasix 20 mg daily - Follow-up for lymphedema therapy as an outpatient #Morbid obesity/prediabetes - HgbA1c here in normal range of 5.6%, BMI elevated 40.9 - Recommend weight loss #Dyslipidemia- Continue and titrate statin therapy to 40 mg of simvastatin daily for TIA DVT prophylaxis-SCDs Disposition - continued stay on PCU for telemetry monitoring in the setting of TIA and to watch for bleeding after resuming aspirin. Needs placement back at [facility] but needs to reapply for insurance authorization on Friday 07/07 Admission and Anticipated Discharge Date Admission Date: July 04, 2024 Subjective Patient seen and evaluated bedside chair. She reports generalized weakness. She denies any recurrence of rectal bleeding since resumption of her anticoagulation/antiplatelet medications. She denies any additional complaints or concerns at this time. Physical Exam Physical Exam: General: No acute distress, nondiaphoretic, well-developed, well-nourished. Skin: 3+ bilateral lymphedema in LE. Right lateral distal LE with scabbed over venous ulcer. Cardiac: Regular rate and rhythm without murmurs gallops or rubs. Pulm: Clear to auscultation bilaterally without wheezes, rales or rhonchi. Normal respiratory effort. 91% on room air. Abdominal: Soft, nontender, nondistended. Bowel sounds present. Neuro: A&O x3. No focal neurological deficits. Results & Data Results & Data Vital Signs (Past 12 Hours) Vital Signs Temp Pulse Pulse Resp BP Pulse Ox O2 Del Method 07/06/24 08:41 54 L 07/06/24 07:38 97.9 F 64 18 118/74 91 Room Air 07/06/24 07:23 Room Air 07/06/24 07:23 53 L 07/06/24 02:53 97.7 F 86 17 131/65 94 Room Air 07/05/24 23:26 97.5 F L 97 H 18 131/82 90 Room Air 07/05/24 22:15 57 L Laboratory Results Reviewed CBC with differential Reviewed BMP Diagnostic Findings Reviewed telemetry - NSR bradycardia rates 50-60s PG Care Time/CCT Total # of Minutes Spent Total Time Spent with Patient: Total time spent is greater than 50% in coordination of care (as documented) at patient's floor/unit and/or counseling patient: Coding Level of Care Code 87558 SUB INP/OBS CARE 2/35MIN Diagnoses TIA (transient ischemic attack) G45.9 Meningioma D32.9 Paroxysmal atrial fibrillation I48.0 Atrial fibrillation type: paroxysmal CKD stage 3b, GFR 30-44 ml/min N18.32 (3) Atrial fibrillation Atrial fibrillation type: paroxysmal Qualified Code(s): I48.0 - Paroxysmal atrial fibrillation
[2024-07-07 06:36] LABS: Hematocrit (blood only) 36.1 % (37.0-47.0); Hemoglobin 11.9 g/dl (12.0-16.0); Mean Corpuscular Hemoglobin 31.4 pg (25.0-34.0); Mean Corpuscular Volume 95.3 fL (80.0-100.0); Mean Platelet Volume 9.5 fL (9.4-12.4); Platelet Count 134 K/uL (130-400); RDW Coefficient of Variation 14.2 % (11.5-14.5); RDW Standard Deviation 49.3 fL (36.4-46.3); Red Blood Count 3.79 M/uL (4.20-5.40); White Blood Count 3.32 K/ul (4.8-10.8)
--- NOTE | 2024-07-07 08:44 | Hospitalist Progress Note ---
Date of Service July 07, 2024 Assessment & Plan (1) TIA (transient ischemic attack): (2) Meningioma: (3) Atrial fibrillation: (4) CKD stage 3b, GFR 30-44 ml/min: Plan This patient is a 78-year-old female with a history of paroxysmal SVT, paroxysmal atrial fibrillation not on AC, CKD stage III, chronic bilateral LE lymphedema, morbid obesity, prediabetes, HLD, HFpEF, rectal bleeding, GERD, who presents to the ER with transient dysarthria and mild headache. She was admitted for stroke workup. #TIA/meningioma/mild headache-presented with transient mild dysarthria and aphasia along with mild headache-the symptoms have resolved and she was not a TNKase candidate as symptoms were resolving upon arrival. She was taken off her baby aspirin daily for rectal bleeding on a recent admission in the last [address] of the head was negative, CTAs of the head and neck were negative for acute/critical findings. Telestroke saw the patient. Recommending aspirin only at this time given the patient recent history of rectal bleeding. MRI of the brain showed no acute stroke but showed a 9 mm left frontal meningioma and moderate small vessel ischemic disease. Echo with preserved EF, negative bubble study, no thrombus. Telemetry remain in's with normal sinus rhythm but does have a history of paroxysmal atrial fibrillation. She has declined anticoagulation in the past. Her HgbA1c is in her normal range and lipid panel acceptable. Symptoms remain completely resolved Appreciate neurology consultation-checked EEG in case meningioma causing seizures-this is negative - Restarted aspirin 81 mg daily and will continue simvastatin at moderate intensity 40 mg dose as recommended by neurology - Would only consider starting anticoagulation with Eliquis if patient willing to undergo full GI evaluation with EGD and colonoscopy as recommended by GI last admission-she declined endoscopic evaluation - Recommend 30-day event monitor and if atrial fibrillation found again, would strongly encourage patient to start Eliquis at that time if no further GI bl eeding - Continue telemetry monitoring while hospitalized - Monitor meningioma as an outpatient - Follow-up with neurology as an outpatient in 2 to 3 weeks - PT/OT recommend rehab placement #UTI - History of Klebsiella UTIs UA suggestive of infection on 07/07 with associated dysuria Urine culture pending Started Ceftriaxone 2 g IV q24h #Paroxysmal supraventricular tachycardia and PAF -remains in sinus rhythm here. Follows with cardiology as an outpatient previously had a loop recorder which is now nonfunctioning. She is not chronically anticoagulated due to patient choice. - Continue sotalol - Continue to monitor on telemetry and recommend 30-day event monitor after discharge #Recent rectal bleeding- was hospitalized and discharged 06/27/24. She was also found to have an abnormality in the duodenum on CT scan. She declined EGD and colonoscopy during that admission. Her hemoglobin has been stable and she has had no further recurrences as an outpatient of rectal bleeding-she is moving her bowels regularly in the hospital without bleeding - Restarted aspirin-monitor CBC and continue to monitor for bleeding #Mild leukopenia-she typically runs on the lower end of normal around 4-5 K but here has been at 2.5-2.8 for her WBC count. She is borderline neutropenic with an ANC 1500 and is lymphopenic with an ALC of 840. She does not have any evidence of viral infection or anaplasmosis clinically. Her Hgb and platelets are normal - Peripheral smear pending - Follow CBC #CKD stage IIIb.- Stable. Creatinine remains around baseline at 1.4 - Avoid nephrotoxins and renally dose medications as needed #Chronic bilateral lower extremity lymphedema/chronic HFpEF - with chronic lymphedema and lipedema. Worsening recently and with development of venous stasis dermatitis. She reports she used to have lymphedema therapy but has not had it in quite some time - Continue Lasix 20 mg daily - Follow-up for lymphedema therapy as an outpatient #Morbid obesity/prediabetes - HgbA1c here in normal range of 5.6%, BMI elevated 40.9 - Recommend weight loss #Dyslipidemia- Continue and titrate statin therapy to 40 mg of simvastatin daily for TIA DVT prophylaxis-SCDs Disposition - continued stay on PCU for telemetry monitoring in the setting of TIA and to watch for bleeding after resuming aspirin. Needs placement back at [facility] but needs to reapply for insurance authorization on Friday 07/07 Ordered and interpreted UA Started Ceftriaxone IV Admission and Anticipated Discharge Date Admission Date: July 04, 2024 Subjective Patient seen and evaluated in bedside chair. She reports new onset dysuria that began last night, similar to her previous UTIs. We discussed her UA is suggestive of infection so she was started on an IV antibiotic. Otherwise, she denies other acute complaints or concerns at this time. Physical Exam Physical Exam: General: No acute distress, nondiaphoretic, well-developed, well-nourished. Skin: 3+ bilateral lymphedema in LE. Right lateral distal LE with scabbed over venous ulcer. Cardiac: Regular rate and rhythm without murmurs gallops or rubs. Pulm: Clear to auscultation bilaterally without wheezes, rales or rhonchi. Normal respiratory effort. 96% on room air. Abdominal: Soft, nontender, nondistended. Bowel sounds present. Neuro: A&O x3. No focal neurological deficits. Results & Data Results & Data Vital Signs (Past 12 Hours) Vital Signs Temp Pulse Pulse Resp BP Pulse Ox O2 Del Method 07/07/24 07:55 Room Air 07/07/24 07:46 97.5 F L 57 L 17 114/74 96 Room Air 07/07/24 07:24 59 L 07/07/24 02:58 97.7 F 57 L 17 115/61 93 Room Air 07/06/24 23:03 98.1 F 60 19 122/63 95 Room Air 07/06/24 22:02 58 L Laboratory Results Reviewed CBC Reviewed UA PG Care Time/CCT Total # of Minutes Spent Total Time Spent with Patient: Total time spent is greater than 50% in coordination of care (as documented) at patient's floor/unit and/or counseling patient: Coding Level of Care Code 05545 SUB INP/OBS CARE 3/50MIN Diagnoses TIA (transient ischemic attack) G45.9 Meningioma D32.9 Paroxysmal atrial fibrillation I48.0 Atrial fibrillation type: paroxysmal CKD stage 3b, GFR 30-44 ml/min N18.32 (3) Atrial fibrillation Atrial fibrillation type: paroxysmal Qualified Code(s): I48.0 - Paroxysmal atrial fibrillation
[2024-07-07 09:47] LABS: Appearance Urine Cloudy (Clear); Bacteria Urine Automated 4+ (None Seen); Bilirubin Urine Negative (Negative); Blood Urine 1+ (Negative); Cast Urine Automated 0-2 /lpf (0-2); Color Urine Yellow; Glucose Urine UA Negative (Negative); Ketones Urine Negative (Negative); Leukocyte Esterase Urine 2+ (Negative); Nitrite Urine Negative (Negative); Protein Urine Negative (Negative); RBC Urine Automated >20 /hpf (0-2); Specific Gravity Urine 1.017 (1.000-1.030); Urobilinogen Urine Negative (Negative); WBC Urine Automated 0-5 /hpf (0-5); pH Urine 7.5 (4.5-7.5)
[2024-07-07] MEDS: cefTRIAXone SODIUM 2,000 MG/50 ML BAG IV SCH (12:00)
--- NOTE | 2024-07-08 07:17 | Hospitalist Progress Note ---
Date of Service July 08, 2024 Assessment & Plan (1) TIA (transient ischemic attack): (2) Meningioma: (3) Atrial fibrillation: (4) CKD stage 3b, GFR 30-44 ml/min: Plan This patient is a 78-year-old female with a history of paroxysmal SVT, paroxysmal atrial fibrillation not on AC, CKD stage III, chronic bilateral LE lymphedema, morbid obesity, prediabetes, HLD, HFpEF, rectal bleeding, GERD, who presents to the ER with transient dysarthria and mild headache. She was admitted for stroke workup. #TIA/meningioma/mild headache Presented with transient mild dysarthria, aphasia along with mild headache. Symptoms resolved and was NOT TNKase candidate. Recently taken OFF baby aspirin due to rectal bleeding ~2wks ago CT head negative CTAs of the head and neck were negative for acute/critical findings Telestroke saw the patient and recommended ONLY ASA 81mg given recent rectal bleeding ECHO w/ preserved EF, negative bubble/no thrombus MRI brain negative for acute CVA but noted 9mm L frontal meningioma and moderate small vessel ischemic disease Neurology consulted, EEM completed incase causing possible seizure activity-- NEGATIVE EEG Continue ASA 81mg, simvastatin at moderate intensity 40mg dose as rec'd by Neurology and will need outpatient f/u Neurology in 2-3 weeks Has remained in NSR on telemetry TSH/T3 wnl Would only consider starting anticoagulation with Eliquis if patient willing to undergo full GI evaluation with EGD and colonoscopy as recommended by GI last admission (declined prior) Recommend 30-day event monitor and if atrial fibrillation found again, would strongly encourage patient to start Eliquis at that time if no further GI bleeding PT/OT rec for rehab, [facility] to be arranged (son can transport today/tomorrow, but may need assistance if waiting for urine cx below for but is member of [employer] and notified CM of such to follow) #UTI - History of Klebsiella UTIs, also had proteus on urine cx in January. UA on admission appears infected and patient w/ reports of dysuria (however no clots like she did prior) Continues on Ceftriaxone IV (started 07/07, on day #2 of therapy) Urine cx recommends repeat collection Appears treatment during inpatient stay 02/07- February for pyelonephritis w/ hemorrhage/clots. Cx at that time w/ klebsiella variicola and proteus however notes repeat urine cx from 02/2024 w/ klebsiella still present >100,000CFU Given such, repeat urine cx ordered/pending and WILL FOLLOW Consider extended course, possible FLQ vs Bactrim to complete course #Paroxysmal supraventricular tachycardia and PAF -remains in SR and continues on sotaolol. HR in 50-60s. Continues on ASA 81mg as above and rec for 30 day monitor at sc as above. Rec to keep K/mag replete No prior AC use per patient choice, continued discussion in f/u pending event monitor #Recent rectal bleeding- was hospitalized and discharged 06/27/24. She was also found to have an abnormality in the duodenum on CT scan and had hemorrhoidal bleeding with GI consultation and recs for Anusol BID x 10 day course but DECLINED EGD/colonoscopy Hgb has been STABLE since resuming aspirin and will continue to monitoring, possible ref to colorectal surgeon in past entertained, consider scopes if becomes agreeable (again declined today) CBC in AM #Mild leukopenia-she typically runs on the lower end of normal around 4-5 K but here has been at 2.5-2.8 for her WBC count. She is borderline neutropenic with an ANC 1500 and is lymphopenic with an ALC of 840. She does not have any evidence of viral infection or anaplasmosis clinically. Her Hgb and platelets are normal - Peripheral smear pending -- not overly impressive. CBC stable on repeat and CBC improved w/ tx UTI and will monitor #CKD stage IIIb.- Stable. Creatinine remains baseline ~ 1.4. Remains on lasix 20mg daily for lymphedema/hx HFpEF Monitor BMP, renal dose meds/avoid nephrotoxins as able #Chronic bilateral lower extremity lymphedema/chronic HFpEF - with chronic lymphedema and lipedema. Worsening recently and with development of venous stasis dermatitis and reports by patient had Lymphedema therapy through [employer] in the past but has been >1 yr and believes needs re-measured and calibrated for her compression machine--> message/discussion w/ CM to look into option as will be going to [facility] at [facility] prior to returning to apt Continues on lasix 20mg daily, monitor BNP in AM to see if any benefit from increased dose (does have moderate MR on echo, mild AR, EF 50-55%) On sotaolol for pAfib above, not on any IVETH/ARB, but consideration in f/u outpatient should be considered w/ nephrology supervision #Morbid obesity/prediabetes - HgbA1c here in normal range of 5.6%, BMI elevated 40.9. Weight loss encouraged, also suspect large component from the lymphedema. Consideration for GLP-1 in f/u PCP if deemed appropriate #Dyslipidemia- Continue and titrate statin therapy to 40 mg of simvastatin daily for TIA DVT prophylaxis-SCDs, consideration to add heparin SQ but given recent GI bleeding have deferred for now Disposition - continued inpatient stay monitoring urine cx, hopeful dc 07/09 to [facility] if finalized. CM notified Admission and Anticipated Discharge Date Admission Date: July 04, 2024 Supervising Physician Co-Signing Physician Notes The patient was not seen by me. The chart was reviewed. Case discussed with JOESPH Victoria. Agree with assessment and plan Subjective Evaluated this morning, sitting up in the chair. Feels well, alert/oriented. Discussed urine cx still pending. She notes prior w/ hemorrhage and clots, no clots or bleeding at present time. Discussed after completed last abx, she had some return of symptoms, possibly not treated long enough. No prior abx allergies, discussed possible FLQ to complete treatment vs bactrim but will await final cx. Bed hold at [facility], reports chronic lymphedema and used to go to [facility] but needs remeasured/recalibrated, will discuss w/ CM as she gets therapy in her home and not sure would cover for both. Is member of [employer] if needed for transport but her son can take today/tomorrow but not , will discuss w/ CM. 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) Psych: AOx3, cooperative with exam Results & Data Results & Data Vital Signs (Past 12 Hours) Vital Signs Temp Pulse Pulse Resp BP Pulse Ox O2 Del Method 07/08/24 07:14 60 07/08/24 03:15 36.5 C 65 17 115/63 97 Room Air 07/07/24 23:07 36.5 C 57 L 19 115/61 93 Room Air 07/07/24 22:00 65 07/07/24 20:00 Room Air 07/07/24 19:52 36.6 C 59 L 16 134/87 96 Room Air Laboratory Results 07/08/24 10:29 07/08/24 10:29 PG Care Time/CCT Total # of Minutes Spent Total Time Spent with Patient: Total time spent is greater than 50% in coordination of care (as documented) at patient's floor/unit and/or counseling patient: Coding Level of Care Code 71441 SUB INP/OBS CARE 3/50MIN Diagnoses TIA (transient ischemic attack) G45.9 Meningioma D32.9 Paroxysmal atrial fibrillation I48.0 Atrial fibrillation type: paroxysmal CKD stage 3b, GFR 30-44 ml/min N18.32 (3) Atrial fibrillation Atrial fibrillation type: paroxysmal Qualified Code(s): I48.0 - Paroxysmal atrial fibrillation
[2024-07-08 10:48] LABS: Hematocrit (blood only) 38.8 % (37.0-47.0); Hemoglobin 12.9 g/dl (12.0-16.0); Mean Corpuscular Hemoglobin 31.5 pg (25.0-34.0); Mean Corpuscular Hgb Conc 33.2 g/dL (32.0-36.0); Mean Corpuscular Volume 94.9 fL (80.0-100.0); Mean Platelet Volume 9.1 fL (9.4-12.4); Platelet Count 143 K/uL (130-400); RDW Coefficient of Variation 14.1 % (11.5-14.5); RDW Standard Deviation 49.2 fL (36.4-46.3); Red Blood Count 4.09 M/uL (4.20-5.40); White Blood Count 4.09 K/ul (4.8-10.8)
[2024-07-08 11:08] LABS: Magnesium 1.8 mg/dl (1.7-2.4); Potassium 4.3 mmol/L (3.5-5.1)
[2024-07-08 11:14] LABS: BUN Creatinine Ratio 27.3 (10-20); Creatinine Clr Calc Pharmacy 31.5 ml/min
[2024-07-09 06:36] LABS: Basophils # (auto) 0.03 K/uL (0.00-0.20); Eosinophils # (auto) 0.11 K/uL (0.00-0.50); Eosinophils % (auto) 3.5 %; Hematocrit (blood only) 36.2 % (37.0-47.0); Hemoglobin 12.1 g/dl (12.0-16.0); Lymphocytes # (auto) 0.93 K/uL (1.20-3.40); Lymphocytes % (auto) 29.8 %; Mean Corpuscular Hemoglobin 31.4 pg (25.0-34.0); Mean Corpuscular Hgb Conc 33.4 g/dL (32.0-36.0); Mean Platelet Volume 9.4 fL (9.4-12.4); Monocytes # (auto) 0.43 K/uL (0.11-0.59); Monocytes % (auto) 13.8 %; Neutrophils # (auto) 1.62 K/uL (1.40-6.50); Neutrophils % (auto) 51.9 %; Platelet Count 146 K/uL (130-400); RDW Coefficient of Variation 13.6 % (11.5-14.5); RDW Standard Deviation 47.2 fL (36.4-46.3); Red Blood Count 3.85 M/uL (4.20-5.40); White Blood Count 3.12 K/ul (4.8-10.8)
[2024-07-09 07:08] LABS: BUN Creatinine Ratio 27.7 (10-20); Calcium 8.6 mg/dl (8.6-10.3); Creatinine Clr Calc Pharmacy 29.3 ml/min; Magnesium 1.8 mg/dl (1.7-2.4); Potassium 4.1 mmol/L (3.5-5.1)
--- NOTE | 2024-07-09 07:38 | Hospitalist Progress Note ---
Date of Service July 09, 2024 Assessment & Plan (1) TIA (transient ischemic attack): (2) Meningioma: (3) Atrial fibrillation: (4) CKD stage 3b, GFR 30-44 ml/min: Plan 78-year-old female with a history of paroxysmal SVT, paroxysmal atrial fibrillation not on AC, CKD stage III, chronic bilateral LE lymphedema, morbid obesity, prediabetes, HLD, HFpEF, rectal bleeding, GERD, presented to the ER with transient dysarthria, aphasia, along with mild headache. Symptoms resolved and was NOT TNKase candidate. Recently taken OFF baby aspirin due to rectal bleeding ~2wks ago She was admitted for stroke workup. CT head negative, CTA head/neck negative for acute finding. Telestroke saw patient and rec ONLY ASA 81mg due to recent rectal bleeding. ECHO w/ preserved EF (50-55%), negative bubble/thrombus. MRI brain negative for acute CVA but noted 9mm L frontal meningioma and moderate small vessel ischemic disease. Neurology consulted/EEG obtained and NEGATIVE and to have f/u with Neurology outpatient 2-3 weeks and needs 30 day event monitor at discharge and if found again, strongly encourage pt to start eliquis at that time if no further GI bleeding. Remains NSR on telemetry however continued inpatient stay for tx UTI (also increased diuretics) below but plan for [facility] once urine cx finalized/resulted for acute rehab. #TIA/meningioma/mild headache As outlined above, noted on imaging and EEG negative and to have Neuro f/u outpatient. TSH wnl and remains on ASA 81mg daily and 30 day event monitor planned and possible start AC if agreeable/afib found and no further bleeding PT/OT rec for rehab, [facility] to be arranged (son can transport today/tomorrow, but may need assistance if waiting for urine cx below for but is member of [employer] and notified CM of such to follow) #UTI +UA concerning for infection w/ AMS and sx and started Ceftriaxone IV on 07/07 in patient w/ hx UTI and appears tx during Jan-Feb inpatient for pyelo w/ hemorrhage/clots. Cx at that time w/ variicola and proteus but had continued klebsiella noted on Feb cx after discharge Repeat urine cx recommended and pending, remains on Ceftriaxone (day 3) and will continue to monitor repeat cx #Chronic bilateral lower extremity lymphedema/chronic HFpEF - with chronic lymphedema and lipedema however note in prior hospitalization benefit from IV diuretics for assistance Did have increased edema on exam 07/08 and review of weights similar and ECHO reviewed and did have slight decrease to EF to 50-55% and BNP add to labs BNP elevated similar to prior stay and w/ increased edema/weight gain--> lasix increased to 40mg daily and will monitor response. -Suspect w/ her underlying CKD she may need increased dosing. -Can ref to Nephro/touch base if needed based on response but Cr stable ~1.4. ?benefit from IVETH/ARB CM alerted prior [employer]/need for recalibration and to be able to arrange at [facility] for rehab. #CKD stage IIIb.- Stable baseline Cr ~1.4. As above, lasix has been increased for lymphedema/possible acute on chronic HFpEF (50-55%) Monitor BMP in AM #Paroxysmal supraventricular tachycardia and PAF -hx of such but remains NSR on telemetry/TSH wnl and remains on SOTALOL PO. HR in 50-60s, remains on ASA 81mg daily and event monitor planned at md #Recent rectal bleeding- was hospitalized and discharged 06/27/24 for such. Also noted to have abn on duodenum on CT scan and hemorrhoidal bleeding. GI consult rec for Anusol at that time, has not had any further bleeding reported and had declined EGD/C-scope but could consider in f/u if agreeable. CBC w/ stable hgb #Mild leukopenia-she typically runs on the lower end of normal around 4-5 K but here has been at 2.5-2.8 for her WBC count. Borderline neutropenic w/ ANC 1500 and lymphopenic w/ ALC 940. Peripheral smear not impressive. WBC remains similar, afebrile. No evidence for viral or anaplasmosis clinically and normal hgb/plt and will monitor. Outpatient colo if agreeable #Morbid obesity/prediabetes - HgbA1c here in normal range of 5.6%, BMI elevated 40.9. Weight loss encouraged, also suspect large component from the lymphedema. Consideration for GLP-1 in f/u PCP if deemed appropriate but will increase lasix as above #Dyslipidemia- Continue and titrate statin therapy to 40 mg of simvastatin daily for TIA DVT prophylaxis-SCDs, consideration to add heparin SQ but given recent GI bleeding have deferred for now Disposition - continued inpatient stay monitoring urine cx, hopeful dc 07/10 to [facility] if finalized. CM notified Admission and Anticipated Discharge Date Admission Date: July 04, 2024 Supervising Physician Co-Signing Physician Notes The patient was not seen by me. The chart was reviewed. Case discussed with JOESPH Victoria. Agree with assessment and plan Subjective Eval this morning, feeling well. Took first walk with therapy today. Discussed lasix, she preferred to hold off but after longer discussion was agreeable to 40 while here and will monitor/can talk w/ nephrology if needed but suspect w/ CKD needing higher dose. [employer] [facility] able to be arranged at [facility]. Urine cx still pending and plan for dc tomorrow. If no growth will plan for extended PO for coverage from prior cxs. 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, cooperative with exam Results & Data Results & Data Vital Signs (Past 12 Hours) Vital Signs Temp Pulse Pulse Resp BP Pulse Ox O2 Del Method 07/09/24 03:22 36.5 C 55 L 18 115/72 94 Room Air 07/08/24 23:09 36.4 C L 57 L 18 116/76 96 Room Air 07/08/24 22:51 69 07/08/24 20:00 Room Air Laboratory Results 07/09/24 06:12 07/09/24 06:12 Mag 1.8 BNP 818 PG Care Time/CCT Total # of Minutes Spent Total Time Spent with Patient: Total time spent is greater than 50% in coordination of care (as documented) at patient's floor/unit and/or counseling patient: Coding Level of Care Code 57305 SUB INP/OBS CARE 50MIN Diagnoses TIA (transient ischemic attack) G45.9 Meningioma D32.9 Paroxysmal atrial fibrillation I48.0 Atrial fibrillation type: paroxysmal CKD stage 3b, GFR 30-44 ml/min N18.32 (3) Atrial fibrillation Atrial fibrillation type: paroxysmal Qualified Code(s): I48.0 - Paroxysmal atrial fibrillation
[2024-07-09] MEDS: FUROSEMIDE 40 MG TAB PO SCH (08:52)
[2024-07-09] MEDS: FUROSEMIDE 40 MG TAB PO ONE (10:59)
[2024-07-10 06:14] LABS: Basophils # (auto) 0.02 K/uL (0.00-0.20); Basophils % (auto) 0.6 %; Eosinophils % (auto) 3.2 %; Hematocrit (blood only) 36.2 % (37.0-47.0); Hemoglobin 12.1 g/dl (12.0-16.0); Immature Granulocytes # (auto) 0.01 K/uL (0.01-0.20); Immature Granulocytes % (auto) 0.3 %; Lymphocytes # (auto) 0.85 K/uL (1.20-3.40); Lymphocytes % (auto) 26.9 %; Mean Corpuscular Hemoglobin 31.8 pg (25.0-34.0); Mean Corpuscular Hgb Conc 33.4 g/dL (32.0-36.0); Mean Platelet Volume 9.3 fL (9.4-12.4); Monocytes # (auto) 0.52 K/uL (0.11-0.59); Monocytes % (auto) 16.5 %; Neutrophils # (auto) 1.66 K/uL (1.40-6.50); Neutrophils % (auto) 52.5 %; Platelet Count 150 K/uL (130-400); RDW Coefficient of Variation 13.7 % (11.5-14.5); RDW Standard Deviation 48.7 fL (36.4-46.3); Red Blood Count 3.81 M/uL (4.20-5.40); White Blood Count 3.16 K/ul (4.8-10.8)
[2024-07-10 06:36] LABS: BUN Creatinine Ratio 27.8 (10-20); Calcium 8.7 mg/dl (8.6-10.3); Creatinine Clr Calc Pharmacy 29.6 ml/min; Magnesium 1.8 mg/dl (1.7-2.4); Potassium 4.1 mmol/L (3.5-5.1)
--- NOTE | 2024-07-10 07:40 | Hospitalist Progress Note ---
Date of Service July 10, 2024 Assessment & Plan (1) TIA (transient ischemic attack): (2) Meningioma: (3) Atrial fibrillation: (4) CKD stage 3b, GFR 30-44 ml/min: Plan 78-year-old female with a history of paroxysmal SVT, paroxysmal atrial fibrillation not on AC, CKD stage III, chronic bilateral LE lymphedema, morbid obesity, prediabetes, HLD, HFpEF, rectal bleeding, GERD, presented to the ER with transient dysarthria, aphasia, along with mild headache. Symptoms resolved and was NOT TNKase candidate. Recently taken OFF baby aspirin due to rectal bleeding ~2wks ago She was admitted for stroke workup. CT head negative, CTA head/neck negative for acute finding. Telestroke saw patient and rec ONLY ASA 81mg due to recent rectal bleeding. ECHO w/ preserved EF (50-55%), negative bubble/thrombus. MRI brain negative for acute CVA but noted 9mm L frontal meningioma and moderate small vessel ischemic disease. Neurology consulted/EEG obtained and NEGATIVE and to have f/u with Neurology outpatient 2-3 weeks and needs 30 day event monitor at discharge and if found again, strongly encourage pt to start eliquis at that time if no further GI bleeding. Remains NSR on telemetry however continued inpatient stay for tx UTI/increased diuretics and need for P2P for IPR for [facility] #TIA/meningioma/mild headache -As outlined above, noted on imaging and EEG negative and to have Neuro f/u outpatient. TSH wnl and remains on ASA 81mg daily and 30 day event monitor planned and possible start AC if agreeable/afib found and no further bleeding. PT/OT rec for rehab, P2P for [facility] needed per CM. Have called number and awaiting call back. Given inpatient 2 wks ago for rectal bleeding, now AMS/TIA and JUST GETTING OUT OF BED FOR FIRST TIME 07/09 w/ weakness and need for strength/conditioning prior to return to independent apartment recommended to improve outcomes/prevent readmission/adverse outcomes Notable is member [facility] if needing assistance w/ transport at dc #UTI -+UA concerning for infection w/ AMS and sx and started Ceftriaxone IV on 07/07 (was using purewick prior) in patient w/ hx UTI and appears tx during Jan-Feb inpatient for pyelo w/ hemorrhage/clots. Cx at that time w/ variicola and proteus but had continued klebsiella noted on Feb cx after discharge Repeat urine cx again w/ moderate evelyn Remains on Ceftriaxone IV (day 4 of treatment) and could complete after tomorrows dose for 5 days IV therapy #Chronic bilateral lower extremity lymphedema/chronic HFpEF -with chronic lymphedema and lipedema however note in prior hospitalization benefit from IV diuretics for assistance. BNP checked and elevated similar to prior, noted EF 50-55% on ECHO (slight reduction compared to prior) and reviewed weights reviewed and UP and w/ CKD III suspect needing HIGHER DOSE LASIX Lasix increased to 40mg PO x 1 for 07/09 - output 1.5L, BUN/Cr stable and improved to 40/1.44 and would continue higher dose lasix 40mg daily at dc. continue to monitor weight/I&O and volume status, BMP in AM #CKD stage IIIb Noted, around baseline ~1.4 and w/ HFpEF/edema, lasix increased to 40mg daily and good UOP/clear yellow in color and stable renal function and plan to continue higher dose lasix at dc given CKD Renal dose meds/avoid toxins #Paroxysmal supraventricular tachycardia and PAF -hx of such but remains NSR on telemetry/TSH wnl and remains on SOTALOL PO. HR in 50-60s and remains on ASA 81mg daily and event monitor planned at dc #Recent rectal bleeding- was hospitalized and discharged 06/27/24 for such, also noted to have abn on duodenum on CT scan and hemorrhoidal bleeding. GI consult rec for Anusol at that time, has not had any further bleeding reported and had declined EGD/C-scope but could consider in f/u if agreeable. anusol supp discontinued as has been refusing and CBC w/ stable hgb #Mild leukopenia -she typically runs on the lower end of normal around 4-5 K but here has been at 2.5-2.8 for her WBC count. Borderline neutropenic w/ ANC 1500 and lymphopenic w/ ALC 940. Peripheral smear not impressive. WBC remains similar, afebrile. No evidence for viral or anaplasmosis clinically and normal hgb/plt and will monitor. Outpatient colo if agreeable #Morbid obesity/prediabetes - HgbA1c here in normal range of 5.6%, BMI elevated 40.9. Weight loss encouraged, also suspect large component from the lymphedema. Consideration for GLP-1 in f/u PCP if deemed appropriate but will increase lasix as above #Dyslipidemia- Continue and titrate statin therapy to 40 mg of simvastatin daily for TIA at dc DVT prophylaxis-SCDs, chemo proph defer in recent GI bleeding Dispo: continued inpatient stay, Plan for [facility]P for [facility] for IPR. CM following At dc, will need outpt event monitor, likely increased lasix as discussed, pravastatin to 40mg, asa 81mg and neurology follow up in 2-3 weks Admission and Anticipated Discharge Date Admission Date: July 04, 2024 Supervising Physician Co-Signing Physician Notes The patient was not seen by me. The chart was reviewed. Case discussed with JOESPH Victoria. Agree with assessment and plan Subjective Eval around lunch, sitting up in chair. Doing well, alert/oriented, tolerating diet. Desire for rehab, discussed P2P to be completed for [facility], hopefully able to get approved. Otherwise CM to follow up Great output w/ increased lasix, just filled hat in toilet, clear yellow. Lymphedema stable. Weights down and renal function stable and higher dose w/ her CKD discussed. Continued abx, discussed cx and basing from prior to complete course. 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 with exam Results & Data Results & Data Vital Signs (Past 12 Hours) Vital Signs Temp Pulse Pulse Resp BP Pulse Ox O2 Del Method 07/10/24 04:00 36.5 C 60 18 121/74 94 Room Air 07/09/24 23:21 58 L 07/09/24 22:37 36.5 C 64 18 124/78 95 Room Air 07/09/24 20:00 Room Air Laboratory Results 07/10/24 05:59 07/10/24 05:59 Mag 1.8 PG Care Time/CCT Total # of Minutes Spent Total Time Spent with Patient: Total time spent is greater than 50% in coordination of care (as documented) at patient's floor/unit and/or counseling patient: Coding Level of Care Code 13663 SUB INP/OBS CARE 3/50MIN Diagnoses TIA (transient ischemic attack) G45.9 Meningioma D32.9 Paroxysmal atrial fibrillation I48.0 Atrial fibrillation type: paroxysmal CKD stage 3b, GFR 30-44 ml/min N18.32 (3) Atrial fibrillation Atrial fibrillation type: paroxysmal Qualified Code(s): I48.0 - Paroxysmal atrial fibrillation
--- NOTE | 2024-07-11 07:32 | Hospitalist Progress Note ---
Date of Service July 11, 2024 Assessment & Plan (1) TIA (transient ischemic attack): (2) Meningioma: (3) Atrial fibrillation: (4) CKD stage 3b, GFR 30-44 ml/min: Plan 78-year-old female with a history of paroxysmal SVT, paroxysmal atrial fibrillation not on AC, CKD stage III, chronic bilateral LE lymphedema, morbid obesity, prediabetes, HLD, HFpEF, rectal bleeding, GERD, presented to the ER with transient dysarthria, aphasia, along with mild headache. Symptoms resolved and was NOT TNKase candidate. Recently taken OFF baby aspirin due to rectal bleeding ~2wks ago She was admitted for stroke workup. CT head negative, CTA head/neck negative for acute finding. Telestroke saw patient and rec ONLY ASA 81mg due to recent rectal bleeding. ECHO w/ preserved EF (50-55%), negative bubble/thrombus. MRI brain negative for acute CVA but noted 9mm L frontal meningioma and moderate small vessel ischemic disease. Neurology consulted/EEG obtained and NEGATIVE and to have f/u with Neurology outpatient 2-3 weeks and needs 30 day event monitor at discharge and if found again, strongly encourage pt to start eliquis at that time if no further GI bleeding. Remains inpatient for desire for rehab, P2P completed evening 07/10 and was denied. CM following and possible self pay vs appeal vs other #TIA/meningioma/mild headache-As outlined above, noted on imaging and EEG negative and to have Neuro f/u outpatient. TSH wnl and remains on ASA 81mg daily and 30 day event monitor planned and possible start AC if agreeable/afib found and no further bleeding. PT/OT rec for rehab, P2P for [facility] needed per CM. Have called number and awaiting call back. Given inpatient 2 wks ago for rectal bleeding, now AMS/TIA and JUST GETTING OUT OF BED FOR FIRST TIME 07/09 w/ weakness and need for strength/conditioning prior to return to independent apartment recommended to improve outcomes/prevent readmission/adverse outcomes Notable is member [employer] if needing assistance w/ transport at dc #UTI +UA concerning for infection w/ AMS and use of purewick w/ ambulation/incontinence issues earlier. Ceftriaxone 2gm IV started 07/07 Urine cx repeat collection, repeat w/ mixed evelyn. Sx improving and mentation stable and have been continue on abx (5/2 day 5 of tx and can dc after today vs complete 7 day course given recurrent/prior resistance) #Chronic bilateral lower extremity lymphedema/chronic HFpEF -with chronic lymphedema and lipedema however note in prior hospitalization benefit from IV diuretics for assistance. BNP checked and elevated similar to prior -noted EF 50-55% on ECHO slight reduction compared to prior and reviewed weights reviewed and UP and w/ CKD III suspect needing HIGHER DOSE LASIX Lasix increased to 40mg PO daily 07/09 Net outut 2.3L + 2.1L and Cr stable 1.44--> 1.41 and will continue higher dose as tolerated. Wts decreased/monitoring *Rec inc lasix 40mg at dc unless issues otherwise #Paroxysmal supraventricular tachycardia and PAF -hx of such but remains NSR on telemetry TSH wnl and remains on SOTALOL 20mg PO BID. HR 50s primarily, sinus and remains on ASA 81mg daily. event monitor at dc as above #CKD stage IIIb-Noted, around baseline ~1.4 and w/ HFpEF/edema, lasix increased to 40mg daily and good UOP/clear yellow in color and stable renal function and plan to continue higher dose lasix at dc given CKD. Renal dose meds/avoid toxins #Recent rectal bleeding- was hospitalized and discharged 06/27/24 for such, also noted to have abn on duodenum on CT scan and hemorrhoidal bleeding. GI consult rec for Anusol at that time, has not had any further bleeding reported and had declined EGD/C-scope but could consider in f/u if agreeable. anusol supp discontinued as has been refusing and CBC w/ stable hgb #Mild leukopenia-she typically runs on the lower end of normal around 4-5 K but here has been at 2.5-2.8 for her WBC count. Borderline neutropenic w/ ANC 1500 and lymphopenic w/ ALC 940. Peripheral smear not impressive. WBC remains similar, afebrile. No evidence for viral or anaplasmosis clinically and normal hgb/plt and will monitor. Outpatient colo if agreeable #Morbid obesity/prediabetes - HgbA1c here in normal range of 5.6%, BMI elevated 40.9. Weight loss encouraged, also suspect large component from the lymphedema. Consideration for GLP-1 in f/u PCP if deemed appropriate but will increase lasix as above #Dyslipidemia- Continue and titrate statin therapy to 40 mg of simvastatin daily for TIA at tx DVT prophylaxis-SCDs, chemo proph defer in recent GI bleeding Dispo: continued inpatient stay, P2P denied and patient waiting to discuss w/ son about private pay at [facility] or family appeal vs home w/ therapy. Possible inpatient through weekend if appeal. CM notified and to follow up discussion At tx, will need outpt event monitor, likely increased lasix as discussed, pravastatin to 40mg, asa 81mg and neurology follow up in 2-3 weks Admission and Anticipated Discharge Date Admission Date: July 04, 2024 Supervising Physician Co-Signing Physician Notes The patient was not seen by me. The chart was reviewed. Case discussed with JOESPH Victoria. Agree with assessment and plan Subjective Eval this afternoon around lunch, voiding w/ lasix use. Appears improved daily. P2P completed and denied as discussed, she is waiting to talk w/ her son about possibly private pay vs other, also can consider family appeal if desired. No fever/chills, CP/SOB/abd pain reported. Questions/concerns addressed at this time. 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) Psych: AOx3, cooperative with exam Results & Data Results & Data Vital Signs (Past 12 Hours) Vital Signs Temp Pulse Pulse Resp BP Pulse Ox O2 Del Method 07/11/24 03:25 36.5 C 56 L 18 117/76 92 Room Air 07/11/24 01:00 66 07/10/24 23:24 36.7 C 57 L 18 108/71 91 Room Air 07/10/24 19:55 36.5 C 57 L 18 108/69 95 Room Air Laboratory Results 07/10/24 05:59 07/11/24 07:29 Mag 1.9 PG Care Time/CCT Total # of Minutes Spent Total Time Spent with Patient: Total time spent is greater than 50% in coordination of care (as documented) at patient's floor/unit and/or counseling patient: Coding Level of Care Code 94363 SUB INP/OBS CARE 3/50MIN Diagnoses TIA (transient ischemic attack) G45.9 Meningioma D32.9 Paroxysmal atrial fibrillation I48.0 Atrial fibrillation type: paroxysmal CKD stage 3b, GFR 30-44 ml/min N18.32 (3) Atrial fibrillation Atrial fibrillation type: paroxysmal Qualified Code(s): I48.0 - Paroxysmal atrial fibrillation
[2024-07-11 08:23] LABS: BUN Creatinine Ratio 29.8 (10-20); Creatinine Clr Calc Pharmacy 30.2 ml/min; Magnesium 1.9 mg/dl (1.7-2.4)
--- NOTE | 2024-07-12 07:41 | Hospitalist Progress Note ---
Date of Service July 12, 2024 Assessment & Plan (1) TIA (transient ischemic attack): (2) Meningioma: (3) Atrial fibrillation: (4) CKD stage 3b, GFR 30-44 ml/min: Plan 78-year-old female with a history of paroxysmal SVT, paroxysmal atrial fibrillation not on AC, CKD stage III, chronic bilateral LE lymphedema, morbid obesity, prediabetes, HLD, HFpEF, rectal bleeding, GERD, presented to the ER with transient dysarthria, aphasia, along with mild headache. Symptoms resolved and was NOT TNKase candidate. Recently taken OFF baby aspirin due to rectal bleeding ~2wks ago She was admitted for stroke workup. CT head negative, CTA head/neck negative for acute finding. Telestroke saw patient and rec ONLY ASA 81mg due to recent rectal bleeding. ECHO w/ preserved EF (50-55%), negative bubble/thrombus. MRI brain negative for acute CVA but noted 9mm L frontal meningioma and moderate small vessel ischemic disease. Neurology consulted/EEG obtained and NEGATIVE and to have f/u with Neurology outpatient 2-3 weeks and needs 30 day event monitor at discharge and if found again, strongly encourage pt to start eliquis at that time if no further GI bleeding. Simvastatin inc to 40mg daily. Remains inpatient for desire for rehab, P2P completed evening 07/10 and was denied. CM following and possible self pay vs appeal vs other. Down grade off tele 07/12 given no afib/arrhythmia at this time #TIA/meningioma/mild headache-As outlined above, noted on imaging and EEG negative and to have Neuro f/u outpatient. TSH wnl and remains on ASA 81mg daily and 30 day event monitor planned and possible start AC if agreeable/afib found and no further bleeding. PT/OT rec for rehab, P2P for [facility] needed per CM. Have called number and awaiting call back. Given inpatient 2 wks ago for rectal bleeding, now AMS/TIA and JUST got OOB for first time 07/09 however P2P denied and CM following for possible private pay vs other, likely dc Sunday once determined #UTI-+UA concerning for infection w/ AMS and use of purewick w/ ambulation/incontinence issues earlier. Hx multiple bugs/resistance Ceftriaxone 2gm IV (started 07/07). Urine cx rec repeat, repeat w/o identification/mixed evelyn, can dc after 7d given prior resistance but w/o pyelo/bleeding this time, EOT 07/13 for 7 day course #Chronic bilateral lower extremity lymphedema/chronic HFpEF -with chronic lymphedema and lipedema however note in prior hospitalization benefit from IV diuretics for assistance. BNP checked and elevated similar to prior Noted EF 50-55% on ECHO slight reduction compared to prior and reviewed weights reviewed and UP and w/ CKD III suspect needing HIGHER DOSE LASIX Lasix increased to 40mg PO daily 07/09 and took 07/09, 07/10. Refused higher dose 07/11-07/12 and took 20mg, Cr improved to 1.35 and breathing improved but agreeable to 40mg dose for AM and alternating at dc Monitor on repeat exams #Paroxysmal supraventricular tachycardia and PAF -hx of such but remains NSR on telemetry TSH wnl and remains on SOTALOL 20mg PO BID. HR 50s primarily, sinus and remains on ASA 81mg daily. event monitor at dc as above #CKD stage IIIb-Noted, around baseline ~1.4 and w/ HFpEF/edema -- lasix increased to 40mg daily and good UOP/clear yellow in color and stable renal function and plan to continue higher dose lasix at dc given CKD vs alternating given patient desire Renal dose meds/avoid toxins, BMP in AM #Recent rectal bleeding- was hospitalized and discharged 06/27/24 for such, also noted to have abn on duodenum on CT scan and hemorrhoidal bleeding. GI consult rec for Anusol at that time, has not had any further bleeding reported and had declined EGD/C-scope but could consider in f/u if agreeable. anusol supp discontinued as has been refusing and CBC w/ stable hgb #Mild leukopenia-she typically runs on the lower end of normal around 4-5 K but here has been at 2.5-2.8 for her WBC count. Borderline neutropenic w/ ANC 1500 and lymphopenic w/ ALC 940. Peripheral smear not impressive. WBC remains similar, afebrile. No evidence for viral or anaplasmosis clinically and normal hgb/plt and will monitor. Outpatient colo if agreeable #Morbid obesity/prediabetes - HgbA1c here in normal range of 5.6%, BMI elevated 40.9. Weight loss encouraged, also suspect large component from the lymphedema. Consideration for GLP-1 in f/u PCP if deemed appropriate but will increase lasix as above #Dyslipidemia- Continue and titrate statin therapy to 40 mg of simvastatin daily for TIA at [place] DVT prophylaxis-SCDs, chemo proph defer in recent GI bleeding Dispo: continued inpatient stay, will DOWNGRADE off telemetry today given no afib/arrhythmia and continued inpatient stay for hopeful rehab Pt reports son w/ family meeting w/ [facility] tomorrow, ?possible private pay. CM to f/u once meeting occurs for discussion At [place], inc simvastatin 40mg, continue asa 81mg, event monitor, neuro f/u 2-3 wks Admission and Anticipated Discharge Date Admission Date: July 04, 2024 Supervising Physician Co-Signing Physician Notes The patient was not seen by me. The chart was reviewed. Case discussed with JOESPH Victoria. Agree with assessment and plan Subjective Eval this morning, sitting up in chair. NAD, reports feeling well. Son w/ meeting w/ [facility] tomorrow, remain inpatient through Sunday for determination. Plan for 7day abx for UTI. Renal function stable. She declined higher lasix today, does still have some SOB at times but improved from prior and agreed for 40mg for tomorrow and consideration to alternate. She notes at home when has appt will miss and double up next day. Questions/concerns addressed at this time, plan for downgrade off telemetry this afternoon. 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) Psych: AOx3, cooperative with exam Results & Data Results & Data Vital Signs (Past 12 Hours) Vital Signs Temp Pulse Pulse Resp BP Pulse Ox O2 Del Method 07/12/24 07:24 57 L 07/12/24 03:23 36.5 C 59 L 18 111/73 96 Room Air 07/11/24 23:20 36.4 C L 56 L 18 112/72 95 Room Air 07/11/24 21:53 59 L 07/11/24 21:13 66 Laboratory Results 07/12/24 07:30 07/12/24 07:30 PG Care Time/CCT Total # of Minutes Spent Total Time Spent with Patient: Total time spent is greater than 50% in coordination of care (as documented) at patient's floor/unit and/or counseling patient: Coding Level of Care Code 97002 SUB INP/OBS CARE 3/50MIN Diagnoses TIA (transient ischemic attack) G45.9 Meningioma D32.9 Paroxysmal atrial fibrillation I48.0 Atrial fibrillation type: paroxysmal CKD stage 3b, GFR 30-44 ml/min N18.32 (3) Atrial fibrillation Atrial fibrillation type: paroxysmal Qualified Code(s): I48.0 - Paroxysmal atrial fibrillation
[2024-07-12 07:52] LABS: Hemoglobin 12.4 g/dl (12.0-16.0); Mean Corpuscular Hemoglobin 31.2 pg (25.0-34.0); Mean Corpuscular Hgb Conc 33.5 g/dL (32.0-36.0); Mean Corpuscular Volume 93.2 fL (80.0-100.0); Mean Platelet Volume 9.3 fL (9.4-12.4); Platelet Count 169 K/uL (130-400); RDW Coefficient of Variation 13.9 % (11.5-14.5); RDW Standard Deviation 47.6 fL (36.4-46.3); Red Blood Count 3.97 M/uL (4.20-5.40); White Blood Count 3.51 K/ul (4.8-10.8)
[2024-07-12 08:07] LABS: BUN Creatinine Ratio 30.4 (10-20); Calcium 8.7 mg/dl (8.6-10.3); Creatinine Clr Calc Pharmacy 31.2 ml/min
[2024-07-13 07:16] LABS: BUN Creatinine Ratio 32.6 (10-20); Calcium 8.5 mg/dl (8.6-10.3); Creatinine Clr Calc Pharmacy 31.2 ml/min; Potassium 4.1 mmol/L (3.5-5.1)
--- NOTE | 2024-07-13 08:00 | Hospitalist Progress Note ---
Date of Service July 13, 2024 Assessment & Plan (1) TIA (transient ischemic attack): (2) Meningioma: (3) Atrial fibrillation: (4) CKD stage 3b, GFR 30-44 ml/min: Plan 78-year-old female with a history of paroxysmal SVT, paroxysmal atrial fibrillation not on AC, CKD stage III, chronic bilateral LE lymphedema, morbid obesity, prediabetes, HLD, HFpEF, rectal bleeding, GERD, presented to the ER with transient dysarthria, aphasia, along with mild headache. Symptoms resolved and was NOT TNKase candidate. Recently taken OFF baby aspirin due to rectal bleeding ~2wks ago Admitted for stroke workup. CT head negative, CTA head/neck negative for acute finding. Telestroke saw patient and rec ONLY ASA 81mg due to recent rectal bleeding. ECHO w/ preserved EF (50-55%), negative bubble/thrombus. MRI brain negative for acute CVA but noted 9mm L frontal meningioma and moderate small vessel ischemic disease. Neurology consulted/EEG obtained and NEGATIVE and to have f/u with Neurology outpatient 2-3 weeks and needs 30 day event monitor at discharge and if found again, strongly encourage pt to start eliquis at that time if no further GI bleeding. Simvastatin inc to 40mg daily. Remains inpatient as P2P for [facility] denied and son having meeting w/ them 07/13 to determine if self pay vs other #TIA/meningioma/mild headache As outlined above, noted on imaging and EEG negative and to have Neuro f/u outpatient. TSH wnl and remains on ASA 81mg daily and 30 day event monitor planned and possible start AC if agreeable/afib found and no further bleeding. PT/OT rec for rehab, P2P for [facility] needed per CM. Have called number and awaiting call back. Given inpatient 2 wks ago for rectal bleeding, now AMS/TIA and JUST got OOB for first time 07/09 however P2P denied and CM following for possible private pay vs other, likely dc Sunday once determined #UTI - see prior notes, UA appearing infected w/ AMS and sx and CTX 2gm IV started. Will complete course after dose 07/13 given hx resistance/pyelo prior #Chronic bilateral lower extremity lymphedema/chronic HFpEF -with chronic lymphedema and lipedema, however note in prior hospitalization benefit from IV diuretics for assistance. Also note confirmed able to have [facility] come to [facility] for lymphedema tx/calibration prior pumps/etc if able to go there at vt BNP checked/elevated. EF 50-55% slightly reduced from prior and weights up. Note CKD 3 and suspect higher doses needed. Took 40mg on 07/09, 07/10 w/ improvement however wanted 20mg on 07/11-07/12 however agreed to take 40mg today (07/13) and if Cr further improved highly recommended 40mg dose moving forward Monitor volumes status, weights in AM and renal function. Final diuretic dosing TBD but again rec 40mg daily if BUN/Cr and BP tolerating #Paroxysmal supraventricular tachycardia and PAF -hx of such but remains NSR on telemetry. TSH wnl and continues on home sotalol 20mg BID. HR 50s primarily, in sinus and downgraded off tele 07/13 and remains on ASA 81mg daily. -Event monitor at [facility] rec'd #CKD stage IIIb Cr baseline ~1.4, w/ HFpEF/edema above Lasix INCREASED 40mg and renal function stable/tolerating and weights down. Suspect higher dose needed as above. Renal dose meds/avoid toxins otherwise and if Cr same/lower in Am would continue 40mg lasix daily #Recent rectal bleeding- none at present time (see prior note, hosp 06/27 for such), GI/anusol use prior and no further bleeding/hgb stable w/ continued diuretics above #Mild leukopenia-she typically runs on the lower end of normal around 4-5 K but here has been at 2.5-2.8 for her WBC count. Borderline neutropenic w/ ANC 1500 and lymphopenic w/ ALC 940. Peripheral smear not impressive. WBC remains similar, afebrile. No evidence for viral or anaplasmosis clinically and normal hgb/plt and will monitor. Outpatient colo if agreeable #Morbid obesity/prediabetes - HgbA1c here in normal range of 5.6%, BMI elevated 40.9. Weight loss encouraged, also suspect large component from the lymphedema. Consideration for GLP-1 in f/u PCP if deemed appropriate but will increase lasix as above #Dyslipidemia- Continue and titrate statin therapy to 40 mg of simvastatin daily for TIA at [facility] DVT prophylaxis-SCDs, chemo proph defer in recent GI bleeding Dispo: continued inpatient stay, CM to follow up w/ son and patient regarding meeting at [facility] for dispo, ?private pay At v[place]: * rx inc simvastatin 40mg, resume asa 81mg, lasix increased to 40mg * Will need event monitor, neuro f/u 2-3 wks. * Wound care/lymphedema clinic f/u Admission and Anticipated Discharge Date Admission Date: July 04, 2024 Supervising Physician Co-Signing Physician Notes The patient was not seen by me. The chart was reviewed. Case discussed with JOESPH Victoria. Agree with assessment and plan Subjective Eval this morning, sitting up in chair. Initially concerned about taking sotalol w/ lower HR but similar to telemetry and no afib and discussed hx afib and wanting to keep in SR given not able to be on anticoagulation at this time w/ recent bleeding and TIA. Agreeable to take. BP stable. Took AM lasix 40mg, lymphedema stable. Son had appt w/ [facility] this morning and patient reports going to [place] after and then will be here to see how it goes. Dispo pending ongoing discussion vs possible private pay. Questions/concerns addressed, will also order eucerin for dry legs, ulcer prior looking good and rec inc diuretics as prior discussed. 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: 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, cooperative with exam Results & Data Results & Data Vital Signs (Past 12 Hours) Vital Signs Temp Pulse Resp BP Pulse Ox O2 Del Method 07/13/24 07:41 36.5 C 50 L 17 118/77 97 Room Air 07/12/24 20:50 65 95 Room Air Laboratory Results 07/12/24 07:30 07/13/24 06:34 PG Care Time/CCT Total # of Minutes Spent Total Time Spent with Patient: Total time spent is greater than 50% in coordination of care (as documented) at patient's floor/unit and/or counseling patient: Coding Level of Care Code 48858 SUB INP/OBS CARE 3/50MIN Diagnoses TIA (transient ischemic attack) G45.9 Meningioma D32.9 Paroxysmal atrial fibrillation I48.0 Atrial fibrillation type: paroxysmal CKD stage 3b, GFR 30-44 ml/min N18.32 (3) Atrial fibrillation Atrial fibrillation type: paroxysmal Qualified Code(s): I48.0 - Paroxysmal atrial fibrillation
[2024-07-13] MEDS: EUCERIN CR 120 GM JAR EXT SCH (11:37)
[2024-07-14 10:51] LABS: BUN Creatinine Ratio 29.2 (10-20); Creatinine Clr Calc Pharmacy 27.3 ml/min
--- NOTE | 2024-07-14 14:51 | Hospitalist Progress Note ---
Date of Service July 14, 2024 Assessment & Plan (1) TIA (transient ischemic attack): (2) Meningioma: (3) Atrial fibrillation: (4) CKD stage 3b, GFR 30-44 ml/min: Plan 78-year-old female with a history of paroxysmal SVT no clear-cut evidence of PAF and not on anticoagulation, CKD stage III, chronic bilateral LE lymphedema, morbid obesity, prediabetes, HLD, HFpEF, rectal bleeding, GERD, presented to the ER with transient dysarthria, aphasia, along with mild headache. Symptoms resolved and was NOT TNKase candidate. Recently taken OFF baby aspirin due to rectal bleeding ~2wks ago Admitted for TIA with transient expressive>receptive aphasia. CT head negative, CTA head/neck negative for acute finding. Telestroke saw patient and rec ONLY ASA 81mg due to recent rectal bleeding ( rather than DAPT). inpatient neurology consulted recommended continue aspirin consideration of apixaban if negative GI workup ECHO w/ preserved EF (50-55%), negative bubble/thrombus. MRI brain negative for acute CVA but noted 9mm L frontal meningioma and moderate small vessel ischemic disease. EEG was negative for seizure pattern Symptoms resolved and have not recurred # TIA - see workup above. Reviewed telestroke neurology consult as well as relevant studies. Unable to determine whether this was embolic or ischemic she has risk factors for both, the fact that she had been off aspirin for 2 weeks prior to the event is suggestive of ischemic. In the past she has had a PAT but has never been definitively proven to have A-fib. She had a loop recorder placed about 5 years ago currently the generator is . I discussed her care with Dr. Zhu her brick setter. at this point we will continue aspirin and have her follow-up closely in the office with him - she will likely need another loop recorder vs ziopatch. -continue 81 mg aspirin and follow up in office with Dr. Zhu regarding ambulatory monitoring, potentially replacement of loop recorder simvastatin was increased to 40 mg outpatient neurology follow-up in 2 to 3 weeks we can continue to encourage her to follow-up with gastroenterology however she refused endoscopies in June. It seems likely the bleeding was hemorrhoidal and has not recurred. It would be reasonable to restart a trial of apixaban if necessary in the future and monitor for any recurrent symptoms. #UTI - possibly symptomatic of confusion on admission. Culture was polymicrobial - completed treatment on 07/13 #Chronic bilateral lower extremity lymphedema/chronic HFpEF CKD stage IIIb baseline creatinine around 1.4 -with chronic lymphedema and lipedema. edema has responded to diuretics in the past. confirmed able to have fit for play come to [facility] for lymphedema tx/calibration prior pumps/etc if able to go there at [place] - Currently appears euvolemic - Trialing increased Lasix to 40 mg daily this admission, reviewed BUN/creatinine today. creatinine 1.54 BUN unchanged, this is within her recent baseline we will continue current dose. Currently does not have any dyspnea or pitting edema. #Paroxysmal supraventricular tachycardia and longstanding question of PAF, never proven continue sotalol and aspirin see discussion above, cardiology follow-up #Recent rectal bleeding early June- was treated with hemorrhoidal suppositories and has not recurred. resumed aspirin no bleeding this admission. #Mild leukopenia-she typically runs on the lower end of normal around 4-5 K but here has been at 2.5-2.8 for her WBC count. Borderline neutropenic w/ ANC 1500 and lymphopenic w/ ALC 940. Peripheral smear not impressive. WBC remains similar, afebrile. No evidence for viral or anaplasmosis clinically and normal hgb/plt and will monitor. Outpatient colo if agreeable #Morbid obesity/prediabetes - HgbA1c here in normal range of 5.6%, BMI elevated 40.9 But improved to 36.2 after diuresis Weight loss encouraged, also suspect large component from the lymphedema. Consideration for GLP-1 in f/u PCP if deemed appropriate #Dyslipidemia- simvastatin increased for TIA DVT prophylaxis- SQ heparin Dispo: [facility] private pay versus home with assistance/caregivers HH PT/OT. Has been slowly improving with PT. Son is said to be meeting with [facility] today Medically ready for discharge to outpatient setting At nd: * rx inc simvastatin 40mg, resume asa 81mg, lasix increased to 40mg * repeat BMP - lasix dose change * cardiology follow-up, neuro f/u 2-3 wks. * Wound care/lymphedema clinic f/u Admission and Anticipated Discharge Date Admission Date: July 04, 2024 Subjective General Hortencia is doing well today I saw her walking with PT she got all the way down the hallway with her walker she acknowledges that she is improving with respect to her mobility. There are no other ongoing acute issues she has not had any recurrence of the aphasia that she had when presenting to the ED. She has not had any rectal bleeding since mid June. Physical Exam 2 Physical Exam: PHYSICAL EXAMINATION Last 24h vital signs reviewed, see documentation in flowsheet General: comfortable appearing, no distress I saw her ambulating in the hallway and later sitting in the chair at the window HEENT: Normocephalic, atraumatic, pupils round and equal, sclerae anicteric, no conjunctival injection, moist mucus membranes Lungs: Normal respiratory effort. Clear to auscultation bilaterally. No RRW Heart: Regular rate and rhythm, no murmurs. No JVD Abdomen: Soft, nontender, nondistended. Bowel sounds present. Extremities: Warm, dry, well-perfused. bilateral lower extremity lymphedema with venous stasis dermatitis no pitting edema Neuro: Alert and oriented x 4, face symmetric, moves 4 extremities well Psych: Normal affect and behavior Results & Data Results & Data Vital Signs (Past 12 Hours) Vital Signs Temp Pulse Pulse Resp BP Pulse Ox O2 Del Method 07/14/24 14:01 36.3 C L 54 L 16 113/61 97 Room Air 07/14/24 13:34 36.5 C 54 L 19 121/71 96 Room Air 07/14/24 11:33 Room Air 07/14/24 08:00 36.6 C 52 L 18 112/72 94 Room Air Laboratory Results 07/12/24 07:30 07/14/24 10:10 PG Care Time/CCT Total # of Minutes Spent Total Time Spent with Patient: Total time spent is greater than 50% in coordination of care (as documented) at patient's floor/unit and/or counseling patient: Coding Level of Care Code 16274 SUB INP/OBS CARE 2/35MIN Diagnoses TIA (transient ischemic attack) G45.9 Meningioma D32.9 Paroxysmal atrial fibrillation I48.0 Atrial fibrillation type: paroxysmal CKD stage 3b, GFR 30-44 ml/min N18.32 (3) Atrial fibrillation Atrial fibrillation type: paroxysmal Qualified Code(s): I48.0 - Paroxysmal atrial fibrillation
[2024-07-15 05:53] LABS: Appearance Urine Clear (Clear); Bilirubin Urine Negative (Negative); Blood Urine Negative (Negative); Color Urine Yellow; Glucose Urine UA Negative (Negative); Ketones Urine Negative (Negative); Leukocyte Esterase Urine Negative (Negative); Nitrite Urine Negative (Negative); Protein Urine Negative (Negative); Specific Gravity Urine 1.017 (1.000-1.030); Urobilinogen Urine Negative (Negative)
--- NOTE | 2024-07-15 13:42 | Hospitalist Progress Note ---
"Date of Service July 15, 2024 Assessment & Plan (1) TIA (transient ischemic attack): (2) Meningioma: (3) Atrial fibrillation: (4) CKD stage 3b, GFR 30-44 ml/min: Plan 78-year-old female with a history of paroxysmal SVT no clear-cut evidence of PAF and not on anticoagulation, CKD stage III, chronic bilateral LE lymphedema, morbid obesity, prediabetes, HLD, HFpEF, rectal bleeding, GERD, presented to the ER with transient dysarthria, aphasia, along with mild headache. Recently taken off baby aspirin due to rectal bleeding ~2wks ago Symptoms resolved and was NOT TNKase candidate. CT head negative, CTA head/neck negative for acute finding. ECHO w/ preserved EF (50-55%), negative bubble/thrombus. MRI brain negative for acute CVA but noted 9mm L frontal meningioma and moderate small vessel ischemic disease. EEG was negative for seizure pattern. # TIA - Unable to determine whether this was embolic or ischemic she has risk factors for both, the fact that she had been off aspirin for 2 weeks prior to the event is suggestive of ischemic. In the past she has had a PAT but has never been definitively proven to have A-fib. She had a loop recorder placed about 5 years ago currently the generator is . Prior hospitalist with Dr. Zhu her manufacturing project engineer - continue aspirin and have her follow-up closely in the office with him - she will likely need another loop recorder vs ziopatch. Simvastatin was increased to 40 mg Outpatient neurology follow-up in 2 to 3 weeks - considering adding apixaban if GI workup negative, but presently refusing endoscopies. Possible bleeding was hemorroidial but continue to encourage GI f/u. #UTI - possibly symptomatic of confusion on admission. Culture was polymicrobial - completed treatment on 07/13 #Chronic bilateral lower extremity lymphedema/chronic HFpEF | CKD stage IIIb baseline creatinine around 1.4 -with chronic lymphedema and lipedema. edema has responded to diuretics in the past. confirmed able to have fit for play come to [facility] for lymphedema tx/calibration prior pumps/etc if able to go there at dc Have increased lasix to 40mg daily with stable kidney function. #Paroxysmal supraventricular tachycardia and longstanding question of PAF, never proven continue sotalol and aspirin cardiology follow-up #Recent rectal bleeding early June- was treated with hemorrhoidal ag ppositories and has not recurred. resumed aspirin no bleeding this admission. #Mild leukopenia-she typically runs on the lower end of normal around 4-5 K but here has been at 2.5-2.8 for her WBC count. Borderline neutropenic w/ ANC 1500 and lymphopenic w/ ALC 940. Peripheral smear not impressive. WBC remains similar, afebrile. No evidence for viral or anaplasmosis clinically and normal hgb/plt and will monitor. Outpatient colo if agreeable #Morbid obesity/prediabetes - HgbA1c here in normal range of 5.6%, BMI elevated 40.9 But improved to 36.2 after diuresis Weight loss encouraged, also suspect large component from the lymphedema. Consideration for GLP-1 in f/u PCP if deemed appropriate DVT prophylaxis- SQ heparin Dispo: awaiting safe discharge plan - son working with CM At dc: * rx inc simvastatin 40mg, resume asa 81mg, lasix increased to 40mg * consider repeat BMP - lasix dose change * cardiology follow-up, neuro f/u 2-3 wks. * Wound care/lymphedema clinic f/u Admission and Anticipated Discharge Date Admission Date: July 04, 2024 Subjective patient seen sitting up to the chair. Denies acute complaints. Frustrated with her insurance and still having to be here. Does not feel like she is safe to go home at this time. Understands that her son is looking into personal care homes. She understands that her meds are as titrated as they are going to get while inpatient. Stating she has lymphedema in her legs and you can give me all the Lasix but is not going to get better. no pain or itching to her legs reports good appetite Review of Systems Review of Systems: All systems reviewed & are unremarkable except as noted in Subjective Physical Exam Physical Exam: General: comfortable appearing, sitting in the chair at the window HEENT: Normocephalic, atraumatic, pupils round and equal, sclerae anicteric, no conjunctival injection, moist mucus membranes Lungs: Normal respiratory effort. Clear to auscultation bilaterally. Heart: Regular rate and rhythm, no murmurs. No JVD Abdomen: Soft, nontender, nondistended. Bowel sounds present. Extremities: Warm, dry, well-perfused. bilateral lower extremity lymphedema with venous stasis dermatitis no pitting edema Neuro: Alert and oriented x 4, face symmetric, moves 4 extremities well Psych: Normal affect and behavior Results & Data Results & Data Vital Signs (Past 12 Hours) Vital Signs Temp Pulse Resp BP Pulse Ox O2 Del Method 07/15/24 07:48 Room Air 07/15/24 07:32 97.5 F L 68 16 108/72 95 Room Air Laboratory Results UA reviewed PG Care Time/CCT Total # of Minutes Spent Total Time Spent with Patient: Total time spent is greater than 50% in coordination of care (as documented) at patient's floor/unit and/or counseling patient: Coding Level of Care Code 98848 SUB INP/OBS CARE 04/05MIN Diagnoses TIA (transient ischemic attack) G45.9 Meningioma D32.9 Paroxysmal atrial fibrillation I48.0 Atrial fibrillation type: paroxysmal CKD stage 3b, GFR 30-44 ml/min N18.32 (3) Atrial fibrillation Atrial fibrillation type: paroxysmal Qualified Code(s): I48.0 - Paroxysmal atrial fibrillation"
[2024-07-16 07:59] VITALS: O2SAT 99
--- NOTE | 2024-07-16 14:22 | Hospitalist Progress Note ---
"Date of Service July 16, 2024 Assessment & Plan (1) TIA (transient ischemic attack): (2) Meningioma: (3) Atrial fibrillation: (4) CKD stage 3b, GFR 30-44 ml/min: Plan 78-year-old female with a history of paroxysmal SVT no clear-cut evidence of PAF and not on anticoagulation, CKD stage III, chronic bilateral LE lymphedema, morbid obesity, prediabetes, HLD, HFpEF, rectal bleeding, GERD, presented to the ER with transient dysarthria, aphasia, along with mild headache. Recently taken off baby aspirin due to rectal bleeding ~2wks ago Symptoms resolved and was NOT TNKase candidate. CT head negative, CTA head/neck negative for acute finding. ECHO w/ preserved EF (50-55%), negative bubble/thrombus. MRI brain negative for acute CVA but noted 9mm L frontal meningioma and moderate small vessel ischemic disease. EEG was negative for seizure pattern. # TIA - Unable to determine whether this was embolic or ischemic she has risk factors for both, the fact that she had been off aspirin for 2 weeks prior to the event is suggestive of ischemic. In the past she has had a PAT but has never been definitively proven to have A-fib. She had a loop recorder placed about 5 years ago currently the generator is . Prior hospitalist with Dr. 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 Simvastatin was increased to 40 mg Outpatient neurology follow-up in 2 to 3 weeks - considering adding apixaban if GI workup negative, but presently refusing endoscopies. Possible bleeding was hemorroidial but continue to encourage GI f/u. Did have some vision changes a.m. of 07/16 that spontaneously resolved, similar to her prior migraines. No other deficits or concerns for TIA. #UTI - possibly symptomatic of confusion on admission. Culture was polymicrobial - completed treatment on 07/13 #Chronic bilateral lower extremity lymphedema/chronic HFpEF | CKD stage IIIb baseline creatinine around 1.4 -with chronic lymphedema and lipedema. edema has responded to diuretics in the past. confirmed able to have fit for play come to [facility] for lymphedema tx/calibration prior pumps/etc if able to go there at [place] Have increased lasix to 40mg daily with stable kidney function. #Paroxysmal supraventricular tachycardia and longstanding question of PAF, never proven continue sotalol and aspirin cardiology follow-up #Recent rectal bleeding early June- was treated with hemorrhoidal suppositories and has not recurred. resumed aspirin no bleeding this admission. #Mild leukopenia-she typically runs on the lower end of normal around 4-5 K but here has been at 2.5-2.8 for her WBC count. Borderline neutropenic w/ ANC 1500 and lymphopenic w/ ALC 940. Peripheral smear not impressive. WBC remains similar, afebrile. No evidence for viral or anaplasmosis clinically and normal hgb/plt and will monitor. Outpatient colo if agreeable #Morbid obesity/prediabetes - HgbA1c here in normal range of 5.6%, BMI elevated 40.9 But improved to 36.2 after diuresis Weight loss encouraged, also suspect large component from the lymphedema. Consideration for GLP-1 in f/u PCP if deemed appropriate DVT prophylaxis- SQ heparin Dispo: awaiting safe discharge plan - son working with CM At dc: * rx inc simvastatin 40mg, resume asa 81mg, lasix increased to 40mg * consider repeat BMP - lasix dose change * cardiology follow-up, neuro f/u 2-3 wks. * Wound care/lymphedema clinic f/u Admission and Anticipated Discharge Date Admission Date: July 04, 2024 Subjective patient evaluated earlier this morning after being called to the bedside by RN as patient thought that she was having visual field deficits. Reports that she was having an aura sensation in her right eye this happens similarly when she has migraines but has not had a migraine in a while. She states this did happen prior to her recent aphasic event and she was worried she was having another TIA. By the time that I have gone to bedside, a few minutes after the page from her nurse, her symptoms are already improving. She is able to communicate with me without any difficulty. Thorough neuroexam did not reveal any deficits. Discussed that we could do repeat head CT with low suspicion that we could find anything and patient was in agreement of not repeating this. Will continue to monitor symptoms and reassess if they worsen. She does report a mild headache only on the right side feels like she is wearing a hat. Good appetite, reports that she slept okay. Review of Systems Review of Systems: All systems reviewed & are unremarkable except as noted in Subjective Physical Exam Physical Exam: General: comfortable appearing, sitting in the chair at the window HEENT: Normocephalic, atraumatic, pupils round and equal, sclerae anicteric, no conjunctival injection, moist mucus membranes Lungs: Normal respiratory effort. Clear to auscultation bilaterally. Heart: Regular rate and rhythm, no murmurs. No JVD Abdomen: Soft, nontender, nondistended. Bowel sounds present. Extremities: Warm, dry, well-perfused. bilateral lower extremity lymphedema with venous stasis dermatitis no pitting edema Neuro: Alert and oriented x 4, face symmetric, moves 4 extremities well. Strength equal and intact to upper and lower extremities. Rapid sequential movements intact. Extraocular eye movements intact, no when eyes nystagmus. No tongue deviation. Sensation intact to face bilateral extremities and lower extremities. Psych: Normal affect and behavior Results & Data Results & Data Vital Signs (Past 12 Hours) Vital Signs Temp Pulse Resp BP Pulse Ox O2 Del Method 07/16/24 07:58 97.5 F L 50 L 18 125/72 99 Room Air 07/16/24 07:06 97.5 F L 48 L 16 107/60 95 Room Air PG Care Time/CCT Total # of Minutes Spent Total Time Spent with Patient: Total time spent is greater than 50% in coordination of care (as documented) at patient's floor/unit and/or counseling patient: Coding Level of Care Code None Diagnoses TIA (transient ischemic attack) G45.9 Meningioma D32.9 Paroxysmal atrial fibrillation I48.0 Atrial fibrillation type: paroxysmal CKD stage 3b, GFR 30-44 ml/min N18.32 (3) Atrial fibrillation Atrial fibrillation type: paroxysmal Qualified Code(s): I48.0 - Paroxysmal atrial fibrillation"
[2024-07-16 14:31] VITALS: BP 121/71; PULSE 53; RESP 20; TEMP 97.7
--- NOTE | 2024-07-16 17:40 | Discharge Summary ---
Discharge Summary Date of Service July 16, 2024 Principal Dx & Hospital Course #1 = Principal Diagnosis (1) TIA (transient ischemic attack): (2) Meningioma: (3) Atrial fibrillation: (4) CKD stage 3b, GFR 30-44 ml/min: Plan # TIA 78-year-old female with a history of paroxysmal SVT no clear-cut evidence of PAF and not on anticoagulation, CKD stage III, chronic bilateral LE lymphedema, morbid obesity, prediabetes, HLD, HFpEF, rectal bleeding, GERD, presented to the ER with transient dysarthria, aphasia, along with mild headache. Aphasia resolved by the time of admission. Recently taken off baby aspirin due to rectal bleeding ~2wks ago Symptoms resolved and was NOT TNKase candidate. CT head negative, CTA head/neck negative for acute finding. ECHO w/ preserved EF (50-55%), negative bubble/thrombus. MRI brain negative for acute CVA but noted 9mm L frontal meningioma and moderate small vessel ischemic disease. EEG was negative for seizure pattern. Simvastatin was increased to 40mg. A1c 5.6 - not diabetic, no anti-glycemics indicated. Outpatient neurology follow-up in 2 to 3 weeks - considering adding apixaban if GI workup negative, but presently refusing endoscopies. Possible bleeding was hemorrhoidal but continue to encourage GI f/u with abnormalities on CT scan. Unable to determine whether this was embolic or ischemic she has risk factors for both, the fact that she had been off aspirin for 2 weeks prior to the event is suggestive of ischemic. In the past she has had a PAT but has never been definitively proven to have A-fib. She had a loop recorder placed about 5 years ago currently the generator is . 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 #UTI - possibly symptomatic of confusion on admission. Culture was polymicrobial, completed treatment on 07/13 #Chronic bilateral lower extremity lymphedema/chronic HFpEF | CKD stage IIIb baseline creatinine around 1.4 -with chronic lymphedema and lipedema. edema has responded to diuretics in the past - lasix increased to 40mg and kidney function remained stable. #Paroxysmal supraventricular tachycardia and longstanding question of PAF, never proven continue sotalol and aspirin. See discussion above #Recent rectal bleeding early June- was treated with hemorrhoidal suppositories and has not recurred, but did have CT scan with questionable duodenal abnormality. Resumed aspirin no bleeding this admission. Recommend continued workup and endoscopies to determine if able to add more anticoagulations/antiplatelets. Follows with [facility] #Mild leukopenia-she typically runs on the lower end of normal around 4-5 K but here has been at 2.5-2.8 for her WBC count. Borderline neutropenic w/ ANC 1500 and lymphopenic w/ ALC 940. Peripheral smear not impressive. WBC remains similar, afebrile. No evidence for viral or anaplasmosis clinically and normal hgb/plt and will monitor. Outpatient colo if agreeable #Morbid obesity/prediabetes - HgbA1c here in normal range of 5.6%, BMI elevated 40.9 But improved to 36.2 after diuresis Weight loss encouraged, also suspect large component from the lymphedema. Consideration for GLP-1 in f/u PCP if deemed appropriate Dispo: discharge to home today with help from family and friends - orginally patient was hoping for SNF, but continued to progress with therapy. HOme health was recommended but patient prefers to continue to work with Powerback therapy. Case discussed with CM Notes For Next Care Provider GI follow up - [facility] f//u - dr. Zhu neurology follow up Medication Changes From Visit lasix increased statin increased Admission HPI Per Admitting Provider Is a 78-year-old female who was just here last week with what appeared to be a low-grade lower GI bleed. Her hemoglobin was stable. She was discharged back to the shelter last week. On evaluation today at the shelter she was having word finding difficulty and some dysarthria. This was accompanied by low-grade headache. She presented to the ER as a stroke alert. In the ER she had a CT of the brain which was negative for acute findings. She had a CTA of the head and a CTA of the neck all of which were negative for large vessel occlusive disease. Telestroke consultation was obtained by the ER provider. Recommend admitting the patient under the stroke protocol for MRI, neurological consultation, echocardiogram. Per the ER physician aspirin therapy only recommended due to the recent GI bleed. We are also ordering a COVID test per protocol as the patient from a shelter per utilizations request in addition we are ordering a UA. Most of the patient's symptomatology has resolved she only complains of a mild low-grade headache. However, the word finding difficulty and dysarthria have completely resolved. Laboratory studies were unremarkable. Discharge Exam General: comfortable appearing, sitting in the chair at the window HEENT: Normocephalic, atraumatic, pupils round and equal, sclerae anicteric, no conjunctival injection, moist mucus membranes Lungs: Normal respiratory effort. Clear to auscultation bilaterally. Heart: Regular rate and rhythm, no murmurs. No JVD Abdomen: Soft, nontender, nondistended. Bowel sounds present. Extremities: Warm, dry, well-perfused. bilateral lower extremity lymphedema with venous stasis dermatitis no pitting edema Neuro: Alert and oriented x 4, face symmetric, moves 4 extremities well. Strength equal and intact to upper and lower extremities. Rapid sequential movements intact. Extraocular eye movements intact, no when eyes nystagmus. No tongue deviation. Sensation intact to face bilateral extremities and lower extremities. Psych: Normal affect and behavior Discharge Plan Discharge Items Patient Disposition: Home - Self-Care Reason For Visit: TIA Discharge Diagnosis: TIA Activity: Per Instructions section Weightbearing: Full weightbearing Non-emergency contact: Primary Care Provider and Neurologist Call non-emergency contact if: you have any medication questions and your symptoms worsen Follow-up/Referrals: Pete Car MD [Physician] - (follow up 2-3 weeks ) Samy Zhu MD [Physician] - (follow up 2-3 weeks ) Yong Henriquez III, CRNP [Primary Care Provider] - (follow up within one week ) Diet: Heart Healthy Addtl Attending Provider Instructions: Ms. Henson You were hospitalized after having an episode where you were unable to speak, found to be a TIA or sometimes called a "mini stroke". Thankfully your symptoms have resolved on their own. Because of this we have increased your statin dose. There was concerns this was caused by your heart going into an abnormal rhythm - unfortunately, your loop recorder battery is - will need to follow up with cardiology to determine if that will be replaced or do a different type of monitor. Because of the mini stroke you have been placed back on baby aspirin - ideally you would be on additional blood thinners to prevent further strokes but we deferred this because of your recent GI bleed episodes. Would highly recommend that you have a follow up GI evaluation (endoscopies) to rule out any complications/abnormalities. and see if it is safe to add more blood thinners. You will also need to follow up with Neurology. You were also treated for a UTI. Lasix was increased to help with Lymphedema. You can follow up with [facility] for lymph edema therapy if desired. Follow ups: -[facility] - PCP - cardiology - Dr. Zhu (specifically for loop recorder) - MD neuro 2-3 weeks Activity: You can do normal everyday activities as your body allows. Take rest breaks if you feel tired. Do not overexert. Stop activity if you have pain, shortness of breath or feel dizzy. CONTACT YOUR PRIMARY CARE PROVIDER if you experience any of the following: Shortness of breath or difficulty breathing Fevers or chills Feeling tired with normal activity or experiencing dizziness or fainting Difficulty following your treatment plan, or difficulty taking medications CALL 911 OR GO TO THE EMERGENCY DEPARTMENT if you experience any of the following: Severe abdominal pain or nausea/vomiting Severe chest pain, or chest pain that radiates (moves) to your jaw or arm Sudden, severe shortness of breath or difficulty breathing Thank you for allowing us to participate in your care. Pending Studies at Discharge: No Stand-Alone Forms: [facility], Smoking Cessation, Medications to Prevent Stroke Medications and DC Order Prescriptions: New furosemide 40 mg Tablet 40 mg PO QAM Qty: 30 0RF simvastatin 40 mg Tablet 40 mg PO HS Qty: 30 0RF Continued (DME) compr.stocking,knee,long,large misc See Dose Instructions .ROUTE .MEDSUPPLY Qty: 6 0RF Dose Instruction: As directed Rx Instructions: As directed (DME) BD Eclipse Luer-Luz 25 gauge x 1 1/2" needle See Rx Instructions .ROUTE .MEDSUPPLY Qty: 4 0RF Rx Instructions: As directed dicyclomine 10 mg capsule 10 mg PO TID PRN (Reason: abdominal cramping) Qty: 90 3RF nystatin 100,000 unit/gram powder 1 applic TOP TID PRN (Reason: AFFECTED SKIN) Qty: 60 2RF coenzyme Q10 100 mg capsule 100 mg PO DAILY Qty: 90 1RF aspirin 81 mg tablet,delayed release (DR/EC) 81 mg PO DAILY Qty: 90 1RF Hold Instructions: Resume on 07/04/24. f/u with PCP mecobalamin (vitamin B12) 1,000 mcg tablet,chewable 1,000 mcg PO 3XWK Rx Instructions: MON, WED, & FRI. sotalol 80 mg tablet 20 mg PO BID Rx Instructions: TAKES 1/4 OF TAB BID hydrocortisone acetate [Anucort-HC] 25 mg Suppository 25 mg WA BID 10 Days Qty: 24 0RF pantoprazole 40 mg Tablet,Delayed Release (Dr/Ec) 40 mg PO DAILY 30 Days Qty: 30 0RF Tubersol 5 tub. unit /0.1 mL Solution 0.1 ml INTRADERMAL DIRECTED Rx Instructions: administer 7 days after 1st dose (1st dose-06/27) Thursday 07/06 acetaminophen 325 mg Tablet 650 mg PO Q4H PRN (Reason: Pain/fever) bisacodyl 10 mg Suppository 10 mg WA DAILY PRN (Reason: Constipation) docusate sodium 100 mg Capsule 100 mg PO DAILY PRN (Reason: Constipation) polyethylene glycol 3350 [Miralax] 17 gram/dose Powder 17 g PO DAILY PRN (Reason: Constipation) Metamucil (sugar) Powder 1 tbsp PO HS magnesium chloride [Mag 64] 64 mg tablet,delayed release (DR/EC) 64 mg PO BID Discontinued simvastatin 10 mg tablet 10 mg PO QPM furosemide 20 mg tablet 10 - 20 mg PO QAM Discharge Orders: Discharge Order (Routine); Ordered 07/16/24 Ordered By: Apryl Fritz/Other Patient Handouts: TIA Dc, ED TIA: Transient Ischemic Attack Admission Data Admit Date/Time: 07/04/24 16:17 Attending Provider: Patrice Damon Admit Provider: Tanika Garcia Primary Care Provider: Yong Henriquez III Other Providers: Stanley Teixeira [place]; Pete Car; Aiden Truong Hospital Stay Data Consultations 07/03/24 11:29 Consult Neurology Routine 07/03/24 11:30 ED Decision to Admit Stat Diagnostic Imagining Performed Head CT 07/03/24 09:59 CT head/brain wo con CLINICAL HISTORY: neuro deficit, acute stroke suspected. TECHNIQUE: Multiple axial CT images of the head were obtained without contrast. A dose lowering technique was utilized adhering to the principles of ALARA. COMPARISON: MRI of 10/30/2019 FINDINGS: Stable mild prominence of the CSF space posterior cranial fossa at the midline, small arachnoid cyst versus mild mak cisterna magna. No intracranial hemorrhage seen. No mass effect, midline shift, or hydrocephalus. There is moderate scattered patchy periventricular hypodensity which is nonspecific, but usually represents chronic small vessel ischemic change. No skull fracture seen. Visualized paranasal sinuses and mastoid air cells are clear. IMPRESSION: No acute findings. ACT 112: Negative or not required by law. The above report was generated using voice recognition software. It may contain grammatical, syntax or spelling errors. Electronically signed by: Gary Burch M.D. 07/03/2024 10:26 AM Head CTA 07/03/24 09:59 CTA ANGIOGRAPHY OF THE HEAD CLINICAL HISTORY: neuro deficit, acute stroke suspected COMPARISON STUDY: MRI brain October 30, 2019. TECHNIQUE: Helical axial images of the head were obtained following uneventful intravenous administration of 120 cc of Optiray. Sagittal and coronal reconstructions were viewed as well as maximal intensity projections on an independent 3-D workstation. Automated exposure control was utilized for the s yesseniady. A dose lowering technique was utilized adhering to the principles of ALARA. FINDINGS: Please note that the head CT will be reported separately. No acute intracranial hemorrhage, midline shift or mass effect is present. Vascular calcification is somewhat suboptimal. However, the bilateral M1, M2, A1 and A2 segments are patent. Both anterior cerebral arteries arise from the right internal carotid artery. This represents an anatomic variant. The posterior circulation is intact. There is persistence of the right posterior cerebral artery. No intracranial aneurysm or dissection. There is mild atherosclerotic plaque within the cavernous carotids. IMPRESSION: No large vessel occlusion. No intracranial aneurysm. ACT 112: Negative or not required by law. Electronically signed by: Delmar Conklin M.D. 07/03/2024 10:36 AM Neck CTA 07/03/24 09:59 CT angio neck with con CLINICAL HISTORY: 78 years-old Female with neuro deficit, acute stroke suspected. Acute stroke like symptoms COMPARISON STUDY: Head CT and CTA head of same day TECHNIQUE: Following the IV administration of 120 of Optiray, CT angiogram of the neck was performed from the aortic arch to the skull base. Images are reviewed in the axial, sagittal, and coronal planes. 3-D MIPS images are created and assessed. IV contrast was administered without complication. All measurements were calculated based on NASCET criteria. A dose lowering technique was utilized adhering to the principles of ALARA. CT DOSE: 949.65 mGy.cm FINDINGS: Three-vessel morphology of the thoracic aortic arch. Patency of the innominate and imaged subclavian arteries. The common and internal carotid arteries also appear patent. There is no significant atherosclerosis. The vertebral arteries are codominant and patent. Visualized vertebral artery is also patent. There is no aneurysm, dissection, high-grade stenosis or arterial occlusion identified. Cardiomegaly. Partially imaged left upper lobe opacity may represent some scarring. Intralobular septal thickening suggestive of pulmonary edema. Right glenohumeral joint effusion contains intra-articular loose bodies, likely second maxine to osteoarthritis. Degenerative changes of the spine. IMPRESSION: 1. Unremarkable CTA of the neck. 2. Cardiomegaly with interstitial pulmonary edema. ACT 112: Negative or not required by law. The above report was generated using voice recognition software. It may contain grammatical, syntax or spelling errors. Electronically signed by: Pedro Hayes M.D. 07/03/2024 10:55 AM Brain MRI 07/03/24 11:29 MR brain wo/w con HISTORY: 78 years-old Female ? CVA acute stroke like symptoms COMPARISON: Head CT of same day, brain MRI 10/30/2019 TECHNIQUE: Multiplanar multisequence MRI of the brain was obtained with and without IV contrast FINDINGS: There is no restricted diffusion to suggest acute or subacute infarct. Mak cisterna magna. Midline structures appear unremarkable. Degenerative changes of the cervical spine with minimal central canal stenosis at C3-C4. There is no acute intracranial hemorrhage, midline shift, abnormal extra-axial collection, hydrocephalus or intra-axial mass. Involutional changes. Progressive worsening of the now moderate T2/FLAIR hyperintense foci throughout the white matter. 9 mm extra-axial structure adjacent to the superior left frontal lobe on image 17 series 7 demonstrates avid enhancement, not clearly seen on the prior exam. There is no pathologic blooming artifact on the T2*series. Cerebral venous sinuses and major arterial flow voids appear patent. Skull, orbits and soft tissues are unremarkable. There is prior bilateral lens repair. The mastoid air cells and paranasal sinuses appear clear. IMPRESSION: 1. No acute intracranial abnormality, specifically there is no acute or subacute infarct. 2. 9 mm probable meningioma adjacent to the superior left frontal lobe is new from the 2020 comparison. 3. Involutional changes with progressive now moderate moderate T2/FLAIR hyperintense foci throughout the white matter. Findings may represent chronic microvascular ischemic disease and/or a demyelinating process as described on the prior exam. ACT 112: Negative or not required by law. The above report was generated using voice recognition software. It may contain grammatical, syntax or spelling errors. Electronically signed by: Pedro Hayes M.D. 07/03/2024 3:41 PM Pending Results Patient Have Any Pending Studies at Discharge: No Discharge Instructions Given to Patient (Per Discharging Provider) Ms. Henson You were hospitalized after having an episode where you were unable to speak, found to be a TIA or sometimes called a "mini stroke". Thankfully your symptoms have resolved on their own. Because of this we have increased your statin dose. There was concerns this was caused by your heart going into an abnormal rhythm - unfortunately, your loop recorder battery is - will need to follow up with cardiology to determine if that will be replaced or do a different type of monitor. Because of the mini stroke you have been placed back on baby aspirin - ideally you would be on additional blood thinners to prevent further strokes but we deferred this because of your recent GI bleed episodes. Would highly recommend that you have a follow up GI evaluation (endoscopies) to rule out any complications/abnormalities. and see if it is safe to add more blood thinners. You will also need to follow up with Neurology. You were also treated for a UTI. Lasix was increased to help with Lymphedema. You can follow up with [facility] for lymph edema therapy if desired. Follow ups: -[facility] - PCP - cardiology - Dr. Zhu (specifically for loop recorder) - MD neuro 2-3 weeks Activity: You can do normal everyday activities as your body allows. Take rest breaks if you feel tired. Do not overexert. Stop activity if you have pain, shortness of breath or feel dizzy. CONTACT YOUR PRIMARY CARE PROVIDER if you experience any of the following: Shortness of breath or difficulty breathing Fevers or chills Feeling tired with normal activity or experiencing dizziness or fainting Difficulty following your treatment plan, or difficulty taking medications CALL 911 OR GO TO THE EMERGENCY DEPARTMENT if you experience any of the following: Severe abdominal pain or nausea/vomiting Severe chest pain, or chest pain that radiates (moves) to your jaw or arm Sudden, severe shortness of breath or difficulty breathing Thank you for allowing us to participate in your care. Total Time Total Time Spent Total Time Spent (In Minutes): Time spent day of discharge 40 minutes including direct patient care, medication reconciliation, documentation, review of labs and images, and coordination of care. Coding Level of Care Code 17874 INP/OBS DISCH >30 MIN Diagnoses TIA (transient ischemic attack) G45.9 Meningioma D32.9 Paroxysmal atrial fibrillation I48.0 Atrial fibrillation type: paroxysmal CKD stage 3b, GFR 30-44 ml/min N18.32
[2024-07-16] MEDS: STROKE PATIENT DISCHARGE STA (18:37)
== END 2024-07-16 18:38 | disposition home or self-care (01) | DRG 69 ==
LOC: EDINP 09:57 → ED 09:57 → SUATTDRO 11:37 → 2S 15:36 → SUATTDRO 07-04 16:17 → 3N 07-12 15:14